=== PATIENT | female | born 1985 | race Caucasian/White ===

== ENCOUNTER 2017-07-07 19:49 | Emergency (ER) | payer SELFPAY ==
[2017-07-07] MEDS ORDERED: NA CHLORIDE 0.9% 0 ML ONE (20:59)
[2017-07-07 21:08] LABS: Urine Blood NEGATIVE (NEG); Urine Glucose NEGATIVE (NEG); Urine Protein TRACE (NEG); Urine Specific Gravity 1.015 (1.005-1.030); Urine pH 8.5 (5.0-7.0)
[2017-07-07 21:26] LABS: Absolute Lymphocytes (CBC) 1.7 K/uL (0.7-4.9); Absolute Monocytes 0.8 K/uL (0.1-1.3); Absolute Neutrophil 6.2 K/uL (1.8-8.0); Basophils % 0.9 % (0-1.3); Eosinophils % 1.3 % (0-4.4); Hematocrit 32.5 % (36.0-45.0); Lymphocytes % 19.5 % (15.3-44.8); MCH 26.4 pg (27.0-35.0); MCV 79.3 fL (80-100); MPV 8.5 fL (7.6-11.3); Monocytes % 8.7 % (3.3-12.3)
[2017-07-07] MEDS ORDERED: NA CHLORIDE 0.9% 1,000 ML ONE (21:32)
[2017-07-07 21:36] LABS: Bicarbonate 27 mEq/L (21-31); Glucose Level 94 mg/dL (65-120); Lipase 32 U/L (22-51); Potassium 3.9 mEq/L (3.6-5.0); Sodium Level 140 mEq/L (135-145)
[2017-07-07 21:42] LABS: ALT/SGPT 16 IU/L (10-60); AST/SGOT 18 IU/L (10-42); Albumin 3.7 g/dL (3.2-5.5); Alkaline Phosphatase 58 IU/L (42-121); Amylase Level 49 U/L (28-100); BUN Blood Urea Nitrogen 12 mg/dL (6-20); Bilirubin Direct 0.1 mg/dL (0-0.2); Bilirubin Total 0.4 mg/dL (0.3-1.2); Protein, Total 6.8 g/dL (6.0-8.3)
[2017-07-07 21:53] LABS: Urine Bacteria <20 /HPF (<20); Urine Culture Reflex Order NOT NEEDED; Urine Mucus 1+ /HPF (NONE SEEN); Urine RBC <5 /HPF (NONE SEEN)
--- NOTE | 2017-07-07 23:10 | EDPHYS ---
Physician Documentation [facility] Name: Elvira Wang Age: 32 yrs Sex: Female : 1985 Arrival Date: 07/07/2017 Time: 19:49 Bed 8 Private MD: Brook Mejia ED Physician Otf Garvey HPI: 07/07 23:03 This 32 yrs old Female presents to ER via Ambulatory with complaints of tw4 Abdominal Swelling, Dizziness. 23:03 The patient presents with generalized weakness. Onset: The symptoms/episode tw4 began/occurred 1 week(s) ago. Context: occurred at home. Modifying factors: The symptoms are alleviated by nothing, the symptoms are aggravated by nothing. Associated signs and symptoms: The patient has no apparent associated signs or symptoms. Severity of symptoms: At their worst the symptoms were mild in the emergency department the symptoms are unchanged. The patient has experienced similar episodes in the past, a few times. 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 - Social history:: Smoking status: Patient/guardian denies using tobacco. ROS: 23:03 Constitutional: Negative for fever, chills, and weight loss, Cardiovascular: Negative tw4 for chest pain, palpitations, and edema, Respiratory: Negative for shortness of breath, cough, wheezing, and pleuritic chest pain, Abdomen/GI: Negative for abdominal pain, nausea, vomiting, diarrhea, and constipation, Back: Negative for injury and pain. 23:03 Neuro: Positive for dizziness, Negative for altered mental status, gait disturbance, headache, hearing loss, loss of consciousness, numbness, tinnitus, tremor. Exam: 23:03 Constitutional: This is a well developed, well nourished patient who is awake, alert, tw4 and in no acute distress. Head/Face: Normocephalic, atraumatic. Chest/axilla: Normal chest wall appearance and motion. Nontender with no deformity. No lesions are appreciated. Cardiovascular: Regular rate and rhythm with a normal S1 and S2. No gallops, murmurs, or rubs. Normal PMI, no JVD. No pulse deficits. Respiratory: Lungs have equal breath sounds bilaterally, clear to auscultation and percussion. No rales, rhonchi or wheezes noted. No increased work of breathing, no retractions or nasal flaring. Abdomen/GI: Soft, non-tender, with normal bowel sounds. No distension or tympany. No guarding or rebound. No evidence of tenderness throughout. Back: No spinal tenderness. No costovertebral tenderness. Full range of motion. MS/ Extremity: Pulses equal, no cyanosis. Neurovascular intact. Full, normal range of motion. Neuro: Awake and alert, GCS 15, oriented to person, place, time, and situation. Cranial nerves II-XII grossly intact. Motor strength 5/5 in all extremities. Sensory grossly intact. Cerebellar exam normal. Normal gait. Vital Signs: 20:16 BP 130 / 76; Pulse 67; Resp 14; Temp 97.8(TE); Pulse Ox 99% on R/A; Weight 90.72 kg lk1 (R); Height 5 ft. 4 in. (162.56 cm) (R); Pain 5/10; 21:44 BP 129 / 89; Pulse 63; Resp 18; Pulse Ox 99% on R/A; mg2 22:50 BP 133 / 89; Pulse 69; Resp 18; Pulse Ox 100% on R/A; mg2 20:16 Body Mass Index 34.33 (90.72 kg, 162.56 cm) lk1 MDM: 20:27 Patient medically screened. tw4 23:03 Differential diagnosis: hyperventilation, idiopathic dizziness, near-syncope, tw4 , vertigo. Data reviewed: vital signs, EMS record. 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 Counseling: I had a detailed discussion with the patient and/or guardian regarding: the historical points, exam findings, and any diagnostic results supporting the discharge/admit diagnosis, lab results. Medication response: IVF hydration. Response to treatment: and as a result, I will discharge patient. Special discussion: I discussed with the patient/guardian in detail that at this point there is no indication for admission to the hospital. It is understood, however, that if the symptoms persist or worsen the patient needs to return immediately for re-evaluation. ED course: pt states she feels well. 07/07 20:45 Order name: Amylase, Serum; Complete Time: 21:51 [facility] 07/07 20:45 Order name: Basic Metabolic Panel; Complete Time: 21:51 [facility] 07/07 21:51 Interpretation: Normal except: CA 8.4. 07/07 20:45 Order name: CBC with Diff; Complete Time: 21:51 [facility] 07/07 21:51 Interpretation: Normal except: HCT 32.5; HGB 10.8; MCV 79.3; MCH 26.4; RDW 15.5. 07/07 20:45 Order name: Creatinine for Radiology; Complete Time: 21:51 [facility] 07/07 21:51 Interpretation: Within normal limits: GFR > 60; CRE 0.57. [facility] 07/07 20:45 Order name: Hepatic Function; Complete Time: 21:51 [facility] 07/07 21:52 Interpretation: Within normal limits. [facility] 07/07 20:45 Order name: Lipase; Complete Time: 21:51 [facility] 07/07 21:52 Interpretation: Within normal limits: LIP 32. 07/07 20:45 Order name: Urine Test (obtain specimen); Complete Time: 20:56 [facility] 07/07 20:45 Order name: Urine Microscopic Only; Complete Time: 22:30 [facility] 07/07 20:45 Order name: IV Saline Lock; Complete Time: 21:43 [facility] 07/07 20:45 Order name: Labs collected and sent; Complete Time: 21:43 [facility] 07/07 20:45 Order name: Urine Dipstick-Ancillary (obtain specimen); Complete Time: 20:56 [facility] 07/07 21:05 Order name: Urine Dipstick--Ancillary (enter results); Complete Time: 21:51 rg2 07/07 21:05 Order name: Urine --Ancillary (enter results); Complete Time: 21:51 rg2 Administered Medications: 21:11 Drug: NS 0.9% 1000 ml Route: IV; Rate: 1 bolus; Site: right antecubital; mg2 23:46 Follow up: Response: No adverse reaction; IV Status: Completed infusion mg2 Disposition: 07/07/17 23:09 Discharged to Home. Impression: Weakness. - Condition is Stable. - Medication Reconciliation Form, Thank You Letter, Antibiotic Education, Prescription Opioid Use form. - Follow up: Brook Mejia; When: As needed; Reason: If symptoms return, Recheck today's complaints, Continuance of care, Re-evaluation by your physician. - Problem is new. - Symptoms have improved. Signatures: Dispatcher [employer] EDIL Denia Villanueva RN RN lk1 Otf Garvey MD MD tw4 Raz Hunt RN RN mg2 Corrections: (The following items were deleted from the chart) 23:47 23:09 07/07/2017 23:09 Discharged to Home. Impression: Weakness. Condition is Stable. mg2 Forms are Medication Reconciliation Form, Thank You Letter, Antibiotic Education, Prescription Opioid Use. Follow up: Brook Mejia; When: As needed; Reason: If symptoms return, Recheck today's complaints, Continuance of care, Re-evaluation by your physician. Problem is new. Symptoms have improved. tw4
--- NOTE | 2017-07-07 23:10 | ER ---
Nurse's Notes [facility] Name: Elvira Wang Age: 32 yrs Sex: Female : 1985 Arrival Date: 07/07/2017 Time: 19:49 Bed 8 Private MD: Brook Mejia Diagnosis: Weakness Presentation: 07/07 20:14 Presenting complaint: Patient states: "I missed work today. I feel fatigued, my period lk1 was on the and only lasted one day. Last week I was in the ER with diarrhea. I get dizzy too.". Transition of care: patient was not received from another setting of care. Onset of symptoms was June 30, 2017. Risk Assessment: Do you want to hurt yourself or someone else? Patient reports no desire to harm self or others. Initial Sepsis Screen: Does the patient meet any 2 criteria? No. Patient's initial sepsis screen is negative. Does the patient have a suspected source of infection? No. Patient's initial sepsis screen is negative. Care prior to arrival: None. 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 - Social history:: Smoking status: Patient/guardian denies using tobacco. Screenin:49 Abuse screen: Denies threats or abuse. Denies injuries from another. Nutritional aa1 screening: No deficits noted. Tuberculosis screening: No symptoms or risk factors identified. Fall Risk None identified. Assessment: 20:49 General: Appears in no apparent distress. comfortable, Behavior is calm, cooperative, aa1 appropriate for age. Pain: Denies pain. Neuro: Level of Consciousness is awake, alert, obeys commands, Oriented to person, place, time, situation, Moves all extremities. Full function Gait is steady. Neuro: Reports dizziness. Cardiovascular: Heart tones S1 S2 present Rhythm is regular. Cardiovascular: Reports fatigue. Respiratory: Airway is patent Respiratory effort is even, unlabored, Respiratory pattern is regular, symmetrical, Breath sounds are clear bilaterally. GI: Abdomen is non-distended, Bowel sounds present X 4 quads. Abd is soft and non tender X 4 quads. Reports diarrhea. : No signs and/or symptoms were reported regarding the genitourinary system. EENT: No signs and/or symptoms were reported regarding the EENT system. Derm: Skin is intact, Skin is pink, warm \\T\\ dry. normal, Skin temperature is warm. Musculoskeletal: Circulation, motion, and sensation intact. Capillary refill < 3 seconds. Vital Signs: 20:16 BP 130 / 76; Pulse 67; Resp 14; Temp 97.8(TE); Pulse Ox 99% on R/A; Weight 90.72 kg lk1 (R); Height 5 ft. 4 in. (162.56 cm) (R); Pain 5/10; 21:44 BP 129 / 89; Pulse 63; Resp 18; Pulse Ox 99% on R/A; mg2 22:50 BP 133 / 89; Pulse 69; Resp 18; Pulse Ox 100% on R/A; mg2 20:16 Body Mass Index 34.33 (90.72 kg, 162.56 cm) lk1 ED Course: 19:49 Patient arrived in ED. am2 19:52 Brook Mejia is Private Physician. am2 20:15 Triage completed. lk1 20:18 Arm band placed on right wrist. lk1 20:25 Karrie Cummins, RN is Primary Nurse. aa1 20:27 Otf Garvey MD is Attending Physician. tw4 20:49 Patient has correct armband on for positive identification. Placed in gown. Bed in low aa1 position. Call light in reach. Pulse ox on. NIBP on. 20:49 Urine collected: clean catch specimen. aa1 21:11 Inserted saline lock: 20 gauge in right antecubital area, using aseptic technique. mg2 Blood collected. 21:43 No provider procedures requiring assistance completed. mg2 23:08 Brook Mejia is Referral Physician. tw4 23:47 IV discontinued, intact, bleeding controlled, No redness/swelling at site. Pressure mg2 dressing applied. Administered Medications: 21:11 Drug: NS 0.9% 1000 ml Route: IV; Rate: 1 bolus; Site: right antecubital; mg2 23:46 Follow up: Response: No adverse reaction; IV Status: Completed infusion mg2 Outcome: 23:09 Discharge ordered by . sara 23:47 Discharged to home ambulatory. mg2 23:47 Condition: stable 23:47 Discharge instructions given to Instructed on discharge instructions, follow up and referral plans. Demonstrated understanding of instructions, follow-up care. 23:47 Patient left the ED. mg2 Signatures: Karrie Cummins RN RN aa1 Denia Villanueva RN RN lk1 Teresa Peralta Terrence, MD MD tw4 Raz Hunt RN RN mg2
[2017-07-08 00:38] VITALS: TEMP 97.8
[2017-07-08 00:40] VITALS: BP 133/89; O2SAT 100
== END 2017-07-07 23:47 | disposition home or self-care (01) ==
LOC: ER 19:49
DX: R53.1 Weakness (principal); I10 Essential (primary) hypertension; Z88.1 Allergy status to other antibiotic agents
CPT/HCPCS: 36415; 80048; 80076; 81003; 81015; 81025; 82150; 83690; 85025; 96360; 96361; 99284; J7030

== ENCOUNTER → 2023-04-06 | Emergency (ER) | payer SELFPAY ==
[~2023-04-06] MED LIST: DIPHENHYDRAMINE 50 MG/ML VIAL ONE; KETOROLAC 30 MG/ML INJ ONE; METOCLOPRAMIDE 10 MG/2mL INJ ONE; NA CHLORIDE 0.9% 1,000 ML ONE
--- OUTSIDE RECORDS SUMMARY | 2023-04-06 18:20 | XMS REPORT | Continuity of Care Document ---
Author Name Unknown Address [address] [facility] [address] [place] [address] [facility] thconnect Address [address] [facility] [address] [place] [address] Care Team Providers Care Activity Manager Name Role Phone ALBERTO Bradshaw [facility], [facility] [place] Care Physician Unavailable RADIOLOGY Attending Clinician Unavailable ELANA HYLTON Attending Clinician Betty vailable OBI-CHELO, CHESTER Attending Clinician Unavailab le OBI-CHELO, CHESTER Attending Clinician Unavailab le Doctor Unassigned, Ponshewaing Attending Clinician U BLESSING Macias Attending Clinician Unavailab Blessing Gutierrez DO Attending Clinician [phone] CORNEL GOODWIN Attending Clinician Unavailable Buddy FIELD PRODUCER, Cornel Attending Clinician [phone] MICHELLE CORDOVA Attending Clinician Unavailable Art FIELD PRODUCER, Michelle Attending Clinician [phone] AKINDAQUAN NIELSEN Attending Clinician Unavail able Juliana FIELD PRODUCER, Vannesa Attending Clinician [phone] VANNESA ANDREWS Attending Clinician Unavailable Shaheed FIELD PRODUCER, Ned Floyd Attending Clinician [phone] BLANCA CAMARGO Attending Clinician Unavailable Moni EARLY HEAD START TEACHER, Blanca Washburn Attending Clinician [phone] Hannah HUNG, Saige Mi Attending Clinician [phone] Waldo Vivas Attending Clinician [phone] Skyler Villalobos MD Attending Clinician [phone] Mukund HUNG, Rachel Xiong Attending Clinician Unav ailable MORTEZA ROTH Attending Clinician Unavail able VAN MOORE Attending Clinician Unavailable Gonzalez DO, Morteza Kraft Attending Clinician [phone] Akinvelasquez [facility] Daquan Morgan Attending Clinician + NED VALENCIA Attending Clinician Unavailab SHAR Hester Attending Clinician Unavailodessa Rodriguez CNP, Stephanie Perez Attending Clinician [phone] [facility], [facility] Attending Clinician Unavailable Jaciel Quiles MD Attending Clinician [phone] Aj HUNG, Abigail Robins Attending Clinician Unavaila Kelly Sanchez RN Attending Clinician Betty vailable Ultrasound, [facility] Attending Clinician Unavaila Harjeet Pickard MD Attending Clinician [phone] Avitia FIELD PRODUCER, Alley Attending Clinician [phone] Unknown, Attending Attending Clinician Unavailab le UNKNOWN, ATTENDING Attending Clinician Unavailab WILL Melchor Attending Clinician Unavailable Cinthia PAC, Dali S Attending Clinician [phone] LARRY BAIN Attending Clinician Unavailable LARRY BAIN Attending Clinician Unavailable Bess Kilpatrick Attending Clinician [phone] 1, [facility] Attending Clinician Unavailab Louis HICKS, Jessica Attending Clinician [phone] Rowan Roth MD Attending Clinician [phone] Risk, Eff-Hxoif-Zc/High Attending Clinician Unav ailable Felicitas Greenwood RN, Meli Attending Clinician Unavailable Umberto Lubin DO Attending Clinician [phone] CORNEL GOODWIN Admitting Clinician Unavailable MICHELLE CORDOVA Admitting Clinician Unavailable BLANCA CAMARGO Admitting Clinician Unavailable Skyler Villalobos MD Admitting Clinician [phone] SKYLER VILLALOBOS Admitting Clinician Unavailable Payers Payer Name Policy Type Policy Number Effective Date Expirati on Date Source [facility] [id number] 2019 00:00:00 [place] [id number] 2019 00:00:00 [facility] [employer] O [id number] 2022 00:00:00 [facility] [id number] 2019 00:00:00 Problems Condition Name Condition Details Condition Category Status Onset Date Resolution Date Last Treatment Date Treating Clinician Comments Source Pneumonia Pneumonia Disease Active 2020-02 00:00: 00 [facility] Elevated blood sugar Elevated blood sugar Disease Active 03-21 00:00: 00 [facility] (spontaneo us vaginal delivery) (spontaneo us vaginal delivery) Disease Active 2019-02 00:00: 00 [facility] Single live Single live Disease Active 2019-02 00:00: 00 [facility] 39 weeks gestation of 39 weeks gestation of Disease Active 2019-02 00:00: 00 [facility] Obesity (BMI 30-39.9) Obesity (BMI 30-39.9) Disease Active 2019-02 00:00: 00 [facility] Vaginal odor Vaginal odor Disease Active 08-09 00:00: 00 [facility] 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 Address pp [facility] Asthma during Asthma during Disease Active 07-08 00:00: 00 [facility] Supervisio n of high-risk of elderly multigravi da Supervisio n of high-risk of elderly multigravi da Disease Active 07-08 00:00: 00 [facility] Multiparit y Multiparit y Disease Active 07-08 00:00: 00 [facility] Short interval between pregnancie s affecting , antepartum Short interval between pregnancie s affecting , antepartum Disease Active 07-08 00:00: 00 [facility] History of delivery History of delivery Disease Active 07-08 00:00: 00 Overview: Formattin g of this note might be different from the original. Due to preeclamp aye [facility] History of pre-eclamp aye History of pre-eclamp aye Disease Active 07-08 00:00: 00 [facility] Hypertensi on in , pre-existi ng, antepartum Hypertensi on in , pre-existi ng, antepartum Disease Active 07-08 00:00: 00 [facility] AMA (advanced maternal age) multigravi da 35+ AMA (advanced maternal age) multigravi da 35+ Disease Active 07-08 00:00: 00 [facility] Encounter for other general counseling or advice on contracept ion Encounter for other general counseling or advice on contracept ion Disease Active 08-07 00:00: 00 [facility] Class 1 obesity due to excess calories with serious comorbidit y and body mass index (BMI) of 34.0 to 34.9 in adult Class 1 obesity due to excess calories with serious comorbidit y and body mass index (BMI) of 34.0 to 34.9 in adult Disease Active 05-18 00:00: 00 [facility] Class 1 obesity due to excess calories with serious comorbidit y and body mass index (BMI) of 34.0 to 34.9 in adult Class 1 obesity due to excess calories with serious comorbidit y and body mass index (BMI) of 34.0 to 34.9 in adult Disease Active 05-18 00:00: 00 [facility] Heartburn Heartburn Disease Active 05-12 00:00: 00 [facility] Well woman exam Well woman exam Disease Active 06-20 00:00: 00 [facility] Depression Depression Disease Active 05-14 00:00: 00 [facility] Generalize d anxiety disorder Generalize d anxiety disorder Disease Active 05-14 00:00: 00 [facility] Allergies, Adverse Reactions, Alerts Allergy Name Allergy Type Status Severity Reaction(s) Onset Date Inactive Date Treating Clinician Comments Source [place] - Intraven ous Propensi ty to adverse reaction to drug Active 08-16 00:00: 00 Azithrom ycin Propensi ty to adverse reaction s Active Nausea and/or Vomiting 2017-02 00:00: 00 [facility] AZITHROM YCIN DRUG INGREDI Active N/V 2017-02 00:00: 00 [facility] Amoxicil reanna Propensi ty to adverse reaction s Active Nausea and/or Vomiting 05-12 00:00: 00 [facility] AMOXICIL REANNA DRUG INGREDI Active N/V 05-12 00:00: 00 [facility] Social History Social Habit Start Date Stop Date Quantity Comments Source History of tobacco use Passive smoker [facility] ASSERTION [facility] Alcohol intake 2022-10-19 00:00:00 2022-10-19 00:00:00 Current non-drinker of alcohol (finding) [facility] Exposure to SARS-CoV-2 (event) 2021-11-29 00:00:00 2021-12-09 09:18:00 Not sure [facility] History of Social function 2020-03-21 00:00:00 2020-03-21 00:00:00 [facility] Tobacco use and exposure 2020-03-21 00:00:00 2020-03-21 00:00:00 Smokeless tobacco non-user [facility] History SDOH Financial 2020-02-03 00:00:00 2020-02-03 00:00:00 5 [facility] Sex Assigned At 1985 00:00:00 1985 00:00:00 [facility] Smoking Status Start Date Stop Date Source Never smoked tobacco [facility] Medications Ordered Medication Name Filled Medication Name Start Date Stop Date Current Medication? Ordering Clinician Indication Dosage Frequency Signature (SIG) Comments Components Source predniSONE 50 mg tablet 10-20 00:00: 00 10-25 04:59 :00 No [id number] 50mg Take 1 tablet by mouth in the morning for 4 days. [facility] albuterol (PROVENTIL) 2.5 mg /3 mL (0.083 %) nebulizer solution 7.5 mg 10-19 21:00: 00 10-19 20:18 :00 No 7.5mg 7.5 mg, Inhalation , ONCE, 1 dose, On 10/19/22 at 1600, [facility] ipratropium (ATROVENT) 0.02 % nebulizer solution 0.5 mg 10-19 21:00: 00 10-19 20:18 :00 No .5mg 0.5 mg, Inhalation , ONCE, 1 dose, On 10/19/22 at 1600, [facility] predniSONE (DELTASONE) tablet 50 mg 10-19 20:15: 00 10-19 20:12 :00 No 50mg 50 mg, Oral, ONCE, 1 dose, On 10/19/22 at 1515, [facility] ketorolac (TORADOL) injection 30 mg 06-12 18:30: 00 06-12 18:32 :00 No 30mg 30 mg, Intramuscu lar, ONCE, 1 dose, On Fri06/12/22 at 1330, [facility] ketorolac 10 mg tablet 06-12 00:00: 00 Yes [id number] 10mg Take 1 tablet by mouth every 6 (six) hours as needed for Pain (scale 1-3) or Pain (scale 4-6). [facility] tamsulosin 0.4 mg 24 hr capsule 06-12 00:00: 00 Yes [id number] .4mg Take 1 capsule by mouth at bedtime. [facility] ketorolac 10 mg tablet 06-12 00:00: 00 Yes [id number] 10mg Take 1 tablet by mouth every 6 (six) hours as needed for Pain (scale 1-3) or Pain (scale 4-6). [facility] tamsulosin 0.4 mg 24 hr capsule 06-12 00:00: 00 Yes [id number] .4mg Take 1 capsule by mouth at bedtime. [facility] ketorolac 10 mg tablet 06-12 00:00: 00 Yes [id number] 10mg Take 1 tablet by mouth every 6 (six) hours as needed for Pain (scale 1-3) or Pain (scale 4-6). [facility] tamsulosin 0.4 mg 24 hr capsule 06-12 00:00: 00 Yes [id number] .4mg Take 1 capsule by mouth at bedtime. [facility] acetaminoph en-codeine 300-30 mg tablet 06-12 00:00: 00 06-20 04:59 :00 No [id number] 1{tbl} Take 1 tablet by mouth every 4 (four) hours as needed for Pain (scale 7-10) for up to 7 days. Indication s: acute pain [facility] iopamidol (ISOVUE 370-500 mL) injection 80 mL 2021-02 15:00: 00 12-09 15:15 :00 No [id number] 80mL 80 mL, Intravenou s, ONCE, 1 dose, On Fri12/09/21 at 1015, Routine [facility] NaCl 0.9% (NS) bolus infusion 1,000 mL 2021-02 14:45: 00 12-09 15:20 :00 No 1000mL at 999 mL/hr, 1,000 mL, IV Infusion, ONCE, 1 dose, On Fri12/09/21 at 0945, [facility] pantoprazol e (PROTONIX) injection 40 mg 2021-02 14:15: 00 12-09 14:16 :00 No 40mg 40 mg, Slow IV Push, ONCE, 1 dose, On Fri12/09/21 at 0915 [facility] ketorolac (TORADOL) injection 30 mg 2021-02 14:15: 00 12-09 14:18 :00 No 30mg 30 mg, Slow IV Push, ONCE, 1 dose, On Fri12/09/21 at 0915, Routine [facility] ondansetron (ZOFRAN (PF)) injection 4 mg 2021-02 14:15: 00 12-09 14:16 :00 No 4mg 4 mg, Slow IV Push, ONCE, 1 dose, On Fri12/09/21 at 0915, [facility] dicyclomine 20 mg tablet 2021-02 00:00: 00 Yes [id number] 20mg Take 1 tablet by mouth 4 (four) times daily as needed for Abdominal pain. [facility] ondansetron 4 mg disintegrat ing tablet 2021-02 00:00: 00 Yes [id number] 4mg Take 1 tablet by mouth every 8 (eight) hours as needed for Nausea and Vomiting (N/V). [facility] dicyclomine 20 mg tablet 2021-02 00:00: 00 Yes [id number] 20mg Take 1 tablet by mouth 4 (four) times daily as needed for Abdominal pain. [facility] ondansetron 4 mg disintegrat ing tablet 2021-02 00:00: 00 Yes [id number] 4mg Take 1 tablet by mouth every 8 (eight) hours as needed for Nausea and Vomiting (N/V). [facility] dicyclomine 20 mg tablet 2021-02 0 00:00: 00 Yes [id number] 20mg Take 1 tablet by mouth 4 (four) times daily as needed for Abdominal pain. [facility] ondansetron 4 mg disintegrat ing tablet 2021-02 0 00:00: 00 Yes [id number] 4mg Take 1 tablet by mouth every 8 (eight) hours as needed for Nausea and Vomiting (N/V). [facility] dicyclomine 20 mg tablet 2021-02 00:00: 00 Yes [id number] 20mg Take 1 tablet by mouth 4 (four) times daily as needed for Abdominal pain. [facility] ondansetron 4 mg disintegrat ing tablet 2021-02 00:00: 00 Yes [id number] 4mg Take 1 tablet by mouth every 8 (eight) hours as needed for Nausea and Vomiting (N/V). [facility] Dose Unknown 2-0 9-20 00:00: 00 No METHYLPRED TAB 4MG 2-0 9-20 00:00: 00 No Dose Unknown 2-0 -20 00:00: 00 No METHYLPRED TAB 4MG 2-0 9-20 00:00: 00 No Dose Unknown 2-0 9-20 00:00: 00 No METHYLPRED TAB 4MG 2-0 9-20 00:00: 00 No Dose Unknown 2-0 9-20 00:00: 00 No METHYLPRED TAB 4MG 2-0 9-20 00:00: 00 No &lt 2022-0 8-12 00:00: 00 No 4 &lt 2022-0 8-12 00:00: 00 No 4 &lt 2022-0 8-12 00:00: 00 No 4 &lt 2022-0 8-12 00:00: 00 No 4 &lt 2022-0 8-11 00:00: 00 No 10 Dose Unknown 2022-0 8-11 00:00: 00 No 4 &lt 2022-0 8-11 00:00: 00 No 20 &lt 2022-0 8-11 00:00: 00 No &lt 2022-0 8-11 00:00: 00 No Dose Unknown 2022-0 8-11 00:00: 00 No 10 Dose Unknown 2022-0 8-11 00:00: 00 No 800 Dose Unknown 2022-0 8-11 00:00: 00 No 250 &lt 2022-0 8-11 00:00: 00 No 60 TAKE 1 TABLET BY MOUTH EVERY 12 HOURS 2022-0 8-11 00:00: 00 No 250 Dose Unknown 2022-0 8-11 00:00: 00 No 25 Dose Unknown 2022-0 8-11 00:00: 00 No &lt 2022-0 8-11 00:00: 00 No 10 Dose Unknown 2022-0 8-11 00:00: 00 No 4 &lt 2022-0 8-11 00:00: 00 No 20 &lt 2022-0 8-11 00:00: 00 No &lt 2022-0 8-11 00:00: 00 No Dose Unknown 2022-0 8-11 00:00: 00 No 10 Dose Unknown 2022-0 8-11 00:00: 00 No 800 Dose Unknown 2022-0 8-11 00:00: 00 No 250 &lt 2022-0 8-11 00:00: 00 No 60 TAKE 1 TABLET BY MOUTH EVERY 12 HOURS 2022-0 8-11 00:00: 00 No 250 Dose Unknown 2022-0 8-11 00:00: 00 No 25 Dose Unknown 2022-0 8-11 00:00: 00 No &lt 2022-0 8-11 00:00: 00 No 10 Dose Unknown 2022-0 8-11 00:00: 00 No 4 &lt 2022-0 8-11 00:00: 00 No 20 &lt 2022-0 8-11 00:00: 00 No &lt 2022-0 8-11 00:00: 00 No Dose Unknown 2022-0 8-11 00:00: 00 No 10 Dose Unknown 2022-0 8-11 00:00: 00 No 800 Dose Unknown 2022-0 8-11 00:00: 00 No 250 &lt 2022-0 8-11 00:00: 00 No 60 TAKE 1 TABLET BY MOUTH EVERY 12 HOURS 2022-0 8-11 00:00: 00 No 250 Dose Unknown 2022-0 8-11 00:00: 00 No 25 Dose Unknown 2022-0 8-11 00:00: 00 No &lt 2022-0 8-11 00:00: 00 No 10 Dose Unknown 2022-0 8-11 00:00: 00 No 4 &lt 2022-0 8-11 00:00: 00 No 20 &lt 2022-0 8-11 00:00: 00 No &lt 2022-0 8-11 00:00: 00 No Dose Unknown 2022-0 8-11 00:00: 00 No 10 Dose Unknown 2022-0 8-11 00:00: 00 No 800 Dose Unknown 2022-0 8-11 00:00: 00 No 250 &lt 2022-0 8-11 00:00: 00 No 60 TAKE 1 TABLET BY MOUTH EVERY 12 HOURS 2022-0 8-11 00:00: 00 No 250 Dose Unknown 2022-0 8-11 00:00: 00 No 25 Dose Unknown 2022-0 8-11 00:00: 00 No &lt 2022-0 8-11 00:00: 00 No 10 Dose Unknown 2022-0 8-11 00:00: 00 No 4 &lt 2022-0 8-11 00:00: 00 No 20 &lt 2022-0 8-11 00:00: 00 No &lt 2022-0 8-11 00:00: 00 No Dose Unknown 2022-0 8-11 00:00: 00 No 10 Dose Unknown 2022-0 8-11 00:00: 00 No 800 Dose Unknown 2022-0 8-11 00:00: 00 No 250 &lt 2022-0 8-11 00:00: 00 No 60 TAKE 1 TABLET BY MOUTH EVERY 12 HOURS 2022-0 8-11 00:00: 00 No 250 Dose Unknown 2022-0 8-11 00:00: 00 No 25 Dose Unknown 2022-0 8-11 00:00: 00 No TAKE 1 TABLET BY MOUTH DAILY 2022-0 8-10 00:00: 00 No 20 TAKE 1 TABLET BY MOUTH DAILY 2022-0 8- 00:00: 00 No 20 TAKE 1 TABLET BY MOUTH DAILY 2022-0 8-10 00:00: 00 No 20 TAKE 1 TABLET BY MOUTH DAILY 2022-0 8- 00:00: 00 No 20 TAKE 1 TABLET BY MOUTH DAILY 2022-0 8-10 00:00: 00 No 20 Dose Unknown 2022-0 8-09 00:00: 00 No 30 Dose Unknown 2022-0 8-09 00:00: 00 No 30 Dose Unknown 2022-0 8-09 00:00: 00 No 30 Dose Unknown 2022-0 8- 00:00: 00 No 30 Dose Unknown 2022-0 8- 00:00: 00 No 30 TAKE 1 TABLET BY MOUTH EVERY 24 HOURS FOR 5 DAYS 2022-0 8-08 00:00: 00 No 500 TAKE 1 TABLET BY MOUTH EVERY 24 HOURS FOR 5 DAYS 2022-0 8- 00:00: 00 No 500 TAKE 1 TABLET BY MOUTH EVERY 24 HOURS FOR 5 DAYS 2022-0 8- 00:00: 00 No 500 TAKE 1 TABLET BY MOUTH EVERY 24 HOURS FOR 5 DAYS 2022-0 8- 00:00: 00 No 500 TAKE 1 TABLET BY MOUTH EVERY 24 HOURS FOR 5 DAYS 2022-0 8-08 00:00: 00 No 500 &lt 2022-0 8-06 00:00: 00 No 10 &lt 2022-0 8-06 00:00: 00 No 10 &lt 2022-0 8-06 00:00: 00 No 10 &lt 2022-0 8-06 00:00: 00 No 10 &lt 2022-0 8-06 00:00: 00 No 10 &lt 2022-0 8-05 00:00: 00 No 20 &lt 2022-0 8-05 00:00: 00 No 4 Dose Unknown 2022-0 8-05 00:00: 00 No 250 TAKE 1 TABLET BY MOUTH EVERY 12 HOURS NEEDED FOR PAIN 2022-0 8-05 00:00: 00 No 800 &lt 2022-0 8-05 00:00: 00 No 10 Dose Unknown 2022-0 8-05 00:00: 00 No 100 &lt 2022-0 8-05 00:00: 00 No 20 &lt 2022-0 8-05 00:00: 00 No 4 Dose Unknown 2022-0 8-05 00:00: 00 No 250 TAKE 1 TABLET BY MOUTH EVERY 12 HOURS NEEDED FOR PAIN 2022-0 8-05 00:00: 00 No 800 &lt 2022-0 8-05 00:00: 00 No 10 Dose Unknown 2022-0 8-05 00:00: 00 No 100 &lt 2022-0 8-05 00:00: 00 No 20 &lt 2022-0 8-05 00:00: 00 No 4 Dose Unknown 2022-0 8-05 00:00: 00 No 250 TAKE 1 TABLET BY MOUTH EVERY 12 HOURS NEEDED FOR PAIN 2022-0 8-05 00:00: 00 No 800 &lt 2022-0 8-05 00:00: 00 No 10 Dose Unknown 2022-0 8-05 00:00: 00 No 100 &lt 2022-0 8-05 00:00: 00 No 20 &lt 2022-0 8-05 00:00: 00 No 4 Dose Unknown 2022-0 8-05 00:00: 00 No 250 TAKE 1 TABLET BY MOUTH EVERY 12 HOURS NEEDED FOR PAIN 2022-0 8-05 00:00: 00 No 800 &lt 2022-0 8-05 00:00: 00 No 10 Dose Unknown 2022-0 8-05 00:00: 00 No 100 &lt 2022-0 8-05 00:00: 00 No 20 &lt 2022-0 8-05 00:00: 00 No 4 Dose Unknown 2022-0 8-05 00:00: 00 No 250 TAKE 1 TABLET BY MOUTH EVERY 12 HOURS NEEDED FOR PAIN 2022-0 8-05 00:00: 00 No 800 &lt 2022-0 8-05 00:00: 00 No 10 Dose Unknown 2022-0 8-05 00:00: 00 No 100 &lt 2022-0 8-05 00:00: 00 No 20 &lt 2022-0 8-05 00:00: 00 No 4 Dose Unknown 2022-0 8-05 00:00: 00 No 250 TAKE 1 TABLET BY MOUTH EVERY 12 HOURS NEEDED FOR PAIN 2022-0 8-05 00:00: 00 No 800 &lt 2022-0 8-05 00:00: 00 No 10 Dose Unknown 2022-0 8-05 00:00: 00 No 100 Singulair 10 mg tablet 2-0 8-04 00:00: 00 No 1mg TAKE 1 TABLET BY MOUTH DAILY 2-0 8-04 00:00: 00 No 10 FOLLOW PACKAGE DIRECTIONS 2022-0 8-04 00:00: 00 No 4 Singulair 10 mg tablet 0 8 00:00: 00 No 1mg TAKE 1 TABLET BY MOUTH DAILY 0 8- 00:00: 00 No 10 FOLLOW PACKAGE DIRECTIONS 0 8- 00:00: 00 No 4 Singulair 10 mg tablet 0 8- 00:00: 00 No 1mg TAKE 1 TABLET BY MOUTH DAILY 0 8- 00:00: 00 No 10 FOLLOW PACKAGE DIRECTIONS 0 8- 00:00: 00 No 4 Singulair 10 mg tablet 0 8 00:00: 00 No 1mg TAKE 1 TABLET BY MOUTH DAILY 0 8 00:00: 00 No 10 FOLLOW PACKAGE DIRECTIONS 0 8 00:00: 00 No 4 Singulair 10 mg tablet 0 8- 00:00: 00 No 1mg TAKE 1 TABLET BY MOUTH DAILY 0 8- 00:00: 00 No 10 FOLLOW PACKAGE DIRECTIONS 0 8- 00:00: 00 No 4 Singulair 10 mg tablet 0 8 00:00: 00 No 1mg TAKE 1 TABLET BY MOUTH DAILY 0 8 00:00: 00 No 10 FOLLOW PACKAGE DIRECTIONS 0 8- 00:00: 00 No 4 TAKE 1 TABLET BY MOUTH EVERY 12 HOURS 2021-0 7 00:00: 00 No 250 TAKE 1 TABLET BY MOUTH EVERY 12 HOURS 2021-0 721 00:00: 00 No 250 TAKE 1 TABLET BY MOUTH EVERY 12 HOURS 2021-0 7 00:00: 00 No 250 TAKE 1 TABLET BY MOUTH EVERY 12 HOURS 2021-0 7 00:00: 00 No 250 TAKE 1 TABLET BY MOUTH EVERY 12 HOURS 2021-0 7 00:00: 00 No 250 TAKE 1 TABLET BY MOUTH EVERY 12 HOURS 2021-0 7 00:00: 00 No 250 &lt 2021-0 720 00:00: 00 No 250 Dose Unknown 2021-0 720 00:00: 00 No 20 &lt 2022-0 7-20 00:00: 00 No 250 Dose Unknown 2021-0 720 00:00: 00 No 20 &lt 2022-0 7-20 00:00: 00 No 250 Dose Unknown 2022-0 7-20 00:00: 00 No 20 &lt 2022-0 7-20 00:00: 00 No 250 Dose Unknown 2022-0 7-20 00:00: 00 No 20 &lt 2022-0 7-20 00:00: 00 No 250 Dose Unknown 2022-0 7-20 00:00: 00 No 20 &lt 2022-0 7-20 00:00: 00 No 250 Dose Unknown 2022-0 7-20 00:00: 00 No 20 &lt 2022-0 7-19 00:00: 00 No Dose Unknown 2022-0 7-19 00:00: 00 No 800 TAKE 1 TABLET BY MOUTH EVERY 6 HOURS NEEDED FOR ITCHING OR ANXIETY 2022-0 7-19 00:00: 00 No 25 TAKE 10 ML BY MOUTH EVERY 4 TO 6 HOURS 2022-0 7-19 00:00: 00 No FOLLOW PACKAGE DIRECTIONS 2022-0 7-19 00:00: 00 No 4 TAKE 1 TABLET BY MOUTH EVERY 12 HOURS NEEDED FOR PAIN 2022-0 7-19 00:00: 00 No 800 &lt 2022-0 7-19 00:00: 00 No 100 &lt 2022-0 7-19 00:00: 00 No Dose Unknown 2022-0 7-19 00:00: 00 No 800 TAKE 1 TABLET BY MOUTH EVERY 6 HOURS NEEDED FOR ITCHING OR ANXIETY 2022-0 7-19 00:00: 00 No 25 TAKE 10 ML BY MOUTH EVERY 4 TO 6 HOURS 2022-0 7-19 00:00: 00 No FOLLOW PACKAGE DIRECTIONS 2022-0 7-19 00:00: 00 No 4 TAKE 1 TABLET BY MOUTH EVERY 12 HOURS NEEDED FOR PAIN 2022-0 7-19 00:00: 00 No 800 &lt 2022-0 7-19 00:00: 00 No 100 &lt 2022-0 7-19 00:00: 00 No Dose Unknown 2022-0 7-19 00:00: 00 No 800 TAKE 1 TABLET BY MOUTH EVERY 6 HOURS NEEDED FOR ITCHING OR ANXIETY 2022-0 7-19 00:00: 00 No 25 TAKE 10 ML BY MOUTH EVERY 4 TO 6 HOURS 2022-0 7-19 00:00: 00 No FOLLOW PACKAGE DIRECTIONS 2022-0 7-19 00:00: 00 No 4 TAKE 1 TABLET BY MOUTH EVERY 12 HOURS NEEDED FOR PAIN 2022-0 7-19 00:00: 00 No 800 &lt 2022-0 7-19 00:00: 00 No 100 &lt 2022-0 7-19 00:00: 00 No Dose Unknown 2022-0 7-19 00:00: 00 No 800 TAKE 1 TABLET BY MOUTH EVERY 6 HOURS NEEDED FOR ITCHING OR ANXIETY 2022-0 7-19 00:00: 00 No 25 TAKE 10 ML BY MOUTH EVERY 4 TO 6 HOURS 2022-0 7-19 00:00: 00 No FOLLOW PACKAGE DIRECTIONS 2022-0 7-19 00:00: 00 No 4 TAKE 1 TABLET BY MOUTH EVERY 12 HOURS NEEDED FOR PAIN 2022-0 7-19 00:00: 00 No 800 &lt 2022-0 7-19 00:00: 00 No 100 &lt 2022-0 7-19 00:00: 00 No Dose Unknown 2022-0 7-19 00:00: 00 No 800 TAKE 1 TABLET BY MOUTH EVERY 6 HOURS NEEDED FOR ITCHING OR ANXIETY 2022-0 7-19 00:00: 00 No 25 TAKE 10 ML BY MOUTH EVERY 4 TO 6 HOURS 2022-0 7-19 00:00: 00 No FOLLOW PACKAGE DIRECTIONS 2022-0 7-19 00:00: 00 No 4 TAKE 1 TABLET BY MOUTH EVERY 12 HOURS NEEDED FOR PAIN 2022-0 7-19 00:00: 00 No 800 &lt 2022-0 7-19 00:00: 00 No 100 &lt 2022-0 7-19 00:00: 00 No Dose Unknown 2022-0 719 00:00: 00 No 800 TAKE 1 TABLET BY MOUTH EVERY 6 HOURS NEEDED FOR ITCHING OR ANXIETY 2022-0 7-19 00:00: 00 No 25 TAKE 10 ML BY MOUTH EVERY 4 TO 6 HOURS 2022-0 7-19 00:00: 00 No FOLLOW PACKAGE DIRECTIONS 2022-0 -19 00:00: 00 No 4 TAKE 1 TABLET BY MOUTH EVERY 12 HOURS NEEDED FOR PAIN 2022-0 7-19 00:00: 00 No 800 &lt 2022-0 7-19 00:00: 00 No 100 &lt 2022-0 7-19 00:00: 00 No Dose Unknown 2022-0 7-19 00:00: 00 No 800 TAKE 1 TABLET BY MOUTH EVERY 6 HOURS NEEDED FOR ITCHING OR ANXIETY 2022-0 7-19 00:00: 00 No 25 TAKE 10 ML BY MOUTH EVERY 4 TO 6 HOURS 2022-0 7-19 00:00: 00 No FOLLOW PACKAGE DIRECTIONS 2022-0 7-19 00:00: 00 No 4 TAKE 1 TABLET BY MOUTH EVERY 12 HOURS NEEDED FOR PAIN 2022-0 7-19 00:00: 00 No 800 &lt 2022-0 7-19 00:00: 00 No 100 &lt 2022-0 7-10 00:00: 00 No 10 &lt 2022-0 7-10 00:00: 00 No 10 &lt 2022-0 7-10 00:00: 00 No 10 &lt 2022-0 7-10 00:00: 00 No 10 &lt 2022-0 7-10 00:00: 00 No 10 &lt 2022-0 7-10 00:00: 00 No 10 &lt 2022-0 7-10 00:00: 00 No 10 &lt 2022-0 7-10 00:00: 00 No 10 &lt 2022-0 7-08 00:00: 00 No 800 &lt 2022-0 7-08 00:00: 00 No 20 &lt 2022-0 7-08 00:00: 00 No 4 &lt 2022-0 7-08 00:00: 00 No 800 &lt 2022-0 7-08 00:00: 00 No 20 &lt 2022-0 7-08 00:00: 00 No 4 &lt 2022-0 7-08 00:00: 00 No 800 &lt 2022-0 7-08 00:00: 00 No 20 &lt 2022-0 7-08 00:00: 00 No 4 &lt 2022-0 7-08 00:00: 00 No 800 &lt 2022-0 7-08 00:00: 00 No 20 &lt 2022-0 7-08 00:00: 00 No 4 &lt 2022-0 7-08 00:00: 00 No 800 &lt 2022-0 7-08 00:00: 00 No 20 &lt 2022-0 7-08 00:00: 00 No 4 &lt 2022-0 7-08 00:00: 00 No 800 &lt 2022-0 7-08 00:00: 00 No 20 &lt 2022-0 08-24 00:00: 00 No 4 &lt 2022-0 08-24 00:00: 00 No 800 &lt 2021-0 08-24 00:00: 00 No 20 &lt 2-0 08-24 00:00: 00 No 4 &lt 2022-0 08-24 00:00: 00 No 800 &lt 2-0 08-24 00:00: 00 No 20 &lt 2022-0 08-24 00:00: 00 No 4 TAKE 1 TABLET BY MOUTH DAILY 0 08-23 00:00: 00 No 20 &lt 2-0 08-23 00:00: 00 No 10 &lt 2-0 08-23 00:00: 00 No 10 &lt 2021-0 08-23 00:00: 00 No 100 TAKE 2 TABLETS BY MOUTH TODAY FOR 1 DOSE THEN TAKE 1 TABLET BY MOUTH DAILY FOR 4 DAYS 08-23 00:00: 00 No 250 &lt 2021-0 08-23 00:00: 00 No 30 TAKE 1 TABLET BY MOUTH DAILY NEEDED 0 08-23 00:00: 00 No 40 TAKE 1 TABLET BY MOUTH EVERY 12 HOURS NEEDED FOR PAIN 0 08-23 00:00: 00 No 800 TAKE 2 TABLETS BY MOUTH TODAY FOR 1 DOSE THEN TAKE 1 TABLET BY MOUTH DAILY FOR 4 DAYS 08-23 00:00: 00 No 250 &lt 2021-0 08-23 00:00: 00 No 800 FOLLOW PACKAGE DIRECTIONS 0 08-23 00:00: 00 No 4 USE 3 ML VIA NEBULIZER EVERY 6 HOURS NEEDED FOR WHEEZING OR SHORTNESS OF BREATH. MAY ALSO VIA NEBULIZER 1 EXTRA EVERY 6 HOURS 0 08-23 00:00: 00 No TAKE 1 TABLET BY MOUTH DAILY 08-23 00:00: 00 No 20 &lt 2021-0 08-23 00:00: 00 No 10 &lt 2021-0 08-23 00:00: 00 No 10 &lt 2-0 08-23 00:00: 00 No 100 TAKE 2 TABLETS BY MOUTH TODAY FOR 1 DOSE THEN TAKE 1 TABLET BY MOUTH DAILY FOR 4 DAYS 08-23 00:00: 00 No 250 &lt 0 08-23 00:00: 00 No 30 TAKE 1 TABLET BY MOUTH DAILY NEEDED 08-23 00:00: 00 No 40 TAKE 1 TABLET BY MOUTH EVERY 12 HOURS NEEDED FOR PAIN 08-23 00:00: 00 No 800 TAKE 2 TABLETS BY MOUTH TODAY FOR 1 DOSE THEN TAKE 1 TABLET BY MOUTH DAILY FOR 4 DAYS 08-23 00:00: 00 No 250 &lt 0 08-23 00:00: 00 No 800 FOLLOW PACKAGE DIRECTIONS 0 08-23 00:00: 00 No 4 USE 3 ML VIA NEBULIZER EVERY 6 HOURS NEEDED FOR WHEEZING OR SHORTNESS OF BREATH. MAY ALSO VIA NEBULIZER 1 EXTRA EVERY 6 HOURS 08-23 00:00: 00 No TAKE 1 TABLET BY MOUTH DAILY 08-23 00:00: 00 No 20 &lt 0 08-23 00:00: 00 No 10 &lt 0 08-23 00:00: 00 No 10 &lt 0 08-23 00:00: 00 No 100 TAKE 2 TABLETS BY MOUTH TODAY FOR 1 DOSE THEN TAKE 1 TABLET BY MOUTH DAILY FOR 4 DAYS 08-23 00:00: 00 No 250 &lt 0 08-23 00:00: 00 No 30 TAKE 1 TABLET BY MOUTH DAILY NEEDED 08-23 00:00: 00 No 40 TAKE 1 TABLET BY MOUTH EVERY 12 HOURS NEEDED FOR PAIN 08-23 00:00: 00 No 800 TAKE 2 TABLETS BY MOUTH TODAY FOR 1 DOSE THEN TAKE 1 TABLET BY MOUTH DAILY FOR 4 DAYS 08-23 00:00: 00 No 250 &lt 0 08-23 00:00: 00 No 800 FOLLOW PACKAGE DIRECTIONS 08-23 00:00: 00 No 4 USE 3 ML VIA NEBULIZER EVERY 6 HOURS NEEDED FOR WHEEZING OR SHORTNESS OF BREATH. MAY ALSO VIA NEBULIZER 1 EXTRA EVERY 6 HOURS 08-23 00:00: 00 No TAKE 1 TABLET BY MOUTH DAILY 08-23 00:00: 00 No 20 &lt 2021-0 08-23 00:00: 00 No 10 &lt 2021-0 08-23 00:00: 00 No 10 &lt 202108-23 00:00: 00 No 100 TAKE 2 TABLETS BY MOUTH TODAY FOR 1 DOSE THEN TAKE 1 TABLET BY MOUTH DAILY FOR 4 DAYS 08-23 00:00: 00 No 250 &lt 08-23 00:00: 00 No 30 TAKE 1 TABLET BY MOUTH DAILY NEEDED 08-23 00:00: 00 No 40 TAKE 1 TABLET BY MOUTH EVERY 12 HOURS NEEDED FOR PAIN 08-23 00:00: 00 No 800 TAKE 2 TABLETS BY MOUTH TODAY FOR 1 DOSE THEN TAKE 1 TABLET BY MOUTH DAILY FOR 4 DAYS 08-23 00:00: 00 No 250 &lt 0 08-23 00:00: 00 No 800 FOLLOW PACKAGE DIRECTIONS 08-23 00:00: 00 No 4 USE 3 ML VIA NEBULIZER EVERY 6 HOURS NEEDED FOR WHEEZING OR SHORTNESS OF BREATH. MAY ALSO VIA NEBULIZER 1 EXTRA EVERY 6 HOURS 08-23 00:00: 00 No TAKE 1 TABLET BY MOUTH DAILY 08-23 00:00: 00 No 20 &lt 0 08-23 00:00: 00 No 10 &lt 0 08-23 00:00: 00 No 10 &lt 0 08-23 00:00: 00 No 100 TAKE 2 TABLETS BY MOUTH TODAY FOR 1 DOSE THEN TAKE 1 TABLET BY MOUTH DAILY FOR 4 DAYS 08-23 00:00: 00 No 250 &lt 0 08-23 00:00: 00 No 30 TAKE 1 TABLET BY MOUTH DAILY NEEDED 08-23 00:00: 00 No 40 TAKE 1 TABLET BY MOUTH EVERY 12 HOURS NEEDED FOR PAIN 08-23 00:00: 00 No 800 TAKE 2 TABLETS BY MOUTH TODAY FOR 1 DOSE THEN TAKE 1 TABLET BY MOUTH DAILY FOR 4 DAYS 08-23 00:00: 00 No 250 &lt 08-23 00:00: 00 No 800 FOLLOW PACKAGE DIRECTIONS 08-23 00:00: 00 No 4 USE 3 ML VIA NEBULIZER EVERY 6 HOURS NEEDED FOR WHEEZING OR SHORTNESS OF BREATH. MAY ALSO VIA NEBULIZER 1 EXTRA EVERY 6 HOURS 08-23 00:00: 00 No TAKE 1 TABLET BY MOUTH DAILY 08-23 00:00: 00 No 20 &lt 2021-0 08-23 00:00: 00 No 10 &lt 2021-0 08-23 00:00: 00 No 10 &lt 2021-0 08-23 00:00: 00 No 100 TAKE 2 TABLETS BY MOUTH TODAY FOR 1 DOSE THEN TAKE 1 TABLET BY MOUTH DAILY FOR 4 DAYS 0 08-23 00:00: 00 No 250 &lt 2021-0 08-23 00:00: 00 No 30 TAKE 1 TABLET BY MOUTH DAILY NEEDED 0 08-23 00:00: 00 No 40 TAKE 1 TABLET BY MOUTH EVERY 12 HOURS NEEDED FOR PAIN 0 08-23 00:00: 00 No 800 TAKE 2 TABLETS BY MOUTH TODAY FOR 1 DOSE THEN TAKE 1 TABLET BY MOUTH DAILY FOR 4 DAYS 0 08-23 00:00: 00 No 250 &lt 2021-0 08-23 00:00: 00 No 800 FOLLOW PACKAGE DIRECTIONS 0 08-23 00:00: 00 No 4 USE 3 ML VIA NEBULIZER EVERY 6 HOURS NEEDED FOR WHEEZING OR SHORTNESS OF BREATH. MAY ALSO VIA NEBULIZER 1 EXTRA EVERY 6 HOURS 0 08-23 00:00: 00 No TAKE 1 TABLET BY MOUTH DAILY 0 08-23 00:00: 00 No 20 &lt 2021-0 08-23 00:00: 00 No 10 &lt 2021-0 08-23 00:00: 00 No 10 &lt 2021-0 08-23 00:00: 00 No 100 TAKE 2 TABLETS BY MOUTH TODAY FOR 1 DOSE THEN TAKE 1 TABLET BY MOUTH DAILY FOR 4 DAYS 08-23 00:00: 00 No 250 &lt 2021-0 08-23 00:00: 00 No 30 TAKE 1 TABLET BY MOUTH DAILY NEEDED 0 08-23 00:00: 00 No 40 TAKE 1 TABLET BY MOUTH EVERY 12 HOURS NEEDED FOR PAIN 0 08-23 00:00: 00 No 800 TAKE 2 TABLETS BY MOUTH TODAY FOR 1 DOSE THEN TAKE 1 TABLET BY MOUTH DAILY FOR 4 DAYS 08-23 00:00: 00 No 250 &lt 2021-0 08-23 00:00: 00 No 800 FOLLOW PACKAGE DIRECTIONS 0 08-23 00:00: 00 No 4 USE 3 ML VIA NEBULIZER EVERY 6 HOURS NEEDED FOR WHEEZING OR SHORTNESS OF BREATH. MAY ALSO VIA NEBULIZER 1 EXTRA EVERY 6 HOURS 0 08-23 00:00: 00 No TAKE 1 TABLET BY MOUTH DAILY 0 08-23 00:00: 00 No 20 &lt 2021-0 08-23 00:00: 00 No 10 &lt 2021-0 08-23 00:00: 00 No 10 &lt 2021-0 08-23 00:00: 00 No 100 TAKE 2 TABLETS BY MOUTH TODAY FOR 1 DOSE THEN TAKE 1 TABLET BY MOUTH DAILY FOR 4 DAYS 0 08-23 00:00: 00 No 250 &lt 2021-0 08-23 00:00: 00 No 30 TAKE 1 TABLET BY MOUTH DAILY NEEDED 0 08-23 00:00: 00 No 40 TAKE 1 TABLET BY MOUTH EVERY 12 HOURS NEEDED FOR PAIN 0 08-23 00:00: 00 No 800 TAKE 2 TABLETS BY MOUTH TODAY FOR 1 DOSE THEN TAKE 1 TABLET BY MOUTH DAILY FOR 4 DAYS 0 08-23 00:00: 00 No 250 &lt 2021-0 08-23 00:00: 00 No 800 FOLLOW PACKAGE DIRECTIONS 0 08-23 00:00: 00 No 4 USE 3 ML VIA NEBULIZER EVERY 6 HOURS NEEDED FOR WHEEZING OR SHORTNESS OF BREATH. MAY ALSO VIA NEBULIZER 1 EXTRA EVERY 6 HOURS 0 08-23 00:00: 00 No fluoxetine 60 mg tablet 0 08-16 00:00: 00 No 1mg TAKE 10 ML BY MOUTH EVERY 4 TO 6 HOURS 0 08-16 00:00: 00 No &lt 2021-0 08-16 00:00: 00 No &lt 2021-0 08-16 00:00: 00 No TAKE 1 TABLET BY MOUTH EVERY 12 HOURS NEEDED FOR PAIN 0 08-16 00:00: 00 No &lt 2021-0 08-16 00:00: 00 No TAKE 1 TABLET BY MOUTH EVERY 6 HOURS NEEDED FOR ITCHING OR ANXIETY 0 08-16 00:00: 00 No &lt 2-0 08-16 00:00: 00 No FOLLOW PACKAGE DIRECTIONS 0 08-16 00:00: 00 No fluoxetine 60 mg tablet 0 08-16 00:00: 00 No 1mg TAKE 10 ML BY MOUTH EVERY 4 TO 6 HOURS 2-0 08-16 00:00: 00 No &lt 2022-0 08-16 00:00: 00 No &lt 2022-0 08-16 00:00: 00 No TAKE 1 TABLET BY MOUTH EVERY 12 HOURS NEEDED FOR PAIN 2022-0 08-16 00:00: 00 No &lt 2022-0 08-16 00:00: 00 No TAKE 1 TABLET BY MOUTH EVERY 6 HOURS NEEDED FOR ITCHING OR ANXIETY 2022-0 08-16 00:00: 00 No &lt 2022-0 08-16 00:00: 00 No FOLLOW PACKAGE DIRECTIONS 2022-0 08-16 00:00: 00 No fluoxetine 60 mg tablet 2022-0 08-16 00:00: 00 No 1mg TAKE 10 ML BY MOUTH EVERY 4 TO 6 HOURS 2022-0 08-16 00:00: 00 No &lt 2022-0 08-16 00:00: 00 No &lt 2022-0 08-16 00:00: 00 No TAKE 1 TABLET BY MOUTH EVERY 12 HOURS NEEDED FOR PAIN 2022-0 08-16 00:00: 00 No &lt 2022-0 08-16 00:00: 00 No TAKE 1 TABLET BY MOUTH EVERY 6 HOURS NEEDED FOR ITCHING OR ANXIETY 2022-0 08-16 00:00: 00 No &lt 2022-0 08-16 00:00: 00 No FOLLOW PACKAGE DIRECTIONS 2022-0 08-16 00:00: 00 No fluoxetine 60 mg tablet 2-0 08-16 00:00: 00 No 1mg TAKE 10 ML BY MOUTH EVERY 4 TO 6 HOURS 2022-0 08-16 00:00: 00 No &lt 2022-0 08-16 00:00: 00 No &lt 2022-0 08-16 00:00: 00 No TAKE 1 TABLET BY MOUTH EVERY 12 HOURS NEEDED FOR PAIN 2022-0 08-16 00:00: 00 No &lt 2022-0 08-16 00:00: 00 No TAKE 1 TABLET BY MOUTH EVERY 6 HOURS NEEDED FOR ITCHING OR ANXIETY 2022-0 08-16 00:00: 00 No &lt 2022-0 08-16 00:00: 00 No FOLLOW PACKAGE DIRECTIONS 2022-0 08-16 00:00: 00 No fluoxetine 60 mg tablet 2022-0 08-16 00:00: 00 No 1mg TAKE 10 ML BY MOUTH EVERY 4 TO 6 HOURS 2022-0 630 00:00: 00 No &lt 2022-0 630 00:00: 00 No &lt 2022-0 08-16 00:00: 00 No TAKE 1 TABLET BY MOUTH EVERY 12 HOURS NEEDED FOR PAIN 2022-0 08-16 00:00: 00 No &lt 2022-0 6 00:00: 00 No TAKE 1 TABLET BY MOUTH EVERY 6 HOURS NEEDED FOR ITCHING OR ANXIETY 2022-0 08-16 00:00: 00 No &lt 2022-0 08-16 00:00: 00 No FOLLOW PACKAGE DIRECTIONS 2022-0 08-16 00:00: 00 No fluoxetine 60 mg tablet 2-0 08-16 00:00: 00 No 1mg fluoxetine 60 mg tablet 2-0 08-16 00:00: 00 No 1mg TAKE 10 ML BY MOUTH EVERY 4 TO 6 HOURS 2022-0 08-16 00:00: 00 No &lt 2022-0 08-16 00:00: 00 No TAKE 10 ML BY MOUTH EVERY 4 TO 6 HOURS 2022-0 08-16 00:00: 00 No &lt 2022-0 08-16 00:00: 00 No TAKE 1 TABLET BY MOUTH EVERY 12 HOURS NEEDED FOR PAIN 2-0 08-16 00:00: 00 No &lt 2022-0 08-16 00:00: 00 No TAKE 1 TABLET BY MOUTH EVERY 6 HOURS NEEDED FOR ITCHING OR ANXIETY 2022-0 08-16 00:00: 00 No &lt 2022-0 08-16 00:00: 00 No FOLLOW PACKAGE DIRECTIONS 2022-0 08-16 00:00: 00 No &lt 2022-0 08-16 00:00: 00 No &lt 2022-0 08-16 00:00: 00 No TAKE 1 TABLET BY MOUTH EVERY 12 HOURS NEEDED FOR PAIN 2-0 08-16 00:00: 00 No &lt 2022-0 08-16 00:00: 00 No TAKE 1 TABLET BY MOUTH EVERY 6 HOURS NEEDED FOR ITCHING OR ANXIETY 2-0 08-16 00:00: 00 No &lt 2022-0 08-16 00:00: 00 No FOLLOW PACKAGE DIRECTIONS 2022-0 08-16 00:00: 00 No fluoxetine 60 mg tablet 2021-0 6-30 00:00: 00 No 1mg TAKE 10 ML BY MOUTH EVERY 4 TO 6 HOURS 2021-0 6-30 00:00: 00 No &lt 2022-0 6-30 00:00: 00 No &lt 2022-0 630 00:00: 00 No TAKE 1 TABLET BY MOUTH EVERY 12 HOURS NEEDED FOR PAIN 2-0 6 00:00: 00 No &lt 2022-0 630 00:00: 00 No TAKE 1 TABLET BY MOUTH EVERY 6 HOURS NEEDED FOR ITCHING OR ANXIETY 2-0 6 00:00: 00 No &lt 2022-0 630 00:00: 00 No FOLLOW PACKAGE DIRECTIONS 2021-0 630 00:00: 00 No ProAir HFA 90 mcg/actuati on aerosol inhaler 2021-0 5-10 00:00: 00 No 12mcg/a ctuatio n amlodipine 10 mg tablet 2021-0 5-10 00:00: 00 No 1mg Singulair 10 mg tablet 2021-0 5-10 00:00: 00 No 1mg ProAir HFA 90 mcg/actuati on aerosol inhaler 2021-0 5-10 00:00: 00 No 12mcg/a ctuatio n amlodipine 10 mg tablet 2021-0 5-10 00:00: 00 No 1mg Singulair 10 mg tablet 2021-0 5-10 00:00: 00 No 1mg ProAir HFA 90 mcg/actuati on aerosol inhaler 2021-0 5-10 00:00: 00 No 12mcg/a ctuatio n amlodipine 10 mg tablet 2021-0 5-10 00:00: 00 No 1mg Singulair 10 mg tablet 2-0 5-10 00:00: 00 No 1mg ProAir HFA 90 mcg/actuati on aerosol inhaler 2021-0 5-10 00:00: 00 No 12mcg/a ctuatio n amlodipine 10 mg tablet 2-0 5-10 00:00: 00 No 1mg Singulair 10 mg tablet 2-0 5-10 00:00: 00 No 1mg ProAir HFA 90 mcg/actuati on aerosol inhaler 2021-0 5-10 00:00: 00 No 12mcg/a ctuatio n amlodipine 10 mg tablet 2021-0 5-10 00:00: 00 No 1mg Singulair 10 mg tablet 2021-0 5-10 00:00: 00 No 1mg ProAir HFA 90 mcg/actuati on aerosol inhaler 2021-0 5-10 00:00: 00 No 12mcg/a ctuatio n amlodipine 10 mg tablet 2021-0 5-10 00:00: 00 No 1mg Singulair 10 mg tablet 2021-0 5-10 00:00: 00 No 1mg ProAir HFA 90 mcg/actuati on aerosol inhaler 2021-0 5-10 00:00: 00 No 12mcg/a ctuatio n amlodipine 10 mg tablet 2021-0 5-10 00:00: 00 No 1mg Singulair 10 mg tablet 2021-0 5-10 00:00: 00 No 1mg ProAir HFA 90 mcg/actuati on aerosol inhaler 2021-0 5- 00:00: 00 No 12mcg/a ctuatio n amlodipine 10 mg tablet 2021-0 5- 00:00: 00 No 1mg Singulair 10 mg tablet 2021-0 5-10 00:00: 00 No 1mg pantoprazol e 20 mg tablet,dorie yed release 2021-0 3-30 00:00: 00 No 1mg pantoprazol e 20 mg tablet,dorie yed release 2-0 3-30 00:00: 00 No 1mg pantoprazol e 20 mg tablet,dorie yed release 2-0 3-30 00:00: 00 No 1mg pantoprazol e 20 mg tablet,dorie yed release 2-0 3-30 00:00: 00 No 1mg pantoprazol e 20 mg tablet,dorie yed release 2-0 3-30 00:00: 00 No 1mg pantoprazol e 20 mg tablet,dorie yed release 2-0 3-30 00:00: 00 No 1mg pantoprazol e 20 mg tablet,dorie yed release 2-0 3-30 00:00: 00 No 1mg pantoprazol e 20 mg tablet,dorie yed release 2022-0 3-30 00:00: 00 No 1mg pantoprazol e 20 mg tablet,dorie yed release 2022-0 3-16 00:00: 00 No 1mg pantoprazol e 20 mg tablet,dorie yed release 2022-0 3-16 00:00: 00 No 1mg pantoprazol e 20 mg tablet,dorie yed release 2022-0 3-16 00:00: 00 No 1mg pantoprazol e 20 mg tablet,dorie yed release 2022-0 3-16 00:00: 00 No 1mg pantoprazol e 20 mg tablet,dorie yed release 2022-0 3-16 00:00: 00 No 1mg pantoprazol e 20 mg tablet,dorie yed release 2022-0 3-16 00:00: 00 No 1mg pantoprazol e 20 mg tablet,dorie yed release 2022-0 3-16 00:00: 00 No 1mg pantoprazol e 20 mg tablet,dorie yed release 2022-0 3-16 00:00: 00 No 1mg Dose Unknown 2022-0 3-15 00:00: 00 No Dose Unknown 2022-0 3-15 00:00: 00 No Dose Unknown 2022-0 3-15 00:00: 00 No Dose Unknown 2022-0 3-15 00:00: 00 No Dose Unknown 2022-0 3-15 00:00: 00 No Dose Unknown 2022-0 3-15 00:00: 00 No Dose Unknown 2022-0 3-15 00:00: 00 No Dose Unknown 2022-0 3-15 00:00: 00 No Dose Unknown 2022-0 3-15 00:00: 00 No Dose Unknown 2022-0 3-15 00:00: 00 No Dose Unknown 2022-0 3-15 00:00: 00 No Dose Unknown 2022-0 3-15 00:00: 00 No Dose Unknown 2022-0 3-15 00:00: 00 No Dose Unknown 2022-0 3-15 00:00: 00 No Dose Unknown 2022-0 3-15 00:00: 00 No Dose Unknown 2022-0 3-15 00:00: 00 No Dose Unknown 2022-0 3-15 00:00: 00 No Dose Unknown 2022-0 3-15 00:00: 00 No Dose Unknown 2022-0 3-15 00:00: 00 No Dose Unknown 2022-0 3-15 00:00: 00 No Dose Unknown 2022-0 3-15 00:00: 00 No Dose Unknown 2022-0 3-15 00:00: 00 No Dose Unknown 2022-0 3-15 00:00: 00 No Dose Unknown 2022-0 3-15 00:00: 00 No Dose Unknown 2022-0 3-15 00:00: 00 No Dose Unknown 2022-0 3-15 00:00: 00 No Dose Unknown 2022-0 3-15 00:00: 00 No Dose Unknown 2022-0 3-15 00:00: 00 No Dose Unknown 2022-0 3-15 00:00: 00 No Dose Unknown 2022-0 3-15 00:00: 00 No Dose Unknown 2022-0 3-15 00:00: 00 No Dose Unknown 2022-0 3-15 00:00: 00 No Dose Unknown 2022-0 3-15 00:00: 00 No Dose Unknown 2022-0 3-15 00:00: 00 No Dose Unknown 2022-0 3-15 00:00: 00 No Dose Unknown 2022-0 3-15 00:00: 00 No Dose Unknown 2022-0 3-15 00:00: 00 No Dose Unknown 2022-0 3-15 00:00: 00 No Dose Unknown 2022-0 3-15 00:00: 00 No Dose Unknown 2022-0 3-15 00:00: 00 No Dose Unknown 2022-0 3-15 00:00: 00 No Dose Unknown 2022-0 3-15 00:00: 00 No Dose Unknown 2022-0 3-15 00:00: 00 No Dose Unknown 2022-0 3-15 00:00: 00 No Dose Unknown 2022-0 3-15 00:00: 00 No Dose Unknown 2022-0 3-15 00:00: 00 No Dose Unknown 2022-0 3-15 00:00: 00 No Dose Unknown 2022-0 3-15 00:00: 00 No Dose Unknown 2022-0 3-15 00:00: 00 No Dose Unknown 2022-0 3-15 00:00: 00 No Dose Unknown 2022-0 3-15 00:00: 00 No Dose Unknown 2022-0 3-15 00:00: 00 No Dose Unknown 2022-0 3-15 00:00: 00 No Dose Unknown 2022-0 3-15 00:00: 00 No Dose Unknown 2022-0 3-15 00:00: 00 No Dose Unknown 2022-0 3-15 00:00: 00 No Dose Unknown 2022-0 3-15 00:00: 00 No Dose Unknown 2022-0 3-15 00:00: 00 No Dose Unknown 2022-0 3-15 00:00: 00 No Dose Unknown 2022-0 3-15 00:00: 00 No Dose Unknown 2022-0 3-15 00:00: 00 No Dose Unknown 2022-0 3-15 00:00: 00 No Dose Unknown 2022-0 3-15 00:00: 00 No Dose Unknown 2022-0 3-15 00:00: 00 No Dose Unknown 2022-0 3-15 00:00: 00 No Dose Unknown 2022-0 3-15 00:00: 00 No Dose Unknown 2022-0 3-15 00:00: 00 No Dose Unknown 2022-0 3-15 00:00: 00 No Dose Unknown 2022-0 3-15 00:00: 00 No Dose Unknown 2022-0 3-15 00:00: 00 No Dose Unknown 2022-0 3-15 00:00: 00 No Dose Unknown 2022-0 3-15 00:00: 00 No Dose Unknown 2022-0 3-15 00:00: 00 No Dose Unknown 2022-0 3-15 00:00: 00 No Dose Unknown 2022-0 3-15 00:00: 00 No Dose Unknown 2022-0 3-15 00:00: 00 No Dose Unknown 2022-0 3-15 00:00: 00 No Dose Unknown 2022-0 3-15 00:00: 00 No Dose Unknown 2022-0 3-15 00:00: 00 No Dose Unknown 2022-0 3-15 00:00: 00 No fluoxetine 60 mg tablet 2022-0 3-08 00:00: 00 No 1mg fluoxetine 60 mg tablet 2022-0 3-08 00:00: 00 No 1mg fluoxetine 60 mg tablet 2022-0 3-08 00:00: 00 No 1mg fluoxetine 60 mg tablet 2022-0 3-08 00:00: 00 No 1mg fluoxetine 60 mg tablet 0 3- 00:00: 00 No 1mg fluoxetine 60 mg tablet 0 3- 00:00: 00 No 1mg fluoxetine 60 mg tablet 0 3- 00:00: 00 No 1mg fluoxetine 60 mg tablet 0 3- 00:00: 00 No 1mg azithromyci n 250 mg tablet 0 2-20 00:00: 00 No mg azithromyci n 250 mg tablet 0 2-20 00:00: 00 No mg azithromyci n 250 mg tablet 0 2-20 00:00: 00 No mg azithromyci n 250 mg tablet 0 2-20 00:00: 00 No mg azithromyci n 250 mg tablet 0 2-20 00:00: 00 No mg azithromyci n 250 mg tablet 0 2-20 00:00: 00 No mg azithromyci n 250 mg tablet 0 2- 00:00: 00 No mg azithromyci n 250 mg tablet 0 2-20 00:00: 00 No mg ProAir HFA 90 mcg/actuati on aerosol inhaler 0 1-24 00:00: 00 No 12mcg/a ctuatio n fluoxetine 60 mg tablet 0 1-24 00:00: 00 No 1mg amlodipine 10 mg tablet 0 1-24 00:00: 00 No 1mg Singulair 10 mg tablet 0 1-24 00:00: 00 No 1mg ProAir HFA 90 mcg/actuati on aerosol inhaler 0 -24 00:00: 00 No 12mcg/a ctuatio n fluoxetine 60 mg tablet 0 1-24 00:00: 00 No 1mg amlodipine 10 mg tablet 0 -24 00:00: 00 No 1mg Singulair 10 mg tablet 0 24 00:00: 00 No 1mg ProAir HFA 90 mcg/actuati on aerosol inhaler 0 -24 00:00: 00 No 12mcg/a ctuatio n fluoxetine 60 mg tablet 03-12 00:00: 00 No 1mg amlodipine 10 mg tablet 03-12 00:00: 00 No 1mg Singulair 10 mg tablet 03-12 00:00: 00 No 1mg ProAir HFA 90 mcg/actuati on aerosol inhaler 03-12 00:00: 00 No 12mcg/a ctuatio n fluoxetine 60 mg tablet 03-12 00:00: 00 No 1mg amlodipine 10 mg tablet 03-12 00:00: 00 No 1mg Singulair 10 mg tablet 03-12 00:00: 00 No 1mg ProAir HFA 90 mcg/actuati on aerosol inhaler 03-12 00:00: 00 No 12mcg/a ctuatio n fluoxetine 60 mg tablet 03-12 00:00: 00 No 1mg ProAir HFA 90 mcg/actuati on aerosol inhaler 03-12 00:00: 00 No 12mcg/a ctuatio n fluoxetine 60 mg tablet 03-12 00:00: 00 No 1mg amlodipine 10 mg tablet 03-12 00:00: 00 No 1mg Singulair 10 mg tablet 03-12 00:00: 00 No 1mg amlodipine 10 mg tablet 03-12 00:00: 00 No 1mg Singulair 10 mg tablet 03-12 00:00: 00 No 1mg ProAir HFA 90 mcg/actuati on aerosol inhaler 03-12 00:00: 00 No 12mcg/a ctuatio n fluoxetine 60 mg tablet 03-12 00:00: 00 No 1mg amlodipine 10 mg tablet 03-12 00:00: 00 No 1mg Singulair 10 mg tablet 03-12 00:00: 00 No 1mg ProAir HFA 90 mcg/actuati on aerosol inhaler 03-12 00:00: 00 No 12mcg/a ctuatio n fluoxetine 60 mg tablet 03-12 00:00: 00 No 1mg amlodipine 10 mg tablet 03-12 00:00: 00 No 1mg Singulair 10 mg tablet 03-12 00:00: 00 No 1mg ipratropium 0.02 % nebulizer solution 2020-02 00:00: 00 Yes [id number] .5mg Inhale 2.5 mL every 6 (six) hours as needed for Wheezing, Shortness of Breath or Bronchospa sm (use wtih albuterol) . [facility] methylPREDN ISolone 4 mg tablets 2020-02 00:00: 00 Yes [id number] Take by mouth SEE-INSTRU CTIONS. follow package directions [facility] ipratropium 0.02 % nebulizer solution 2020-02 00:00: 00 Yes [id number] .5mg Inhale 2.5 mL every 6 (six) hours as needed for Wheezing, Shortness of Breath or Bronchospa sm (use wtih albuterol) . [facility] methylPREDN ISolone 4 mg tablets 2020-02 00:00: 00 Yes [id number] Take by mouth SEE-INSTRU CTIONS. follow package directions [facility] ipratropium 0.02 % nebulizer solution 2020-02 00:00: 00 Yes [id number] .5mg Inhale 2.5 mL every 6 (six) hours as needed for Wheezing, Shortness of Breath or Bronchospa sm (use wtih albuterol) . [facility] methylPREDN ISolone 4 mg tablets 2020-02 00:00: 00 Yes [id number] Take by mouth SEE-INSTRU CTIONS. follow package directions [facility] ipratropium 0.02 % nebulizer solution 2020-02 00:00: 00 Yes [id number] .5mg Inhale 2.5 mL every 6 (six) hours as needed for Wheezing, Shortness of Breath or Bronchospa sm (use wtih albuterol) . [facility] methylPREDN ISolone 4 mg tablets 2020-02 00:00: 00 Yes [id number] Take by mouth SEE-INSTRU CTIONS. follow package directions [facility] ipratropium 0.02 % nebulizer solution 2020-02 00:00: 00 Yes [id number] .5mg Inhale 2.5 mL every 6 (six) hours as needed for Wheezing, Shortness of Breath or Bronchospa sm (use wtih albuterol) . [facility] methylPREDN ISolone 4 mg tablets 2020-02 00:00: 00 Yes [id number] Take by mouth SEE-INSTRU CTIONS. follow package directions [facility] ipratropium 0.02 % nebulizer solution 2020-02 00:00: 00 Yes [id number] .5mg Inhale 2.5 mL every 6 (six) hours as needed for Wheezing, Shortness of Breath or Bronchospa sm (use wtih albuterol) . [facility] methylPREDN ISolone 4 mg tablets 2020-02 00:00: 00 Yes [id number] Take by mouth SEE-INSTRU CTIONS. follow package directions [facility] ipratropium 0.02 % nebulizer solution 2020-02 00:00: 00 Yes [id number] .5mg Inhale 2.5 mL every 6 (six) hours as needed for Wheezing, Shortness of Breath or Bronchospa sm (use wtih albuterol) . [facility] methylPREDN ISolone 4 mg tablets 2020-02 00:00: 00 Yes [id number] Take by mouth SEE-INSTRU CTIONS. follow package directions [facility] ipratropium 0.02 % nebulizer solution 2020-02 00:00: 00 Yes [id number] .5mg Inhale 2.5 mL every 6 (six) hours as needed for Wheezing, Shortness of Breath or Bronchospa sm (use wtih albuterol) . [facility] methylPREDN ISolone 4 mg tablets 2020-02 00:00: 00 Yes [id number] Take by mouth SEE-INSTRU CTIONS. follow package directions [facility] ipratropium 0.02 % nebulizer solution 2020-02 00:00: 00 Yes [id number] .5mg Inhale 2.5 mL every 6 (six) hours as needed for Wheezing, Shortness of Breath or Bronchospa sm (use wtih albuterol) . [facility] methylPREDN ISolone 4 mg tablets 2020-02 00:00: 00 Yes [id number] Take by mouth SEE-INSTRU CTIONS. follow package directions [facility] cyclobenzap rine 5 mg tablet 2020-02 2 00:00: 00 No 1mg IBU 800 mg tablet 2020-02 2 00:00: 00 No 1mg cyclobenzap rine 5 mg tablet 2020-02 2 00:00: 00 No 1mg IBU 800 mg tablet 2020-02 2 00:00: 00 No 1mg cyclobenzap rine 5 mg tablet 2020-02 2 00:00: 00 No 1mg IBU 800 mg tablet 2020-02 2 00:00: 00 No 1mg cyclobenzap rine 5 mg tablet 2020-02 2 00:00: 00 No 1mg IBU 800 mg tablet 2020-02 2 00:00: 00 No 1mg cyclobenzap rine 5 mg tablet 2020-02 2 00:00: 00 No 1mg IBU 800 mg tablet 2020-02 2 00:00: 00 No 1mg cyclobenzap rine 5 mg tablet 2020-02 2 00:00: 00 No 1mg IBU 800 mg tablet 2020-02 2 00:00: 00 No 1mg cyclobenzap rine 5 mg tablet 2020-02 2 00:00: 00 No 1mg IBU 800 mg tablet 2020-02 2 00:00: 00 No 1mg cyclobenzap rine 5 mg tablet 2020-02 2 00:00: 00 No 1mg IBU 800 mg tablet 2020-02 2 00:00: 00 No 1mg pantoprazol e 20 mg tablet,dorie yed release 2020-02 2 00:00: 00 No mg levofloxaci n 500 mg tablet 2020-02 2 00:00: 00 No mg amlodipine 10 mg tablet 2020-02 00:00: 00 No mg albuterol sulfate 2.5 mg/3 mL (0.083 %) solution for nebulizatio n 2020-02 00:00: 00 No /3 mL (0.083 %) pantoprazol e 20 mg tablet,dorie yed release 2020-02 00:00: 00 No mg levofloxaci n 500 mg tablet 2020-02 2- 00:00: 00 No mg amlodipine 10 mg tablet 2020-02 00:00: 00 No mg albuterol sulfate 2.5 mg/3 mL (0.083 %) solution for nebulizatio n 2020-02 00:00: 00 No /3 mL (0.083 %) pantoprazol e 20 mg tablet,dorie yed release 2020-02 00:00: 00 No mg levofloxaci n 500 mg tablet 2020-02 00:00: 00 No mg amlodipine 10 mg tablet 2020-02 00:00: 00 No mg albuterol sulfate 2.5 mg/3 mL (0.083 %) solution for nebulizatio n 2020-02 00:00: 00 No /3 mL (0.083 %) pantoprazol e 20 mg tablet,dorie yed release 2020-02 00:00: 00 No mg levofloxaci n 500 mg tablet 2020-02 00:00: 00 No mg amlodipine 10 mg tablet 2020-02 00:00: 00 No mg albuterol sulfate 2.5 mg/3 mL (0.083 %) solution for nebulizatio n 2020-02 00:00: 00 No /3 mL (0.083 %) pantoprazol e 20 mg tablet,dorie yed release 2020-02- 00:00: 00 No mg levofloxaci n 500 mg tablet 2020-02- 00:00: 00 No mg amlodipine 10 mg tablet 2020-02 00:00: 00 No mg albuterol sulfate 2.5 mg/3 mL (0.083 %) solution for nebulizatio n 2020-02 00:00: 00 No /3 mL (0.083 %) pantoprazol e 20 mg tablet,dorie yed release 2020-02 00:00: 00 No mg levofloxaci n 500 mg tablet 2020-02 00:00: 00 No mg amlodipine 10 mg tablet 2020-02 00:00: 00 No mg albuterol sulfate 2.5 mg/3 mL (0.083 %) solution for nebulizatio n 2020-02 00:00: 00 No /3 mL (0.083 %) pantoprazol e 20 mg tablet,dorie yed release 2020-02 00:00: 00 No mg levofloxaci n 500 mg tablet 2020-02 00:00: 00 No mg amlodipine 10 mg tablet 2020-02 00:00: 00 No mg albuterol sulfate 2.5 mg/3 mL (0.083 %) solution for nebulizatio n 2020-02 00:00: 00 No /3 mL (0.083 %) pantoprazol e 20 mg tablet,dorie yed release 2020-02 00:00: 00 No mg levofloxaci n 500 mg tablet 2020-02 00:00: 00 No mg amlodipine 10 mg tablet 2020-02 00:00: 00 No mg albuterol sulfate 2.5 mg/3 mL (0.083 %) solution for nebulizatio n 2020-02 00:00: 00 No /3 mL (0.083 %) pantoprazol e (PROTONIX) 20 mg EC tablet 2020-02 00:00: 00 Yes [id number] 20mg Take 1 tablet by mouth daily. [facility] pantoprazol e (PROTONIX) 20 mg EC tablet 2020-02 00:00: 00 Yes [id number] 20mg Take 1 tablet by mouth daily. [facility] pantoprazol e (PROTONIX) 20 mg EC tablet 2020-02 00:00: 00 Yes [id number] 20mg Take 1 tablet by mouth daily. [facility] pantoprazol e (PROTONIX) 20 mg EC tablet 2020-02 2 00:00: 00 Yes [id number] 20mg Take 1 tablet by mouth daily. [facility] pantoprazol e (PROTONIX) 20 mg EC tablet 2020-02 00:00: 00 Yes [id number] 20mg Take 1 tablet by mouth daily. [facility] pantoprazol e (PROTONIX) 20 mg EC tablet 2020-02 00:00: 00 Yes [id number] 20mg Take 1 tablet by mouth daily. [facility] pantoprazol e (PROTONIX) 20 mg EC tablet 2020-02 00:00: 00 Yes [id number] 20mg Take 1 tablet by mouth daily. [facility] pantoprazol e (PROTONIX) 20 mg EC tablet 2020-02 00:00: 00 Yes [id number] 20mg Take 1 tablet by mouth daily. [facility] pantoprazol e (PROTONIX) 20 mg EC tablet 2020-02 00:00: 00 Yes [id number] 20mg Take 1 tablet by mouth daily. [facility] hydroxyzine HCl 25 mg tablet 2020-02 2 00:00: 00 No mg hydroxyzine HCl 25 mg tablet 2020-02 2- 00:00: 00 No mg hydroxyzine HCl 25 mg tablet 2020-02 2- 00:00: 00 No mg hydroxyzine HCl 25 mg tablet 2020-02 2- 00:00: 00 No mg hydroxyzine HCl 25 mg tablet 2020-02 2- 00:00: 00 No mg hydroxyzine HCl 25 mg tablet 2020-02 2- 00:00: 00 No mg hydroxyzine HCl 25 mg tablet 2020-02 2- 00:00: 00 No mg hydroxyzine HCl 25 mg tablet 2020-02 2- 00:00: 00 No mg hydrOXYzine 25 mg tablet 2020-02 2- 00:00: 00 Yes [id number] 25mg Take 1 tablet by mouth every 6 (six) hours as needed for Itching or Anxiety. [facility] hydrOXYzine 25 mg tablet 2020-02 2- 00:00: 00 Yes [id number] 25mg Take 1 tablet by mouth every 6 (six) hours as needed for Itching or Anxiety. [facility] hydrOXYzine 25 mg tablet 2020-02 00:00: 00 Yes [id number] 25mg Take 1 tablet by mouth every 6 (six) hours as needed for Itching or Anxiety. [facility] hydrOXYzine 25 mg tablet 2020-02 00:00: 00 Yes [id number] 25mg Take 1 tablet by mouth every 6 (six) hours as needed for Itching or Anxiety. [facility] hydrOXYzine 25 mg tablet 2020-02 00:00: 00 Yes [id number] 25mg Take 1 tablet by mouth every 6 (six) hours as needed for Itching or Anxiety. [facility] hydrOXYzine 25 mg tablet 2020-02 00:00: 00 Yes [id number] 25mg Take 1 tablet by mouth every 6 (six) hours as needed for Itching or Anxiety. [facility] hydrOXYzine 25 mg tablet 2020-02 00:00: 00 Yes [id number] 25mg Take 1 tablet by mouth every 6 (six) hours as needed for Itching or Anxiety. [facility] hydrOXYzine 25 mg tablet 2020-02 00:00: 00 Yes [id number] 25mg Take 1 tablet by mouth every 6 (six) hours as needed for Itching or Anxiety. [facility] hydrOXYzine 25 mg tablet 2020-02 00:00: 00 Yes [id number] 25mg Take 1 tablet by mouth every 6 (six) hours as needed for Itching or Anxiety. [facility] fluoxetine 60 mg tablet 2020-02 00:00: 00 No 1mg fluoxetine 60 mg tablet 2020-02 00:00: 00 No 1mg fluoxetine 60 mg tablet 2020-02 00:00: 00 No 1mg fluoxetine 60 mg tablet 2020-02 00:00: 00 No 1mg fluoxetine 60 mg tablet 2020-02 00:00: 00 No 1mg fluoxetine 60 mg tablet 2020-02 00:00: 00 No 1mg fluoxetine 60 mg tablet 2020-02 00:00: 00 No 1mg fluoxetine 60 mg tablet 2020-02 00:00: 00 No 1mg Macrobid 100 mg capsule 2020-02 00:00: 00 No 1mg Macrobid 100 mg capsule 2020-02 00:00: 00 No 1mg Macrobid 100 mg capsule 2020-02 00:00: 00 No 1mg Macrobid 100 mg capsule 2020-02 00:00: 00 No 1mg Macrobid 100 mg capsule 2020-02 00:00: 00 No 1mg Macrobid 100 mg capsule 2020-02 00:00: 00 No 1mg Macrobid 100 mg capsule 2020-02 00:00: 00 No 1mg Macrobid 100 mg capsule 2020-02 00:00: 00 No 1mg ProAir HFA 90 mcg/actuati on aerosol inhaler 2020-02 00:00: 00 No 12mcg/a ctuatio n azithromyci n 250 mg tablet 2020-02 00:00: 00 No mg ProAir HFA 90 mcg/actuati on aerosol inhaler 2020-02 00:00: 00 No 12mcg/a ctuatio n azithromyci n 250 mg tablet 2020-02 00:00: 00 No mg ProAir HFA 90 mcg/actuati on aerosol inhaler 2020-02 00:00: 00 No 12mcg/a ctuatio n azithromyci n 250 mg tablet 2020-02 00:00: 00 No mg ProAir HFA 90 mcg/actuati on aerosol inhaler 2020-02 00:00: 00 No 12mcg/a ctuatio n azithromyci n 250 mg tablet 2020-02 00:00: 00 No mg ProAir HFA 90 mcg/actuati on aerosol inhaler 2020-02 00:00: 00 No 12mcg/a ctuatio n azithromyci n 250 mg tablet 2020-02 00:00: 00 No mg ProAir HFA 90 mcg/actuati on aerosol inhaler 2020-02 00:00: 00 No 12mcg/a ctuatio n azithromyci n 250 mg tablet 2020-02 00:00: 00 No mg ProAir HFA 90 mcg/actuati on aerosol inhaler 2020-02 00:00: 00 No 12mcg/a ctuatio n azithromyci n 250 mg tablet 2020-02 00:00: 00 No mg ProAir HFA 90 mcg/actuati on aerosol inhaler 2020-02 00:00: 00 No 12mcg/a ctuatio n azithromyci n 250 mg tablet 2020-02 00:00: 00 No mg amlodipine 10 mg tablet 10-31 00:00: 00 No 1mg fluoxetine 60 mg tablet 10-31 00:00: 00 No 1mg amlodipine 10 mg tablet 10-31 00:00: 00 No 1mg fluoxetine 60 mg tablet 10-31 00:00: 00 No 1mg amlodipine 10 mg tablet 10-31 00:00: 00 No 1mg fluoxetine 60 mg tablet 10-31 00:00: 00 No 1mg amlodipine 10 mg tablet 10-31 00:00: 00 No 1mg fluoxetine 60 mg tablet 10-31 00:00: 00 No 1mg amlodipine 10 mg tablet 10-31 00:00: 00 No 1mg fluoxetine 60 mg tablet 10-31 00:00: 00 No 1mg amlodipine 10 mg tablet 10-31 00:00: 00 No 1mg fluoxetine 60 mg tablet 10-31 00:00: 00 No 1mg amlodipine 10 mg tablet 10-31 00:00: 00 No 1mg fluoxetine 60 mg tablet 10-31 00:00: 00 No 1mg amlodipine 10 mg tablet 10-31 00:00: 00 No 1mg fluoxetine 60 mg tablet 10-31 00:00: 00 No 1mg Augmentin 875 mg-125 mg tablet 10-02 00:00: 00 No 1mg Augmentin 875 mg-125 mg tablet 0 8-16 00:00: 00 No 1mg Augmentin 875 mg-125 mg tablet 0 8- 00:00: 00 No 1mg Augmentin 875 mg-125 mg tablet 0 8 00:00: 00 No 1mg Augmentin 875 mg-125 mg tablet 0 8- 00:00: 00 No 1mg Augmentin 875 mg-125 mg tablet 0 10-02 00:00: 00 No 1mg Augmentin 875 mg-125 mg tablet 0 10-02 00:00: 00 No 1mg Augmentin 875 mg-125 mg tablet 0 10-02 00:00: 00 No 1mg Bromfed DM 2 mg-30 mg-10 mg/5 mL oral syrup 0 8- 00:00: 00 No 10mg/5 mL Bromfed DM 2 mg-30 mg-10 mg/5 mL oral syrup 0 8- 00:00: 00 No 10mg/5 mL Bromfed DM 2 mg-30 mg-10 mg/5 mL oral syrup 8- 00:00: 00 No 10mg/5 mL Bromfed DM 2 mg-30 mg-10 mg/5 mL oral syrup 0 8- 00:00: 00 No 10mg/5 mL Bromfed DM 2 mg-30 mg-10 mg/5 mL oral syrup 0 8- 00:00: 00 No 10mg/5 mL Bromfed DM 2 mg-30 mg-10 mg/5 mL oral syrup 8- 00:00: 00 No 10mg/5 mL Bromfed DM 2 mg-30 mg-10 mg/5 mL oral syrup 0 8- 00:00: 00 No 10mg/5 mL Bromfed DM 2 mg-30 mg-10 mg/5 mL oral syrup 0 8- 00:00: 00 No 10mg/5 mL pantoprazol e 40 mg tablet,dorie yed release 0 8- 00:00: 00 No 1mg pantoprazol e 40 mg tablet,dorie yed release 0 8- 00:00: 00 No 1mg pantoprazol e 40 mg tablet,dorie yed release 0 8- 00:00: 00 No 1mg pantoprazol e 40 mg tablet,dorie yed release 0 8- 00:00: 00 No 1mg pantoprazol e 40 mg tablet,dorie yed release 0 8- 00:00: 00 No 1mg pantoprazol e 40 mg tablet,dorie yed release 0 8- 00:00: 00 No 1mg pantoprazol e 40 mg tablet,dorie yed release 0 8- 00:00: 00 No 1mg pantoprazol e 40 mg tablet,dorie yed release 0 8 00:00: 00 No 1mg Augmentin 875 mg-125 mg tablet 0 7- 00:00: 00 No 1mg Augmentin 875 mg-125 mg tablet 0 7- 00:00: 00 No 1mg Augmentin 875 mg-125 mg tablet 0 7-13 00:00: 00 No 1mg Augmentin 875 mg-125 mg tablet 0 7-13 00:00: 00 No 1mg Augmentin 875 mg-125 mg tablet 0 7-13 00:00: 00 No 1mg Augmentin 875 mg-125 mg tablet 0 7- 00:00: 00 No 1mg Augmentin 875 mg-125 mg tablet 0 7-13 00:00: 00 No 1mg Augmentin 875 mg-125 mg tablet 0 7-13 00:00: 00 No 1mg Sudafed 12 Hour 120 mg tablet,exte nded release 0 - 00:00: 00 No 1mg fluticasone propionate 50 mcg/actuati on nasal spray,suspe nsion 0 - 00:00: 00 No 2mcg/ac tuation Sudafed 12 Hour 120 mg tablet,exte nded release 0 - 00:00: 00 No 1mg fluticasone propionate 50 mcg/actuati on nasal spray,suspe nsion 0 08-07 00:00: 00 No 2mcg/ac tuation Sudafed 12 Hour 120 mg tablet,exte nded release 08-07 00:00: 00 No 1mg fluticasone propionate 50 mcg/actuati on nasal spray,suspe nsion 08-07 00:00: 00 No 2mcg/ac tuation Sudafed 12 Hour 120 mg tablet,exte nded release 08-07 00:00: 00 No 1mg fluticasone propionate 50 mcg/actuati on nasal spray,suspe nsion 08-07 00:00: 00 No 2mcg/ac tuation Sudafed 12 Hour 120 mg tablet,exte nded release 08-07 00:00: 00 No 1mg fluticasone propionate 50 mcg/actuati on nasal spray,suspe nsion 08-07 00:00: 00 No 2mcg/ac tuation Sudafed 12 Hour 120 mg tablet,exte nded release 08-07 00:00: 00 No 1mg fluticasone propionate 50 mcg/actuati on nasal spray,suspe nsion 08-07 00:00: 00 No 2mcg/ac tuation Sudafed 12 Hour 120 mg tablet,exte nded release 08-07 00:00: 00 No 1mg fluticasone propionate 50 mcg/actuati on nasal spray,suspe nsion 08-07 00:00: 00 No 2mcg/ac tuation Sudafed 12 Hour 120 mg tablet,exte nded release 08-07 00:00: 00 No 1mg fluticasone propionate 50 mcg/actuati on nasal spray,suspe nsion 08-07 00:00: 00 No 2mcg/ac tuation fluoxetine 60 mg tablet 07-28 00:00: 00 No 1mg cetirizine 10 mg tablet 07-28 00:00: 00 No 1mg amlodipine 10 mg tablet 07-28 00:00: 00 No 1mg fluoxetine 60 mg tablet 07-28 00:00: 00 No 1mg cetirizine 10 mg tablet 07-28 00:00: 00 No 1mg amlodipine 10 mg tablet 07-28 00:00: 00 No 1mg fluoxetine 60 mg tablet 07-28 00:00: 00 No 1mg cetirizine 10 mg tablet 07-28 00:00: 00 No 1mg amlodipine 10 mg tablet 07-28 00:00: 00 No 1mg fluoxetine 60 mg tablet 07-28 00:00: 00 No 1mg cetirizine 10 mg tablet 07-28 00:00: 00 No 1mg amlodipine 10 mg tablet 07-28 00:00: 00 No 1mg fluoxetine 60 mg tablet 07-28 00:00: 00 No 1mg cetirizine 10 mg tablet 07-28 00:00: 00 No 1mg amlodipine 10 mg tablet 07-28 00:00: 00 No 1mg fluoxetine 60 mg tablet 07-28 00:00: 00 No 1mg cetirizine 10 mg tablet 07-28 00:00: 00 No 1mg amlodipine 10 mg tablet 07-28 00:00: 00 No 1mg fluoxetine 60 mg tablet 07-28 00:00: 00 No 1mg cetirizine 10 mg tablet 07-28 00:00: 00 No 1mg amlodipine 10 mg tablet 07-28 00:00: 00 No 1mg fluoxetine 60 mg tablet 07-28 00:00: 00 No 1mg cetirizine 10 mg tablet 07-28 00:00: 00 No 1mg amlodipine 10 mg tablet 07-28 00:00: 00 No 1mg fluoxetine 60 mg tablet 06-30 00:00: 00 No 1mg fluoxetine 60 mg tablet 06-30 00:00: 00 No 1mg fluoxetine 60 mg tablet 06-30 00:00: 00 No 1mg fluoxetine 60 mg tablet 06-30 00:00: 00 No 1mg fluoxetine 60 mg tablet 06-30 00:00: 00 No 1mg fluoxetine 60 mg tablet 06-30 00:00: 00 No 1mg fluoxetine 60 mg tablet 06-30 00:00: 00 No 1mg fluoxetine 60 mg tablet 06-30 00:00: 00 No 1mg cholecalcif vinay (vitamin D3) 1,250 mcg (50,000 unit) tablet 06-01 00:00: 00 No 1(50,00 0 unit) cholecalcif vinay (vitamin D3) 1,250 mcg (50,000 unit) tablet 06-01 00:00: 00 No 1(50,00 0 unit) cholecalcif vinay (vitamin D3) 1,250 mcg (50,000 unit) tablet 06-01 00:00: 00 No 1(50,00 0 unit) cholecalcif vinay (vitamin D3) 1,250 mcg (50,000 unit) tablet 06-01 00:00: 00 No 1(50,00 0 unit) cholecalcif vinay (vitamin D3) 1,250 mcg (50,000 unit) tablet 06-01 00:00: 00 No 1(50,00 0 unit) cholecalcif vinay (vitamin D3) 1,250 mcg (50,000 unit) tablet 06-01 00:00: 00 No 1(50,00 0 unit) cholecalcif vinay (vitamin D3) 1,250 mcg (50,000 unit) tablet 06-01 00:00: 00 No 1(50,00 0 unit) cholecalcif vinay (vitamin D3) 1,250 mcg (50,000 unit) tablet 06-01 00:00: 00 No 1(50,00 0 unit) fluoxetine 60 mg tablet 05-30 00:00: 00 No 1mg fluoxetine 60 mg tablet 05-30 00:00: 00 No 1mg fluoxetine 60 mg tablet 05-30 00:00: 00 No 1mg fluoxetine 60 mg tablet 05-30 00:00: 00 No 1mg fluoxetine 60 mg tablet 05-30 00:00: 00 No 1mg fluoxetine 60 mg tablet 05-30 00:00: 00 No 1mg fluoxetine 60 mg tablet 2021-0 4-13 00:00: 00 No 1mg fluoxetine 60 mg tablet 0 4-13 00:00: 00 No 1mg Zoloft 25 mg tablet 0 3-16 00:00: 00 No 1mg Zoloft 25 mg tablet 0 3-16 00:00: 00 No 1mg Zoloft 25 mg tablet 0 3-16 00:00: 00 No 1mg Zoloft 25 mg tablet 0 3-16 00:00: 00 No 1mg Zoloft 25 mg tablet 0 3-16 00:00: 00 No 1mg Zoloft 25 mg tablet 0 3-16 00:00: 00 No 1mg Zoloft 25 mg tablet 0 3-16 00:00: 00 No 1mg Zoloft 25 mg tablet 0 3-16 00:00: 00 No 1mg pantoprazol e 40 mg tablet,dorie yed release 0 3-05 00:00: 00 No 1mg cetirizine 10 mg tablet 0 3-05 00:00: 00 No 1mg pantoprazol e 40 mg tablet,dorie yed release 0 3-05 00:00: 00 No 1mg cetirizine 10 mg tablet 0 3-05 00:00: 00 No 1mg amlodipine 10 mg tablet 0 3-05 00:00: 00 No 1mg duloxetine 30 mg capsule,del ayed release 2020-0 3-05 00:00: 00 No 1mg amlodipine 10 mg tablet 0 3-05 00:00: 00 No 1mg duloxetine 30 mg capsule,del ayed release 2020-0 3-05 00:00: 00 No 1mg pantoprazol e 40 mg tablet,dorie yed release 0 3-05 00:00: 00 No 1mg cetirizine 10 mg tablet 0 3-05 00:00: 00 No 1mg amlodipine 10 mg tablet 0 3-05 00:00: 00 No 1mg duloxetine 30 mg capsule,del ayed release 0 3-05 00:00: 00 No 1mg pantoprazol e 40 mg tablet,dorie yed release 2021-0 3-05 00:00: 00 No 1mg cetirizine 10 mg tablet 3 00:00: 00 No 1mg amlodipine 10 mg tablet 04-21 00:00: 00 No 1mg duloxetine 30 mg capsule,del ayed release 04-21 00:00: 00 No 1mg pantoprazol e 40 mg tablet,dorie yed release 04-21 00:00: 00 No 1mg cetirizine 10 mg tablet 3 00:00: 00 No 1mg amlodipine 10 mg tablet 3 00:00: 00 No 1mg duloxetine 30 mg capsule,del ayed release 04-21 00:00: 00 No 1mg pantoprazol e 40 mg tablet,dorie yed release 04-21 00:00: 00 No 1mg cetirizine 10 mg tablet 3 00:00: 00 No 1mg amlodipine 10 mg tablet 3 00:00: 00 No 1mg duloxetine 30 mg capsule,del ayed release 3 00:00: 00 No 1mg pantoprazol e 40 mg tablet,dorie yed release 04-21 00:00: 00 No 1mg cetirizine 10 mg tablet 3 00:00: 00 No 1mg amlodipine 10 mg tablet 3 00:00: 00 No 1mg duloxetine 30 mg capsule,del ayed release 3 00:00: 00 No 1mg pantoprazol e 40 mg tablet,dorie yed release 3 00:00: 00 No 1mg cetirizine 10 mg tablet 3 00:00: 00 No 1mg amlodipine 10 mg tablet 3 00:00: 00 No 1mg duloxetine 30 mg capsule,del ayed release 3 00:00: 00 No 1mg vitamin w/FA tablet 2019-1 2-18 00:00: 00 Yes [id number] 1{tbl} Take 1 tablet by mouth daily. [facility] ferrous sulfate 325 mg (65 mg iron) tablet 2019-02 00:00: 00 Yes [id number] 325mg Take 1 tablet by mouth 2 (two) times daily. [facility] ibuprofen 600 mg tablet 2019-02 00:00: 00 Yes [id number] 600mg Take 1 tablet by mouth every 6 (six) hours as needed (Pain). Take with food or milk. [facility] vitamin w/FA tablet 2019-02 00:00: 00 Yes [id number] 1{tbl} Take 1 tablet by mouth daily. [facility] ferrous sulfate 325 mg (65 mg iron) tablet 2019-02 00:00: 00 Yes [id number] 325mg Take 1 tablet by mouth 2 (two) times daily. [facility] ibuprofen 600 mg tablet 2019-02 00:00: 00 Yes [id number] 600mg Take 1 tablet by mouth every 6 (six) hours as needed (Pain). Take with food or milk. [facility] vitamin w/FA tablet 2019-02 00:00: 00 Yes [id number] 1{tbl} Take 1 tablet by mouth daily. [facility] ferrous sulfate 325 mg (65 mg iron) tablet 2019-02 00:00: 00 Yes [id number] 325mg Take 1 tablet by mouth 2 (two) times daily. [facility] ibuprofen 600 mg tablet 2019-02 00:00: 00 Yes [id number] 600mg Take 1 tablet by mouth every 6 (six) hours as needed (Pain). Take with food or milk. [facility] vitamin w/FA tablet 2019-02 00:00: 00 Yes [id number] 1{tbl} Take 1 tablet by mouth daily. [facility] ferrous sulfate 325 mg (65 mg iron) tablet 2019-02 00:00: 00 Yes [id number] 325mg Take 1 tablet by mouth 2 (two) times daily. [facility] ibuprofen 600 mg tablet 2019-02 00:00: 00 Yes [id number] 600mg Take 1 tablet by mouth every 6 (six) hours as needed (Pain). Take with food or milk. [facility] vitamin w/FA tablet 2019-02 00:00: 00 Yes [id number] 1{tbl} Take 1 tablet by mouth daily. [facility] ferrous sulfate 325 mg (65 mg iron) tablet 2019-02 00:00: 00 Yes [id number] 325mg Take 1 tablet by mouth 2 (two) times daily. [facility] ibuprofen 600 mg tablet 2019-02 00:00: 00 Yes [id number] 600mg Take 1 tablet by mouth every 6 (six) hours as needed (Pain). Take with food or milk. [facility] vitamin w/FA tablet 2019-02 00:00: 00 Yes [id number] 1{tbl} Take 1 tablet by mouth daily. [facility] ferrous sulfate 325 mg (65 mg iron) tablet 2019-02 00:00: 00 Yes [id number] 325mg Take 1 tablet by mouth 2 (two) times daily. [facility] ibuprofen 600 mg tablet 2019-02 00:00: 00 Yes [id number] 600mg Take 1 tablet by mouth every 6 (six) hours as needed (Pain). Take with food or milk. [facility] vitamin w/FA tablet 2019-02 00:00: 00 Yes [id number] 1{tbl} Take 1 tablet by mouth daily. [facility] ferrous sulfate 325 mg (65 mg iron) tablet 2019-02 00:00: 00 Yes [id number] 325mg Take 1 tablet by mouth 2 (two) times daily. [facility] ibuprofen 600 mg tablet 2019-02 00:00: 00 Yes [id number] 600mg Take 1 tablet by mouth every 6 (six) hours as needed (Pain). Take with food or milk. [facility] vitamin w/FA tablet 2019-02 00:00: 00 Yes [id number] 1{tbl} Take 1 tablet by mouth daily. [facility] ferrous sulfate 325 mg (65 mg iron) tablet 2019-02 00:00: 00 Yes [id number] 325mg Take 1 tablet by mouth 2 (two) times daily. [facility] ibuprofen 600 mg tablet 2019-02 00:00: 00 Yes [id number] 600mg Take 1 tablet by mouth every 6 (six) hours as needed (Pain). Take with food or milk. [facility] vitamin w/FA tablet 2019-02 00:00: 00 Yes [id number] 1{tbl} Take 1 tablet by mouth daily. [facility] ferrous sulfate 325 mg (65 mg iron) tablet 2019-02 00:00: 00 Yes [id number] 325mg Take 1 tablet by mouth 2 (two) times daily. [facility] ibuprofen 600 mg tablet 2019-02 00:00: 00 Yes [id number] 600mg Take 1 tablet by mouth every 6 (six) hours as needed (Pain). Take with food or milk. [facility] albuterol 90 mcg/actuati on inhaler 07-08 00:00: 00 Yes [id number] 2{puff} Inhale 2 Puffs every 6 (six) hours as needed for Wheezing or Shortness of Breath. [facility] albuterol 90 mcg/actuati on inhaler 07-08 00:00: 00 Yes [id number] 2{puff} Inhale 2 Puffs every 6 (six) hours as needed for Wheezing or Shortness of Breath. [facility] albuterol 90 mcg/actuati on inhaler 07-08 00:00: 00 Yes [id number] 2{puff} Inhale 2 Puffs every 6 (six) hours as needed for Wheezing or Shortness of Breath. [facility] albuterol 90 mcg/actuati on inhaler 07-08 00:00: 00 Yes [id number] 2{puff} Inhale 2 Puffs every 6 (six) hours as needed for Wheezing or Shortness of Breath. [facility] albuterol 90 mcg/actuati on inhaler 07-08 00:00: 00 Yes [id number] 2{puff} Inhale 2 Puffs every 6 (six) hours as needed for Wheezing or Shortness of Breath. [facility] albuterol 90 mcg/actuati on inhaler 07-08 00:00: 00 Yes [id number] 2{puff} Inhale 2 Puffs every 6 (six) hours as needed for Wheezing or Shortness of Breath. [facility] albuterol 90 mcg/actuati on inhaler 07-08 00:00: 00 Yes [id number] 2{puff} Inhale 2 Puffs every 6 (six) hours as needed for Wheezing or Shortness of Breath. [facility] albuterol 90 mcg/actuati on inhaler 07-08 00:00: 00 Yes [id number] 2{puff} Inhale 2 Puffs every 6 (six) hours as needed for Wheezing or Shortness of Breath. [facility] albuterol 90 mcg/actuati on inhaler 07-08 00:00: 00 Yes [id number] 2{puff} Inhale 2 Puffs every 6 (six) hours as needed for Wheezing or Shortness of Breath. [facility] albuterol 90 mcg/actuati on inhaler 07-08 00:00: 00 Yes [id number] 2{puff} Inhale 2 Puffs every 6 (six) hours as needed for Wheezing or Shortness of Breath. [facility] albuterol 90 mcg/actuati on inhaler 07-08 00:00: 00 Yes [id number] 2{puff} Inhale 2 Puffs every 6 (six) hours as needed for Wheezing or Shortness of Breath. [facility] fexofenadin e 180 mg tablet 06-24 00:00: 00 No 1mg fexofenadin e 180 mg tablet 06-24 00:00: 00 No 1mg fexofenadin e 180 mg tablet 06-24 00:00: 00 No 1mg fexofenadin e 180 mg tablet 06-24 00:00: 00 No 1mg fexofenadin e 180 mg tablet 06-24 00:00: 00 No 1mg fexofenadin e 180 mg tablet 06-24 00:00: 00 No 1mg fexofenadin e 180 mg tablet 06-24 00:00: 00 No 1mg fexofenadin e 180 mg tablet 06-24 00:00: 00 No 1mg amlodipine 10 mg tablet 06-20 00:00: 00 No 1mg pantoprazol e 40 mg tablet,dorie yed release 06-20 00:00: 00 No 1mg cetirizine 5 mg tablet 06-20 00:00: 00 No 1mg phenazopyri dine 200 mg tablet 06-20 00:00: 00 No 1mg fluoxetine 40 mg capsule 06-20 00:00: 00 No 1mg amlodipine 10 mg tablet 06-20 00:00: 00 No 1mg pantoprazol e 40 mg tablet,dorie yed release 06-20 00:00: 00 No 1mg cetirizine 5 mg tablet 06-20 00:00: 00 No 1mg phenazopyri dine 200 mg tablet 06-20 00:00: 00 No 1mg fluoxetine 40 mg capsule 06-20 00:00: 00 No 1mg amlodipine 10 mg tablet 06-20 00:00: 00 No 1mg pantoprazol e 40 mg tablet,dorie yed release 06-20 00:00: 00 No 1mg cetirizine 5 mg tablet 06-20 00:00: 00 No 1mg phenazopyri dine 200 mg tablet 06-20 00:00: 00 No 1mg fluoxetine 40 mg capsule 06-20 00:00: 00 No 1mg amlodipine 10 mg tablet 06-20 00:00: 00 No 1mg pantoprazol e 40 mg tablet,dorie yed release 06-20 00:00: 00 No 1mg cetirizine 5 mg tablet 06-20 00:00: 00 No 1mg phenazopyri dine 200 mg tablet 06-20 00:00: 00 No 1mg fluoxetine 40 mg capsule 06-20 00:00: 00 No 1mg amlodipine 10 mg tablet 06-20 00:00: 00 No 1mg pantoprazol e 40 mg tablet,dorie yed release 0 06-20 00:00: 00 No 1mg amlodipine 10 mg tablet 06-20 00:00: 00 No 1mg pantoprazol e 40 mg tablet,dorie yed release 06-20 00:00: 00 No 1mg cetirizine 5 mg tablet 06-20 00:00: 00 No 1mg phenazopyri dine 200 mg tablet 0 06-20 00:00: 00 No 1mg fluoxetine 40 mg capsule 0 06-20 00:00: 00 No 1mg cetirizine 5 mg tablet 06-20 00:00: 00 No 1mg phenazopyri dine 200 mg tablet 06-20 00:00: 00 No 1mg amlodipine 10 mg tablet 06-20 00:00: 00 No 1mg pantoprazol e 40 mg tablet,dorie yed release 06-20 00:00: 00 No 1mg cetirizine 5 mg tablet 06-20 00:00: 00 No 1mg phenazopyri dine 200 mg tablet 06-20 00:00: 00 No 1mg fluoxetine 40 mg capsule 06-20 00:00: 00 No 1mg fluoxetine 40 mg capsule 06-20 00:00: 00 No 1mg amlodipine 10 mg tablet 06-20 00:00: 00 No 1mg pantoprazol e 40 mg tablet,dorie yed release 06-20 00:00: 00 No 1mg cetirizine 5 mg tablet 06-20 00:00: 00 No 1mg phenazopyri dine 200 mg tablet 06-20 00:00: 00 No 1mg fluoxetine 40 mg capsule 06-20 00:00: 00 No 1mg Immunizations Ordered Immunization Name Filled Immunization Name Date Status Comments Source Pneumococcal Polysaccharide, PPSV23 (PNEUMOVAX) 2021-01-24 00:00:00 Completed [facility] Influenza Virus Vaccine Quad IM, Preserv and ABX Free 6 MO-64 YRS 2021-01-24 00:00:00 Completed [facility] Pneumococcal Polysaccharide, PPSV23 (PNEUMOVAX) 2021-01-24 00:00:00 Completed [facility] Influenza Virus Vaccine Quad IM, Preserv and ABX Free 6 MO-64 YRS 2021-01-24 00:00:00 Completed [facility] Pneumococcal Polysaccharide, PPSV23 (PNEUMOVAX) 2021-01-24 00:00:00 Completed [facility] Influenza Virus Vaccine Quad IM, Preserv and ABX Free 6 MO-64 YRS 2021-01-24 00:00:00 Completed [facility] Pneumococcal Polysaccharide, PPSV23 (PNEUMOVAX) 2021-01-24 00:00:00 Completed [facility] Influenza Virus Vaccine Quad IM, Preserv and ABX Free 6 MO-64 YRS 2021-01-24 00:00:00 Completed [facility] Pneumococcal Polysaccharide, PPSV23 (PNEUMOVAX) 2021-01-24 00:00:00 Completed [facility] Influenza Virus Vaccine Quad IM, Preserv and ABX Free 6 MO-64 YRS 2021-01-24 00:00:00 Completed [facility] Pneumococcal Polysaccharide, PPSV23 (PNEUMOVAX) 2021-01-24 00:00:00 Completed [facility] Influenza Virus Vaccine Quad IM, Preserv and ABX Free 6 MO-64 YRS 2021-01-24 00:00:00 Completed [facility] Pneumococcal Polysaccharide, PPSV23 (PNEUMOVAX) 2021-01-24 00:00:00 Completed [facility] Influenza Virus Vaccine Quad IM, Preserv and ABX Free 6 MO-64 YRS (FLUCELVAX) 2021-01-24 00:00:00 Completed [facility] SARS-COV-2 COVID-19 PFIZER VACCINE 2020-06-13 00:00:00 Completed [facility] SARS-COV-2 COVID-19 PFIZER VACCINE 2020-06-13 00:00:00 Completed [facility] SARS-COV-2 COVID-19 PFIZER VACCINE 2020-06-13 00:00:00 Completed [facility] SARS-COV-2 COVID-19 PFIZER VACCINE 2020-06-13 00:00:00 Completed [facility] SARS-COV-2 COVID-19 PFIZER VACCINE 2020-06-13 00:00:00 Completed [facility] SARS-COV-2 COVID-19 PFIZER VACCINE 2020-06-13 00:00:00 Completed [facility] SARS-COV-2 COVID-19 PFIZER VACCINE 2020-06-13 00:00:00 Completed [facility] SARS-COV-2 COVID-19 PFIZER VACCINE 2020-05-12 00:00:00 Completed [facility] SARS-COV-2 COVID-19 PFIZER VACCINE 2020-05-12 00:00:00 Completed [facility] SARS-COV-2 COVID-19 PFIZER VACCINE 2020-05-12 00:00:00 Completed [facility] SARS-COV-2 COVID-19 PFIZER VACCINE 2020-05-12 00:00:00 Completed [facility] SARS-COV-2 COVID-19 PFIZER VACCINE 2020-05-12 00:00:00 Completed [facility] SARS-COV-2 COVID-19 PFIZER VACCINE 2020-05-12 00:00:00 Completed [facility] SARS-COV-2 COVID-19 PFIZER VACCINE 2020-05-12 00:00:00 Completed [facility] HPV9 2020-02-04 00:00:00 Completed [facility] Varicella (varivax)(chicken pox) 2020-02-04 00:00:00 Completed [facility] HPV9 2020-02-04 00:00:00 Completed [facility] Varicella (varivax)(chicken pox) 2020-02-04 00:00:00 Completed [facility] HPV9 2020-02-04 00:00:00 Completed [facility] Varicella (varivax)(chicken pox) 2020-02-04 00:00:00 Completed [facility] HPV9 2020-02-04 00:00:00 Completed [facility] Varicella (varivax)(chicken pox) 2020-02-04 00:00:00 Completed [facility] HPV9 2020-02-04 00:00:00 Completed [facility] Varicella (varivax)(chicken pox) 2020-02-04 00:00:00 Completed [facility] HPV9 2020-02-04 00:00:00 Completed [facility] Varicella (varivax)(chicken pox) 2020-02-04 00:00:00 Completed [facility] HPV9 2020-02-04 00:00:00 Completed [facility] Varicella (varivax)(chicken pox) 2020-02-04 00:00:00 Completed [facility] TDAP 2019-12-10 00:00:00 Completed [facility] TDAP 2019-12-10 00:00:00 Completed [facility] TDAP 2019-12-10 00:00:00 Completed [facility] TDAP 2019-12-10 00:00:00 Completed [facility] TDAP 2019-12-10 00:00:00 Completed [facility] TDAP 2019-12-10 00:00:00 Completed [facility] TDAP 2019-12-10 00:00:00 Completed [facility] TDAP (ADACEL) VACCINE 2018-05-12 00:00:00 Completed [facility] TDAP (ADACEL) VACCINE 2018-05-12 00:00:00 Completed [facility] TDAP (ADACEL) VACCINE 2018-05-12 00:00:00 Completed [facility] TDAP (ADACEL) VACCINE 2018-05-12 00:00:00 Completed [facility] TDAP (ADACEL) VACCINE 2018-05-12 00:00:00 Completed [facility] TDAP (ADACEL) VACCINE 2018-05-12 00:00:00 Completed [facility] TDAP (ADACEL) VACCINE 2018-05-12 00:00:00 Completed [facility] PPD (TB) 2018-01-27 00:00:00 Completed [facility] PPD (TB) 2018-01-27 00:00:00 Completed [facility] PPD (TB) 2018-01-27 00:00:00 Completed [facility] PPD (TB) 2018-01-27 00:00:00 Completed [facility] PPD (TB) 2018-01-27 00:00:00 Completed [facility] PPD (TB) 2018-01-27 00:00:00 Completed [facility] PPD (TB) 2018-01-27 00:00:00 Completed [facility] PPD (TB) 2014-02-23 00:00:00 Completed [facility] PPD (TB) 2014-02-23 00:00:00 Completed [facility] PPD (TB) 2014-02-23 00:00:00 Completed [facility] PPD (TB) 2014-02-23 00:00:00 Completed [facility] PPD (TB) 2014-02-23 00:00:00 Completed [facility] PPD (TB) 2014-02-23 00:00:00 Completed [facility] PPD (TB) 2014-02-23 00:00:00 Completed [facility] Rubella 2011-02-19 00:00:00 Completed [facility] TDAP 2011-02-19 00:00:00 Completed [facility] Rubella 2011-02-19 00:00:00 Completed [facility] TDAP 2011-02-19 00:00:00 Completed [facility] Rubella 2011-02-19 00:00:00 Completed [facility] TDAP 2011-02-19 00:00:00 Completed [facility] Rubella 2011-02-19 00:00:00 Completed [facility] TDAP 2011-02-19 00:00:00 Completed [facility] Rubella 2011-02-19 00:00:00 Completed [facility] TDAP 2011-02-19 00:00:00 Completed [facility] Rubella 2011-02-19 00:00:00 Completed [facility] TDAP 2011-02-19 00:00:00 Completed [facility] Rubella 2011-02-19 00:00:00 Completed [facility] TDAP 2011-02-19 00:00:00 Completed [facility] Rubella Unknown Completed [facility] TDAP Unknown Completed [facility] PPD (TB) Unknown Completed [facility] PPD (TB) Unknown Completed [facility] TDAP (ADACEL) VACCINE Unknown Completed [facility] TDAP Unknown Completed [facility] HPV9 Unknown Completed [facility] Varicella (varivax)(chicken pox) Unknown Completed [facility] SARS-COV-2 COVID-19 PFIZER VACCINE Unknown Completed [facility] SARS-COV-2 COVID-19 PFIZER VACCINE Unknown Completed [facility] Pneumococcal Polysaccharide, PPSV23 (PNEUMOVAX) Unknown Completed [facility] Influenza Virus Vaccine Quad IM, Preserv and ABX Free 6 MO-64 YRS (FLUCELVAX) Unknown Completed [facility] Rubella Unknown Completed [facility] TDAP Unknown Completed [facility] PPD (TB) Unknown Completed [facility] PPD (TB) Unknown Completed [facility] TDAP (ADACEL) VACCINE Unknown Completed [facility] TDAP Unknown Completed [facility] Rubella Unknown Completed [facility] TDAP Unknown Completed [facility] PPD (TB) Unknown Completed [facility] PPD (TB) Unknown Completed [facility] TDAP (ADACEL) VACCINE Unknown Completed [facility] TDAP Unknown Completed [facility] Rubella Unknown Completed [facility] TDAP Unknown Completed [facility] PPD (TB) Unknown Completed [facility] PPD (TB) Unknown Completed [facility] TDAP (ADACEL) VACCINE Unknown Completed [facility] TDAP Unknown Completed [facility] HPV9 Unknown Completed [facility] Varicella (varivax)(chicken pox) Unknown Completed [facility] SARS-COV-2 COVID-19 PFIZER VACCINE Unknown Completed [facility] SARS-COV-2 COVID-19 PFIZER VACCINE Unknown Completed [facility] Pneumococcal Polysaccharide, PPSV23 (PNEUMOVAX) Unknown Completed [facility] Influenza Virus Vaccine Quad IM, Preserv and ABX Free 6 MO-64 YRS (FLUCELVAX) Unknown Completed [facility] Vital Signs Vital Name Observation Time Observation Value Comments S ourdulce maria Systolic blood pressure 2022-10-19 21:23:46 139 mm[Hg] [facility] Diastolic blood pressure 2022-10-19 21:23:46 73 mm[Hg] [facility] Heart rate 2022-10-19 21:23:46 96 /[facility] 2022-10-19 21:23:46 37.61 Ara [facility] Respiratory rate 2022-10-19 21:23:46 18 /min [facility] Oxygen saturation in Arterial blood by Pulse oximetry 2022-10-19 21:23:46 98 /min [facility] Body height 2022-10-19 20:03:00 162.6 cm [facility] Body weight 2022-10-19 20:03:00 102.059 kg [facility] BMI 2022-10-19 20:03:00 38.62 kg/m2 [facility] Systolic blood pressure 2022-06-12 18:04:00 128 mm[Hg] [facility] Diastolic blood pressure 2022-06-12 18:04:00 94 mm[Hg] [facility] Heart rate 2022-06-12 18:04:00 88 /min [facility] Body temperature 2022-06-12 18:04:00 37 Ara [facility] Respiratory rate 2022-06-12 18:04:00 18 /min [facility] Body weight 2022-06-12 18:04:00 93.895 kg [facility] BMI 2022-06-12 18:04:00 34.98 kg/m2 [facility] Oxygen saturation in Arterial blood by Pulse oximetry 2022-06-12 18:04:00 99 /min [facility] Systolic blood pressure 2021-12-09 16:00:00 128 mm[Hg] [facility] Diastolic blood pressure 2021-12-09 16:00:00 78 mm[Hg] [facility] Heart rate 2021-12-09 16:00:00 75 /min [facility] Respiratory rate 2021-12-09 16:00:00 18 /min [facility] Oxygen saturation in Arterial blood by Pulse oximetry 2021-12-09 16:00:00 99 /min [facility] Body temperature 2021-12-09 15:00:00 36.44 Ara [facility] Body weight 2021-12-09 13:49:00 93.895 kg [facility] BMI 2021-12-09 13:49:00 34.98 kg/m2 [facility] Systolic blood pressure 2021-08-17 20:49:00 126 mm[Hg] [facility] Diastolic blood pressure 2021-08-17 20:49:00 84 mm[Hg] [facility] Heart rate 2021-08-17 20:49:00 73 /min [facility] Body temperature 2021-08-17 20:49:00 37.56 Ara [facility] Respiratory rate 2021-08-17 20:49:00 18 /min [facility] Body height 2021-08-17 20:49:00 163.8 cm [facility] Body weight 2021-08-17 20:49:00 93.895 kg [facility] BMI 2021-08-17 20:49:00 34.98 kg/m2 [facility] Oxygen saturation in Arterial blood by Pulse oximetry 2021-08-17 20:49:00 99 /min [facility] BP Systolic 2021-09-21 13:44:00 129 mm[Hg] BP Diastolic 2021-09-21 13:44:00 84 mm[Hg] Weight Measured 2021-09-21 13:44:00 209.00 pounds Height Measured 2021-09-21 13:44:00 64.00 inches Body Temperature 2021-09-21 13:44:00 98.50 degrees Heart Rate 2021-09-21 13:44:00 76.00 /min Respiratory Rate 2021-09-21 13:44:00 BP Systolic 2021-09-04 15:10:00 119 mm[Hg] BP Diastolic 2021-09-04 15:10:00 82 mm[Hg] Weight Measured 2021-09-04 15:10:00 208.60 pounds Height Measured 2021-09-04 15:10:00 64.00 inches Body Temperature 2021-09-04 15:10:00 97.50 degrees Heart Rate 2021-09-04 15:10:00 78.00 /min Respiratory Rate 2021-09-04 15:10:00 BP Systolic 2021-08-23 14:52:00 115 mm[Hg] BP Diastolic 2021-08-23 14:52:00 70 mm[Hg] Weight Measured 2021-08-23 14:52:00 209.20 pounds Height Measured 2021-08-23 14:52:00 64.00 inches Body Temperature 2021-08-23 14:52:00 Heart Rate 2021-08-23 14:52:00 71.00 /min Respiratory Rate 2021-08-23 14:52:00 BP Systolic 2021-04-08 10:17:00 BP Diastolic 2021-04-08 10:17:00 Weight Measured 2021-04-08 10:17:00 205.00 pounds Height Measured 2021-04-08 10:17:00 64.00 inches Body Temperature 2021-04-08 10:17:00 Heart Rate 2021-04-08 10:17:00 Respiratory Rate 2021-04-08 10:17:00 BP Systolic 2021-03-12 11:14:00 133 mm[Hg] BP Diastolic 2021-03-12 11:14:00 88 mm[Hg] Weight Measured 2021-03-12 11:14:00 207.60 pounds Height Measured 2021-03-12 11:14:00 64.00 inches Body Temperature 2021-03-12 11:14:00 97.60 degrees Heart Rate 2021-03-12 11:14:00 76.00 /min Respiratory Rate 2021-03-12 11:14:00 BP Systolic 2021-01-29 14:16:00 124 mm[Hg] BP Diastolic 2021-01-29 14:16:00 82 mm[Hg] Weight Measured 2021-01-29 14:16:00 208.60 pounds Height Measured 2021-01-29 14:16:00 64.00 inches Body Temperature 2021-01-29 14:16:00 98.40 degrees Heart Rate 2021-01-29 14:16:00 82.00 /min Respiratory Rate 2021-01-29 14:16:00 18.00 /min BP Systolic 2021-01-22 13:14:00 BP Diastolic 2021-01-22 13:14:00 Weight Measured 2021-01-22 13:14:00 208.00 pounds Height Measured 2021-01-22 13:14:00 64.00 inches Body Temperature 2021-01-22 13:14:00 Heart Rate 2021-01-22 13:14:00 Respiratory Rate 2021-01-22 13:14:00 BP Systolic 2021-01-10 16:16:00 121 mm[Hg] BP Diastolic 2021-01-10 16:16:00 74 mm[Hg] Weight Measured 2021-01-10 16:16:00 208.20 pounds Height Measured 2021-01-10 16:16:00 64.00 inches Body Temperature 2021-01-10 16:16:00 97.80 degrees Heart Rate 2021-01-10 16:16:00 70.00 /min Respiratory Rate 2021-01-10 16:16:00 BP Systolic 2021-01-08 16:22:00 132 mm[Hg] BP Diastolic 2021-01-08 16:22:00 81 mm[Hg] Weight Measured 2021-01-08 16:22:00 211.80 pounds Height Measured 2021-01-08 16:22:00 64.00 inches Body Temperature 2021-01-08 16:22:00 98.00 degrees Heart Rate 2021-01-08 16:22:00 63.00 /min Respiratory Rate 2021-01-08 16:22:00 BP Systolic 2020-12-10 09:50:00 BP Diastolic 2020-12-10 09:50:00 Weight Measured 2020-12-10 09:50:00 220.00 pounds Height Measured 2020-12-10 09:50:00 Body Temperature 2020-12-10 09:50:00 Heart Rate 2020-12-10 09:50:00 Respiratory Rate 2020-12-10 09:50:00 BP Systolic 2020-05-30 10:26:00 137 mm[Hg] BP Diastolic 2020-05-30 10:26:00 91 mm[Hg] Weight Measured 2020-05-30 10:26:00 212.80 pounds Height Measured 2020-05-30 10:26:00 64.00 inches Body Temperature 2020-05-30 10:26:00 97.40 degrees Heart Rate 2020-05-30 10:26:00 70.00 /min Respiratory Rate 2020-05-30 10:26:00 16.00 /min BP Systolic 2020-04-21 11:42:00 137 mm[Hg] BP Diastolic 2020-04-21 11:42:00 78 mm[Hg] Weight Measured 2020-04-21 11:42:00 203.80 pounds Height Measured 2020-04-21 11:42:00 64.00 inches Body Temperature 2020-04-21 11:42:00 98.00 degrees Heart Rate 2020-04-21 11:42:00 79.00 /min Respiratory Rate 2020-04-21 11:42:00 16.00 /min Procedures Procedure Date / Time Performed Performing Clinician Source NOTICE OF RESEARCH PARTICIPATION 2022-12-25 06:01:00 Doctor Unassigned, [place] [facility] COVID-19 (ID NOW RAPID TESTING) 2022-10-19 20:13:00 Blessing Cummings [facility] NOTICE OF PRIVACY PRACTICES 2022-10-19 19:58:31 Doctor Unassigned, [place] [facility] CONSENT/REFUSAL FOR DIAGNOSIS AND TREATMENT 2022-10-19 19:55:21 Doctor Unassigned, [place] [facility] CT ABDOMEN PELVIS WO CONTRAST 2022-06-12 18:54:00 Cornel Goodwin [facility] POCT TEST 2022-06-12 18:29:[address] [facility] URINALYSIS 2022-06-12 18:27:00 Cornel Goodwin [facility] CONSENT/REFUSAL FOR DIAGNOSIS AND TREATMENT 2022-06-12 17:55:01 Doctor Unassigned, [place] [facility] CT ABDOMEN PELVIS W CONTRAST 2021-12-09 15:14:01 Michelle Cordova [facility] POCT TEST 2021-12-09 14:14:00 Kirstin Cordova [facility] LIPASE 2021-12-09 14:12:00 Michelle Corodva [facility] COMP. METABOLIC PANEL (54244) 2021-12-09 14:12:00 Michelle Cordova [facility] CBC WITH DIFF 2021-12-09 14:12:00 Michelle Cordova [facility] URINALYSIS 2021-12-09 14:12:00 [facility]REFUSAL FOR DIAGNOSIS AND TREATMENT 2021-12-09 13:44:55 Doctor Unassigned, [place] [facility] REFERRAL- REQUEST/RESPONSE 2021-09-04 05:01:00 Doctor Unassigned, [place] [facility] POCT URINALYSIS 2021-08-17 00:00:00 Vannesa Andrews [facility] POCT TEST 2021-08-17 00:00:00 Vannesa Andrews [facility] Plan of Care Planned Activity Planned Date Details Comments Source Goal Plan of Care Note [code = 34807-3] Goal Plan of Care Note [code = 20794-0] Goal Plan of Care Note [code = 18923-9] Goal Plan of Care Note [code = 52589-5] Goal Plan of Care Note [code = 67546-6] Goal Plan of Care Note [code = 54802-4] Goal Plan of Care Note [code = 24788-4] Goal Plan of Care Note [code = 17233-8] Goal Plan of Care Note [code = 21010-2] Goal Plan of Care Note [code = 59209-3] Goal Plan of Care Note [code = 44402-3] Goal Plan of Care Note [code = 37106-8] Goal Plan of Care Note [code = 31594-5] Goal Plan of Care Note [code = 73485-3] Goal Plan of Care Note [code = 98168-2] Goal Plan of Care Note [code = 74391-1] Goal Plan of Care Note [code = 24767-2] Goal Plan of Care Note [code = 49803-0] Goal Plan of Care Note [code = 97028-5] Goal Plan of Care Note [code = 27776-5] Goal Plan of Care Note [code = 21730-1] Goal Plan of Care Note [code = 62594-0] Goal Plan of Care Note [code = 97778-8] Goal Plan of Care Note [code = 13599-3] Goal Plan of Care Note [code = 98247-4] Goal Plan of Care Note [code = 81831-1] Goal Plan of Care Note [code = 27116-5] Goal Plan of Care Note [code = 38391-6] Goal Plan of Care Note [code = 73248-8] Goal Plan of Care Note [code = 05730-3] Goal Plan of Care Note [code = 53938-0] Goal Plan of Care Note [code = 22262-0] Goal Plan of Care Note [code = 72218-7] Goal Plan of Care Note [code = 10452-2] Goal Plan of Care Note [code = 12388-1] Goal Plan of Care Note [code = 95428-7] Goal Plan of Care Note [code = 99358-4] Goal Plan of Care Note [code = 97516-4] Goal Plan of Care Note [code = 38695-3] Goal Plan of Care Note [code = 29012-8] Goal Plan of Care Note [code = 79788-2] Goal Plan of Care Note [code = 01085-8] Goal Plan of Care Note [code = 02621-2] Goal Plan of Care Note [code = 55065-3] Goal Plan of Care Note [code = 58914-1] Goal Plan of Care Note [code = 23296-4] Goal Plan of Care Note [code = 19471-8] Goal Plan of Care Note [code = 18015-8] Goal Plan of Care Note [code = 72268-2] Goal Plan of Care Note [code = 67994-4] Goal Plan of Care Note [code = 74270-3] Goal Plan of Care Note [code = 89656-1] Goal Plan of Care Note [code = 74550-0] Goal Plan of Care Note [code = 64258-0] Goal Plan of Care Note [code = 06134-4] Goal Plan of Care Note [code = 44597-5] Goal Plan of Care Note [code = 55866-9] Goal Plan of Care Note [code = 16050-8] Goal Plan of Care Note [code = 33278-9] Goal Plan of Care Note [code = 31201-9] Goal Plan of Care Note [code = 28851-5] Goal Plan of Care Note [code = 58554-9] Goal Plan of Care Note [code = 50965-9] Goal Plan of Care Note [code = 75285-1] Goal Plan of Care Note [code = 87692-6] Goal Plan of Care Note [code = 58761-3] Goal Plan of Care Note [code = 91527-6] Goal Plan of Care Note [code = 60294-5] Goal Plan of Care Note [code = 80587-1] Goal Plan of Care Note [code = 90568-0] Goal Plan of Care Note [code = 73314-4] Goal Plan of Care Note [code = 00351-0] Goal Plan of Care Note [code = 08094-7] Goal Plan of Care Note [code = 15557-4] Goal Plan of Care Note [code = 37014-9] Goal Plan of Care Note [code = 17817-1] Goal Plan of Care Note [code = 79122-7] Goal Plan of Care Note [code = 59042-3] Goal Plan of Care Note [code = 58002-0] Goal Plan of Care Note [code = 12825-0] Goal Plan of Care Note [code = 85171-2] Goal Plan of Care Note [code = 45199-4] Goal Plan of Care Note [code = 00001-1] Goal Plan of Care Note [code = 77552-1] Goal Plan of Care Note [code = 16752-0] Goal Plan of Care Note [code = 30697-3] Goal Plan of Care Note [code = 93468-6] Goal Plan of Care Note [code = 43269-9] Goal Plan of Care Note [code = 12033-2] Goal Plan of Care Note [code = 28195-2] Goal Plan of Care Note [code = 83365-9] Goal Plan of Care Note [code = 34120-4] Goal Plan of Care Note [code = 64794-2] Goal Plan of Care Note [code = 56644-3] Goal Plan of Care Note [code = 97238-2] Goal Plan of Care Note [code = 06785-5] Goal Plan of Care Note [code = 99749-5] Goal Plan of Care Note [code = 76271-9] Goal Plan of Care Note [code = 30113-9] Goal Plan of Care Note [code = 46078-8] Goal Plan of Care Note [code = 43436-7] Goal Plan of Care Note [code = 31841-2] Goal Plan of Care Note [code = 04538-6] Goal Plan of Care Note [code = 17832-9] Goal Plan of Care Note [code = 32378-0] Goal Plan of Care Note [code = 04920-1] Goal Plan of Care Note [code = 28768-1] Goal Plan of Care Note [code = 54578-3] Goal Plan of Care Note [code = 16095-7] Goal Plan of Care Note [code = 67953-8] Goal Plan of Care Note [code = 83310-8] Goal Plan of Care Note [code = 43927-6] Goal Plan of Care Note [code = 76222-8] Goal Plan of Care Note [code = 72735-3] Goal Plan of Care Note [code = 77586-2] Goal Plan of Care Note [code = 07373-7] Goal Plan of Care Note [code = 06245-2] Goal Plan of Care Note [code = 30460-5] Goal Plan of Care Note [code = 57628-2] Goal Plan of Care Note [code = 74979-7] Goal Plan of Care Note [code = 05167-7] Goal Plan of Care Note [code = 56922-2] Goal Plan of Care Note [code = 58642-2] Goal Plan of Care Note [code = 27763-2] Goal Plan of Care Note [code = 52294-4] Goal Plan of Care Note [code = 29703-7] Goal Plan of Care Note [code = 62088-8] Goal Plan of Care Note [code = 35034-7] Goal Plan of Care Note [code = 66448-2] Goal Plan of Care Note [code = 42254-2] Goal Plan of Care Note [code = 53737-3] Goal Plan of Care Note [code = 54366-2] Goal Plan of Care Note [code = 16927-4] Goal Plan of Care Note [code = 56678-1] Goal Plan of Care Note [code = 87329-7] Goal Plan of Care Note [code = 54456-9] Goal Plan of Care Note [code = 73902-1] Goal Plan of Care Note [code = 26276-4] Goal Plan of Care Note [code = 78866-7] Goal Plan of Care Note [code = 55003-3] Goal Plan of Care Note [code = 40776-3] Goal Plan of Care Note [code = 04885-9] Goal Plan of Care Note [code = 30347-3] Goal Plan of Care Note [code = 23076-7] Goal Plan of Care Note [code = 48667-0] Goal Plan of Care Note [code = 41656-3] Goal Plan of Care Note [code = 34523-8] Goal Plan of Care Note [code = 06516-5] Goal Plan of Care Note [code = 11308-6] Goal Plan of Care Note [code = 27323-5] Goal Plan of Care Note [code = 89601-3] Goal Plan of Care Note [code = 93919-3] Goal Plan of Care Note [code = 38412-7] Goal Plan of Care Note [code = 06129-3] Goal Plan of Care Note [code = 07196-7] Goal Plan of Care Note [code = 19935-6] Goal Plan of Care Note [code = 82043-7] Goal Plan of Care Note [code = 85463-5] Goal Plan of Care Note [code = 24562-4] Goal Plan of Care Note [code = 42583-1] Goal Plan of Care Note [code = 73188-9] Goal Plan of Care Note [code = 44443-7] Goal Plan of Care Note [code = 33885-0] Goal Plan of Care Note [code = 86902-4] Goal Plan of Care Note [code = 51480-1] Goal Plan of Care Note [code = 53381-4] Goal Plan of Care Note [code = 95698-9] Goal Plan of Care Note [code = 66319-7] Goal Plan of Care Note [code = 89467-5] Goal Plan of Care Note [code = 32615-4] Goal Plan of Care Note [code = 02076-5] Goal Plan of Care Note [code = 97390-1] Goal Plan of Care Note [code = 82413-5] Goal Plan of Care Note [code = 98844-8] Goal Plan of Care Note [code = 27773-0] Goal Plan of Care Note [code = 38690-9] Goal Plan of Care Note [code = 17998-1] Goal Plan of Care Note [code = 63832-4] Goal Plan of Care Note [code = 12806-2] Goal Plan of Care Note [code = 68101-5] Goal Plan of Care Note [code = 53152-0] Goal Plan of Care Note [code = 59246-5] Goal Plan of Care Note [code = 81306-5] Goal Plan of Care Note [code = 11679-9] Goal Plan of Care Note [code = 37056-0] Goal Plan of Care Note [code = 93569-4] Goal Plan of Care Note [code = 34250-9] Goal Plan of Care Note [code = 19871-4] Goal Plan of Care Note [code = 20070-4] Goal Plan of Care Note [code = 28199-2] Goal Plan of Care Note [code = 50214-4] Goal Plan of Care Note [code = 56215-4] Goal Plan of Care Note [code = 29078-7] Goal Plan of Care Note [code = 25763-5] Goal Plan of Care Note [code = 79905-1] Goal Plan of Care Note [code = 80878-9] Goal Plan of Care Note [code = 32383-8] Goal Plan of Care Note [code = 21716-9] Goal Plan of Care Note [code = 64835-6] Goal Plan of Care Note [code = 26338-9] Goal Plan of Care Note [code = 38947-3] Goal Plan of Care Note [code = 27046-5] Goal Plan of Care Note [code = 05811-3] Goal Plan of Care Note [code = 78493-2] Goal Plan of Care Note [code = 95396-9] Goal Plan of Care Note [code = 93228-3] Goal Plan of Care Note [code = 99100-7] Goal Plan of Care Note [code = 11774-7] Goal Plan of Care Note [code = 89409-6] Goal Plan of Care Note [code = 10806-6] Goal Plan of Care Note [code = 02880-3] Goal Plan of Care Note [code = 47128-1] Goal Plan of Care Note [code = 63078-4] Goal Plan of Care Note [code = 26537-5] Goal Plan of Care Note [code = 30214-9] Goal Plan of Care Note [code = 90222-3] Goal Plan of Care Note [code = 04150-7] Goal Plan of Care Note [code = 55618-7] Goal Plan of Care Note [code = 93419-7] Goal Plan of Care Note [code = 76721-9] Goal Plan of Care Note [code = 29771-2] Goal Plan of Care Note [code = 99651-2] Goal Plan of Care Note [code = 61065-0] Goal Plan of Care Note [code = 32826-6] Goal Plan of Care Note [code = 77383-7] Goal Plan of Care Note [code = 33930-2] Goal Plan of Care Note [code = 73150-0] Goal Plan of Care Note [code = 57112-9] Goal Plan of Care Note [code = 21889-3] Goal Plan of Care Note [code = 27236-5] Goal Plan of Care Note [code = 34077-3] Goal Plan of Care Note [code = 31261-7] Goal Plan of Care Note [code = 81961-6] Goal Plan of Care Note [code = 35969-5] Goal Plan of Care Note [code = 87986-0] Goal Plan of Care Note [code = 52742-0] Goal Plan of Care Note [code = 38404-2] Goal Plan of Care Note [code = 68509-8] Goal Plan of Care Note [code = 44610-6] Goal Plan of Care Note [code = 15502-0] Goal Plan of Care Note [code = 65422-9] Goal Plan of Care Note [code = 19109-6] Goal Plan of Care Note [code = 21388-9] Goal Plan of Care Note [code = 56902-6] Goal Plan of Care Note [code = 15021-8] Goal Plan of Care Note [code = 13789-7] Goal Plan of Care Note [code = 84692-0] Goal Plan of Care Note [code = 30384-8] Goal Plan of Care Note [code = 40960-5] Goal Plan of Care Note [code = 03401-7] Goal Plan of Care Note [code = 96955-6] Goal Plan of Care Note [code = 80555-3] Goal Plan of Care Note [code = 11622-6] Goal Plan of Care Note [code = 86537-4] Goal Plan of Care Note [code = 27410-0] Goal Plan of Care Note [code = 52841-0] Goal Plan of Care Note [code = 04105-6] Goal Plan of Care Note [code = 73961-1] Goal Plan of Care Note [code = 58014-0] Goal Plan of Care Note [code = 28102-8] Goal Plan of Care Note [code = 20440-9] Goal Plan of Care Note [code = 63021-0] Goal Plan of Care Note [code = 66016-3] Goal Plan of Care Note [code = 10318-7] Goal Plan of Care Note [code = 56939-4] Goal Plan of Care Note [code = 43797-3] Goal Plan of Care Note [code = 11515-2] Goal Plan of Care Note [code = 94436-9] Goal Plan of Care Note [code = 39420-3] Goal Plan of Care Note [code = 77532-9] Goal Plan of Care Note [code = 39003-0] Goal Plan of Care Note [code = 83763-2] Goal Plan of Care Note [code = 69542-7] Goal Plan of Care Note [code = 78827-1] Goal Plan of Care Note [code = 54187-1] Encounters Start Date/Time End Date/Time Encounter Type Admission Type Attending [facility] Facility Care Department Encounter ID Source 2020-12-16 11:47:55 Outpatient [facility] [id number] [facility] 2020-12-16 07:40:11 Emergency [facility] [id number] [facility] 2020-12-15 18:25:05 Emergency [facility] [id number] [facility] 2020-12-15 05:40:22 Emergency [facility] [id number] [facility] 2020-12-14 22:52:16 Emergency [facility] [id number] [facility] 2020-12-14 14:12:03 Emergency [facility] [id number] [facility] 2023-03-25 16:53:31 2023-03-25 16:53:31 Outpatient [facility] [id number] Alberto Schumacher 2023-01-29 00:00:00 2023-01-29 00:00:00 Outpatient R RADIOLOGY [facility] [id number] [facility] 2022-12-30 14:00:00 2022-12-30 14:00:00 Outpatient R OBI-CHELO , [place] OBI-CHELO , [place] [facility] [id number] [facility] 2022-12-25 16:24:30 2022-12-25 16:24:30 Outpatient [facility] [id number] Alberto Schumacher 2022-12-25 00:00:00 2022-12-25 00:00:00 Orders Only Doctor Unassigned, [place] [facility] 1.2.840.114 350.1.13.10 4.2.7.2.686 [id number] [facility] 2022-10-19 15:09:00 2022-10-19 16:31:00 Emergency X BLESSING CUMMINGS [facility] ERT [id number] [facility] 2022-10-19 15:09:00 2022-10-19 16:31:00 Emergency Blessing Cummings [facility] 1..840.114 350.1.13.10 4.2.7.2.686 [id number] [facility] 2022-09-16 09:05:16 2022-09-16 09:05:16 Outpatient [facility] [id number] Alberto Schumacher 2022-08-21 19:56:26 2022-08-21 19:56:26 Outpatient [facility] [id number] Alberto Schumacher 2022-06-12 13:05:00 2022-06-12 15:27:00 Emergency X BUDDY, PATTICELY [facility] ERT [id number] [facility] 2022-06-12 13:05:00 2022-06-12 15:27:00 Emergency BuddyCornel avendano [facility] 1..840.114 350.1.13.10 4.2.7.2.686 [id number] [facility] 2022-05-22 14:56:47 2022-05-22 14:56:47 Outpatient [facility] [id number] Alberto Schumacher 2022-03-18 13:29:09 2022-03-18 13:29:[address] [facility] [id number] Alberto Schumacher 2022-02-12 00:00:00 2022-02-12 00:00:00 Outpatient Visit [id number]- fff4-4ef9 -8716-516 [id number] c08l6q73-i ff4-4ef9-8 [id number] 2022-01-08 00:00:00 2022-01-08 00:00:00 Outpatient Visit h07e1f43- lf01-97t1 -5b13-816 45b49h1w6 [id number] v48c6w42-y f49-85g6-3 s39-08886m 72d3e3 2021-12-09 08:52:00 2021-12-09 11:25:00 Emergency X [facility] [id number] [facility] 2021-12-09 08:52:00 2021-12-09 11:25:00 Emergency Michelle Cordova [facility] 1.2.840.114 350.1.13.10 4.2.7.2.686 [id number] [facility] 2021-12-05 00:00:00 2021-12-05 00:00:00 Outpatient Visit [id number]- 9s50-6086 -j35j-43u [id number] 3rp395c0-5 d35-9424-a 84f-59i759 4930d8 2021-09-27 00:00:00 2021-09-27 00:00:00 Outpatient Visit 235s9d2f- fed7-435b -8964-e76 21hv4150q [id number] 910c0q4j-z ed7-435b-8 964-o7603a z5079d 2021-09-21 00:00:00 2021-09-21 00:00:00 Outpatient Visit 3i216vnr- nj64-9z34 -837e-ce9 f7817f00i [id number] 9h852ekt-y c82-3q50-4 37e-ce9d29 68e65c 2021-09-10 00:00:00 2021-09-10 00:00:00 Patient Secure Msg Doctor Unassigned, [place] [facility] 1.840.114 350.1.13.10 4.2.7.2.686 [id number] [facility] 2021-09-04 00:00:00 2021-09-04 00:00:00 Orders Only Doctor Unassigned, [place] [facility] 1.840.114 350.1.13.10 4.2.7.2.686 [id number] [facility] 2021-09-04 00:00:00 2021-09-04 00:00:00 Outpatient Visit 796i4ju2- 0bdb-49f2 -c4dn-l2j [id number] 364t4hx9-3 bdb-49f2-b 1fb-e7b48e a89454 2021-08-23 10:45:00 2021-08-23 10:45:00 Outpatient R DAQUAN SOL [facility] [id number] [facility] 2021-08-23 00:00:00 2021-08-23 00:00:00 Outpatient Visit s9ly07x3- 870f-4aa6 -873a-6f7 [id number] [id number] i7ce19v7-9 70f-4aa6-8 73a-3y948s f49c67 2021-08-19 00:00:00 2021-08-19 00:00:00 Telephone Vannesa Andrews [facility] 1..840.114 350.1.13.10 4.2.7.2.686 [id number] [facility] 2021-08-17 15:40:00 2021-08-17 16:34:51 Outpatient R VANNESA ANDREWS [facility] [id number] [facility] 2021-08-17 15:40:00 2021-08-17 16:34:51 Urgent Care Vannesa Andrews [facility] 1.84.114 350.1.13.10 4.2.7.2.686 [id number] [facility] 2021-08-17 15:40:00 2021-08-17 15:40:00 Outpatient R [facility]NA [facility] [id number] [facility] 2021-08-17 00:00:00 2021-08-17 00:00:00 Telephone Ned Valencia [facility] FEEDER DRIVER [facility] MATERNAL & CHILD [facility] 1..114 350.1.13.10 4.2.7.2.686 [id number] [facility] 2021-08-17 00:00:00 2021-08-17 00:00:00 Orders Only Doctor Unassigned, [place] [facility] 1..114 350.1.13.10 4.2.7.2.686 [id number] [facility] 2021-08-16 00:00:00 2021-08-16 00:00:00 Outpatient Visit 4549w3w9- p513-5590 -8dcd-548 [id number] 8322k9b1-p 575-4439-8 dcd-548b36 5775c3 2021 16:00:00 2021 19:19:00 Emergency X BLANCA CAMARGO [facility] ERT [id number] [facility] 2021 16:00:00 2021 19:19:00 Emergency Blanca Camargo [facility] 1..114 350.1.13.10 4.2.7.2.686 [id number] [facility] 2021-01-25 00:00:00 2021-01-25 00:00:00 Transition of Care Saige Young Shmu[facility] 1.2.840.114 350.1.13.10 4.2.7.2.686 [id number] [facility] 2021-01-22 15:10:00 2021-01-24 15:40:00 Hospital Encounter Waldo Borrero [facility] 1.0.114 350.1.13.10 4.2.7.2.686 [id number] [facility] 2021-01-21 20:59:00 2021-01-22 00:55:00 Emergency X BLANCA CAMARGO [facility] ERT [id number] [facility] 2021-01-21 20:59:00 2021-01-22 00:55:00 Emergency Drever, Blanca G [facility] 1.0.114 350.1.13.10 4.2.7.2.686 [id number] [facility] 2021-01-21 20:59:00 2021-01-22 00:55:00 Emergency X BLANCA CAMARGO [facility] ERT [id number] [facility] 2021-01-21 00:00:00 2021-01-21 00:00:00 Orders Only Doctor Unassigned, [place] [facility] 1.0.114 350.1.13.10 4.2.7.2.686 [id number] [facility] 2020-10-01 00:00:00 2020-10-01 00:00:00 Ned Fitzgerald [facility] FEEDER DRIVER [facility] MATERNAL & [facility] 1.2840.114 350.1.13.10 4.2.7.2.686 [id number] [facility] 2020-09-19 00:00:00 2020-09-19 00:00:00 Telephone Rachel Duval Obie Chambers 1.2.114 350.1.13.10 4.2.7.2.686 [id number] [facility] 2020-06-13 13:20:00 2020-06-13 13:20:00 Outpatient MORTEZA GARCIA [facility] [id number] [facility] 2020-06-02 12:40:00 2020-06-02 12:40:00 Outpatient VAN WHITAKER [facility] [id number] [facility] 2020-05-12 12:40:00 2020-05-12 12:40:00 Outpatient MORTEZA ROTH [facility] [id number] [facility] 2020-05-08 00:00:00 2020-05-08 00:00:00 Patient Outreach Morteza Roth [facility] 1.20.114 350.1.13.10 4.2.7.2.686 [id number] [facility] 2020-04-10 00:00:00 2020-04-10 00:00:00 Refill Daquan Sol [facility] FEEDER DRIVER [facility] MATERNAL & CHILD [facility] 1.20.114 350.1.13.10 4.2.7.2.686 [id number] [facility] 2020-03-21 14:33:05 2020-03-21 15:32:37 Office Visit Ned Valencia [facility] FEEDER DRIVER [facility] & CHILD [facility] 1.2840.114 350.1.13.10 4.2.7.2.686 [id number] [facility] 2020-03-21 14:30:00 2020-03-21 14:30:00 Outpatient NED DHALIWAL [facility] [id number] [facility] 2020-03-21 00:00:00 2020-03-21 00:00:00 Refill Ned Valencia [facility] FEEDER DRIVER [facility] & CHILD [facility] 1.84.114 350.1.13.10 4.2.7.2.686 [id number] [facility] 2020-02-25 10:17:38 2020-02-25 10:32:38 Routine Visit Ned Valencia [facility] FEEDER DRIVER [facility] & CHILD [facility] 1..114 350.1.13.10 4.2.7.2.686 [id number] [facility] 2020-02-25 10:15:00 2020-02-25 10:15:00 Outpatient R NED VALENCIA [facility] [id number] [facility] 2020-02-12 17:00:00 2020-02-12 17:00:00 Outpatient R SHAR VIERA [facility] [id number] [facility] 2020-02-12 00:00:00 2020-02-12 00:00:00 Telephone Ned Valencia [facility] FEEDER DRIVER [facility] & CHILD [facility] 1.84.114 350.1.13.10 4.2.7.2.686 [id number] [facility] 2020-02-07 14:00:00 2020-02-07 14:00:00 Outpatient R DAQUAN SOL [facility] [id number] [facility] 2020-02-02 10:54:52 2020-02-02 11:51:27 Routine Visit Daquan Sol [facility] FEEDER DRIVER [facility] & CHILD [facility] 1..840.114 350.1.13.10 4.2.7.2.686 [id number] [facility] 2020-02-02 08:00:00 2020-02-02 08:00:00 Outpatient R KIRK DAQUAN [facility] [id number] [facility] 2020-02-02 00:00:00 2020-02-02 00:00:00 Telephone Daquan Sol [facility] FEEDER DRIVER [facility] & CHILD [facility] 1.840.114 350.1.13.10 4.2.7.2.686 [id number] [facility] 2020-02-01 15:30:00 2020-02-01 15:30:00 Outpatient R DAQUAN SOL [facility] [id number] [facility] 2020-02-01 00:00:00 2020-02-01 00:00:00 Patient Secure Msg Doctor Unassigned, [place] [facility] FEEDER DRIVER [facility] CHILD [facility] 1.84.114 350.1.13.10 4.2.7.2.686 [id number] [facility] 2020-01-31 10:41:46 2020-01-31 11:18:47 Routine Visit Daquan Sol [facility] FEEDER DRIVER [facility] CHILD [facility] 1.84.114 350.1.13.10 4.2.7.2.686 [id number] [facility] 2020-01-31 10:45:00 2020-01-31 10:45:00 Outpatient R DAQUAN SOL [facility] [id number] [facility] 2020-01-17 14:00:00 2020-01-17 14:00:00 Outpatient R DAQUAN SOL [facility] [id number] [facility] 2020-01-17 00:00:00 2020-01-17 00:00:00 Telephone Daquan Sol [facility] FEEDER DRIVER [facility] CHILD [facility] 1.840.114 350.1.13.10 4.2.7.2.686 [id number] [facility] 2020-01-13 00:00:00 2020-01-13 00:00:00 Patient Secure Msg Doctor Unassigned, [place] [facility] 1.2.840.114 350.1.13.10 4.2.7.2.686 [id number] [facility] 2020-01-11 22:23:00 2020-01-11 22:50:00 Emergency Blessing Cummings [facility] 1.2840.114 350.1.13.10 4.2.7.2.686 [id number] [facility] 2020-01-11 00:00:00 2020-01-11 00:00:00 Orders Only Doctor Unassigned, [place] [facility] 1.2840.114 350.1.13.10 4.2.7.2.686 [id number] [facility] 2020-01-05 12:51:49 2020-01-05 13:06:49 Routine Visit Daquan Sol [facility] FEEDER DRIVER [facility] MATERNAL & CHILD [facility] 1..114 350.1.13.10 4.2.7.2.686 [id number] 107 [id number] [facility] 2020-01-05 13:00:00 2020-01-05 13:00:00 Outpatient R DAQUAN SOL [facility] [id number] [facility] 2019-12-29 14:37:14 2019-12-29 15:23:00 Routine Visit Ned Valencia [facility] FEEDER DRIVER [facility] MATERNAL & CHILD [facility] 1..114 350.1.13.10 4.2.7.2.686 [id number] [facility] 2019-12-29 14:30:00 2019-12-29 14:30:00 Outpatient R NED VALENCIA [facility] [id number] [facility] 2019-12-22 09:27:33 2019-12-22 10:09:17 Routine Visit Daquan Sol [facility] FEEDER DRIVER [facility] & CHILD [facility] 1..840.114 350.1.13.10 [id number] [id number] [facility] 2019-12-22 09:15:00 2019-12-22 09:15:00 Outpatient R DAQUAN SOL [facility] [id number] [facility] 2019-12-10 10:53:10 2019-12-10 12:16:26 Routine Visit Daquan Sol [facility] FEEDER DRIVER [facility]ILD [facility] 1..840.114 350.1.13.10 4.2.7.2.686 [id number] [facility] 2019-12-10 10:45:00 2019-12-10 10:45:00 Outpatient R DAQUAN SOL [facility] [id number] [facility] 2019-12-10 00:00:00 2019-12-10 00:00:00 Orders Only Doctor Unassigned, [place] [id number] [id number] [id number] [id number] [facility] 2019-12-01 14:00:00 2019-12-01 14:00:00 Outpatient R DAQUAN SOL [facility] [id number] [facility] 2019-11-28 00:00:00 2019-11-28 00:00:00 Stephanie Matias [facility] FEEDER DRIVER [facility]ILD [facility] 1..840.114 350.1.13.10 4.2.7.2.686 [id number] [facility] 2019-11-25 13:04:07 2019-11-25 13:21:28 [employer] Visit Lab, [facility] Daquan Sol [facility] FEEDER DRIVER [facility] & [facility]ILD [facility] [id number] 350.1.13.10 [id number] [id number] [facility] 2019-11-25 08:00:00 2019-11-25 08:00:00 Outpatient R [facility] [id number] [facility] 2019-11-24 09:00:00 2019-11-24 09:00:00 Outpatient R [facility] [id number] [facility] 2019-11-19 13:30:00 2019-11-19 13:30:00 Outpatient R [facility] [id number] [facility] 2019-11-17 15:24:01 2019-11-17 16:03:31 Routine Visit Daquan Sol [facility] FEEDER DRIVER [facility] MATERNAL & CHILD [facility] 1.2840.114 350.1.13.10 4.2.7.2.686 [id number] [facility] 2019-11-17 15:30:00 2019-11-17 15:30:00 Outpatient R DAQUAN SOL [facility] [id number] [facility] 2019-11-06 01:32:00 2019-11-06 03:45:00 Emergency Jaciel Quiles [facility] 1.2840.114 350.1.13.10 4.2.7.2.686 [id number] [facility] 2019-11-02 10:45:00 2019-11-02 10:45:00 Outpatient R DAQUAN SOL [facility] [id number] [facility] 2019-10-19 00:00:00 2019-10-19 00:00:00 Nurse Triage Abigail Rocha [facility] 1.2840.114 350.1.13.10 4.2.7.2.686 [id number] [facility] 2019-10-05 10:12:52 2019-10-05 11:01:20 Routine Visit Daquan Sol [facility] FEEDER DRIVER [facility] & CHILD [facility] 1.2.840.114 350.1.13.10 4.2.7.2.686 [id number] [facility] 2019-10-05 10:00:00 2019-10-05 10:00:00 Outpatient R DAQUAN SOL [facility] [id number] [facility] 2019-10-03 00:00:00 2019-10-03 00:00:00 Nurse Triage Kelly Ramos [facility] 1.2840.114 350.1.13.10 4.2.7.2.686 [id number] [facility] 2019-09-27 00:00:00 2019-09-27 00:00:00 Abstract Daquan Sol [facility] FEEDER DRIVER [facility] CHILD [facility] 1.2.840.114 350.1.13.10 4.2.7.2.686 [id number] [facility] 2019-09-23 12:55:37 2019-09-23 14:10:37 Senior Commissary Agent Visit Ultrasound, Harjeet Escamilla [facility] FEEDER DRIVER [facility] & CHILD [facility] 1.2.840.114 350.1.13.10 4.2.7.2.686 [id number] [facility] 2019-09-23 13:00:00 2019-09-23 13:00:00 Outpatient P [facility] [id number] [facility] 2019-09-23 00:00:00 2019-09-23 00:00:00 Telephone Daquan Sol [facility] FEEDER DRIVER [facility] & CHILD [facility] 1.2.840.114 350.1.13.10 4.2.7.2.686 [id number] [facility] 2019-09-23 00:00:00 2019-09-23 00:00:00 Orders Only Doctor Unassigned, Ponshewaing [facility] 1.114 350.1.13.10 4.2.7.2.686 [id number] [facility] 2019-09-20 13:23:19 2019-09-20 13:53:19 Telemedici ne Visit Alley Avitia Chelsie, Attending [facility] 1.114 350.1.13.10 4.2.7.2.686 [id number] [facility] 2019-09-20 13:45:00 2019-09-20 13:45:00 Outpatient R UNKNOWN, ATTENDING [facility] [id number] [facility] 2019-09-20 00:00:00 2019-09-20 00:00:00 Telephone Alley Avitia [facility] 1..114 350.1.13.10 4.2.7.2.686 [id number] [facility] 2019-09-07 13:25:02 2019-09-07 14:26:15 Routine Visit Daquan Sol [facility] FEEDER DRIVER [facility]NAL & [facility] 1.114 350.1.13.10 4.2.7.2.686 [id number] [facility] 2019-09-07 13:30:00 2019-09-07 13:30:00 Outpatient R DAQUAN SOL [facility] [id number] [facility] 2019-09-02 13:00:00 2019-09-02 13:00:00 Outpatient R WILL GRANADOS [facility] [id number] [facility] 2019-08-26 02:22:01 2019-08-26 03:58:00 Emergency Dali Vicente [facility] 1..114 350.1.13.10 4.2.7.2.686 [id number] [facility] 2019-08-19 11:00:00 2019-08-19 11:00:00 Outpatient R LARRY BAIN SHIWAN [facility] [id number] [facility] 2019-08-10 16:03:48 2019-08-10 16:47:22 Routine Visit Daquan Sol [facility] FEEDER DRIVER [facility] MATERNAL & CHILD [facility] 1..840.114 350.1.13.10 4.2.7.2.686 [id number] [facility] 2019-08-10 16:00:00 2019-08-10 16:00:00 Outpatient R DAQUAN SOL [facility] [id number] [facility] 2019-08-09 00:00:00 2019-08-09 00:00:00 Abstract Daquan Sol [facility] FEEDER DRIVER [facility] MATERNAL & CHILD [facility] 1..840.114 350.1.13.10 4.2.7.2.686 [id number] [facility] 2019-08-06 15:33:59 2019-08-06 16:45:58 Routine Visit Bess Hutchinson [facility] FEEDER DRIVER [facility] MATERNAL & CHILD [facility] 1..840.114 350.1.13.10 4.2.7.2.686 [id number] [facility] 2019-08-06 15:00:00 2019-08-06 15:00:00 Outpatient P [facility] [id number] [facility] 2019-08-05 13:00:00 2019-08-05 13:00:00 Outpatient R [facility] [id number] [facility] 2019-07-27 08:15:00 2019-07-27 08:15:00 Outpatient R DAQUAN SOL [facility] [id number] [facility] 2019-07-27 00:00:00 2019-07-27 00:00:00 Abstract Daquan Sol [facility] FEEDER DRIVER [facility] MATERNAL & CHILD [facility] 1.20.114 350.1.13.10 4.2.7.2.686 [id number] [facility] 2019-07-23 09:27:50 2019-07-23 13:31:29 Senior Commissary Agent [facility] Prescott Shannon M [facility] FEEDER DRIVER [facility] MATERNAL & CHILD [facility] 1..114 350.1.13.10 4.2.7.2.686 [id number] [facility] 2019-07-23 09:30:00 2019-07-23 09:30:00 Outpatient P [facility] [id number] [facility] 2019-07-15 13:36:45 2019-07-15 14:21:55 Routine Visit Risk, Ang-Rmchp-N p/High Stephanie Rodriguez [facility] FEEDER DRIVER [facility] MATERNAL & CHILD [facility] 1..114 350.1.13.10 4.2.7.2.686 [id number] [facility] 2019-07-15 13:30:00 2019-07-15 13:30:00 Outpatient R [facility] [id number] [facility] 2019-07-15 00:00:00 2019-07-15 00:00:00 Patient Secure Msg Doctor Unassigned, Ponshewaing [facility] FEEDER DRIVER [facility] & CHILD [facility] 1..114 350.1.13.10 4.2.7.2.686 [id number] [facility] 2019-07-09 08:21:18 2019-07-09 09:57:00 Initial Visit Blanewilnermorena Daquan Morgan [facility] FEEDER DRIVER [facility] & CHILD [facility] 1.0.114 350.1.13.10 4.2.7.2.686 [id number] [facility] 2019-07-09 08:30:00 2019-07-09 08:30:00 Outpatient R DAQUAN SOL [facility] [id number] [facility] 2019-07-09 00:00:00 2019-07-09 00:00:00 Orders Only Doctor Unassigned, Ponshewaing [facility] 1.0.114 350.1.13.10 4.2.7.2.686 [id number] [facility] 2019-07-09 00:00:00 2019-07-09 00:00:00 Refill Daquan Sol [facility] FEEDER DRIVER [facility] & CHILD [facility] 1..114 350.1.13.10 4.2.7.2.686 [id number] [facility] 2019-07-02 00:00:00 2019-07-02 00:00:00 Patient Secure Msg Doctor Unassigned, Ponshewaing [facility] FEEDER DRIVER [facility] & CHILD [facility] 1..114 350.1.13.10 4.2.7.2.686 [id number] [facility] 2019-06-30 00:00:00 2019-06-30 00:00:00 Telephone Daquan Sol [facility] FEEDER DRIVER [facility] & CHILD [facility] 1..114 350.1.13.10 4.2.7.2.686 [id number] [facility] 2019-06-29 16:00:00 2019-06-29 16:00:00 Outpatient R DAQUAN SOL [facility] [id number] [facility] 2019-06-29 13:05:56 2019-06-29 14:02:35 Office Visit Daquan Sol [facility] FEEDER DRIVER [facility] & CHILD [facility] 1..114 350.1.13.10 4.2.7.2.686 [id number] [facility] 2019-06-29 00:00:00 2019-06-29 00:00:00 Telephone Ned Valencia [facility] FEEDER DRIVER [facility] & CHILD [facility] 1.2.840.114 350.1.13.10 4.2.7.2.686 [id number] [facility] 2019-06-21 00:00:00 2019-06-21 00:00:00 [facility] CHILD [facility] 1.2.840.114 350.1.13.10 4.2.7.2.686 [id number] [facility] 2019-05-14 00:00:00 2019-05-14 00:00:00 Nurse Triage Meli Parrish [facility] 1.2.840.114 350.1.13.10 4.2.7.2.686 [id number] [facility] 2019-04-30 09:33:56 2019-04-30 11:28:00 Emergency Umberto Lubin [facility] 1.2.840.114 350.1.13.10 4.2.7.2.686 [id number] [facility] 2019-04-30 00:00:00 2019-04-30 00:00:00 Orders Only Doctor Unassigned, Ponshewaing [facility] 1.2.840.114 350.1.13.10 4.2.7.2.686 [id number] [facility] 2019-03-02 15:36:24 2019-03-02 16:12:25 [facility] & CHILD [facility] 1.2.840.114 350.1.13.10 4.2.7.2.686 [id number] [facility] 2018-10-09 22:48:19 2018-10-09 23:42:00 Emergency Blessing Cummings [facility] 1.2.840.114 350.1.13.10 4.2.7.2.686 [id number] [facility] 2018-10-09 00:00:00 2018-10-09 00:00:00 Orders Only Doctor Unassigned, Ponshewaing [facility] 1.2.840.114 350.1.13.10 4.2.7.2.686 [id number] [facility] Results Test Description Test Time Test Comments Results Result Co mments Source COMPREHENSIVE METABOLIC [id number] 02:26:23* Test Item Value Reference Range Interpretation Comme nts GLUCOSE (test code = 2217) 97 MG/DL 70-99 BUN (test code = 2208) 7 MG/DL 6-20 CREATININE (test code = 2214) 0.55 MG/DL 0.60-1.30 L eGFR (2020 CKD-EPI) (test code = 57695) 120 ML/MIN/1.73 >60 CALC BUN/CREAT (test code = 2235) 13 RATIO 6-28 SODIUM (test code = 2231) 142 MEQ/L 133-146 POTASSIUM (test code = 2228) 4.1 MEQ/L 3.5-5.4 CHLORIDE (test code = 2215) 106 MEQ/L 95-107 CARBON DIOXIDE (test code = 2206) 24 MEQ/L 19-31 CALCIUM (test code = 2209) 9.7 MG/DL 8.5-10.5 PROTEIN, TOTAL (test code = 2229) 7.1 G/DL 6.1-8.3 ALBUMIN (test code = 2201) 4.2 G/DL 3.5-5.2 CALC GLOBULIN (test code = 2240) 2.9 G/DL 1.9-3.7 CALC A/G RATIO (test code = 2234) 1.4 RATIO 1.0-2.6 BILIRUBIN, TOTAL (test code = 2207) 0.4 MG/DL See_Comment [Automated me ssage] The system which generated this result transmitted reference range: <=1.2. The reference range was not used to interpret this result as normal/abnormal. ALKALINE PHOSPHATASE (test code = 2204) 75 U/L 40-112 AST (test code = 2218) 15 U/L 9-40 ALT (test code = 2219) 19 U/L 5-40 LIPID [id number] 02:26:23* Test Item Value Reference Range Interpretation Comme nts CHOLESTEROL (test code = 2210) 166 MG/DL <200 TRIGLYCERIDES (test code = 2232) 132 MG/DL <150 HDL CHOLESTEROL (test code = 2220) 56 MG/DL >39 CALC LDL CHOL (test code = 2237) 87 MG/DL <100 NOTE: CALCULATED LDL IS BASED ON CHRISTINE-CRUZ METHOD WHICHINCLUDES ADJUSTABLE TRIGLYCERIDE:VLDL CHOLESTEROL RATIO.THIS FACTOR VARIES BY MEASURED TRIGLYCERIDE AND NON-HDLCHOLESTEROL CONCENTRATIONS WITH INCREASED CALCULATED LDL SEENIN HIGHER TRIGLYCERIDE OR LOWER NON-HDL SPECIMENS. FOR MOREINFORMATION, SEE CLIENT ANNOUNCEMENT AT [email or web address] RATIO LDL/HDL (test code = 2238) 1.55 RATIO <3.22 POCT [id number] 18:29:00* Test Item Value Reference Range Interpretation Comme nts POCT PREG (test code = 1605) negative On board controls acceptable with C Line (test code = 3574) present POCT PREG LOT # (test code = 3575) [id number] POCT PREG TEST DATE ( test code = 357) [id number] Lab Interpretation (test cod e = 44836-3) [id number] 14:14:00* Test Item Value Reference Range Interpretation Comme nts POCT PREG (test code = 1605) negative On board controls acceptable with C Line (test code = 3574) present POCT PREG LOT # (test code = 3575) [id number] POCT PREG TEST DATE ( test code = 357) Lab Interpretation (test cod e = 90482-9) [facility] W/REFL [id number] 00:00:00 * Test Item Value Reference Range Interpretation Comme nts RPR (MONITOR) W/REFL TITER ( test code = 45644-8) NON-REACTIVE HEPATITIS PANEL, [id number] 00:00:00* Test Item Value Reference Range Interpretation Comme nts HEPATITIS A AB, TOTAL (test code = 41325-6) NON-REACTIVE HEPATITIS B SURFACE ANTIBODY QL (test code = 57799-4) NON-REACTIVE HEPATITIS B SURFACE ANTIGEN (test code = 5196-1) NON-REACTIVE CONFIRMATION (test code = 7905-3) DNR HEPATITIS B CORE AB TOTAL (t est code = 79784-0) NON-REACTIVE HEPATITIS C ANTIBODY (test c ode = 65024-7) REACTIVE INDEX (test code = 77850-9) 1.68 HCV RNA, QUANTITATIVE REAL TIME PCR [ADDED]2021-09-09 00:00:00* Test Item Value Reference Range Interpretation Comme nts HCV RNA, QUANTITATIVE REAL TIME PCR (test code = 25968-5) <15 NOT DETECTED IU/mL HCV RNA, QUANTITATIVE REAL TIME PCR (test code = 35995-8) <1.18 NOT DETECTED LogIU/mL HIV 1/2 ANTIGEN/ANTIBODY,FOURTH GENERATION [id number] 00:00:00* Test Item Value Reference Range Interpretation Comme nts HIV AG/AB, 4TH GEN (test cod e = 51312-9) NON-REACTIVE RPR (MONITOR) W/REFL [id number] 00:00:00* Test Item Value Reference Range Interpretation Comme nts RPR (MONITOR) W/REFL TITER ( test code = 46549-1) NON-REACTIVE HEPATITIS PANEL, [id number] 00:00:00* Test Item Value Reference Range Interpretation Comme nts HEPATITIS A AB, TOTAL (test code = 54032-9) NON-REACTIVE HEPATITIS B SURFACE ANTIBODY QL (test code = 77031-1) NON-REACTIVE HEPATITIS B SURFACE ANTIGEN (test code = 5196-1) NON-REACTIVE CONFIRMATION (test code = 7905-3) DNR HEPATITIS B CORE AB TOTAL (t est code = 86165-1) NON-REACTIVE HEPATITIS C ANTIBODY (test c ode = 57089-1) REACTIVE INDEX (test code = 32842-7) 1.68 HCV RNA, QUANTITATIVE REAL TIME PCR [ADDED]2021-09-09 00:00:00* Test Item Value Reference Range Interpretation Comme nts HCV RNA, QUANTITATIVE REAL TIME PCR (test code = 63412-9) <15 NOT DETECTED IU/mL HCV RNA, QUANTITATIVE REAL TIME PCR (test code = 05340-9) <1.18 NOT DETECTED LogIU/mL HIV 1/2 ANTIGEN/ANTIBODY,FOURTH GENERATION [id number] 00:00:00* Test Item Value Reference Range Interpretation Comme nts HIV AG/AB, 4TH GEN (test cod e = 56480-8) NON-REACTIVE RPR (MONITOR) W/REFL [id number] 00:00:00* Test Item Value Reference Range Interpretation Comme nts RPR (MONITOR) W/REFL TITER ( test code = 13018-0) NON-REACTIVE HEPATITIS PANEL, [id number] 00:00:00* Test Item Value Reference Range Interpretation Comme nts HEPATITIS A AB, TOTAL (test code = 45145-2) NON-REACTIVE HEPATITIS B SURFACE ANTIBODY QL (test code = 83563-3) NON-REACTIVE HEPATITIS B SURFACE ANTIGEN (test code = 5196-1) NON-REACTIVE CONFIRMATION (test code = 7905-3) DNR HEPATITIS B CORE AB TOTAL (t est code = 04670-7) NON-REACTIVE HEPATITIS C ANTIBODY (test c ode = 24454-9) REACTIVE INDEX (test code = 50244-6) 1.68 HCV RNA, QUANTITATIVE REAL TIME PCR [ADDED]2021-09-09 00:00:00* Test Item Value Reference Range Interpretation Comme nts HCV RNA, QUANTITATIVE REAL TIME PCR (test code = 34844-4) <15 NOT DETECTED IU/mL HCV RNA, QUANTITATIVE REAL TIME PCR (test code = 39731-6) <1.18 NOT DETECTED LogIU/mL HIV 1/2 ANTIGEN/ANTIBODY,FOURTH GENERATION [id number] 00:00:00* Test Item Value Reference Range Interpretation Comme nts HIV AG/AB, 4TH GEN (test cod e = 31603-9) NON-REACTIVE RPR (MONITOR) W/REFL [id number] 00:00:00* Test Item Value Reference Range Interpretation Comme nts RPR (MONITOR) W/REFL TITER ( test code = 78369-3) NON-REACTIVE HEPATITIS PANEL, [id number] 00:00:00* Test Item Value Reference Range Interpretation Comme nts HEPATITIS A AB, TOTAL (test code = 99412-3) NON-REACTIVE HEPATITIS B SURFACE ANTIBODY QL (test code = 96861-6) NON-REACTIVE HEPATITIS B SURFACE ANTIGEN (test code = 5196-1) NON-REACTIVE CONFIRMATION (test code = 7905-3) DNR HEPATITIS B CORE AB TOTAL (t est code = 01002-3) NON-REACTIVE HEPATITIS C ANTIBODY (test c ode = 09140-3) REACTIVE INDEX (test code = 30392-5) 1.68 HCV RNA, QUANTITATIVE REAL TIME PCR [ADDED]2021-09-09 00:00:00* Test Item Value Reference Range Interpretation Comme nts HCV RNA, QUANTITATIVE REAL TIME PCR (test code = 00123-6) <15 NOT DETECTED IU/mL HCV RNA, QUANTITATIVE REAL TIME PCR (test code = 13844-3) <1.18 NOT DETECTED LogIU/mL HIV 1/2 ANTIGEN/ANTIBODY,FOURTH GENERATION [id number] 00:00:00* Test Item Value Reference Range Interpretation Comme nts HIV AG/AB, 4TH GEN (test cod e = 62576-5) NON-REACTIVE RPR (MONITOR) W/REFL [id number] 00:00:00* Test Item Value Reference Range Interpretation Comme nts RPR (MONITOR) W/REFL TITER ( test code = 53687-4) NON-REACTIVE HEPATITIS PANEL, [id number] 00:00:00* Test Item Value Reference Range Interpretation Comme nts HEPATITIS A AB, TOTAL (test code = 31452-9) NON-REACTIVE HEPATITIS B SURFACE ANTIBODY QL (test code = 34746-4) NON-REACTIVE HEPATITIS B SURFACE ANTIGEN (test code = 5196-1) NON-REACTIVE CONFIRMATION (test code = 7905-3) DNR HEPATITIS B CORE AB TOTAL (t est code = 11825-2) NON-REACTIVE HEPATITIS C ANTIBODY (test c ode = 37102-0) REACTIVE INDEX (test code = 99197-9) 1.68 HCV RNA, QUANTITATIVE REAL TIME PCR [ADDED]2021-09-09 00:00:00* Test Item Value Reference Range Interpretation Comme nts HCV RNA, QUANTITATIVE REAL TIME PCR (test code = 29472-0) <15 NOT DETECTED IU/mL HCV RNA, QUANTITATIVE REAL TIME PCR (test code = 88321-5) <1.18 NOT DETECTED LogIU/mL HIV 1/2 ANTIGEN/ANTIBODY,FOURTH GENERATION [id number] 00:00:00* Test Item Value Reference Range Interpretation Comme nts HIV AG/AB, 4TH GEN (test cod e = 02609-9) NON-REACTIVE RPR (MONITOR) W/REFL [id number] 00:00:00* Test Item Value Reference Range Interpretation Comme nts RPR (MONITOR) W/REFL TITER ( test code = 86702-4) NON-REACTIVE HEPATITIS PANEL, [id number] 00:00:00* Test Item Value Reference Range Interpretation Comme nts HEPATITIS A AB, TOTAL (test code = 77850-1) NON-REACTIVE HEPATITIS B SURFACE ANTIBODY QL (test code = 24871-8) NON-REACTIVE HEPATITIS B SURFACE ANTIGEN (test code = 5196-1) NON-REACTIVE CONFIRMATION (test code = 7905-3) DNR HEPATITIS B CORE AB TOTAL (t est code = 32994-5) NON-REACTIVE HEPATITIS C ANTIBODY (test c ode = 96460-0) REACTIVE INDEX (test code = 50028-1) 1.68 HCV RNA, QUANTITATIVE REAL TIME PCR [ADDED]2021-09-09 00:00:00* Test Item Value Reference Range Interpretation Comme nts HCV RNA, QUANTITATIVE REAL TIME PCR (test code = 47429-0) <15 NOT DETECTED IU/mL HCV RNA, QUANTITATIVE REAL TIME PCR (test code = 36303-3) <1.18 NOT DETECTED LogIU/mL HIV 1/2 ANTIGEN/ANTIBODY,FOURTH GENERATION [id number] 00:00:00* Test Item Value Reference Range Interpretation Comme nts HIV AG/AB, 4TH GEN (test cod e = 25455-4) NON-REACTIVE THINPREP TIS PAP AND HPV mRNA E6/E7 REFLEX HPV [id number] 00:00:00* Test Item Value Reference Range Interpretation Comme nts REPORT STATUS: (test code = 8251-1) DNR CLINICAL INFORMATION: (test code = 79349-3) LMP: (test code = 8665-2) PREV. PAP: (test code = 81841-0) PREV. BX: (test code = 32321-7) SOURCE: (test code = 37215-9) STATEMENT OF ADEQUACY: (test code = 83700-9) GENERAL CATEGORIZATION: (kaitlynn t code = 64429-5) DNR INTERPRETATION/RESULT: (test code = 25252-2) INFECTION: (test code = 19493-1) DNR COMMENT: (test code = ) REVIEW LIGHTHOUSE KEEPER: (te st code = 01512-2) DNR PATHOLOGIST: (test code = ) DNR COMMENT (test code = ) HPV mRNA E6/E7 (test code = 41056-8) Not Detected CHLAMYDIA/N. GONORRHOEAE RNA, [id number] 00:00:00* Test Item Value Reference Range Interpretation Comme nts CHLAMYDIA TRACHOMATIS RNA, T MA, UROGENITAL (test code = 28366-9) NOT DETECTED NEISSERIA GONORRHOEAE RNA, T MA, UROGENITAL (test code = 55821-0) NOT DETECTED COMMENT (test code = ) THINPREP TIS PAP AND HPV mRNA E6/E7 REFLEX HPV 16,[id number] 00:00:00* Test Item Value Reference Range Interpretation Comme nts REPORT STATUS: (test code = 8251-1) DNR CLINICAL INFORMATION: (test code = 92155-8) LMP: (test code = 8665-2) PREV. PAP: (test code = 63619-8) PREV. BX: (test code = 62984-6) SOURCE: (test code = ) STATEMENT OF ADEQUACY: (test code = 39045-7) GENERAL CATEGORIZATION: (kaitlynn t code = 03370-1) DNR INTERPRETATION/RESULT: (test code = 93963-8) INFECTION: (test code = 50338-1) DNR COMMENT: (test code = ) REVIEW LIGHTHOUSE KEEPER: (te st code = 70957-7) DNR PATHOLOGIST: (test code = ) DNR COMMENT (test code = ) HPV mRNA E6/E7 (test code = 58662-0) Not Detected CHLAMYDIA/N. GONORRHOEAE RNA, [id number] 00:00:00* Test Item Value Reference Range Interpretation Comme nts CHLAMYDIA TRACHOMATIS RNA, T MA, UROGENITAL (test code = 61768-1) NOT DETECTED NEISSERIA GONORRHOEAE RNA, T MA, UROGENITAL (test code = 73400-8) NOT DETECTED COMMENT (test code = ) THINPREP TIS PAP AND HPV mRNA E6/E7 REFLEX HPV 16,18/[id number] 00:00:00* Test Item Value Reference Range Interpretation Comme nts REPORT STATUS: (test code = 8251-1) DNR CLINICAL INFORMATION: (test code = 13075-4) LMP: (test code = 8665-2) PREV. PAP: (test code = 27838-0) PREV. BX: (test code = 31676-9) SOURCE: (test code = ) STATEMENT OF ADEQUACY: (test code = 77991-9) GENERAL CATEGORIZATION: (kaitlynn t code = ) DNR INTERPRETATION/RESULT: (test code = 66816-6) INFECTION: (test code = 73217-4) DNR COMMENT: (test code = ) REVIEW LIGHTHOUSE KEEPER: (te st code = 65259-5) DNR PATHOLOGIST: (test code = ) DNR COMMENT (test code = ) HPV mRNA E6/E7 (test code = 99439-6) Not Detected CHLAMYDIA/N. GONORRHOEAE RNA, [id number] 00:00:00* Test Item Value Reference Range Interpretation Comme nts CHLAMYDIA TRACHOMATIS RNA, T MA, UROGENITAL (test code = 68755-2) NOT DETECTED NEISSERIA GONORRHOEAE RNA, T MA, UROGENITAL (test code = 50530-4) NOT DETECTED COMMENT (test code = ) THINPREP TIS PAP AND HPV mRNA E6/E7 REFLEX HPV 16,18/[id number] 00:00:00* Test Item Value Reference Range Interpretation Comme nts REPORT STATUS: (test code = 8251-1) DNR CLINICAL INFORMATION: (test code = 47048-7) LMP: (test code = 8665-2) PREV. PAP: (test code = 81316-6) PREV. BX: (test code = 68436-9) SOURCE: (test code = ) STATEMENT OF ADEQUACY: (test code = ) GENERAL CATEGORIZATION: (kaitlynn t code = ) DNR INTERPRETATION/RESULT: (test code = 27961-3) INFECTION: (test code = 07696-7) DNR COMMENT: (test code = ) REVIEW LIGHTHOUSE KEEPER: (te st code = 57444-4) DNR PATHOLOGIST: (test code = 80632-0) DNR COMMENT (test code = ) HPV mRNA E6/E7 (test code = 71478-1) Not Detected CHLAMYDIA/N. GONORRHOEAE RNA, [id number] 00:00:00* Test Item Value Reference Range Interpretation Comme nts CHLAMYDIA TRACHOMATIS RNA, T MA, UROGENITAL (test code = 47381-8) NOT DETECTED NEISSERIA GONORRHOEAE RNA, T MA, UROGENITAL (test code = 11222-7) NOT DETECTED COMMENT (test code = ) THINPREP TIS PAP AND HPV mRNA E6/E7 REFLEX HPV 16,18/[id number] 00:00:00* Test Item Value Reference Range Interpretation Comme nts REPORT STATUS: (test code = 8251-1) DNR CLINICAL INFORMATION: (test code = 34882-7) LMP: (test code = 8665-2) PREV. PAP: (test code = 18941-1) PREV. BX: (test code = 79508-7) SOURCE: (test code = 02425-0) STATEMENT OF ADEQUACY: (test code = 08419-6) GENERAL CATEGORIZATION: (kaitlynn t code = 11183-5) DNR INTERPRETATION/RESULT: (test code = 35383-8) INFECTION: (test code = 40353-1) DNR COMMENT: (test code = 29261-5) REVIEW LIGHTHOUSE KEEPER: (te st code = 31380-5) DNR PATHOLOGIST: (test code = 60503-2) DNR COMMENT (test code = ) HPV mRNA E6/E7 (test code = 68000-8) Not Detected CHLAMYDIA/N. GONORRHOEAE RNA, [id number] 00:00:00* Test Item Value Reference Range Interpretation Comme nts CHLAMYDIA TRACHOMATIS RNA, T MA, UROGENITAL (test code = 06853-7) NOT DETECTED NEISSERIA GONORRHOEAE RNA, T MA, UROGENITAL (test code = 52734-6) NOT DETECTED COMMENT (test code = ) THINPREP TIS PAP AND HPV mRNA E6/E7 REFLEX HPV 16,18/[id number] 00:00:00* Test Item Value Reference Range Interpretation Comme nts REPORT STATUS: (test code = 8251-1) DNR CLINICAL INFORMATION: (test code = 08236-5) LMP: (test code = 8665-2) PREV. PAP: (test code = 81674-4) PREV. BX: (test code = 42820-6) SOURCE: (test code = 21601-6) STATEMENT OF ADEQUACY: (test code = 27896-6) GENERAL CATEGORIZATION: (kaitlynn t code = 09995-8) DNR INTERPRETATION/RESULT: (test code = 91437-3) INFECTION: (test code = 67891-2) DNR COMMENT: (test code = 92897-6) REVIEW LIGHTHOUSE KEEPER: (te st code = 00697-8) DNR PATHOLOGIST: (test code = ) DNR COMMENT (test code = ) HPV mRNA E6/E7 (test code = 51228-8) Not Detected CHLAMYDIA/N. GONORRHOEAE RNA, [id number] 00:00:00* Test Item Value Reference Range Interpretation Comme nts CHLAMYDIA TRACHOMATIS RNA, T MA, UROGENITAL (test code = 17115-4) NOT DETECTED NEISSERIA GONORRHOEAE RNA, T MA, UROGENITAL (test code = 69340-0) NOT DETECTED COMMENT (test code = ) POCT [id number] 21:40:00* Test Item Value Reference Range Interpretation Comme nts POCT PREG (test code = 1605) Negative On board controls acceptable with C Line (test code = 3574) Yes POCT PREG LOT # (test code = 3575) POCT PREG TEST DATE (test code = 3576) MAULIK (test code = MAULIK) accurate developme nt and interpretation of all internal controls [facility]IFIC [id number] 20:54:00* Test Item Value Reference Range Interpretation Comme nts POCT U SP GRAV (test code = 3255) 1.020 mg/dl 1.005-1.025 POCT PH U (test code = 3254) 5 mg/dl 5-8 POCT U LEUK EST (test code = 3263) trace Negative - Negative POCT U NIT (test code = 3262) negative Negative - Negati ve POCT U PROT (test code = 3259) trace Negative - Negative POCT U GLU (test code = 3256) normal Negative - Negati ve POCT U KETONE (test code = 3258) negative Negative - Negative POCT U UROBILI (test code = 3260) normal 0.2-1 POCT U BILI (test code = 3261) negative Negative - Negative POCT U BLD (test code = 3257) about 50 Negative - Negati ve POCT U COLOR (test code = 3266) yellow POCT U APPEAR (test code = 3267) clear [facility] [id number] 00:00:00* Test Item Value Reference Range Interpretation Comme nts HEMOGLOBIN A1c (test code = 07299) 5.6 % LIPID [id number] 00:00:00* Test Item Value Reference Range Interpretation Comme nts CHOLESTEROL (test code = 2210) 163 MG/DL TRIGLYCERIDES (test code = 2232) 77 MG/DL HDL CHOLESTEROL (test code = 2220) 62 MG/DL CALC LDL CHOL (test code = 2237) 84 MG/DL RISK RATIO LDL/HDL (test cod e = 2238) 1.35 RATIO LIPID [id number] 00:00:00* Test Item Value Reference Range Interpretation Comme nts CHOLESTEROL (test code = 2210) 163 MG/DL TRIGLYCERIDES (test code = 2232) 77 MG/DL HDL CHOLESTEROL (test code = 2220) 62 MG/DL CALC LDL CHOL (test code = 2237) 84 MG/DL RISK RATIO LDL/HDL (test cod e = 2238) 1.35 RATIO COMPREHENSIVE METABOLIC [id number] 00:00:00* Test Item Value Reference Range Interpretation Comme nts GLUCOSE (test code = 2217) 83 MG/DL BUN (test code = 2208) 8 MG/DL CREATININE (test code = 2214) 0.58 MG/DL eGFR AMER. (test cod e = 15159) 136 ML/MIN/1.73 eGFR NON- AMER. (test code = 37643) 118 ML/MIN/1.73 CALC BUN/CREAT (test code = 2235) 14 RATIO SODIUM (test code = 2231) 140 MEQ/L POTASSIUM (test code = 2228) 3.7 MEQ/L CHLORIDE (test code = 2215) 101 MEQ/L CARBON DIOXIDE (test code = 2206) 25 MEQ/L CALCIUM (test code = 2209) 9.7 MG/DL PROTEIN, TOTAL (test code = 2229) 7.7 G/DL ALBUMIN (test code = 2201) 4.7 G/DL CALC GLOBULIN (test code = 2240) 3.0 G/DL CALC A/G RATIO (test code = 2234) 1.6 RATIO BILIRUBIN, TOTAL (test code = 2207) 0.4 MG/DL ALKALINE PHOSPHATASE (test code = 2204) 91 U/L AST (test code = 2218) 17 U/L ALT (test code = 2219) 20 U/L COMPREHENSIVE METABOLIC [id number] 00:00:00* Test Item Value Reference Range Interpretation Comme nts GLUCOSE (test code = 2217) 83 MG/DL BUN (test code = 2208) 8 MG/DL CREATININE (test code = 2214) 0.58 MG/DL eGFR AMER. (test cod e = 84765) 136 ML/MIN/1.73 eGFR NON- AMER. (test code = 54850) 118 ML/MIN/1.73 CALC BUN/CREAT (test code = 2235) 14 RATIO SODIUM (test code = 2231) 140 MEQ/L POTASSIUM (test code = 2228) 3.7 MEQ/L CHLORIDE (test code = 2215) 101 MEQ/L CARBON DIOXIDE (test code = 2206) 25 MEQ/L CALCIUM (test code = 2209) 9.7 MG/DL PROTEIN, TOTAL (test code = 2229) 7.7 G/DL ALBUMIN (test code = 2201) 4.7 G/DL CALC GLOBULIN (test code = 2240) 3.0 G/DL CALC A/G RATIO (test code = 2234) 1.6 RATIO BILIRUBIN, TOTAL (test code = 2207) 0.4 MG/DL ALKALINE PHOSPHATASE (test code = 2204) 91 U/L AST (test code = 2218) 17 U/L ALT (test code = 2219) 20 U/L [id number] 00:00:00* Test Item Value Reference Range Interpretation Comme nts TSH, THIRD GENERATION (test code = 2821) 1.460 UIU/ML [id number] 00:00:00* Test Item Value Reference Range Interpretation Comme nts TSH, THIRD GENERATION (test code = 2821) 1.460 UIU/ML [id number] 00:00:00* Test Item Value Reference Range Interpretation Comme [facility] TSH, THIRD GENERATION (test code = 2821) 1.460 UIU/ML VITAMIN D, 25 [id number] 00:00:00* Test Item Value Reference Range Interpretation Comme nts VITAMIN D, 25 OH (test code = 4958) 46 NG/ML VITAMIN D, 25 [id number] 00:00:00* Test Item Value Reference Range Interpretation Comme nts VITAMIN D, 25 OH (test code = 4958) 46 NG/ML VITAMIN B 12 AND FOLIC [id number] 00:00:00* Test Item Value Reference Range Interpretation Comme nts VITAMIN B-12 (test code = 2840) 499 PG/ML FOLIC ACID (test code = 2695) 8.5 UG/L VITAMIN B 12 AND FOLIC [id number] 00:00:00* Test Item Value Reference Range Interpretation Comme nts VITAMIN B-12 (test code = 2840) 499 PG/ML FOLIC ACID (test code = 2695) 8.5 UG/L CBC W/AUTO [id number] 00:00:00* Test Item Value Reference Range Interpretation Comme nts WBC (test code = 1001) 7.2 K/UL RBC (test code = 1002) 4.66 M/UL HEMOGLOBIN (test code = 1003) 13.5 G/DL HEMATOCRIT (test code = 1004) 39.0 % MCV (test code = 1005) 83.7 fL MCH (test code = 1006) 29.0 PG MCHC (test code = 1007) 34.6 G/DL RDW (test code = 1038) 12.1 % NEUTROPHILS (test code = 1008) 67.5 % LYMPHOCYTES (test code = 1010) 23.3 % MONOCYTES (test code = 1011) 7.9 % EOSINOPHILS (test code = 1012) 0.3 % BASOPHILS (test code = 1013) 0.6 % IMMATURE GRANYLOCYTES (test code = 1036) 0.4 % NUCLEATED RBCS (test code = 1065) 0.0 /100WBC'S PLATELET COUNT (test code = 1015) 293 K/UL ABSOLUTE NEUTROPHILS (test c ode = 1066) 4.88 K/UL ABSOLUTE LYMPHOCYTES (test c ode = 1067) 1.68 K/UL ABSOLUTE MONOCYTES (test cod e = 1068) 0.57 K/UL ABSOLUTE EOSINOPHILS (test c ode = 1040) 0.02 K/UL ABSOLUTE BASOPHILS (test cod e = 1069) 0.04 K/UL ABS IMMATURE GRANULOCYTES (t est code = 1020) 0.03 K/UL ABS NUCLEATED RBCS (test cod e = 08818) 0.00 K/UL CBC W/AUTO [id number] 00:00:00* Test Item Value Reference Range Interpretation Comme nts WBC (test code = 1001) 7.2 K/UL RBC (test code = 1002) 4.66 M/UL HEMOGLOBIN (test code = 1003) 13.5 G/DL HEMATOCRIT (test code = 1004) 39.0 % MCV (test code = 1005) 83.7 fL MCH (test code = 1006) 29.0 PG MCHC (test code = 1007) 34.6 G/DL RDW (test code = 1038) 12.1 % NEUTROPHILS (test code = 1008) 67.5 % LYMPHOCYTES (test code = 1010) 23.3 % MONOCYTES (test code = 1011) 7.9 % EOSINOPHILS (test code = 1012) 0.3 % BASOPHILS (test code = 1013) 0.6 % IMMATURE GRANYLOCYTES (test code = 1036) 0.4 % NUCLEATED RBCS (test code = 1065) 0.0 /100WBC'S PLATELET COUNT (test code = 1015) 293 K/UL ABSOLUTE NEUTROPHILS (test c ode = 1066) 4.88 K/UL ABSOLUTE LYMPHOCYTES (test c ode = 1067) 1.68 K/UL ABSOLUTE MONOCYTES (test cod e = 1068) 0.57 K/UL ABSOLUTE EOSINOPHILS (test c ode = 1040) 0.02 K/UL ABSOLUTE BASOPHILS (test cod e = 1069) 0.04 K/UL ABS IMMATURE GRANULOCYTES (t est code = 1020) 0.03 K/UL ABS NUCLEATED RBCS (test cod e = 79470) 0.00 K/UL CBC W/AUTO [id number] 00:00:00* Test Item Value Reference Range Interpretation Comme nts WBC (test code = 1001) 7.2 K/UL RBC (test code = 1002) 4.66 M/UL HEMOGLOBIN (test code = 1003) 13.5 G/DL HEMATOCRIT (test code = 1004) 39.0 % MCV (test code = 1005) 83.7 fL MCH (test code = 1006) 29.0 PG MCHC (test code = 1007) 34.6 G/DL RDW (test code = 1038) 12.1 % NEUTROPHILS (test code = 1008) 67.5 % LYMPHOCYTES (test code = 1010) 23.3 % MONOCYTES (test code = 1011) 7.9 % EOSINOPHILS (test code = 1012) 0.3 % BASOPHILS (test code = 1013) 0.6 % IMMATURE GRANYLOCYTES (test code = 1036) 0.4 % NUCLEATED RBCS (test code = 1065) 0.0 /100WBC'S PLATELET COUNT (test code = 1015) 293 K/UL ABSOLUTE NEUTROPHILS (test c ode = 1066) 4.88 K/UL ABSOLUTE LYMPHOCYTES (test c ode = 1067) 1.68 K/UL ABSOLUTE MONOCYTES (test cod e = 1068) 0.57 K/UL ABSOLUTE EOSINOPHILS (test c ode = 1040) 0.02 K/UL ABSOLUTE BASOPHILS (test cod e = 1069) 0.04 K/UL ABS IMMATURE GRANULOCYTES (t est code = 1020) 0.03 K/UL ABS NUCLEATED RBCS (test cod e = 39683) 0.00 K/UL HEMOGLOBIN [id number] 00:00:00* Test Item Value Reference Range Interpretation Comme nts HEMOGLOBIN A1c (test code = 79366) 5.6 % HEMOGLOBIN [id number] 00:00:00* Test Item Value Reference Range Interpretation Comme nts HEMOGLOBIN A1c (test code = 66048) 5.6 % HEMOGLOBIN [id number] 00:00:00* Test Item Value Reference Range Interpretation Comme nts HEMOGLOBIN A1c (test code = 31220) 5.6 % LIPID [id number] 00:00:00* Test Item Value Reference Range Interpretation Comme nts CHOLESTEROL (test code = 2210) 163 MG/DL TRIGLYCERIDES (test code = 2232) 77 MG/DL HDL CHOLESTEROL (test code = 2220) 62 MG/DL CALC LDL CHOL (test code = 2237) 84 MG/DL RISK RATIO LDL/HDL (test cod e = 2238) 1.35 RATIO LIPID [id number] 00:00:00* Test Item Value Reference Range Interpretation Comme nts CHOLESTEROL (test code = 2210) 163 MG/DL TRIGLYCERIDES (test code = 2232) 77 MG/DL HDL CHOLESTEROL (test code = 2220) 62 MG/DL CALC LDL CHOL (test code = 2237) 84 MG/DL RISK RATIO LDL/HDL (test cod e = 2238) 1.35 RATIO COMPREHENSIVE METABOLIC [id number] 00:00:00* Test Item Value Reference Range Interpretation Comme nts GLUCOSE (test code = 2217) 83 MG/DL BUN (test code = 2208) 8 MG/DL CREATININE (test code = 2214) 0.58 MG/DL eGFR AMER. (test cod e = 87154) 136 ML/MIN/1.73 eGFR NON- AMER. (test code = 21915) 118 ML/MIN/1.73 CALC BUN/CREAT (test code = 2235) 14 RATIO SODIUM (test code = 2231) 140 MEQ/L POTASSIUM (test code = 2228) 3.7 MEQ/L CHLORIDE (test code = 2215) 101 MEQ/L CARBON DIOXIDE (test code = 2206) 25 MEQ/L CALCIUM (test code = 2209) 9.7 MG/DL PROTEIN, TOTAL (test code = 2229) 7.7 G/DL ALBUMIN (test code = 2201) 4.7 G/DL CALC GLOBULIN (test code = 2240) 3.0 G/DL CALC A/G RATIO (test code = 2234) 1.6 RATIO BILIRUBIN, TOTAL (test code = 2207) 0.4 MG/DL ALKALINE PHOSPHATASE (test code = 2204) 91 U/L AST (test code = 2218) 17 U/L ALT (test code = 2219) 20 U/L COMPREHENSIVE METABOLIC [id number] 00:00:00* Test Item Value Reference Range Interpretation Comme nts GLUCOSE (test code = 2217) 83 MG/DL BUN (test code = 2208) 8 MG/DL CREATININE (test code = 2214) 0.58 MG/DL eGFR AMER. (test cod e = 03911) 136 ML/MIN/1.73 eGFR NON- AMER. (test code = 59290) 118 ML/MIN/1.73 CALC BUN/CREAT (test code = 2235) 14 RATIO SODIUM (test code = 2231) 140 MEQ/L POTASSIUM (test code = 2228) 3.7 MEQ/L CHLORIDE (test code = 2215) 101 MEQ/L CARBON DIOXIDE (test code = 2206) 25 MEQ/L CALCIUM (test code = 9) 9.7 MG/DL PROTEIN, TOTAL (test code = 2228) 7.7 G/DL ALBUMIN (test code = 1) 4.7 G/DL CALC GLOBULIN (test code = 2240) 3.0 G/DL CALC A/G RATIO (test code = 2234) 1.6 RATIO BILIRUBIN, TOTAL (test code = 2206) 0.4 MG/DL ALKALINE PHOSPHATASE (test code = 2203) 91 U/L AST (test code = 2217) 17 U/L ALT (test code = 2218) 20 U/L [id number] 00:00:00* Test Item Value Reference Range Interpretation Comme [facility] TSH, THIRD GENERATION (test code = 2821) 1.460 UIU/ML [id number] 00:00:00* Test Item Value Reference Range Interpretation Comme nts TSH, THIRD GENERATION (test code = 2821) 1.460 UIU/ML [id number] 00:00:00* Test Item Value Reference Range Interpretation Comme nts TSH, THIRD GENERATION (test code = 2821) 1.460 UIU/ML VITAMIN D, 25 [id number] 00:00:00* Test Item Value Reference Range Interpretation Comme nts VITAMIN D, 25 OH (test code = 4958) 46 NG/ML VITAMIN D, 25 [id number] 00:00:00* Test Item Value Reference Range Interpretation Comme nts VITAMIN D, 25 OH (test code = 4958) 46 NG/ML VITAMIN B 12 AND FOLIC [id number] 00:00:00* Test Item Value Reference Range Interpretation Comme nts VITAMIN B-12 (test code = 2840) 499 PG/ML FOLIC ACID (test code = 2695) 8.5 UG/L VITAMIN B 12 AND FOLIC [id number] 00:00:00* Test Item Value Reference Range Interpretation Comme nts VITAMIN B-12 (test code = 2840) 499 PG/ML FOLIC ACID (test code = 2695) 8.5 UG/L CBC W/AUTO [id number] 00:00:00* Test Item Value Reference Range Interpretation Comme nts WBC (test code = 1001) 7.2 K/UL RBC (test code = 1002) 4.66 M/UL HEMOGLOBIN (test code = 1003) 13.5 G/DL HEMATOCRIT (test code = 1004) 39.0 % MCV (test code = 1005) 83.7 fL MCH (test code = 1006) 29.0 PG MCHC (test code = 1007) 34.6 G/DL RDW (test code = 1038) 12.1 % NEUTROPHILS (test code = 1008) 67.5 % LYMPHOCYTES (test code = 1010) 23.3 % MONOCYTES (test code = 1011) 7.9 % EOSINOPHILS (test code = 1012) 0.3 % BASOPHILS (test code = 1013) 0.6 % IMMATURE GRANYLOCYTES (test code = 1036) 0.4 % NUCLEATED RBCS (test code = 1065) 0.0 /100WBC'S PLATELET COUNT (test code = 1015) 293 K/UL ABSOLUTE NEUTROPHILS (test c ode = 1066) 4.88 K/UL ABSOLUTE LYMPHOCYTES (test c ode = 1067) 1.68 K/UL ABSOLUTE MONOCYTES (test cod e = 1068) 0.57 K/UL ABSOLUTE EOSINOPHILS (test c ode = 1040) 0.02 K/UL ABSOLUTE BASOPHILS (test cod e = 1069) 0.04 K/UL ABS IMMATURE GRANULOCYTES (t est code = 1020) 0.03 K/UL ABS NUCLEATED RBCS (test cod e = 60225) 0.00 K/UL CBC W/AUTO [id number] 00:00:00* Test Item Value Reference Range Interpretation Comme nts WBC (test code = 1001) 7.2 K/UL RBC (test code = 1002) 4.66 M/UL HEMOGLOBIN (test code = 1003) 13.5 G/DL HEMATOCRIT (test code = 1004) 39.0 % MCV (test code = 1005) 83.7 fL MCH (test code = 1006) 29.0 PG MCHC (test code = 1007) 34.6 G/DL RDW (test code = 1038) 12.1 % NEUTROPHILS (test code = 1008) 67.5 % LYMPHOCYTES (test code = 1010) 23.3 % MONOCYTES (test code = 1011) 7.9 % EOSINOPHILS (test code = 1012) 0.3 % BASOPHILS (test code = 1013) 0.6 % IMMATURE GRANYLOCYTES (test code = 1036) 0.4 % NUCLEATED RBCS (test code = 1065) 0.0 /100WBC'S PLATELET COUNT (test code = 1015) 293 K/UL ABSOLUTE NEUTROPHILS (test c ode = 1066) 4.88 K/UL ABSOLUTE LYMPHOCYTES (test c ode = 1067) 1.68 K/UL ABSOLUTE MONOCYTES (test cod e = 1068) 0.57 K/UL ABSOLUTE EOSINOPHILS (test c ode = 1040) 0.02 K/UL ABSOLUTE BASOPHILS (test cod e = 1069) 0.04 K/UL ABS IMMATURE GRANULOCYTES (t est code = 1020) 0.03 K/UL ABS NUCLEATED RBCS (test cod e = 37460) 0.00 K/UL CBC W/AUTO [id number] 00:00:00* Test Item Value Reference Range Interpretation Comme nts WBC (test code = 1001) 7.2 K/UL RBC (test code = 1002) 4.66 M/UL HEMOGLOBIN (test code = 1003) 13.5 G/DL HEMATOCRIT (test code = 1004) 39.0 % MCV (test code = 1005) 83.7 fL MCH (test code = 1006) 29.0 PG MCHC (test code = 1007) 34.6 G/DL RDW (test code = 1038) 12.1 % NEUTROPHILS (test code = 1008) 67.5 % LYMPHOCYTES (test code = 1010) 23.3 % MONOCYTES (test code = 1011) 7.9 % EOSINOPHILS (test code = 1012) 0.3 % BASOPHILS (test code = 1013) 0.6 % IMMATURE GRANYLOCYTES (test code = 1036) 0.4 % NUCLEATED RBCS (test code = 1065) 0.0 /100WBC'S PLATELET COUNT (test code = 1015) 293 K/UL ABSOLUTE NEUTROPHILS (test c ode = 1066) 4.88 K/UL ABSOLUTE LYMPHOCYTES (test c ode = 1067) 1.68 K/UL ABSOLUTE MONOCYTES (test cod e = 1068) 0.57 K/UL ABSOLUTE EOSINOPHILS (test c ode = 1040) 0.02 K/UL ABSOLUTE BASOPHILS (test cod e = 1069) 0.04 K/UL ABS IMMATURE GRANULOCYTES (t est code = 1020) 0.03 K/UL ABS NUCLEATED RBCS (test cod e = 32941) 0.00 K/UL HEMOGLOBIN [id number] 00:00:00* Test Item Value Reference Range Interpretation Comme nts HEMOGLOBIN A1c (test code = 24803) 5.6 % HEMOGLOBIN [id number] 00:00:00* Test Item Value Reference Range Interpretation Comme nts HEMOGLOBIN A1c (test code = 45365) 5.6 % HEMOGLOBIN [id number] 00:00:00* Test Item Value Reference Range Interpretation Comme nts HEMOGLOBIN A1c (test code = 44839) 5.6 % LIPID [id number] 00:00:00* Test Item Value Reference Range Interpretation Comme nts CHOLESTEROL (test code = 2210) 163 MG/DL TRIGLYCERIDES (test code = 2232) 77 MG/DL HDL CHOLESTEROL (test code = 2220) 62 MG/DL CALC LDL CHOL (test code = 2237) 84 MG/DL RISK RATIO LDL/HDL (test cod e = 2238) 1.35 RATIO LIPID [id number] 00:00:00* Test Item Value Reference Range Interpretation Comme nts CHOLESTEROL (test code = 2210) 163 MG/DL TRIGLYCERIDES (test code = 2232) 77 MG/DL HDL CHOLESTEROL (test code = 2220) 62 MG/DL CALC LDL CHOL (test code = 2237) 84 MG/DL RISK RATIO LDL/HDL (test cod e = 2238) 1.35 RATIO COMPREHENSIVE METABOLIC [id number] 00:00:00* Test Item Value Reference Range Interpretation Comme nts GLUCOSE (test code = 2217) 83 MG/DL BUN (test code = 2208) 8 MG/DL CREATININE (test code = 2214) 0.58 MG/DL eGFR AMER. (test cod e = 93268) 136 ML/MIN/1.73 eGFR NON- AMER. (test code = 31841) 118 ML/MIN/1.73 CALC BUN/CREAT (test code = 2235) 14 RATIO SODIUM (test code = 2231) 140 MEQ/L POTASSIUM (test code = 2228) 3.7 MEQ/L CHLORIDE (test code = 2215) 101 MEQ/L CARBON DIOXIDE (test code = 2206) 25 MEQ/L CALCIUM (test code = 2209) 9.7 MG/DL PROTEIN, TOTAL (test code = 2229) 7.7 G/DL ALBUMIN (test code = 2201) 4.7 G/DL CALC GLOBULIN (test code = 2240) 3.0 G/DL CALC A/G RATIO (test code = 2234) 1.6 RATIO BILIRUBIN, TOTAL (test code = 2207) 0.4 MG/DL ALKALINE PHOSPHATASE (test code = 2204) 91 U/L AST (test code = 2218) 17 U/L ALT (test code = 2219) 20 U/L COMPREHENSIVE METABOLIC [id number] 00:00:00* Test Item Value Reference Range Interpretation Comme nts GLUCOSE (test code = 2217) 83 MG/DL BUN (test code = 2208) 8 MG/DL CREATININE (test code = 2214) 0.58 MG/DL eGFR AMER. (test cod e = 80847) 136 ML/MIN/1.73 eGFR NON- AMER. (test code = 01168) 118 ML/MIN/1.73 CALC BUN/CREAT (test code = 2235) 14 RATIO SODIUM (test code = 2231) 140 MEQ/L POTASSIUM (test code = 2228) 3.7 MEQ/L CHLORIDE (test code = 2215) 101 MEQ/L CARBON DIOXIDE (test code = 2206) 25 MEQ/L CALCIUM (test code = 2209) 9.7 MG/DL PROTEIN, TOTAL (test code = 2229) 7.7 G/DL ALBUMIN (test code = 2201) 4.7 G/DL CALC GLOBULIN (test code = 2240) 3.0 G/DL CALC A/G RATIO (test code = 2234) 1.6 RATIO BILIRUBIN, TOTAL (test code = 2207) 0.4 MG/DL ALKALINE PHOSPHATASE (test code = 2204) 91 U/L AST (test code = 2218) 17 U/L ALT (test code = 2219) 20 U/L [id number] 00:00:00* Test Item Value Reference Range Interpretation Comme nts TSH, THIRD GENERATION (test code = 2821) 1.460 UIU/ML [id number] 00:00:00* Test Item Value Reference Range Interpretation Comme nts TSH, THIRD GENERATION (test code = 2821) 1.460 UIU/ML [id number] 00:00:00* Test Item Value Reference Range Interpretation Comme nts TSH, THIRD GENERATION (test code = 2821) 1.460 UIU/ML VITAMIN D, 25 [id number] 00:00:00* Test Item Value Reference Range Interpretation Comme nts VITAMIN D, 25 OH (test code = 4958) 46 NG/ML VITAMIN D, 25 [id number] 00:00:00* Test Item Value Reference Range Interpretation Comme nts VITAMIN D, 25 OH (test code = 4958) 46 NG/ML VITAMIN B 12 AND FOLIC [id number] 00:00:00* Test Item Value Reference Range Interpretation Comme nts VITAMIN B-12 (test code = 2840) 499 PG/ML FOLIC ACID (test code = 2695) 8.5 UG/L VITAMIN B 12 AND FOLIC [id number] 00:00:00* Test Item Value Reference Range Interpretation Comme nts VITAMIN B-12 (test code = 2840) 499 PG/ML FOLIC ACID (test code = 2695) 8.5 UG/L CBC W/AUTO [id number] 00:00:00* Test Item Value Reference Range Interpretation Comme nts WBC (test code = 1001) 7.2 K/UL RBC (test code = 1002) 4.66 M/UL HEMOGLOBIN (test code = 1003) 13.5 G/DL HEMATOCRIT (test code = 1004) 39.0 % MCV (test code = 1005) 83.7 fL MCH (test code = 1006) 29.0 PG MCHC (test code = 1007) 34.6 G/DL RDW (test code = 1038) 12.1 % NEUTROPHILS (test code = 1008) 67.5 % LYMPHOCYTES (test code = 1010) 23.3 % MONOCYTES (test code = 1011) 7.9 % EOSINOPHILS (test code = 1012) 0.3 % BASOPHILS (test code = 1013) 0.6 % IMMATURE GRANYLOCYTES (test code = 1036) 0.4 % NUCLEATED RBCS (test code = 1065) 0.0 /100WBC'S PLATELET COUNT (test code = 1015) 293 K/UL ABSOLUTE NEUTROPHILS (test c ode = 1066) 4.88 K/UL ABSOLUTE LYMPHOCYTES (test c ode = 1067) 1.68 K/UL ABSOLUTE MONOCYTES (test cod e = 1068) 0.57 K/UL ABSOLUTE EOSINOPHILS (test c ode = 1040) 0.02 K/UL ABSOLUTE BASOPHILS (test cod e = 1069) 0.04 K/UL ABS IMMATURE GRANULOCYTES (t est code = 1020) 0.03 K/UL ABS NUCLEATED RBCS (test cod e = 16693) 0.00 K/UL CBC W/AUTO [id number] 00:00:00* Test Item Value Reference Range Interpretation Comme nts WBC (test code = 1001) 7.2 K/UL RBC (test code = 1002) 4.66 M/UL HEMOGLOBIN (test code = 1003) 13.5 G/DL HEMATOCRIT (test code = 1004) 39.0 % MCV (test code = 1005) 83.7 fL MCH (test code = 1006) 29.0 PG MCHC (test code = 1007) 34.6 G/DL RDW (test code = 1038) 12.1 % NEUTROPHILS (test code = 1008) 67.5 % LYMPHOCYTES (test code = 1010) 23.3 % MONOCYTES (test code = 1011) 7.9 % EOSINOPHILS (test code = 1012) 0.3 % BASOPHILS (test code = 1013) 0.6 % IMMATURE GRANYLOCYTES (test code = 1036) 0.4 % NUCLEATED RBCS (test code = 1065) 0.0 /100WBC'S PLATELET COUNT (test code = 1015) 293 K/UL ABSOLUTE NEUTROPHILS (test c ode = 1066) 4.88 K/UL ABSOLUTE LYMPHOCYTES (test c ode = 1067) 1.68 K/UL ABSOLUTE MONOCYTES (test cod e = 1068) 0.57 K/UL ABSOLUTE EOSINOPHILS (test c ode = 1040) 0.02 K/UL ABSOLUTE BASOPHILS (test cod e = 1069) 0.04 K/UL ABS IMMATURE GRANULOCYTES (t est code = 1020) 0.03 K/UL ABS NUCLEATED RBCS (test cod e = 39689) 0.00 K/UL HEMOGLOBIN [id number] 00:00:00* Test Item Value Reference Range Interpretation Comme nts HEMOGLOBIN A1c (test code = 20274) 5.6 % HEMOGLOBIN [id number] 00:00:00* Test Item Value Reference Range Interpretation Comme nts HEMOGLOBIN A1c (test code = 42490) 5.6 % LIPID [id number] 00:00:00* Test Item Value Reference Range Interpretation Comme nts CHOLESTEROL (test code = 2210) 163 MG/DL TRIGLYCERIDES (test code = 2232) 77 MG/DL HDL CHOLESTEROL (test code = 2220) 62 MG/DL CALC LDL CHOL (test code = 2237) 84 MG/DL RISK RATIO LDL/HDL (test cod e = 2238) 1.35 RATIO COMPREHENSIVE METABOLIC [id number] 00:00:00* Test Item Value Reference Range Interpretation Comme nts GLUCOSE (test code = 2217) 83 MG/DL BUN (test code = 2208) 8 MG/DL CREATININE (test code = 2214) 0.58 MG/DL eGFR AMER. (test cod e = 60158) 136 ML/MIN/1.73 eGFR NON- AMER. (test code = 19064) 118 ML/MIN/1.73 CALC BUN/CREAT (test code = 2235) 14 RATIO SODIUM (test code = 2231) 140 MEQ/L POTASSIUM (test code = 2228) 3.7 MEQ/L CHLORIDE (test code = 2215) 101 MEQ/L CARBON DIOXIDE (test code = 2206) 25 MEQ/L CALCIUM (test code = 2209) 9.7 MG/DL PROTEIN, TOTAL (test code = 2229) 7.7 G/DL ALBUMIN (test code = 2201) 4.7 G/DL CALC GLOBULIN (test code = 2240) 3.0 G/DL CALC A/G RATIO (test code = 2234) 1.6 RATIO BILIRUBIN, TOTAL (test code = 2207) 0.4 MG/DL ALKALINE PHOSPHATASE (test code = 2204) 91 U/L AST (test code = 2218) 17 U/L ALT (test code = 2219) 20 U/L [id number] 00:00:00* Test Item Value Reference Range Interpretation Comme [facility] TSH, THIRD GENERATION (test code = 2821) 1.460 UIU/ML [id number] 00:00:00* Test Item Value Reference Range Interpretation Comme [facility] TSH, THIRD GENERATION (test code = 2821) 1.460 UIU/ML VITAMIN D, 25 [id number] 00:00:00* Test Item Value Reference Range Interpretation Comme nts VITAMIN D, 25 OH (test code = 4958) 46 NG/ML VITAMIN B 12 AND FOLIC [id number] 00:00:00* Test Item Value Reference Range Interpretation Comme nts VITAMIN B-12 (test code = 2840) 499 PG/ML FOLIC ACID (test code = 2695) 8.5 UG/L CBC W/AUTO [id number] 00:00:00* Test Item Value Reference Range Interpretation Comme nts WBC (test code = 1001) 7.2 K/UL RBC (test code = 1002) 4.66 M/UL HEMOGLOBIN (test code = 1003) 13.5 G/DL HEMATOCRIT (test code = 1004) 39.0 % MCV (test code = 1005) 83.7 fL MCH (test code = 1006) 29.0 PG MCHC (test code = 1007) 34.6 G/DL RDW (test code = 1038) 12.1 % NEUTROPHILS (test code = 1008) 67.5 % LYMPHOCYTES (test code = 1010) 23.3 % MONOCYTES (test code = 1011) 7.9 % EOSINOPHILS (test code = 1012) 0.3 % BASOPHILS (test code = 1013) 0.6 % IMMATURE GRANYLOCYTES (test code = 1036) 0.4 % NUCLEATED RBCS (test code = 1065) 0.0 /100WBC'S PLATELET COUNT (test code = 1015) 293 K/UL ABSOLUTE NEUTROPHILS (test c ode = 1066) 4.88 K/UL ABSOLUTE LYMPHOCYTES (test c ode = 1067) 1.68 K/UL ABSOLUTE MONOCYTES (test cod e = 1068) 0.57 K/UL ABSOLUTE EOSINOPHILS (test c ode = 1040) 0.02 K/UL ABSOLUTE BASOPHILS (test cod e = 1069) 0.04 K/UL ABS IMMATURE GRANULOCYTES (t est code = 1020) 0.03 K/UL ABS NUCLEATED RBCS (test cod e = 09932) 0.00 K/UL CBC W/AUTO [id number] 00:00:00* Test Item Value Reference Range Interpretation Comme nts WBC (test code = 1001) 7.2 K/UL RBC (test code = 1002) 4.66 M/UL HEMOGLOBIN (test code = 1003) 13.5 G/DL HEMATOCRIT (test code = 1004) 39.0 % MCV (test code = 1005) 83.7 fL MCH (test code = 1006) 29.0 PG MCHC (test code = 1007) 34.6 G/DL RDW (test code = 1038) 12.1 % NEUTROPHILS (test code = 1008) 67.5 % LYMPHOCYTES (test code = 1010) 23.3 % MONOCYTES (test code = 1011) 7.9 % EOSINOPHILS (test code = 1012) 0.3 % BASOPHILS (test code = 1013) 0.6 % IMMATURE GRANYLOCYTES (test code = 1036) 0.4 % NUCLEATED RBCS (test code = 1065) 0.0 /100WBC'S PLATELET COUNT (test code = 1015) 293 K/UL ABSOLUTE NEUTROPHILS (test c ode = 1066) 4.88 K/UL ABSOLUTE LYMPHOCYTES (test c ode = 1067) 1.68 K/UL ABSOLUTE MONOCYTES (test cod e = 1068) 0.57 K/UL ABSOLUTE EOSINOPHILS (test c ode = 1040) 0.02 K/UL ABSOLUTE BASOPHILS (test cod e = 1069) 0.04 K/UL ABS IMMATURE GRANULOCYTES (t est code = 1020) 0.03 K/UL ABS NUCLEATED RBCS (test cod e = 39867) 0.00 K/UL HEMOGLOBIN [id number] 00:00:00* Test Item Value Reference Range Interpretation Comme nts HEMOGLOBIN A1c (test code = 62733) 5.6 % HEMOGLOBIN [id number] 00:00:00* Test Item Value Reference Range Interpretation Comme nts HEMOGLOBIN A1c (test code = 28145) 5.6 % LIPID [id number] 00:00:00* Test Item Value Reference Range Interpretation Comme nts CHOLESTEROL (test code = 2210) 163 MG/DL TRIGLYCERIDES (test code = 2232) 77 MG/DL HDL CHOLESTEROL (test code = 2220) 62 MG/DL CALC LDL CHOL (test code = 2237) 84 MG/DL RISK RATIO LDL/HDL (test cod e = 2238) 1.35 RATIO COMPREHENSIVE METABOLIC [id number] 00:00:00* Test Item Value Reference Range Interpretation Comme nts GLUCOSE (test code = 2217) 83 MG/DL BUN (test code = 2208) 8 MG/DL CREATININE (test code = 2214) 0.58 MG/DL eGFR AMER. (test cod e = 45093) 136 ML/MIN/1.73 eGFR NON- AMER. (test code = 90287) 118 ML/MIN/1.73 CALC BUN/CREAT (test code = 2235) 14 RATIO SODIUM (test code = 2231) 140 MEQ/L POTASSIUM (test code = 2228) 3.7 MEQ/L CHLORIDE (test code = 2215) 101 MEQ/L CARBON DIOXIDE (test code = 2206) 25 MEQ/L CALCIUM (test code = 2209) 9.7 MG/DL PROTEIN, TOTAL (test code = 2229) 7.7 G/DL ALBUMIN (test code = 2201) 4.7 G/DL CALC GLOBULIN (test code = 2240) 3.0 G/DL CALC A/G RATIO (test code = 2234) 1.6 RATIO BILIRUBIN, TOTAL (test code = 2207) 0.4 MG/DL ALKALINE PHOSPHATASE (test code = 2204) 91 U/L AST (test code = 2218) 17 U/L ALT (test code = 2219) 20 U/L [id number] 00:00:00* Test Item Value Reference Range Interpretation Comme [facility] TSH, THIRD GENERATION (test code = 2821) 1.460 UIU/ML [id number] 00:00:00* Test Item Value Reference Range Interpretation Comme [facility] TSH, THIRD GENERATION (test code = 2821) 1.460 UIU/ML VITAMIN D, 25 [id number] 00:00:00* Test Item Value Reference Range Interpretation Comme [facility] VITAMIN D, 25 OH (test code = 4958) 46 NG/ML VITAMIN B 12 AND FOLIC [id number] 00:00:00* Test Item Value Reference Range Interpretation Comme [facility] VITAMIN B-12 (test code = 2840) 499 PG/ML FOLIC ACID (test code = 2695) 8.5 UG/L CBC W/AUTO [id number] 00:00:00* Test Item Value Reference Range Interpretation Comme [facility] WBC (test code = 1001) 7.2 K/UL RBC (test code = 1002) 4.66 M/UL HEMOGLOBIN (test code = 1003) 13.5 G/DL HEMATOCRIT (test code = 1004) 39.0 % MCV (test code = 1005) 83.7 fL MCH (test code = 1006) 29.0 PG MCHC (test code = 1007) 34.6 G/DL RDW (test code = 1038) 12.1 % NEUTROPHILS (test code = 1008) 67.5 % LYMPHOCYTES (test code = 1010) 23.3 % MONOCYTES (test code = 1011) 7.9 % EOSINOPHILS (test code = 1012) 0.3 % BASOPHILS (test code = 1013) 0.6 % IMMATURE GRANYLOCYTES (test code = 1036) 0.4 % NUCLEATED RBCS (test code = 1065) 0.0 /100WBC'S PLATELET COUNT (test code = 1015) 293 K/UL ABSOLUTE NEUTROPHILS (test c ode = 1066) 4.88 K/UL ABSOLUTE LYMPHOCYTES (test c ode = 1067) 1.68 K/UL ABSOLUTE MONOCYTES (test cod e = 1068) 0.57 K/UL ABSOLUTE EOSINOPHILS (test c ode = 1040) 0.02 K/UL ABSOLUTE BASOPHILS (test cod e = 1069) 0.04 K/UL ABS IMMATURE GRANULOCYTES (t est code = 1020) 0.03 K/UL ABS NUCLEATED RBCS (test cod e = 38940) 0.00 K/UL CBC W/AUTO [id number] 00:00:00* Test Item Value Reference Range Interpretation Comme nts WBC (test code = 1001) 7.2 K/UL RBC (test code = 1002) 4.66 M/UL HEMOGLOBIN (test code = 1003) 13.5 G/DL HEMATOCRIT (test code = 1004) 39.0 % MCV (test code = 1005) 83.7 fL MCH (test code = 1006) 29.0 PG MCHC (test code = 1007) 34.6 G/DL RDW (test code = 1038) 12.1 % NEUTROPHILS (test code = 1008) 67.5 % LYMPHOCYTES (test code = 1010) 23.3 % MONOCYTES (test code = 1011) 7.9 % EOSINOPHILS (test code = 1012) 0.3 % BASOPHILS (test code = 1013) 0.6 % IMMATURE GRANYLOCYTES (test code = 1036) 0.4 % NUCLEATED RBCS (test code = 1065) 0.0 /100WBC'S PLATELET COUNT (test code = 1015) 293 K/UL ABSOLUTE NEUTROPHILS (test c ode = 1066) 4.88 K/UL ABSOLUTE LYMPHOCYTES (test c ode = 1067) 1.68 K/UL ABSOLUTE MONOCYTES (test cod e = 1068) 0.57 K/UL ABSOLUTE EOSINOPHILS (test c ode = 1040) 0.02 K/UL ABSOLUTE BASOPHILS (test cod e = 1069) 0.04 K/UL ABS IMMATURE GRANULOCYTES (t est code = 1020) 0.03 K/UL ABS NUCLEATED RBCS (test cod e = 01593) 0.00 K/UL CBC W/AUTO [id number] 00:00:00* Test Item Value Reference Range Interpretation Comme nts WBC (test code = 1001) 7.2 K/UL RBC (test code = 1002) 4.66 M/UL HEMOGLOBIN (test code = 1003) 13.5 G/DL HEMATOCRIT (test code = 1004) 39.0 % MCV (test code = 1005) 83.7 fL MCH (test code = 1006) 29.0 PG MCHC (test code = 1007) 34.6 G/DL RDW (test code = 1038) 12.1 % NEUTROPHILS (test code = 1008) 67.5 % LYMPHOCYTES (test code = 1010) 23.3 % MONOCYTES (test code = 1011) 7.9 % EOSINOPHILS (test code = 1012) 0.3 % BASOPHILS (test code = 1013) 0.6 % IMMATURE GRANYLOCYTES (test code = 1036) 0.4 % NUCLEATED RBCS (test code = 1065) 0.0 /100WBC'S PLATELET COUNT (test code = 1015) 293 K/UL ABSOLUTE NEUTROPHILS (test c ode = 1066) 4.88 K/UL ABSOLUTE LYMPHOCYTES (test c ode = 1067) 1.68 K/UL ABSOLUTE MONOCYTES (test cod e = 1068) 0.57 K/UL ABSOLUTE EOSINOPHILS (test c ode = 1040) 0.02 K/UL ABSOLUTE BASOPHILS (test cod e = 1069) 0.04 K/UL ABS IMMATURE GRANULOCYTES (t est code = 1020) 0.03 K/UL ABS NUCLEATED RBCS (test cod e = 72535) 0.00 K/UL HEMOGLOBIN [id number] 00:00:00* Test Item Value Reference Range Interpretation Comme nts HEMOGLOBIN A1c (test code = 56034) 5.6 % HEMOGLOBIN [id number] 00:00:00* Test Item Value Reference Range Interpretation Comme nts HEMOGLOBIN A1c (test code = 54447) 5.6 % HEMOGLOBIN [id number] 00:00:00* Test Item Value Reference Range Interpretation Comme nts HEMOGLOBIN A1c (test code = 91447) 5.6 % LIPID [id number] 00:00:00* Test Item Value Reference Range Interpretation Comme nts CHOLESTEROL (test code = 2210) 163 MG/DL TRIGLYCERIDES (test code = 2232) 77 MG/DL HDL CHOLESTEROL (test code = 2220) 62 MG/DL CALC LDL CHOL (test code = 2237) 84 MG/DL RISK RATIO LDL/HDL (test cod e = 2238) 1.35 RATIO LIPID [id number] 00:00:00* Test Item Value Reference Range Interpretation Comme nts CHOLESTEROL (test code = 2210) 163 MG/DL TRIGLYCERIDES (test code = 2232) 77 MG/DL HDL CHOLESTEROL (test code = 2220) 62 MG/DL CALC LDL CHOL (test code = 2237) 84 MG/DL RISK RATIO LDL/HDL (test cod e = 2238) 1.35 RATIO COMPREHENSIVE METABOLIC [id number] 00:00:00* Test Item Value Reference Range Interpretation Comme nts GLUCOSE (test code = 2217) 83 MG/DL BUN (test code = 2208) 8 MG/DL CREATININE (test code = 2214) 0.58 MG/DL eGFR AMER. (test cod e = 99936) 136 ML/MIN/1.73 eGFR NON- AMER. (test code = 79303) 118 ML/MIN/1.73 CALC BUN/CREAT (test code = 2235) 14 RATIO SODIUM (test code = 2231) 140 MEQ/L POTASSIUM (test code = 2228) 3.7 MEQ/L CHLORIDE (test code = 2215) 101 MEQ/L CARBON DIOXIDE (test code = 2206) 25 MEQ/L CALCIUM (test code = 2209) 9.7 MG/DL PROTEIN, TOTAL (test code = 2229) 7.7 G/DL ALBUMIN (test code = 2201) 4.7 G/DL CALC GLOBULIN (test code = 2240) 3.0 G/DL CALC A/G RATIO (test code = 2234) 1.6 RATIO BILIRUBIN, TOTAL (test code = 2207) 0.4 MG/DL ALKALINE PHOSPHATASE (test code = 2204) 91 U/L AST (test code = 2218) 17 U/L ALT (test code = 2219) 20 U/L COMPREHENSIVE METABOLIC [id number] 00:00:00* Test Item Value Reference Range Interpretation Comme nts GLUCOSE (test code = 2217) 83 MG/DL BUN (test code = 2208) 8 MG/DL CREATININE (test code = 2214) 0.58 MG/DL eGFR AMER. (test cod e = 98075) 136 ML/MIN/1.73 eGFR NON- AMER. (test code = 79948) 118 ML/MIN/1.73 CALC BUN/CREAT (test code = 2235) 14 RATIO SODIUM (test code = 2231) 140 MEQ/L POTASSIUM (test code = 2228) 3.7 MEQ/L CHLORIDE (test code = 2215) 101 MEQ/L CARBON DIOXIDE (test code = 2206) 25 MEQ/L CALCIUM (test code = 2209) 9.7 MG/DL PROTEIN, TOTAL (test code = 2229) 7.7 G/DL ALBUMIN (test code = 2201) 4.7 G/DL CALC GLOBULIN (test code = 2240) 3.0 G/DL CALC A/G RATIO (test code = 2234) 1.6 RATIO BILIRUBIN, TOTAL (test code = 2207) 0.4 MG/DL ALKALINE PHOSPHATASE (test code = 2204) 91 U/L AST (test code = 2218) 17 U/L ALT (test code = 2219) 20 U/L [id number] 00:00:00* Test Item Value Reference Range Interpretation Comme nts TSH, THIRD GENERATION (test code = 2821) 1.460 UIU/ML [id number] 00:00:00* Test Item Value Reference Range Interpretation Comme nts TSH, THIRD GENERATION (test code = 2821) 1.460 UIU/ML [id number] 00:00:00* Test Item Value Reference Range Interpretation Comme nts TSH, THIRD GENERATION (test code = 2821) 1.460 UIU/ML VITAMIN D, 25 [id number] 00:00:00* Test Item Value Reference Range Interpretation Comme [facility] VITAMIN D, 25 OH (test code = 4958) 46 NG/ML VITAMIN D, 25 [id number] 00:00:00* Test Item Value Reference Range Interpretation Comme nts VITAMIN D, 25 OH (test code = 4958) 46 NG/ML VITAMIN B 12 AND FOLIC [id number] 00:00:00* Test Item Value Reference Range Interpretation Comme nts VITAMIN B-12 (test code = 2840) 499 PG/ML FOLIC ACID (test code = 2695) 8.5 UG/L VITAMIN B 12 AND FOLIC [id number] 00:00:00* Test Item Value Reference Range Interpretation Comme nts VITAMIN B-12 (test code = 2840) 499 PG/ML FOLIC ACID (test code = 2695) 8.5 UG/L CBC W/AUTO [id number] 00:00:00* Test Item Value Reference Range Interpretation Comme nts WBC (test code = 1001) 7.2 K/UL RBC (test code = 1002) 4.66 M/UL HEMOGLOBIN (test code = 1003) 13.5 G/DL HEMATOCRIT (test code = 1004) 39.0 % MCV (test code = 1005) 83.7 fL MCH (test code = 1006) 29.0 PG MCHC (test code = 1007) 34.6 G/DL RDW (test code = 1038) 12.1 % NEUTROPHILS (test code = 1008) 67.5 % LYMPHOCYTES (test code = 1010) 23.3 % MONOCYTES (test code = 1011) 7.9 % EOSINOPHILS (test code = 1012) 0.3 % BASOPHILS (test code = 1013) 0.6 % IMMATURE GRANYLOCYTES (test code = 1036) 0.4 % NUCLEATED RBCS (test code = 1065) 0.0 /100WBC'S PLATELET COUNT (test code = 1015) 293 K/UL ABSOLUTE NEUTROPHILS (test c ode = 1066) 4.88 K/UL ABSOLUTE LYMPHOCYTES (test c ode = 1067) 1.68 K/UL ABSOLUTE MONOCYTES (test cod e = 1068) 0.57 K/UL ABSOLUTE EOSINOPHILS (test c ode = 1040) 0.02 K/UL ABSOLUTE BASOPHILS (test cod e = 1069) 0.04 K/UL ABS IMMATURE GRANULOCYTES (t est code = 1020) 0.03 K/UL ABS NUCLEATED RBCS (test cod e = 95286) 0.00 K/UL CBC W/AUTO [id number] 00:00:00* Test Item Value Reference Range Interpretation Comme nts WBC (test code = 1001) 7.2 K/UL RBC (test code = 1002) 4.66 M/UL HEMOGLOBIN (test code = 1003) 13.5 G/DL HEMATOCRIT (test code = 1004) 39.0 % MCV (test code = 1005) 83.7 fL MCH (test code = 1006) 29.0 PG MCHC (test code = 1007) 34.6 G/DL RDW (test code = 1038) 12.1 % NEUTROPHILS (test code = 1008) 67.5 % LYMPHOCYTES (test code = 1010) 23.3 % MONOCYTES (test code = 1011) 7.9 % EOSINOPHILS (test code = 1012) 0.3 % BASOPHILS (test code = 1013) 0.6 % IMMATURE GRANYLOCYTES (test code = 1036) 0.4 % NUCLEATED RBCS (test code = 1065) 0.0 /100WBC'S PLATELET COUNT (test code = 1015) 293 K/UL ABSOLUTE NEUTROPHILS (test c ode = 1066) 4.88 K/UL ABSOLUTE LYMPHOCYTES (test c ode = 1067) 1.68 K/UL ABSOLUTE MONOCYTES (test cod e = 1068) 0.57 K/UL ABSOLUTE EOSINOPHILS (test c ode = 1040) 0.02 K/UL ABSOLUTE BASOPHILS (test cod e = 1069) 0.04 K/UL ABS IMMATURE GRANULOCYTES (t est code = 1020) 0.03 K/UL ABS NUCLEATED RBCS (test cod e = 87310) 0.00 K/UL CBC W/AUTO [id number] 00:00:00* Test Item Value Reference Range Interpretation Comme nts WBC (test code = 1001) 7.2 K/UL RBC (test code = 1002) 4.66 M/UL HEMOGLOBIN (test code = 1003) 13.5 G/DL HEMATOCRIT (test code = 1004) 39.0 % MCV (test code = 1005) 83.7 fL MCH (test code = 1006) 29.0 PG MCHC (test code = 1007) 34.6 G/DL RDW (test code = 1038) 12.1 % NEUTROPHILS (test code = 1008) 67.5 % LYMPHOCYTES (test code = 1010) 23.3 % MONOCYTES (test code = 1011) 7.9 % EOSINOPHILS (test code = 1012) 0.3 % BASOPHILS (test code = 1013) 0.6 % IMMATURE GRANYLOCYTES (test code = 1036) 0.4 % NUCLEATED RBCS (test code = 1065) 0.0 /100WBC'S PLATELET COUNT (test code = 1015) 293 K/UL ABSOLUTE NEUTROPHILS (test c ode = 1066) 4.88 K/UL ABSOLUTE LYMPHOCYTES (test c ode = 1067) 1.68 K/UL ABSOLUTE MONOCYTES (test cod e = 1068) 0.57 K/UL ABSOLUTE EOSINOPHILS (test c ode = 1040) 0.02 K/UL ABSOLUTE BASOPHILS (test cod e = 1069) 0.04 K/UL ABS IMMATURE GRANULOCYTES (t est code = 1020) 0.03 K/UL ABS NUCLEATED RBCS (test cod e = 98778) 0.00 K/UL CBC W/AUTO [id number] 00:00:00* Test Item Value Reference Range Interpretation Comme nts WBC (test code = 1001) 7.2 K/UL RBC (test code = 1002) 4.66 M/UL HEMOGLOBIN (test code = 1003) 13.5 G/DL HEMATOCRIT (test code = 1004) 39.0 % MCV (test code = 1005) 83.7 fL MCH (test code = 1006) 29.0 PG MCHC (test code = 1007) 34.6 G/DL RDW (test code = 1038) 12.1 % NEUTROPHILS (test code = 1008) 67.5 % LYMPHOCYTES (test code = 1010) 23.3 % MONOCYTES (test code = 1011) 7.9 % EOSINOPHILS (test code = 1012) 0.3 % BASOPHILS (test code = 1013) 0.6 % IMMATURE GRANYLOCYTES (test code = 1036) 0.4 % NUCLEATED RBCS (test code = 1065) 0.0 /100WBC'S PLATELET COUNT (test code = 1015) 293 K/UL ABSOLUTE NEUTROPHILS (test c ode = 1066) 4.88 K/UL ABSOLUTE LYMPHOCYTES (test c ode = 1067) 1.68 K/UL ABSOLUTE MONOCYTES (test cod e = 1068) 0.57 K/UL ABSOLUTE EOSINOPHILS (test c ode = 1040) 0.02 K/UL ABSOLUTE BASOPHILS (test cod e = 1069) 0.04 K/UL ABS IMMATURE GRANULOCYTES (t est code = 1020) 0.03 K/UL ABS NUCLEATED RBCS (test cod e = 26161) 0.00 K/UL CBC W/AUTO [id number] 00:00:00* Test Item Value Reference Range Interpretation Comme nts WBC (test code = 1001) 7.2 K/UL RBC (test code = 1002) 4.66 M/UL HEMOGLOBIN (test code = 1003) 13.5 G/DL HEMATOCRIT (test code = 1004) 39.0 % MCV (test code = 1005) 83.7 fL MCH (test code = 1006) 29.0 PG MCHC (test code = 1007) 34.6 G/DL RDW (test code = 1038) 12.1 % NEUTROPHILS (test code = 1008) 67.5 % LYMPHOCYTES (test code = 1010) 23.3 % MONOCYTES (test code = 1011) 7.9 % EOSINOPHILS (test code = 1012) 0.3 % BASOPHILS (test code = 1013) 0.6 % IMMATURE GRANYLOCYTES (test code = 1036) 0.4 % NUCLEATED RBCS (test code = 1065) 0.0 /100WBC'S PLATELET COUNT (test code = 1015) 293 K/UL ABSOLUTE NEUTROPHILS (test c ode = 1066) 4.88 K/UL ABSOLUTE LYMPHOCYTES (test c ode = 1067) 1.68 K/UL ABSOLUTE MONOCYTES (test cod e = 1068) 0.57 K/UL ABSOLUTE EOSINOPHILS (test c ode = 1040) 0.02 K/UL ABSOLUTE BASOPHILS (test cod e = 1069) 0.04 K/UL ABS IMMATURE GRANULOCYTES (t est code = 1020) 0.03 K/UL ABS NUCLEATED RBCS (test cod e = 41923) 0.00 K/UL HEMOGLOBIN [id number] 00:00:00* Test Item Value Reference Range Interpretation Comme nts HEMOGLOBIN A1c (test code = 47610) 5.6 % HEMOGLOBIN [id number] 00:00:00* Test Item Value Reference Range Interpretation Comme nts HEMOGLOBIN A1c (test code = 59767) 5.6 % HEMOGLOBIN [id number] 00:00:00* Test Item Value Reference Range Interpretation Comme nts HEMOGLOBIN A1c (test code = 68620) 5.6 % LIPID [id number] 00:00:00* Test Item Value Reference Range Interpretation Comme nts CHOLESTEROL (test code = 2210) 163 MG/DL TRIGLYCERIDES (test code = 2232) 77 MG/DL HDL CHOLESTEROL (test code = 2220) 62 MG/DL CALC LDL CHOL (test code = 2237) 84 MG/DL RISK RATIO LDL/HDL (test cod e = 2238) 1.35 RATIO LIPID [id number] 00:00:00* Test Item Value Reference Range Interpretation Comme nts CHOLESTEROL (test code = 2210) 163 MG/DL TRIGLYCERIDES (test code = 2232) 77 MG/DL HDL CHOLESTEROL (test code = 2220) 62 MG/DL CALC LDL CHOL (test code = 2237) 84 MG/DL RISK RATIO LDL/HDL (test cod e = 2238) 1.35 RATIO COMPREHENSIVE METABOLIC [id number] 00:00:00* Test Item Value Reference Range Interpretation Comme nts GLUCOSE (test code = 2217) 83 MG/DL BUN (test code = 2208) 8 MG/DL CREATININE (test code = 2214) 0.58 MG/DL eGFR AMER. (test cod e = 37457) 136 ML/MIN/1.73 eGFR NON- AMER. (test code = 74838) 118 ML/MIN/1.73 CALC BUN/CREAT (test code = 2235) 14 RATIO SODIUM (test code = 2231) 140 MEQ/L POTASSIUM (test code = 2228) 3.7 MEQ/L CHLORIDE (test code = 2215) 101 MEQ/L CARBON DIOXIDE (test code = 2206) 25 MEQ/L CALCIUM (test code = 2209) 9.7 MG/DL PROTEIN, TOTAL (test code = 2229) 7.7 G/DL ALBUMIN (test code = 2201) 4.7 G/DL CALC GLOBULIN (test code = 2240) 3.0 G/DL CALC A/G RATIO (test code = 2234) 1.6 RATIO BILIRUBIN, TOTAL (test code = 2207) 0.4 MG/DL ALKALINE PHOSPHATASE (test code = 2204) 91 U/L AST (test code = 2218) 17 U/L ALT (test code = 2219) 20 U/L COMPREHENSIVE METABOLIC [id number] 00:00:00* Test Item Value Reference Range Interpretation Comme nts GLUCOSE (test code = 2217) 83 MG/DL BUN (test code = 2208) 8 MG/DL CREATININE (test code = 2214) 0.58 MG/DL eGFR AMER. (test cod e = 91810) 136 ML/MIN/1.73 eGFR NON- AMER. (test code = 67590) 118 ML/MIN/1.73 CALC BUN/CREAT (test code = 2235) 14 RATIO SODIUM (test code = 2231) 140 MEQ/L POTASSIUM (test code = 2228) 3.7 MEQ/L CHLORIDE (test code = 2215) 101 MEQ/L CARBON DIOXIDE (test code = 2206) 25 MEQ/L CALCIUM (test code = 2209) 9.7 MG/DL PROTEIN, TOTAL (test code = 2229) 7.7 G/DL ALBUMIN (test code = 2201) 4.7 G/DL CALC GLOBULIN (test code = 2240) 3.0 G/DL CALC A/G RATIO (test code = 2234) 1.6 RATIO BILIRUBIN, TOTAL (test code = 2207) 0.4 MG/DL ALKALINE PHOSPHATASE (test code = 2204) 91 U/L AST (test code = 2218) 17 U/L ALT (test code = 2219) 20 U/L [id number] 00:00:00* Test Item Value Reference Range Interpretation Comme nts TSH, THIRD GENERATION (test code = 2821) 1.460 UIU/ML [id number] 00:00:00* Test Item Value Reference Range Interpretation Comme nts TSH, THIRD GENERATION (test code = 2821) 1.460 UIU/ML [id number] 00:00:00* Test Item Value Reference Range Interpretation Comme [facility] TSH, THIRD GENERATION (test code = 2821) 1.460 UIU/ML VITAMIN D, 25 [id number] 00:00:00* Test Item Value Reference Range Interpretation Comme [facility] VITAMIN D, 25 OH (test code = 4958) 46 NG/ML VITAMIN D, 25 [id number] 00:00:00* Test Item Value Reference Range Interpretation Comme nts VITAMIN D, 25 OH (test code = 4958) 46 NG/ML VITAMIN B 12 AND FOLIC [id number] 00:00:00* Test Item Value Reference Range Interpretation Comme nts VITAMIN B-12 (test code = 2840) 499 PG/ML FOLIC ACID (test code = 2695) 8.5 UG/L VITAMIN B 12 AND FOLIC [id number] 00:00:00* Test Item Value Reference Range Interpretation Comme nts VITAMIN B-12 (test code = 2840) 499 PG/ML FOLIC ACID (test code = 2695) 8.5 UG/L HEMOGLOBIN [id number] 00:00:00* Test Item Value Reference Range Interpretation Comme nts HEMOGLOBIN A1c (test code = 51185) 5.6 % HEMOGLOBIN [id number] 00:00:00* Test Item Value Reference Range Interpretation Comme nts HEMOGLOBIN A1c (test code = 85345) 5.6 % LIPID [id number] 00:00:00* Test Item Value Reference Range Interpretation Comme nts CHOLESTEROL (test code = 2210) 163 MG/DL TRIGLYCERIDES (test code = 2232) 77 MG/DL HDL CHOLESTEROL (test code = 2220) 62 MG/DL CALC LDL CHOL (test code = 2237) 84 MG/DL RISK RATIO LDL/HDL (test cod e = 2238) 1.35 RATIO COMPREHENSIVE METABOLIC [id number] 00:00:00* Test Item Value Reference Range Interpretation Comme nts GLUCOSE (test code = 2217) 83 MG/DL BUN (test code = 2208) 8 MG/DL CREATININE (test code = 2214) 0.58 MG/DL eGFR AMER. (test cod e = 25862) 136 ML/MIN/1.73 eGFR NON- AMER. (test code = 55151) 118 ML/MIN/1.73 CALC BUN/CREAT (test code = 2235) 14 RATIO SODIUM (test code = 2231) 140 MEQ/L POTASSIUM (test code = 2228) 3.7 MEQ/L CHLORIDE (test code = 2215) 101 MEQ/L CARBON DIOXIDE (test code = 2206) 25 MEQ/L CALCIUM (test code = 2209) 9.7 MG/DL PROTEIN, TOTAL (test code = 2229) 7.7 G/DL ALBUMIN (test code = 2201) 4.7 G/DL CALC GLOBULIN (test code = 2240) 3.0 G/DL CALC A/G RATIO (test code = 2234) 1.6 RATIO BILIRUBIN, TOTAL (test code = 2207) 0.4 MG/DL ALKALINE PHOSPHATASE (test code = 2204) 91 U/L AST (test code = 2218) 17 U/L ALT (test code = 2219) 20 U/L [id number] 00:00:00* Test Item Value Reference Range Interpretation Comme [facility] TSH, THIRD GENERATION (test code = 2821) 1.460 UIU/ML [id number] 00:00:00* Test Item Value Reference Range Interpretation Comme [facility] TSH, THIRD GENERATION (test code = 2821) 1.460 UIU/ML VITAMIN D, 25 [id number] 00:00:00* Test Item Value Reference Range Interpretation Comme [facility] VITAMIN D, 25 OH (test code = 4958) 46 NG/ML CBC W/AUTO [id number] 00:00:00* Test Item Value Reference Range Interpretation Comme [facility] WBC (test code = 1001) 7.2 K/UL RBC (test code = 1002) 4.66 M/UL HEMOGLOBIN (test code = 1003) 13.5 G/DL HEMATOCRIT (test code = 1004) 39.0 % MCV (test code = 1005) 83.7 fL MCH (test code = 1006) 29.0 PG MCHC (test code = 1007) 34.6 G/DL RDW (test code = 1038) 12.1 % NEUTROPHILS (test code = 1008) 67.5 % LYMPHOCYTES (test code = 1010) 23.3 % MONOCYTES (test code = 1011) 7.9 % EOSINOPHILS (test code = 1012) 0.3 % BASOPHILS (test code = 1013) 0.6 % IMMATURE GRANYLOCYTES (test code = 1036) 0.4 % NUCLEATED RBCS (test code = 1065) 0.0 /100WBC'S PLATELET COUNT (test code = 1015) 293 K/UL ABSOLUTE NEUTROPHILS (test c ode = 1066) 4.88 K/UL ABSOLUTE LYMPHOCYTES (test c ode = 1067) 1.68 K/UL ABSOLUTE MONOCYTES (test cod e = 1068) 0.57 K/UL ABSOLUTE EOSINOPHILS (test c ode = 1040) 0.02 K/UL ABSOLUTE BASOPHILS (test cod e = 1069) 0.04 K/UL ABS IMMATURE GRANULOCYTES (t est code = 1020) 0.03 K/UL ABS NUCLEATED RBCS (test cod e = 69339) 0.00 K/UL VITAMIN B 12 AND FOLIC [id number] 00:00:00* Test Item Value Reference Range Interpretation Comme nts VITAMIN B-12 (test code = 2840) 499 PG/ML FOLIC ACID (test code = 2695) 8.5 UG/L CBC W/AUTO [id number] 00:00:00* Test Item Value Reference Range Interpretation Comme nts WBC (test code = 1001) 7.2 K/UL RBC (test code = 1002) 4.66 M/UL HEMOGLOBIN (test code = 1003) 13.5 G/DL HEMATOCRIT (test code = 1004) 39.0 % MCV (test code = 1005) 83.7 fL MCH (test code = 1006) 29.0 PG MCHC (test code = 1007) 34.6 G/DL RDW (test code = 1038) 12.1 % NEUTROPHILS (test code = 1008) 67.5 % LYMPHOCYTES (test code = 1010) 23.3 % MONOCYTES (test code = 1011) 7.9 % EOSINOPHILS (test code = 1012) 0.3 % BASOPHILS (test code = 1013) 0.6 % IMMATURE GRANYLOCYTES (test code = 1036) 0.4 % NUCLEATED RBCS (test code = 1065) 0.0 /100WBC'S PLATELET COUNT (test code = 1015) 293 K/UL ABSOLUTE NEUTROPHILS (test c ode = 1066) 4.88 K/UL ABSOLUTE LYMPHOCYTES (test c ode = 1067) 1.68 K/UL ABSOLUTE MONOCYTES (test cod e = 1068) 0.57 K/UL ABSOLUTE EOSINOPHILS (test c ode = 1040) 0.02 K/UL ABSOLUTE BASOPHILS (test cod e = 1069) 0.04 K/UL ABS IMMATURE GRANULOCYTES (t est code = 1020) 0.03 K/UL ABS NUCLEATED RBCS (test cod e = 05228) 0.00 K/UL CBC W/AUTO [id number] 00:00:00* Test Item Value Reference Range Interpretation Comme nts WBC (test code = 1001) 7.2 K/UL RBC (test code = 1002) 4.66 M/UL HEMOGLOBIN (test code = 1003) 13.5 G/DL HEMATOCRIT (test code = 1004) 39.0 % MCV (test code = 1005) 83.7 fL MCH (test code = 1006) 29.0 PG MCHC (test code = 1007) 34.6 G/DL RDW (test code = 1038) 12.1 % NEUTROPHILS (test code = 1008) 67.5 % LYMPHOCYTES (test code = 1010) 23.3 % MONOCYTES (test code = 1011) 7.9 % EOSINOPHILS (test code = 1012) 0.3 % BASOPHILS (test code = 1013) 0.6 % IMMATURE GRANYLOCYTES (test code = 1036) 0.4 % NUCLEATED RBCS (test code = 1065) 0.0 /100WBC'S PLATELET COUNT (test code = 1015) 293 K/UL ABSOLUTE NEUTROPHILS (test c ode = 1066) 4.88 K/UL ABSOLUTE LYMPHOCYTES (test c ode = 1067) 1.68 K/UL ABSOLUTE MONOCYTES (test cod e = 1068) 0.57 K/UL ABSOLUTE EOSINOPHILS (test c ode = 1040) 0.02 K/UL ABSOLUTE BASOPHILS (test cod e = 1069) 0.04 K/UL ABS IMMATURE GRANULOCYTES (t est code = 1020) 0.03 K/UL ABS NUCLEATED RBCS (test cod e = 96426) 0.00 K/UL HEMOGLOBIN [id number] 00:00:00* Test Item Value Reference Range Interpretation Comme nts HEMOGLOBIN A1c (test code = 60624) 5.6 % HEMOGLOBIN [id number] 00:00:00* Test Item Value Reference Range Interpretation Comme nts HEMOGLOBIN A1c (test code = 24424) 5.6 % SARS-CoV-2 (COVID-19) by RT-PCR (HIGH RISK)2020-10-03 00:00:00* Test Item Value Reference Range Interpretation Comme nts SARS-CoV-2 INTERPRETATION (t est code = 71958) NEGATIVE SOURCE (test code = 45297) NOT SPECIFIED SARS-CoV-2 (COVID-19) by RT-PCR (HIGH RISK)2020-10-03 00:00:00* Test Item Value Reference Range Interpretation Comme nts SARS-CoV-2 INTERPRETATION (t est code = 55475) NEGATIVE SOURCE (test code = 39534) NOT SPECIFIED SARS-CoV-2 (COVID-19) by RT-PCR (HIGH RISK)2020-10-03 00:00:00* Test Item Value Reference Range Interpretation Comme nts SARS-CoV-2 INTERPRETATION (t est code = 33958) NEGATIVE SOURCE (test code = 09601) NOT SPECIFIED SARS-CoV-2 (COVID-19) by RT-PCR (HIGH RISK)2020-10-03 00:00:00* Test Item Value Reference Range Interpretation Comme nts SARS-CoV-2 INTERPRETATION (t est code = 14642) NEGATIVE SOURCE (test code = 60615) NOT SPECIFIED SARS-CoV-2 (COVID-19) by RT-PCR (HIGH RISK)2020-10-03 00:00:00* Test Item Value Reference Range Interpretation Comme nts SARS-CoV-2 INTERPRETATION (t est code = 69596) NEGATIVE SOURCE (test code = 97099) NOT SPECIFIED SARS-CoV-2 (COVID-19) by RT-PCR (HIGH RISK)2020-10-03 00:00:00* Test Item Value Reference Range Interpretation Comme nts SARS-CoV-2 INTERPRETATION (t est code = 69883) NEGATIVE SOURCE (test code = 81203) NOT SPECIFIED SARS-CoV-2 (COVID-19) by RT-PCR (HIGH RISK)2020-10-03 00:00:00* Test Item Value Reference Range Interpretation Comme nts SARS-CoV-2 INTERPRETATION (t est code = 72367) NEGATIVE SOURCE (test code = 26974) NOT SPECIFIED SARS-CoV-2 (COVID-19) by RT-PCR (HIGH RISK)2020-10-03 00:00:00* Test Item Value Reference Range Interpretation Comme nts SARS-CoV-2 INTERPRETATION (t est code = 13656) NEGATIVE SOURCE (test code = 86217) NOT SPECIFIED SARS-CoV-2 (COVID-19) by RT-PCR (HIGH RISK)2020-10-03 00:00:00* Test Item Value Reference Range Interpretation Comme nts SARS-CoV-2 INTERPRETATION (t est code = 37996) NEGATIVE SOURCE (test code = 85624) NOT SPECIFIED SARS-CoV-2 (COVID-19) by RT-PCR (HIGH RISK)2020-10-03 00:00:00* Test Item Value Reference Range Interpretation Comme nts SARS-CoV-2 INTERPRETATION (t est code = 25082) NEGATIVE SOURCE (test code = 54382) NOT SPECIFIED SARS-CoV-2 (COVID-19) by RT-PCR (HIGH RISK)2020-10-03 00:00:00* Test Item Value Reference Range Interpretation Comme nts SARS-CoV-2 INTERPRETATION (t est code = 06474) NEGATIVE SOURCE (test code = 72787) NOT SPECIFIED SARS-CoV-2 (COVID-19) by RT-PCR (HIGH RISK)2020-10-03 00:00:00* Test Item Value Reference Range Interpretation Comme nts SARS-CoV-2 INTERPRETATION (t est code = 83478) NEGATIVE SOURCE (test code = 68102) NOT SPECIFIED SARS-CoV-2 (COVID-19) by RT-PCR (HIGH RISK)2020-10-03 00:00:00* Test Item Value Reference Range Interpretation Comme nts SARS-CoV-2 INTERPRETATION (t est code = 55480) NEGATIVE SOURCE (test code = 06761) NOT SPECIFIED RHEUMATOID [id number] 00:00:00* Test Item Value Reference Range Interpretation Comme nts RHEUMATOID FACTOR (test code = 94389-6) <14 IU/mL RHEUMATOID [id number] 00:00:00* Test Item Value Reference Range Interpretation Comme nts RHEUMATOID FACTOR (test code = 74514-3) <14 IU/mL RHEUMATOID [id number] 00:00:00* Test Item Value Reference Range Interpretation Comme nts RHEUMATOID FACTOR (test code = 83654-6) <14 IU/mL RAFI SCREEN, IFA, W/REFL TITER AND [id number] 00:00:00* Test Item Value Reference Range Interpretation Comme nts RAFI SCREEN, IFA (test code = 47277-0) NEGATIVE [id number] 00:00:00* Test Item Value Reference Range Interpretation Comme nts TSH (test code = 3016-3) 1.20 mIU/L SED RATE BY MODIFIED [id number] 00:00:00* Test Item Value Reference Range Interpretation Comme nts SED RATE BY MODIFIED WESTERG BERNA (test code = 4537-7) 11 mm/h RHEUMATOID [id number] 00:00:00* Test Item Value Reference Range Interpretation Comme nts RHEUMATOID FACTOR (test code = 20927-0) <14 IU/mL RHEUMATOID [id number] 00:00:00* Test Item Value Reference Range Interpretation Comme nts RHEUMATOID FACTOR (test code = 22366-4) <14 IU/mL RHEUMATOID [id number] 00:00:00* Test Item Value Reference Range Interpretation Comme nts RHEUMATOID FACTOR (test code = 32252-9) <14 IU/mL RAFI SCREEN, IFA, W/REFL TITER AND [id number] 00:00:00* Test Item Value Reference Range Interpretation Comme nts RAFI SCREEN, IFA (test code = 59729-9) NEGATIVE [id number] 00:00:00* Test Item Value Reference Range Interpretation Comme nts TSH (test code = 3016-3) 1.20 mIU/L SED RATE BY MODIFIED [id number] 00:00:00* Test Item Value Reference Range Interpretation Comme nts SED RATE BY MODIFIED WESTERG BERNA (test code = 4537-7) 11 mm/h RHEUMATOID [id number] 00:00:00* Test Item Value Reference Range Interpretation Comme nts RHEUMATOID FACTOR (test code = 82337-7) <14 IU/mL RHEUMATOID [id number] 00:00:00* Test Item Value Reference Range Interpretation Comme nts RHEUMATOID FACTOR (test code = 41262-9) <14 IU/mL RHEUMATOID [id number] 00:00:00* Test Item Value Reference Range Interpretation Comme nts RHEUMATOID FACTOR (test code = 49282-1) <14 IU/mL RAFI SCREEN, IFA, W/REFL TITER AND [id number] 00:00:00* Test Item Value Reference Range Interpretation Comme nts RAFI SCREEN, IFA (test code = 67584-4) NEGATIVE [id number] 00:00:00* Test Item Value Reference Range Interpretation Comme nts TSH (test code = 3016-3) 1.20 mIU/L SED RATE BY MODIFIED [id number] 00:00:00* Test Item Value Reference Range Interpretation Comme nts SED RATE BY MODIFIED WESTERG BERNA (test code = 4537-7) 11 mm/h RHEUMATOID [id number] 00:00:00* Test Item Value Reference Range Interpretation Comme nts RHEUMATOID FACTOR (test code = 43352-9) <14 IU/mL RHEUMATOID [id number] 00:00:00* Test Item Value Reference Range Interpretation Comme nts RHEUMATOID FACTOR (test code = 59321-6) <14 IU/mL RAFI SCREEN, IFA, W/REFL TITER AND [id number] 00:00:00* Test Item Value Reference Range Interpretation Comme nts RAFI SCREEN, IFA (test code = 96348-8) NEGATIVE [id number] 00:00:00* Test Item Value Reference Range Interpretation Comme nts TSH (test code = 3016-3) 1.20 mIU/L SED RATE BY MODIFIED [id number] 00:00:00* Test Item Value Reference Range Interpretation Comme nts SED RATE BY MODIFIED RAMÍREZERG BERNA (test code = 4537-7) 11 mm/h RHEUMATOID [id number] 00:00:00* Test Item Value Reference Range Interpretation Comme nts RHEUMATOID FACTOR (test code = 86730-3) <14 IU/mL RHEUMATOID [id number] 00:00:00* Test Item Value Reference Range Interpretation Comme nts RHEUMATOID FACTOR (test code = 21603-7) <14 IU/mL RAFI SCREEN, IFA, W/REFL TITER AND [id number] 00:00:00* Test Item Value Reference Range Interpretation Comme nts RAFI SCREEN, IFA (test code = 96986-8) NEGATIVE [id number] 00:00:00* Test Item Value Reference Range Interpretation Comme nts TSH (test code = 3016-3) 1.20 mIU/L SED RATE BY MODIFIED [id number] 00:00:00* Test Item Value Reference Range Interpretation Comme nts SED RATE BY MODIFIED RAMÍREZERG BERNA (test code = 4537-7) 11 mm/h RHEUMATOID [id number] 00:00:00* Test Item Value Reference Range Interpretation Comme nts RHEUMATOID FACTOR (test code = 70115-7) <14 IU/mL RHEUMATOID [id number] 00:00:00* Test Item Value Reference Range Interpretation Comme nts RHEUMATOID FACTOR (test code = 60682-7) <14 IU/mL RHEUMATOID [id number] 00:00:00* Test Item Value Reference Range Interpretation Comme nts RHEUMATOID FACTOR (test code = 82256-3) <14 IU/mL RAFI SCREEN, IFA, W/REFL TITER AND [id number] 00:00:00* Test Item Value Reference Range Interpretation Comme nts RAFI SCREEN, IFA (test code = 33810-3) NEGATIVE [id number] 00:00:00* Test Item Value Reference Range Interpretation Comme nts TSH (test code = 3016-3) 1.20 mIU/L SED RATE BY MODIFIED [id number] 00:00:00* Test Item Value Reference Range Interpretation Comme nts SED RATE BY MODIFIED WESTERG BERNA (test code = 4537-7) 11 mm/h RHEUMATOID [id number] 00:00:00* Test Item Value Reference Range Interpretation Comme nts RHEUMATOID FACTOR (test code = 94429-7) <14 IU/mL RHEUMATOID [id number] 00:00:00* Test Item Value Reference Range Interpretation Comme nts RHEUMATOID FACTOR (test code = 88310-6) <14 IU/mL RHEUMATOID [id number] 00:00:00* Test Item Value Reference Range Interpretation Comme nts RHEUMATOID FACTOR (test code = 59685-1) <14 IU/mL RAFI SCREEN, IFA, W/REFL TITER AND [id number] 00:00:00* Test Item Value Reference Range Interpretation Comme nts RAFI SCREEN, IFA (test code = 82117-1) NEGATIVE [id number] 00:00:00* Test Item Value Reference Range Interpretation Comme nts TSH (test code = 3016-3) 1.20 mIU/L SED RATE BY MODIFIED [id number] 00:00:00* Test Item Value Reference Range Interpretation Comme nts SED RATE BY MODIFIED WESTERG BERNA (test code = 4537-7) 11 mm/h RHEUMATOID [id number] 00:00:00* Test Item Value Reference Range Interpretation Comme nts RHEUMATOID FACTOR (test code = 96464-1) <14 IU/mL RHEUMATOID [id number] 00:00:00* Test Item Value Reference Range Interpretation Comme nts RHEUMATOID FACTOR (test code = 94356-6) <14 IU/mL RAFI SCREEN, IFA, W/REFL TITER AND [id number] 00:00:00* Test Item Value Reference Range Interpretation Comme nts RAFI SCREEN, IFA (test code = 42288-3) NEGATIVE [id number] 00:00:00* Test Item Value Reference Range Interpretation Comme nts TSH (test code = 3016-3) 1.20 mIU/L SED RATE BY MODIFIED [id number] 00:00:00* Test Item Value Reference Range Interpretation Comme nts SED RATE BY MODIFIED WESTERG BERNA (test code = 4537-7) 11 mm/h VITAMIN B12/FOLATE, SERUM [id number] 00:00:00* Test Item Value Reference Range Interpretation Comme nts VITAMIN B12 (test code = 2132-9) 501 pg/mL FOLATE, SERUM (test code = 2284-8) 19.0 ng/mL CARDIO IQ(R) VITAMIN D, 25-HYDROXY, LC/MS/[id number] 00:00:00* Test Item Value Reference Range Interpretation Comme nts VITAMIN D, 25-OH, TOTAL (kaitlynn t code = 98050-3) 22 ng/mL VITAMIN D, 25-OH, D3 (test c ode = 1989-02) 22 ng/mL VITAMIN D, 25-OH, D2 (test c ode = 6-8) <4.0 ng/mL VITAMIN B12/FOLATE, SERUM [id number] 00:00:00* Test Item Value Reference Range Interpretation Comme nts VITAMIN B12 (test code = 2132-9) 501 pg/mL FOLATE, SERUM (test code = 2284-8) 19.0 ng/mL CARDIO IQ(R) VITAMIN D, 25-HYDROXY, LC/MS/[id number] 00:00:00* Test Item Value Reference Range Interpretation Comme nts VITAMIN D, 25-OH, TOTAL (kaitlynn t code = 89698-6) 22 ng/mL VITAMIN D, 25-OH, D3 (test c ode = 1989-02) 22 ng/mL VITAMIN D, 25-OH, D2 (test c ode = 6-8) <4.0 ng/mL VITAMIN B12/FOLATE, SERUM [id number] 00:00:00* Test Item Value Reference Range Interpretation Comme nts VITAMIN B12 (test code = 2-9) 501 pg/mL FOLATE, SERUM (test code = 2284-8) 19.0 ng/mL CARDIO IQ(R) VITAMIN D, 25-HYDROXY, LC/MS/[id number] 00:00:00* Test Item Value Reference Range Interpretation Comme nts VITAMIN D, 25-OH, TOTAL (kaitlynn t code = 29793-4) 22 ng/mL VITAMIN D, 25-OH, D3 (test c ode = 1989-) 22 ng/mL VITAMIN D, 25-OH, D2 (test c ode = 6-8) <4.0 ng/mL VITAMIN B12/FOLATE, SERUM [id number] 00:00:00* Test Item Value Reference Range Interpretation Comme nts VITAMIN B12 (test code = 2131-9) 501 pg/mL FOLATE, SERUM (test code = 2284-8) 19.0 ng/mL CARDIO IQ(R) VITAMIN D, 25-HYDROXY, LC/MS/[id number] 00:00:00* Test Item Value Reference Range Interpretation Comme nts VITAMIN D, 25-OH, TOTAL (kaitlynn t code = 43732-2) 22 ng/mL VITAMIN D, 25-OH, D3 (test c ode = 1989-02) 22 ng/mL VITAMIN D, 25-OH, D2 (test c ode = 6-8) <4.0 ng/mL VITAMIN B12/FOLATE, SERUM [id number] 00:00:00* Test Item Value Reference Range Interpretation Comme nts VITAMIN B12 (test code = 2131-9) 501 pg/mL FOLATE, SERUM (test code = 2284-8) 19.0 ng/mL CARDIO IQ(R) VITAMIN D, 25-HYDROXY, LC/MS/[id number] 00:00:00* Test Item Value Reference Range Interpretation Comme nts VITAMIN D, 25-OH, TOTAL (kaitlynn t code = 32620-5) 22 ng/mL VITAMIN D, 25-OH, D3 (test c ode = 1989-02) 22 ng/mL VITAMIN D, 25-OH, D2 (test c ode = 6-8) <4.0 ng/mL VITAMIN B12/FOLATE, SERUM [id number] 00:00:00* Test Item Value Reference Range Interpretation Comme nts VITAMIN B12 (test code = 2-9) 501 pg/mL FOLATE, SERUM (test code = 2284-8) 19.0 ng/mL CARDIO IQ(R) VITAMIN D, 25-HYDROXY, LC/MS/[id number] 00:00:00* Test Item Value Reference Range Interpretation Comme nts VITAMIN D, 25-OH, TOTAL (kaitlynn t code = 15283-4) 22 ng/mL VITAMIN D, 25-OH, D3 (test c ode = 1989-) 22 ng/mL VITAMIN D, 25-OH, D2 (test c ode = 6-8) <4.0 ng/mL VITAMIN B12/FOLATE, SERUM [id number] 00:00:00* Test Item Value Reference Range Interpretation Comme nts VITAMIN B12 (test code = 2-9) 501 pg/mL FOLATE, SERUM (test code = 2284-8) 19.0 ng/mL CARDIO IQ(R) VITAMIN D, 25-HYDROXY, LC/MS/[id number] 00:00:00* Test Item Value Reference Range Interpretation Comme nts VITAMIN D, 25-OH, TOTAL (kaitlynn t code = 96857-5) 22 ng/mL VITAMIN D, 25-OH, D3 (test c ode = 1989-02) 22 ng/mL VITAMIN D, 25-OH, D2 (test c ode = 6-8) <4.0 ng/mL VITAMIN B12/FOLATE, SERUM [id number] 00:00:00* Test Item Value Reference Range Interpretation Comme nts VITAMIN B12 (test code = 2-9) 501 pg/mL FOLATE, SERUM (test code = 2284-8) 19.0 ng/mL CARDIO IQ(R) VITAMIN D, 25-HYDROXY, LC/MS/[id number] 00:00:00* Test Item Value Reference Range Interpretation Comme nts VITAMIN D, 25-OH, TOTAL (kaitlynn t code = 25889-1) 22 ng/mL VITAMIN D, 25-OH, D3 (test c ode = 1989-02) 22 ng/mL VITAMIN D, 25-OH, D2 (test c ode = 6-8) <4.0 ng/mL LIPID [id number] 00:00:00* Test Item Value Reference Range Interpretation Comme nts CHOLESTEROL (test code = 2210) 218 MG/DL TRIGLYCERIDES (test code = 2232) 105 MG/DL HDL CHOLESTEROL (test code = 2220) 74 MG/DL CALC LDL CHOL (test code = 2237) 123 MG/DL RISK RATIO LDL/HDL (test cod e = 2238) 1.66 RATIO LIPID [id number] 00:00:00* Test Item Value Reference Range Interpretation Comme nts CHOLESTEROL (test code = 2210) 218 MG/DL TRIGLYCERIDES (test code = 2232) 105 MG/DL HDL CHOLESTEROL (test code = 2220) 74 MG/DL CALC LDL CHOL (test code = 2237) 123 MG/DL RISK RATIO LDL/HDL (test cod e = 2238) 1.66 RATIO COMPREHENSIVE METABOLIC [id number] 00:00:00* Test Item Value Reference Range Interpretation Comme nts GLUCOSE (test code = 2217) 81 MG/DL BUN (test code = 2208) 9 MG/DL CREATININE (test code = 2214) 0.63 MG/DL eGFR AMER. (test cod e = 24245) 133 ML/MIN/1.73 eGFR NON- AMER. (test code = 57199) 115 ML/MIN/1.73 CALC BUN/CREAT (test code = 2235) 14 RATIO SODIUM (test code = 2231) 143 MEQ/L POTASSIUM (test code = 2228) 4.5 MEQ/L CHLORIDE (test code = 2215) 104 MEQ/L CARBON DIOXIDE (test code = 2206) 25 MEQ/L CALCIUM (test code = 2209) 9.9 MG/DL PROTEIN, TOTAL (test code = 2229) 7.6 G/DL ALBUMIN (test code = 2201) 4.5 G/DL CALC GLOBULIN (test code = 2240) 3.1 G/DL CALC A/G RATIO (test code = 2234) 1.5 RATIO BILIRUBIN, TOTAL (test code = 2207) 0.2 MG/DL ALKALINE PHOSPHATASE (test code = 2204) 81 U/L AST (test code = 2218) 15 U/L ALT (test code = 2219) 16 U/L COMPREHENSIVE METABOLIC [id number] 00:00:00* Test Item Value Reference Range Interpretation Comme nts GLUCOSE (test code = 2217) 81 MG/DL BUN (test code = 2208) 9 MG/DL CREATININE (test code = 2214) 0.63 MG/DL eGFR AMER. (test cod e = 46856) 133 ML/MIN/1.73 eGFR NON- AMER. (test code = 27151) 115 ML/MIN/1.73 CALC BUN/CREAT (test code = 2235) 14 RATIO SODIUM (test code = 2231) 143 MEQ/L POTASSIUM (test code = 2228) 4.5 MEQ/L CHLORIDE (test code = 2215) 104 MEQ/L CARBON DIOXIDE (test code = 2206) 25 MEQ/L CALCIUM (test code = 2209) 9.9 MG/DL PROTEIN, TOTAL (test code = 2229) 7.6 G/DL ALBUMIN (test code = 2201) 4.5 G/DL CALC GLOBULIN (test code = 2240) 3.1 G/DL CALC A/G RATIO (test code = 2234) 1.5 RATIO BILIRUBIN, TOTAL (test code = 2207) 0.2 MG/DL ALKALINE PHOSPHATASE (test code = 2204) 81 U/L AST (test code = 2218) 15 U/L ALT (test code = 2219) 16 U/L CBC W/AUTO [id number] 00:00:00* Test Item Value Reference Range Interpretation Comme nts WBC (test code = 1001) 6.7 K/UL RBC (test code = 1002) 4.77 M/UL HEMOGLOBIN (test code = 1003) 14.2 G/DL HEMATOCRIT (test code = 1004) 41.5 % MCV (test code = 1005) 87.0 fL MCH (test code = 1006) 29.8 PG MCHC (test code = 1007) 34.2 G/DL RDW (test code = 1038) 12.1 % NEUTROPHILS (test code = 1008) 61.6 % LYMPHOCYTES (test code = 1010) 28.9 % MONOCYTES (test code = 1011) 6.7 % EOSINOPHILS (test code = 1012) 1.8 % BASOPHILS (test code = 1013) 1.0 % PLATELET COUNT (test code = 1015) 395 K/UL CBC W/AUTO [id number] 00:00:00* Test Item Value Reference Range Interpretation Comme nts WBC (test code = 1001) 6.7 K/UL RBC (test code = 1002) 4.77 M/UL HEMOGLOBIN (test code = 1003) 14.2 G/DL HEMATOCRIT (test code = 1004) 41.5 % MCV (test code = 1005) 87.0 fL MCH (test code = 1006) 29.8 PG MCHC (test code = 1007) 34.2 G/DL RDW (test code = 1038) 12.1 % NEUTROPHILS (test code = 1008) 61.6 % LYMPHOCYTES (test code = 1010) 28.9 % MONOCYTES (test code = 1011) 6.7 % EOSINOPHILS (test code = 1012) 1.8 % BASOPHILS (test code = 1013) 1.0 % PLATELET COUNT (test code = 1015) 395 K/UL CBC W/AUTO [id number] 00:00:00* Test Item Value Reference Range Interpretation Comme nts WBC (test code = 1001) 6.7 K/UL RBC (test code = 1002) 4.77 M/UL HEMOGLOBIN (test code = 1003) 14.2 G/DL HEMATOCRIT (test code = 1004) 41.5 % MCV (test code = 1005) 87.0 fL MCH (test code = 1006) 29.8 PG MCHC (test code = 1007) 34.2 G/DL RDW (test code = 1038) 12.1 % NEUTROPHILS (test code = 1008) 61.6 % LYMPHOCYTES (test code = 1010) 28.9 % MONOCYTES (test code = 1011) 6.7 % EOSINOPHILS (test code = 1012) 1.8 % BASOPHILS (test code = 1013) 1.0 % PLATELET COUNT (test code = 1015) 395 K/UL LIPID [id number] 00:00:00* Test Item Value Reference Range Interpretation Comme nts CHOLESTEROL (test code = 2210) 218 MG/DL TRIGLYCERIDES (test code = 2232) 105 MG/DL HDL CHOLESTEROL (test code = 2220) 74 MG/DL CALC LDL CHOL (test code = 2237) 123 MG/DL RISK RATIO LDL/HDL (test cod e = 2238) 1.66 RATIO LIPID [id number] 00:00:00* Test Item Value Reference Range Interpretation Comme nts CHOLESTEROL (test code = 2210) 218 MG/DL TRIGLYCERIDES (test code = 2232) 105 MG/DL HDL CHOLESTEROL (test code = 2220) 74 MG/DL CALC LDL CHOL (test code = 2237) 123 MG/DL RISK RATIO LDL/HDL (test cod e = 2238) 1.66 RATIO COMPREHENSIVE METABOLIC [id number] 00:00:00* Test Item Value Reference Range Interpretation Comme nts GLUCOSE (test code = 2217) 81 MG/DL BUN (test code = 2208) 9 MG/DL CREATININE (test code = 2214) 0.63 MG/DL eGFR AMER. (test cod e = 10948) 133 ML/MIN/1.73 eGFR NON- AMER. (test code = 59228) 115 ML/MIN/1.73 CALC BUN/CREAT (test code = 2235) 14 RATIO SODIUM (test code = 2231) 143 MEQ/L POTASSIUM (test code = 2228) 4.5 MEQ/L CHLORIDE (test code = 2215) 104 MEQ/L CARBON DIOXIDE (test code = 2206) 25 MEQ/L CALCIUM (test code = 2209) 9.9 MG/DL PROTEIN, TOTAL (test code = 2229) 7.6 G/DL ALBUMIN (test code = 2201) 4.5 G/DL CALC GLOBULIN (test code = 2240) 3.1 G/DL CALC A/G RATIO (test code = 2234) 1.5 RATIO BILIRUBIN, TOTAL (test code = 2207) 0.2 MG/DL ALKALINE PHOSPHATASE (test code = 2204) 81 U/L AST (test code = 2218) 15 U/L ALT (test code = 2219) 16 U/L COMPREHENSIVE METABOLIC [id number] 00:00:00* Test Item Value Reference Range Interpretation Comme nts GLUCOSE (test code = 2217) 81 MG/DL BUN (test code = 2208) 9 MG/DL CREATININE (test code = 2214) 0.63 MG/DL eGFR AMER. (test cod e = 77371) 133 ML/MIN/1.73 eGFR NON- AMER. (test code = 21120) 115 ML/MIN/1.73 CALC BUN/CREAT (test code = 2235) 14 RATIO SODIUM (test code = 2231) 143 MEQ/L POTASSIUM (test code = 2228) 4.5 MEQ/L CHLORIDE (test code = 2215) 104 MEQ/L CARBON DIOXIDE (test code = 2206) 25 MEQ/L CALCIUM (test code = 2209) 9.9 MG/DL PROTEIN, TOTAL (test code = 2229) 7.6 G/DL ALBUMIN (test code = 2201) 4.5 G/DL CALC GLOBULIN (test code = 2240) 3.1 G/DL CALC A/G RATIO (test code = 2234) 1.5 RATIO BILIRUBIN, TOTAL (test code = 2207) 0.2 MG/DL ALKALINE PHOSPHATASE (test code = 2204) 81 U/L AST (test code = 2218) 15 U/L ALT (test code = 2219) 16 U/L CBC W/AUTO [id number] 00:00:00* Test Item Value Reference Range Interpretation Comme nts WBC (test code = 1001) 6.7 K/UL RBC (test code = 1002) 4.77 M/UL HEMOGLOBIN (test code = 1003) 14.2 G/DL HEMATOCRIT (test code = 1004) 41.5 % MCV (test code = 1005) 87.0 fL MCH (test code = 1006) 29.8 PG MCHC (test code = 1007) 34.2 G/DL RDW (test code = 1038) 12.1 % NEUTROPHILS (test code = 1008) 61.6 % LYMPHOCYTES (test code = 1010) 28.9 % MONOCYTES (test code = 1011) 6.7 % EOSINOPHILS (test code = 1012) 1.8 % BASOPHILS (test code = 1013) 1.0 % PLATELET COUNT (test code = 1015) 395 K/UL CBC W/AUTO [id number] 00:00:00* Test Item Value Reference Range Interpretation Comme nts WBC (test code = 1001) 6.7 K/UL RBC (test code = 1002) 4.77 M/UL HEMOGLOBIN (test code = 1003) 14.2 G/DL HEMATOCRIT (test code = 1004) 41.5 % MCV (test code = 1005) 87.0 fL MCH (test code = 1006) 29.8 PG MCHC (test code = 1007) 34.2 G/DL RDW (test code = 1038) 12.1 % NEUTROPHILS (test code = 1008) 61.6 % LYMPHOCYTES (test code = 1010) 28.9 % MONOCYTES (test code = 1011) 6.7 % EOSINOPHILS (test code = 1012) 1.8 % BASOPHILS (test code = 1013) 1.0 % PLATELET COUNT (test code = 1015) 395 K/UL CBC W/AUTO [id number] 00:00:00* Test Item Value Reference Range Interpretation Comme nts WBC (test code = 1001) 6.7 K/UL RBC (test code = 1002) 4.77 M/UL HEMOGLOBIN (test code = 1003) 14.2 G/DL HEMATOCRIT (test code = 1004) 41.5 % MCV (test code = 1005) 87.0 fL MCH (test code = 1006) 29.8 PG MCHC (test code = 1007) 34.2 G/DL RDW (test code = 1038) 12.1 % NEUTROPHILS (test code = 1008) 61.6 % LYMPHOCYTES (test code = 1010) 28.9 % MONOCYTES (test code = 1011) 6.7 % EOSINOPHILS (test code = 1012) 1.8 % BASOPHILS (test code = 1013) 1.0 % PLATELET COUNT (test code = 1015) 395 K/UL LIPID [id number] 00:00:00* Test Item Value Reference Range Interpretation Comme nts CHOLESTEROL (test code = 2210) 218 MG/DL TRIGLYCERIDES (test code = 2232) 105 MG/DL HDL CHOLESTEROL (test code = 2220) 74 MG/DL CALC LDL CHOL (test code = 2237) 123 MG/DL RISK RATIO LDL/HDL (test cod e = 2238) 1.66 RATIO LIPID [id number] 00:00:00* Test Item Value Reference Range Interpretation Comme nts CHOLESTEROL (test code = 2210) 218 MG/DL TRIGLYCERIDES (test code = 2232) 105 MG/DL HDL CHOLESTEROL (test code = 2220) 74 MG/DL CALC LDL CHOL (test code = 2237) 123 MG/DL RISK RATIO LDL/HDL (test cod e = 2238) 1.66 RATIO COMPREHENSIVE METABOLIC [id number] 00:00:00* Test Item Value Reference Range Interpretation Comme nts GLUCOSE (test code = 2217) 81 MG/DL BUN (test code = 2208) 9 MG/DL CREATININE (test code = 2214) 0.63 MG/DL eGFR AMER. (test cod e = 97535) 133 ML/MIN/1.73 eGFR NON- AMER. (test code = 44698) 115 ML/MIN/1.73 CALC BUN/CREAT (test code = 2235) 14 RATIO SODIUM (test code = 2231) 143 MEQ/L POTASSIUM (test code = 2228) 4.5 MEQ/L CHLORIDE (test code = 2215) 104 MEQ/L CARBON DIOXIDE (test code = 2206) 25 MEQ/L CALCIUM (test code = 2209) 9.9 MG/DL PROTEIN, TOTAL (test code = 2229) 7.6 G/DL ALBUMIN (test code = 2201) 4.5 G/DL CALC GLOBULIN (test code = 2240) 3.1 G/DL CALC A/G RATIO (test code = 2234) 1.5 RATIO BILIRUBIN, TOTAL (test code = 2207) 0.2 MG/DL ALKALINE PHOSPHATASE (test code = 2204) 81 U/L AST (test code = 2218) 15 U/L ALT (test code = 2219) 16 U/L CBC W/AUTO [id number] 00:00:00* Test Item Value Reference Range Interpretation Comme nts WBC (test code = 1001) 6.7 K/UL RBC (test code = 1002) 4.77 M/UL HEMOGLOBIN (test code = 1003) 14.2 G/DL HEMATOCRIT (test code = 1004) 41.5 % MCV (test code = 1005) 87.0 fL MCH (test code = 1006) 29.8 PG MCHC (test code = 1007) 34.2 G/DL RDW (test code = 1038) 12.1 % NEUTROPHILS (test code = 1008) 61.6 % LYMPHOCYTES (test code = 1010) 28.9 % MONOCYTES (test code = 1011) 6.7 % EOSINOPHILS (test code = 1012) 1.8 % BASOPHILS (test code = 1013) 1.0 % PLATELET COUNT (test code = 1015) 395 K/UL CBC W/AUTO [id number] 00:00:00* Test Item Value Reference Range Interpretation Comme nts WBC (test code = 1001) 6.7 K/UL RBC (test code = 1002) 4.77 M/UL HEMOGLOBIN (test code = 1003) 14.2 G/DL HEMATOCRIT (test code = 1004) 41.5 % MCV (test code = 1005) 87.0 fL MCH (test code = 1006) 29.8 PG MCHC (test code = 1007) 34.2 G/DL RDW (test code = 1038) 12.1 % NEUTROPHILS (test code = 1008) 61.6 % LYMPHOCYTES (test code = 1010) 28.9 % MONOCYTES (test code = 1011) 6.7 % EOSINOPHILS (test code = 1012) 1.8 % BASOPHILS (test code = 1013) 1.0 % PLATELET COUNT (test code = 1015) 395 K/UL LIPID [id number] 00:00:00* Test Item Value Reference Range Interpretation Comme nts CHOLESTEROL (test code = 2210) 218 MG/DL TRIGLYCERIDES (test code = 2232) 105 MG/DL HDL CHOLESTEROL (test code = 2220) 74 MG/DL CALC LDL CHOL (test code = 2237) 123 MG/DL RISK RATIO LDL/HDL (test cod e = 2238) 1.66 RATIO COMPREHENSIVE METABOLIC [id number] 00:00:00* Test Item Value Reference Range Interpretation Comme nts GLUCOSE (test code = 2217) 81 MG/DL BUN (test code = 2208) 9 MG/DL CREATININE (test code = 2214) 0.63 MG/DL eGFR AMER. (test cod e = 11090) 133 ML/MIN/1.73 eGFR NON- AMER. (test code = 90564) 115 ML/MIN/1.73 CALC BUN/CREAT (test code = 2235) 14 RATIO SODIUM (test code = 2231) 143 MEQ/L POTASSIUM (test code = 2228) 4.5 MEQ/L CHLORIDE (test code = 2215) 104 MEQ/L CARBON DIOXIDE (test code = 2206) 25 MEQ/L CALCIUM (test code = 2209) 9.9 MG/DL PROTEIN, TOTAL (test code = 2229) 7.6 G/DL ALBUMIN (test code = 2201) 4.5 G/DL CALC GLOBULIN (test code = 2240) 3.1 G/DL CALC A/G RATIO (test code = 2234) 1.5 RATIO BILIRUBIN, TOTAL (test code = 2207) 0.2 MG/DL ALKALINE PHOSPHATASE (test code = 2204) 81 U/L AST (test code = 2218) 15 U/L ALT (test code = 2219) 16 U/L CBC W/AUTO [id number] 00:00:00* Test Item Value Reference Range Interpretation Comme nts WBC (test code = 1001) 6.7 K/UL RBC (test code = 1002) 4.77 M/UL HEMOGLOBIN (test code = 1003) 14.2 G/DL HEMATOCRIT (test code = 1004) 41.5 % MCV (test code = 1005) 87.0 fL MCH (test code = 1006) 29.8 PG MCHC (test code = 1007) 34.2 G/DL RDW (test code = 1038) 12.1 % NEUTROPHILS (test code = 1008) 61.6 % LYMPHOCYTES (test code = 1010) 28.9 % MONOCYTES (test code = 1011) 6.7 % EOSINOPHILS (test code = 1012) 1.8 % BASOPHILS (test code = 1013) 1.0 % PLATELET COUNT (test code = 1015) 395 K/UL CBC W/AUTO [id number] 00:00:00* Test Item Value Reference Range Interpretation Comme nts WBC (test code = 1001) 6.7 K/UL RBC (test code = 1002) 4.77 M/UL HEMOGLOBIN (test code = 1003) 14.2 G/DL HEMATOCRIT (test code = 1004) 41.5 % MCV (test code = 1005) 87.0 fL MCH (test code = 1006) 29.8 PG MCHC (test code = 1007) 34.2 G/DL RDW (test code = 1038) 12.1 % NEUTROPHILS (test code = 1008) 61.6 % LYMPHOCYTES (test code = 1010) 28.9 % MONOCYTES (test code = 1011) 6.7 % EOSINOPHILS (test code = 1012) 1.8 % BASOPHILS (test code = 1013) 1.0 % PLATELET COUNT (test code = 1015) 395 K/UL LIPID [id number] 00:00:00* Test Item Value Reference Range Interpretation Comme nts CHOLESTEROL (test code = 2210) 218 MG/DL TRIGLYCERIDES (test code = 2232) 105 MG/DL HDL CHOLESTEROL (test code = 2220) 74 MG/DL CALC LDL CHOL (test code = 2237) 123 MG/DL RISK RATIO LDL/HDL (test cod e = 2238) 1.66 RATIO COMPREHENSIVE METABOLIC [id number] 00:00:00* Test Item Value Reference Range Interpretation Comme nts GLUCOSE (test code = 2217) 81 MG/DL BUN (test code = 2208) 9 MG/DL CREATININE (test code = 2214) 0.63 MG/DL eGFR AMER. (test cod e = 48011) 133 ML/MIN/1.73 eGFR NON- AMER. (test code = 39103) 115 ML/MIN/1.73 CALC BUN/CREAT (test code = 2235) 14 RATIO SODIUM (test code = 2231) 143 MEQ/L POTASSIUM (test code = 2228) 4.5 MEQ/L CHLORIDE (test code = 2215) 104 MEQ/L CARBON DIOXIDE (test code = 2206) 25 MEQ/L CALCIUM (test code = 2209) 9.9 MG/DL PROTEIN, TOTAL (test code = 2229) 7.6 G/DL ALBUMIN (test code = 2201) 4.5 G/DL CALC GLOBULIN (test code = 2240) 3.1 G/DL CALC A/G RATIO (test code = 2234) 1.5 RATIO BILIRUBIN, TOTAL (test code = 2207) 0.2 MG/DL ALKALINE PHOSPHATASE (test code = 2204) 81 U/L AST (test code = 2218) 15 U/L ALT (test code = 2219) 16 U/L COMPREHENSIVE METABOLIC [id number] 00:00:00* Test Item Value Reference Range Interpretation Comme nts GLUCOSE (test code = 2217) 81 MG/DL BUN (test code = 2208) 9 MG/DL CREATININE (test code = 2214) 0.63 MG/DL eGFR AMER. (test cod e = 55186) 133 ML/MIN/1.73 eGFR NON- AMER. (test code = 37421) 115 ML/MIN/1.73 CALC BUN/CREAT (test code = 2235) 14 RATIO SODIUM (test code = 2231) 143 MEQ/L POTASSIUM (test code = 2228) 4.5 MEQ/L CHLORIDE (test code = 2215) 104 MEQ/L CARBON DIOXIDE (test code = 2206) 25 MEQ/L CALCIUM (test code = 2209) 9.9 MG/DL PROTEIN, TOTAL (test code = 2229) 7.6 G/DL ALBUMIN (test code = 2201) 4.5 G/DL CALC GLOBULIN (test code = 2240) 3.1 G/DL CALC A/G RATIO (test code = 2234) 1.5 RATIO BILIRUBIN, TOTAL (test code = 2207) 0.2 MG/DL ALKALINE PHOSPHATASE (test code = 2204) 81 U/L AST (test code = 2218) 15 U/L ALT (test code = 2219) 16 U/L CBC W/AUTO [id number] 00:00:00* Test Item Value Reference Range Interpretation Comme nts WBC (test code = 1001) 6.7 K/UL RBC (test code = 1002) 4.77 M/UL HEMOGLOBIN (test code = 1003) 14.2 G/DL HEMATOCRIT (test code = 1004) 41.5 % MCV (test code = 1005) 87.0 fL MCH (test code = 1006) 29.8 PG MCHC (test code = 1007) 34.2 G/DL RDW (test code = 1038) 12.1 % NEUTROPHILS (test code = 1008) 61.6 % LYMPHOCYTES (test code = 1010) 28.9 % MONOCYTES (test code = 1011) 6.7 % EOSINOPHILS (test code = 1012) 1.8 % BASOPHILS (test code = 1013) 1.0 % PLATELET COUNT (test code = 1015) 395 K/UL CBC W/AUTO [id number] 00:00:00* Test Item Value Reference Range Interpretation Comme nts WBC (test code = 1001) 6.7 K/UL RBC (test code = 1002) 4.77 M/UL HEMOGLOBIN (test code = 1003) 14.2 G/DL HEMATOCRIT (test code = 1004) 41.5 % MCV (test code = 1005) 87.0 fL MCH (test code = 1006) 29.8 PG MCHC (test code = 1007) 34.2 G/DL RDW (test code = 1038) 12.1 % NEUTROPHILS (test code = 1008) 61.6 % LYMPHOCYTES (test code = 1010) 28.9 % MONOCYTES (test code = 1011) 6.7 % EOSINOPHILS (test code = 1012) 1.8 % BASOPHILS (test code = 1013) 1.0 % PLATELET COUNT (test code = 1015) 395 K/UL CBC W/AUTO [id number] 00:00:00* Test Item Value Reference Range Interpretation Comme nts WBC (test code = 1001) 6.7 K/UL RBC (test code = 1002) 4.77 M/UL HEMOGLOBIN (test code = 1003) 14.2 G/DL HEMATOCRIT (test code = 1004) 41.5 % MCV (test code = 1005) 87.0 fL MCH (test code = 1006) 29.8 PG MCHC (test code = 1007) 34.2 G/DL RDW (test code = 1038) 12.1 % NEUTROPHILS (test code = 1008) 61.6 % LYMPHOCYTES (test code = 1010) 28.9 % MONOCYTES (test code = 1011) 6.7 % EOSINOPHILS (test code = 1012) 1.8 % BASOPHILS (test code = 1013) 1.0 % PLATELET COUNT (test code = 1015) 395 K/UL LIPID [id number] 00:00:00* Test Item Value Reference Range Interpretation Comme nts CHOLESTEROL (test code = 2210) 218 MG/DL TRIGLYCERIDES (test code = 2232) 105 MG/DL HDL CHOLESTEROL (test code = 2220) 74 MG/DL CALC LDL CHOL (test code = 2237) 123 MG/DL RISK RATIO LDL/HDL (test cod e = 2238) 1.66 RATIO LIPID [id number] 00:00:00* Test Item Value Reference Range Interpretation Comme nts CHOLESTEROL (test code = 2210) 218 MG/DL TRIGLYCERIDES (test code = 2232) 105 MG/DL HDL CHOLESTEROL (test code = 2220) 74 MG/DL CALC LDL CHOL (test code = 2237) 123 MG/DL RISK RATIO LDL/HDL (test cod e = 2238) 1.66 RATIO COMPREHENSIVE METABOLIC [id number] 00:00:00* Test Item Value Reference Range Interpretation Comme nts GLUCOSE (test code = 2217) 81 MG/DL BUN (test code = 2208) 9 MG/DL CREATININE (test code = 2214) 0.63 MG/DL eGFR AMER. (test cod e = 18721) 133 ML/MIN/1.73 eGFR NON- AMER. (test code = 29823) 115 ML/MIN/1.73 CALC BUN/CREAT (test code = 2235) 14 RATIO SODIUM (test code = 2231) 143 MEQ/L POTASSIUM (test code = 2228) 4.5 MEQ/L CHLORIDE (test code = 2215) 104 MEQ/L CARBON DIOXIDE (test code = 2206) 25 MEQ/L CALCIUM (test code = 2209) 9.9 MG/DL PROTEIN, TOTAL (test code = 2229) 7.6 G/DL ALBUMIN (test code = 2201) 4.5 G/DL CALC GLOBULIN (test code = 2240) 3.1 G/DL CALC A/G RATIO (test code = 2234) 1.5 RATIO BILIRUBIN, TOTAL (test code = 2207) 0.2 MG/DL ALKALINE PHOSPHATASE (test code = 2204) 81 U/L AST (test code = 2218) 15 U/L ALT (test code = 2219) 16 U/L COMPREHENSIVE METABOLIC [id number] 00:00:00* Test Item Value Reference Range Interpretation Comme nts GLUCOSE (test code = 2217) 81 MG/DL BUN (test code = 2208) 9 MG/DL CREATININE (test code = 2214) 0.63 MG/DL eGFR AMER. (test cod e = 29711) 133 ML/MIN/1.73 eGFR NON- AMER. (test code = 48382) 115 ML/MIN/1.73 CALC BUN/CREAT (test code = 2235) 14 RATIO SODIUM (test code = 2231) 143 MEQ/L POTASSIUM (test code = 2228) 4.5 MEQ/L CHLORIDE (test code = 2215) 104 MEQ/L CARBON DIOXIDE (test code = 2206) 25 MEQ/L CALCIUM (test code = 2209) 9.9 MG/DL PROTEIN, TOTAL (test code = 2229) 7.6 G/DL ALBUMIN (test code = 2201) 4.5 G/DL CALC GLOBULIN (test code = 2240) 3.1 G/DL CALC A/G RATIO (test code = 2234) 1.5 RATIO BILIRUBIN, TOTAL (test code = 2207) 0.2 MG/DL ALKALINE PHOSPHATASE (test code = 2204) 81 U/L AST (test code = 2218) 15 U/L ALT (test code = 2219) 16 U/L CBC W/AUTO [id number] 00:00:00* Test Item Value Reference Range Interpretation Comme nts WBC (test code = 1001) 6.7 K/UL RBC (test code = 1002) 4.77 M/UL HEMOGLOBIN (test code = 1003) 14.2 G/DL HEMATOCRIT (test code = 1004) 41.5 % MCV (test code = 1005) 87.0 fL MCH (test code = 1006) 29.8 PG MCHC (test code = 1007) 34.2 G/DL RDW (test code = 1038) 12.1 % NEUTROPHILS (test code = 1008) 61.6 % LYMPHOCYTES (test code = 1010) 28.9 % MONOCYTES (test code = 1011) 6.7 % EOSINOPHILS (test code = 1012) 1.8 % BASOPHILS (test code = 1013) 1.0 % PLATELET COUNT (test code = 1015) 395 K/UL CBC W/AUTO [id number] 00:00:00* Test Item Value Reference Range Interpretation Comme nts WBC (test code = 1001) 6.7 K/UL RBC (test code = 1002) 4.77 M/UL HEMOGLOBIN (test code = 1003) 14.2 G/DL HEMATOCRIT (test code = 1004) 41.5 % MCV (test code = 1005) 87.0 fL MCH (test code = 1006) 29.8 PG MCHC (test code = 1007) 34.2 G/DL RDW (test code = 1038) 12.1 % NEUTROPHILS (test code = 1008) 61.6 % LYMPHOCYTES (test code = 1010) 28.9 % MONOCYTES (test code = 1011) 6.7 % EOSINOPHILS (test code = 1012) 1.8 % BASOPHILS (test code = 1013) 1.0 % PLATELET COUNT (test code = 1015) 395 K/UL CBC W/AUTO [id number] 00:00:00* Test Item Value Reference Range Interpretation Comme nts WBC (test code = 1001) 6.7 K/UL RBC (test code = 1002) 4.77 M/UL HEMOGLOBIN (test code = 1003) 14.2 G/DL HEMATOCRIT (test code = 1004) 41.5 % MCV (test code = 1005) 87.0 fL MCH (test code = 1006) 29.8 PG MCHC (test code = 1007) 34.2 G/DL RDW (test code = 1038) 12.1 % NEUTROPHILS (test code = 1008) 61.6 % LYMPHOCYTES (test code = 1010) 28.9 % MONOCYTES (test code = 1011) 6.7 % EOSINOPHILS (test code = 1012) 1.8 % BASOPHILS (test code = 1013) 1.0 % PLATELET COUNT (test code = 1015) 395 K/UL LIPID [id number] 00:00:00* Test Item Value Reference Range Interpretation Comme nts CHOLESTEROL (test code = 2210) 218 MG/DL TRIGLYCERIDES (test code = 2232) 105 MG/DL HDL CHOLESTEROL (test code = 2220) 74 MG/DL CALC LDL CHOL (test code = 2237) 123 MG/DL RISK RATIO LDL/HDL (test cod e = 2238) 1.66 RATIO LIPID [id number] 00:00:00* Test Item Value Reference Range Interpretation Comme nts CHOLESTEROL (test code = 2210) 218 MG/DL TRIGLYCERIDES (test code = 2232) 105 MG/DL HDL CHOLESTEROL (test code = 2220) 74 MG/DL CALC LDL CHOL (test code = 2237) 123 MG/DL RISK RATIO LDL/HDL (test cod e = 2238) 1.66 RATIO COMPREHENSIVE METABOLIC [id number] 00:00:00* Test Item Value Reference Range Interpretation Comme nts GLUCOSE (test code = 2217) 81 MG/DL BUN (test code = 2208) 9 MG/DL CREATININE (test code = 2214) 0.63 MG/DL eGFR AMER. (test cod e = 81566) 133 ML/MIN/1.73 eGFR NON- AMER. (test code = 85179) 115 ML/MIN/1.73 CALC BUN/CREAT (test code = 2235) 14 RATIO SODIUM (test code = 2231) 143 MEQ/L POTASSIUM (test code = 2228) 4.5 MEQ/L CHLORIDE (test code = 2215) 104 MEQ/L CARBON DIOXIDE (test code = 2206) 25 MEQ/L CALCIUM (test code = 2209) 9.9 MG/DL PROTEIN, TOTAL (test code = 2229) 7.6 G/DL ALBUMIN (test code = 2201) 4.5 G/DL CALC GLOBULIN (test code = 2240) 3.1 G/DL CALC A/G RATIO (test code = 2234) 1.5 RATIO BILIRUBIN, TOTAL (test code = 2207) 0.2 MG/DL ALKALINE PHOSPHATASE (test code = 2204) 81 U/L AST (test code = 2218) 15 U/L ALT (test code = 2219) 16 U/L CBC W/AUTO [id number] 00:00:00* Test Item Value Reference Range Interpretation Comme nts WBC (test code = 1001) 6.7 K/UL RBC (test code = 1002) 4.77 M/UL HEMOGLOBIN (test code = 1003) 14.2 G/DL HEMATOCRIT (test code = 1004) 41.5 % MCV (test code = 1005) 87.0 fL MCH (test code = 1006) 29.8 PG MCHC (test code = 1007) 34.2 G/DL RDW (test code = 1038) 12.1 % NEUTROPHILS (test code = 1008) 61.6 % LYMPHOCYTES (test code = 1010) 28.9 % MONOCYTES (test code = 1011) 6.7 % EOSINOPHILS (test code = 1012) 1.8 % BASOPHILS (test code = 1013) 1.0 % PLATELET COUNT (test code = 1015) 395 K/UL CBC W/AUTO [id number] 00:00:00* Test Item Value Reference Range Interpretation Comme nts WBC (test code = 1001) 6.7 K/UL RBC (test code = 1002) 4.77 M/UL HEMOGLOBIN (test code = 1003) 14.2 G/DL HEMATOCRIT (test code = 1004) 41.5 % MCV (test code = 1005) 87.0 fL MCH (test code = 1006) 29.8 PG MCHC (test code = 1007) 34.2 G/DL RDW (test code = 1038) 12.1 % NEUTROPHILS (test code = 1008) 61.6 % LYMPHOCYTES (test code = 1010) 28.9 % MONOCYTES (test code = 1011) 6.7 % EOSINOPHILS (test code = 1012) 1.8 % BASOPHILS (test code = 1013) 1.0 % PLATELET COUNT (test code = 1015) 395 K/UL LIPID [id number] 00:00:00* Test Item Value Reference Range Interpretation Comme nts CHOLESTEROL (test code = 2210) 218 MG/DL TRIGLYCERIDES (test code = 2232) 105 MG/DL HDL CHOLESTEROL (test code = 2220) 74 MG/DL CALC LDL CHOL (test code = 2237) 123 MG/DL RISK RATIO LDL/HDL (test cod e = 2238) 1.66 RATIO COMPREHENSIVE METABOLIC [id number] 00:00:00* Test Item Value Reference Range Interpretation Comme nts GLUCOSE (test code = 2217) 81 MG/DL BUN (test code = 2208) 9 MG/DL CREATININE (test code = 2214) 0.63 MG/DL eGFR AMER. (test cod e = 92724) 133 ML/MIN/1.73 eGFR NON- AMER. (test code = 32623) 115 ML/MIN/1.73 CALC BUN/CREAT (test code = 2235) 14 RATIO SODIUM (test code = 2231) 143 MEQ/L POTASSIUM (test code = 2228) 4.5 MEQ/L CHLORIDE (test code = 2215) 104 MEQ/L CARBON DIOXIDE (test code = 2206) 25 MEQ/L CALCIUM (test code = 2209) 9.9 MG/DL PROTEIN, TOTAL (test code = 2229) 7.6 G/DL ALBUMIN (test code = 2201) 4.5 G/DL CALC GLOBULIN (test code = 2240) 3.1 G/DL CALC A/G RATIO (test code = 2234) 1.5 RATIO BILIRUBIN, TOTAL (test code = 2207) 0.2 MG/DL ALKALINE PHOSPHATASE (test code = 2204) 81 U/L AST (test code = 2218) 15 U/L ALT (test code = 2219) 16 U/L COMPREHENSIVE METABOLIC [id number] 00:00:00* Test Item Value Reference Range Interpretation Comme nts GLUCOSE (test code = 2217) 81 MG/DL BUN (test code = 2208) 9 MG/DL CREATININE (test code = 2214) 0.63 MG/DL eGFR AMER. (test cod e = 15863) 133 ML/MIN/1.73 eGFR NON- AMER. (test code = 69674) 115 ML/MIN/1.73 CALC BUN/CREAT (test code = 2235) 14 RATIO SODIUM (test code = 2231) 143 MEQ/L POTASSIUM (test code = 2228) 4.5 MEQ/L CHLORIDE (test code = 2215) 104 MEQ/L CARBON DIOXIDE (test code = 2206) 25 MEQ/L CALCIUM (test code = 2209) 9.9 MG/DL PROTEIN, TOTAL (test code = 2229) 7.6 G/DL ALBUMIN (test code = 2201) 4.5 G/DL CALC GLOBULIN (test code = 2240) 3.1 G/DL CALC A/G RATIO (test code = 2234) 1.5 RATIO BILIRUBIN, TOTAL (test code = 2207) 0.2 MG/DL ALKALINE PHOSPHATASE (test code = 2204) 81 U/L AST (test code = 2218) 15 U/L ALT (test code = 2219) 16 U/L CBC W/AUTO [id number] 00:00:00* Test Item Value Reference Range Interpretation Comme nts WBC (test code = 1001) 6.7 K/UL RBC (test code = 1002) 4.77 M/UL HEMOGLOBIN (test code = 1003) 14.2 G/DL HEMATOCRIT (test code = 1004) 41.5 % MCV (test code = 1005) 87.0 fL MCH (test code = 1006) 29.8 PG MCHC (test code = 1007) 34.2 G/DL RDW (test code = 1038) 12.1 % NEUTROPHILS (test code = 1008) 61.6 % LYMPHOCYTES (test code = 1010) 28.9 % MONOCYTES (test code = 1011) 6.7 % EOSINOPHILS (test code = 1012) 1.8 % BASOPHILS (test code = 1013) 1.0 % PLATELET COUNT (test code = 1015) 395 K/UL CBC W/AUTO [id number] 00:00:00* Test Item Value Reference Range Interpretation Comme nts WBC (test code = 1001) 6.7 K/UL RBC (test code = 1002) 4.77 M/UL HEMOGLOBIN (test code = 1003) 14.2 G/DL HEMATOCRIT (test code = 1004) 41.5 % MCV (test code = 1005) 87.0 fL MCH (test code = 1006) 29.8 PG MCHC (test code = 1007) 34.2 G/DL RDW (test code = 1038) 12.1 % NEUTROPHILS (test code = 1008) 61.6 % LYMPHOCYTES (test code = 1010) 28.9 % MONOCYTES (test code = 1011) 6.7 % EOSINOPHILS (test code = 1012) 1.8 % BASOPHILS (test code = 1013) 1.0 % PLATELET COUNT (test code = 1015) 395 K/UL CBC W/AUTO [id number] 00:00:00* Test Item Value Reference Range Interpretation Comme nts WBC (test code = 1001) 6.7 K/UL RBC (test code = 1002) 4.77 M/UL HEMOGLOBIN (test code = 1003) 14.2 G/DL HEMATOCRIT (test code = 1004) 41.5 % MCV (test code = 1005) 87.0 fL MCH (test code = 1006) 29.8 PG MCHC (test code = 1007) 34.2 G/DL RDW (test code = 1038) 12.1 % NEUTROPHILS (test code = 1008) 61.6 % LYMPHOCYTES (test code = 1010) 28.9 % MONOCYTES (test code = 1011) 6.7 % EOSINOPHILS (test code = 1012) 1.8 % BASOPHILS (test code = 1013) 1.0 % PLATELET COUNT (test code = 1015) 395 K/UL SARS-CoV-2 (COVID-19) by RT-PCR (HIGH RISK)2020-03-17 00:00:00* Test Item Value Reference Range Interpretation Comme nts SARS-CoV-2 INTERPRETATION (test code = 49423) NEGATIVE SOURCE (test code = 91188) NASOPHARYNGEAL SARS-CoV-2 (COVID-19) by RT-PCR (HIGH RISK)2020-03-17 00:00:00* Test Item Value Reference Range Interpretation Comme nts SARS-CoV-2 INTERPRETATION (test code = 08718) NEGATIVE SOURCE (test code = 94991) NASOPHARYNGEAL SARS-CoV-2 (COVID-19) by RT-PCR (HIGH RISK)2020-03-17 00:00:00* Test Item Value Reference Range Interpretation Comme nts SARS-CoV-2 INTERPRETATION (test code = 13406) NEGATIVE SOURCE (test code = 75098) NASOPHARYNGEAL SARS-CoV-2 (COVID-19) by RT-PCR (HIGH RISK)2020-03-17 00:00:00* Test Item Value Reference Range Interpretation Comme nts SARS-CoV-2 INTERPRETATION (test code = 63171) NEGATIVE SOURCE (test code = 52538) NASOPHARYNGEAL SARS-CoV-2 (COVID-19) by RT-PCR (HIGH RISK)2020-03-17 00:00:00* Test Item Value Reference Range Interpretation Comme nts SARS-CoV-2 INTERPRETATION (test code = 48976) NEGATIVE SOURCE (test code = 52782) NASOPHARYNGEAL SARS-CoV-2 (COVID-19) by RT-PCR (HIGH RISK)2020-03-17 00:00:00* Test Item Value Reference Range Interpretation Comme nts SARS-CoV-2 INTERPRETATION (test code = 77612) NEGATIVE SOURCE (test code = 00229) NASOPHARYNGEAL SARS-CoV-2 (COVID-19) by RT-PCR (HIGH RISK)2020-03-17 00:00:00* Test Item Value Reference Range Interpretation Comme nts SARS-CoV-2 INTERPRETATION (test code = 22102) NEGATIVE SOURCE (test code = 86224) NASOPHARYNGEAL SARS-CoV-2 (COVID-19) by RT-PCR (HIGH RISK)2020-03-17 00:00:00* Test Item Value Reference Range Interpretation Comme nts SARS-CoV-2 INTERPRETATION (test code = 62206) NEGATIVE SOURCE (test code = 93347) NASOPHARYNGEAL SARS-CoV-2 (COVID-19) by RT-PCR (HIGH RISK)2020-03-17 00:00:00* Test Item Value Reference Range Interpretation Comme nts SARS-CoV-2 INTERPRETATION (test code = 53885) NEGATIVE SOURCE (test code = 85562) NASOPHARYNGEAL SARS-CoV-2 (COVID-19) by RT-PCR (HIGH RISK)2020-03-17 00:00:00* Test Item Value Reference Range Interpretation Comme nts SARS-CoV-2 INTERPRETATION (test code = 34903) NEGATIVE SOURCE (test code = 97185) NASOPHARYNGEAL SARS-CoV-2 (COVID-19) by RT-PCR (HIGH RISK)2020-03-17 00:00:00* Test Item Value Reference Range Interpretation Comme nts SARS-CoV-2 INTERPRETATION (test code = 06305) NEGATIVE SOURCE (test code = 98405) NASOPHARYNGEAL SARS-CoV-2 (COVID-19) by RT-PCR (HIGH RISK)2020-03-17 00:00:00* Test Item Value Reference Range Interpretation Comme nts SARS-CoV-2 INTERPRETATION (test code = 12985) NEGATIVE SOURCE (test code = 06869) NASOPHARYNGEAL SARS-CoV-2 (COVID-19) by RT-PCR (HIGH RISK)2020-03-17 00:00:00* Test Item Value Reference Range Interpretation Comme nts SARS-CoV-2 INTERPRETATION (test code = 64220) NEGATIVE SOURCE (test code = 48322) NASOPHARYNGEAL Chest Xray 2 V [ADDED]2019-08-18 00:00:00* Test Item Value Reference Range Interpretation Comme nts [id number].Repo rt Text (test code = ) HISTORY: Cough

TECHNIQUE: PA and lateral views of the chest

FINDINGS: No airspace consolidation or pleural effusion. Normal heart size.
Mediastinal contours are unremarkable. Thoracic spondylosis.

IMPRESSION:

Negati ve radiographic examination of the chest.

Thank you for allowing us to participate in the care of your patient.

LOCA TION: SI

Chest Xray 2 V [ADDED]2019-08-18 00:00:00* Test Item Value Reference Range Interpretation Comme nts [id number].Repo rt Text (test code = ) HISTORY: Cough

TECHNIQUE: PA and lateral views of the chest

FINDINGS: No airspace consolidation or pleural effusion. Normal heart size.
Mediastinal contours are unremarkable. Thoracic spondylosis.

IMPRESSION:

Negati ve radiographic examination of the chest.

Thank you for allowing us to participate in the care of your patient.

LOCA TION: SI

Chest Xray 2 V [ADDED]2019-08-18 00:00:00* Test Item Value Reference Range Interpretation Comme nts [id number].Repo rt Text (test code = ) HISTORY: Cough

TECHNIQUE: PA and lateral views of the chest

FINDINGS: No airspace consolidation or pleural effusion. Normal heart size.
Mediastinal contours are unremarkable. Thoracic spondylosis.

IMPRESSION:

Negati ve radiographic examination of the chest.

Thank you for allowing us to participate in the care of your patient.

LOCA TION: SI

Chest Xray 2 V [ADDED]2019-08-18 00:00:00* Test Item Value Reference Range Interpretation Comme nts [id number].Repo rt Text (test code = ) HISTORY: Cough

TECHNIQUE: PA and lateral views of the chest

FINDINGS: No airspace consolidation or pleural effusion. Normal heart size.
Mediastinal contours are unremarkable. Thoracic spondylosis.

IMPRESSION:

Negati ve radiographic examination of the chest.

Thank you for allowing us to participate in the care of your patient.

LOCA TION: SI

Chest Xray 2 V [ADDED]2019-08-18 00:00:00* Test Item Value Reference Range Interpretation Comme nts [id number].Repo rt Text (test code = ) HISTORY: Cough

TECHNIQUE: PA and lateral views of the chest

FINDINGS: No airspace consolidation or pleural effusion. Normal heart size.
Mediastinal contours are unremarkable. Thoracic spondylosis.

IMPRESSION:

Negati ve radiographic examination of the chest.

Thank you for allowing us to participate in the care of your patient.

LOCA TION: SI

Chest Xray 2 V [ADDED]2019-08-18 00:00:00* Test Item Value Reference Range Interpretation Comme nts [id number].Repo rt Text (test code = ) HISTORY: Cough

TECHNIQUE: PA and lateral views of the chest

FINDINGS: No airspace consolidation or pleural effusion. Normal heart size.
Mediastinal contours are unremarkable. Thoracic spondylosis.

IMPRESSION:

Negati ve radiographic examination of the chest.

Thank you for allowing us to participate in the care of your patient.

LOCA TION: SI

Chest Xray 2 V [ADDED]2019-08-18 00:00:00* Test Item Value Reference Range Interpretation Comme nts [id number].Repo rt Text (test code = ) HISTORY: Cough

TECHNIQUE: PA and lateral views of the chest

FINDINGS: No airspace consolidation or pleural effusion. Normal heart size.
Mediastinal contours are unremarkable. Thoracic spondylosis.

IMPRESSION:

Negati ve radiographic examination of the chest.

Thank you for allowing us to participate in the care of your patient.

LOCA TION: SI

Chest Xray 2 V [ADDED]2019-08-18 00:00:00* Test Item Value Reference Range Interpretation Comme nts [id number].Repo rt Text (test code = ) HISTORY: Cough

TECHNIQUE: PA and lateral views of the chest

FINDINGS: No airspace consolidation or pleural effusion. Normal heart size.
Mediastinal contours are unremarkable. Thoracic spondylosis.

IMPRESSION:

Negati ve radiographic examination of the chest.

Thank you for allowing us to participate in the care of your patient.

LOCA TION: SI

SARS-CoV-2 (COVID-19) by RT-PCR (HIGH RISK)2019-06-22 00:00:00* Test Item Value Reference Range Interpretation Comme nts SARS-CoV-2 INTERPRETATION (t est code = 33706) NEGATIVE SOURCE (test code = 62637) NOT SPECIFIED SARS-CoV-2 (COVID-19) by RT-PCR (HIGH RISK)2019-06-22 00:00:00* Test Item Value Reference Range Interpretation Comme nts SARS-CoV-2 INTERPRETATION (t est code = 30202) NEGATIVE SOURCE (test code = 08375) NOT SPECIFIED SARS-CoV-2 (COVID-19) by RT-PCR (HIGH RISK)2019-06-22 00:00:00* Test Item Value Reference Range Interpretation Comme nts SARS-CoV-2 INTERPRETATION (t est code = 18331) NEGATIVE SOURCE (test code = 12795) NOT SPECIFIED SARS-CoV-2 (COVID-19) by RT-PCR (HIGH RISK)2019-06-22 00:00:00* Test Item Value Reference Range Interpretation Comme nts SARS-CoV-2 INTERPRETATION (t est code = 81689) NEGATIVE SOURCE (test code = 88507) NOT SPECIFIED SARS-CoV-2 (COVID-19) by RT-PCR (HIGH RISK)2019-06-22 00:00:00* Test Item Value Reference Range Interpretation Comme nts SARS-CoV-2 INTERPRETATION (t est code = 99098) NEGATIVE SOURCE (test code = 09562) NOT SPECIFIED SARS-CoV-2 (COVID-19) by RT-PCR (HIGH RISK)2019-06-22 00:00:00* Test Item Value Reference Range Interpretation Comme nts SARS-CoV-2 INTERPRETATION (t est code = 06217) NEGATIVE SOURCE (test code = 98608) NOT SPECIFIED SARS-CoV-2 (COVID-19) by RT-PCR (HIGH RISK)2019-06-22 00:00:00* Test Item Value Reference Range Interpretation Comme nts SARS-CoV-2 INTERPRETATION (t est code = 01470) NEGATIVE SOURCE (test code = 18558) NOT SPECIFIED SARS-CoV-2 (COVID-19) by RT-PCR (HIGH RISK)2019-06-22 00:00:00* Test Item Value Reference Range Interpretation Comme nts SARS-CoV-2 INTERPRETATION (t est code = 17916) NEGATIVE SOURCE (test code = 21696) NOT SPECIFIED SARS-CoV-2 (COVID-19) by RT-PCR (HIGH RISK)2019-06-22 00:00:00* Test Item Value Reference Range Interpretation Comme nts SARS-CoV-2 INTERPRETATION (t est code = 79210) NEGATIVE SOURCE (test code = 93328) NOT SPECIFIED SARS-CoV-2 (COVID-19) by RT-PCR (HIGH RISK)2019-06-22 00:00:00* Test Item Value Reference Range Interpretation Comme nts SARS-CoV-2 INTERPRETATION (t est code = 23710) NEGATIVE SOURCE (test code = 47618) NOT SPECIFIED SARS-CoV-2 (COVID-19) by RT-PCR (HIGH RISK)2019-06-22 00:00:00* Test Item Value Reference Range Interpretation Comme nts SARS-CoV-2 INTERPRETATION (t est code = 62308) NEGATIVE SOURCE (test code = 97572) NOT SPECIFIED SARS-CoV-2 (COVID-19) by RT-PCR (HIGH RISK)2019-06-22 00:00:00* Test Item Value Reference Range Interpretation Comme nts SARS-CoV-2 INTERPRETATION (t est code = 22161) NEGATIVE SOURCE (test code = 78852) NOT SPECIFIED SARS-CoV-2 (COVID-19) by RT-PCR (HIGH RISK)2019-06-22 00:00:00* Test Item Value Reference Range Interpretation Comme nts SARS-CoV-2 INTERPRETATION (t est code = 74485) NEGATIVE SOURCE (test code = 90334) NOT SPECIFIED Notes Date/Time Note Provider Source 2022-10-19 16:29:00 F89C+jRxDyHP93uyWpsv KwEFNWTF4aR zGWOEYnBhPDF3Vs/WESK7S9KdPcKHKF ag7204-56-95B42:29:00 Pt given discharge instructions on asthma flare, shortness of breath. Pt given prescription X 1 for prednisone. Pt advised to follow up with pcp. Pt left ER ambulatory, no signs of distress. [address] KcokIV9247-39-53B66:31:08[facility] department NoteTXT1.2.840.540651.1.13.104. 2.7.2.023341|[id number] ble for patient lfqf23216-7FszeHW944137229Ctbal M Cruz RN[address]TXTX[address] 87255LDXAILOVFUBZUKGRNXDXWP2582 -09-02T16:31:081.2.840.142189.1 .72.3.15|1.2.840.887617.1.13.10 [id number] Jasmina Amado RN [facility] 2022-10-19 15:14:34 Fb6S9m0mSkG6btWGAytF wfmzv7xtUgg 1yF9mXjsE3+GLGE2xHoFtfUoWJoADUC ev7709-26-45X42:14:34 [place] [address]-5Byvbahsif[address] VoopHE4994-78-35G68:14:43[facility] NoteTXT1.2.840.677672.1.13.104. 2.7.2.404498|[id number] ble for patient mccq36681-6DkiqDA221151470Bwgn E Linkes RN[address]TX[address] 33182BFWIWHPZCQNWATFNSLCWVU0958 -09-02T15:14:431.2.840.698931.1 .72.3.15|1.2.840.764788.1.13.10 [id number] Rhonda Perez RN [facility] 2022-10-19 15:07:29 BC5UH1uZEGpRseyvBOdS HtocC1h7BjD RanB01LSgfYaQsl24KlHgH9dKpucu4f z16113-68-39S00:07:29 Elvira Wang is a 37 year old female c/o inhaler not working and feel short of breath for 4 days, bilat exp wheezing, speaking in complete sentences, drinking fountain drink, 54090-9Xbkxchxax department Triage zffaFR4798-91-91Y48:08:19[facility] Triage noteTXT1.2.840.088004.1.13.104. 2.7.2.867064|[id number] ble for patient skqo99633-4Vmlkeagyl department [id number] M. Barton RN[address] DldzOuukaevplCwiaorqqeBCXH60509 93677STYKGOQZYJAPRYRKRITFEU0648 -09-02T15:08:191.2.840.088514.1 .72.3.15|1.2.840.897321.1.13.10 [id number] Argenis Ramsey RN [facility] 2022-10-19 14:55:00 8ePj/pKTlpqMmVzMJX0n PaB4Hgc7yLy 4iIb4c/r1MF12lSj7w1umJVUCSjMXZR B46672-51-18W72:55:00 [facility] Emergency Department NotePatient Name: Elvira WangDate of : 1985 37 year old femaleTreatment Room: Room/bed info not foundMedical Record Number: [id number] Care Physician: [facility]Patient [facility]orted by: Self [9]Mode of Arrival: Personal means [1]EMS Treatment Prior to ED Arrival: Travel and Exposure Screening:SymptomsDoes patient have any of these symptoms?: (not recorded)Exposure ScreeningHas patient had contact with someone with a communicable disease in the last month?: (not recorded)Diseases exposed to:: (not recorded)Is Patient ?: (not recorded)Exposure Date: (not recorded)Chief Complaint:No chief complaint on file. History of Present Illness:The patient presents from home for evaluation for worsening shortness of breath since Friday. Today is Friday. She also complains of subjective fevers and body aches. She has sick contacts at home with similar symptoms. She has history of asthma and does use Combivent. She last gave herself a dose of Combivent earlier this morning without much help. She does not smoke. No ear pain or sore throat.Here for evaluation.Past Medical History/Immunizations:Past Medical History: Diagnosis Date Abnormal maternal glucose tolerance, antepartum 04/29/2018 Anemia 2006 During Anxiety currently on meds; managed by Dr. Mejia Asthma ongoing, on medication and inhaler Bowel obstruction 2015 BV (bacterial vaginosis) 03/28/2017 Depression 05/14/2013 11/26/2016-denies current depression Dysmenorrhea 06/21/2015 Generalized anxiety disorder 05/14/2013 GERD (gastroesophageal reflux disease) since age 14 History of molar , antepartum 2009 Hypertension 2014 ongoing, not taking medication at thist time Ovarian cyst 2015 STD (sexually transmitted disease) 2012 Trichomonis Umbilical hernia 1982 Tetanus received in last 5 years: UnknownChildhood immunizations: Up-to-date Allergies:Allergies Allergen Reactions Amoxicillin Nausea and/or Vomiting Azithromycin Nausea and/or Vomiting Past Social History:Tobacco Use Passive Smoke Exposure - Never Smoker Smokeless Tobacco: Never used smokeless tobacco. Alcohol Use No. Drug Use No. Sexual Activity Sexually active; Partners: Male; Control/Protection: None. Comments: last sexual intercourse 07/07/2019 Past Surgical History:Past Surgical History: Procedure Laterality Date DILATION AND CURETTAGE (SHX) 2009 molar HERNIA REPAIR 1983 umbilical hernia Review of Systems: Review of Systems Constitutional: Negative for chills and fever. Respiratory: Positive for shortness of breath. Negative for cough. Cardiovascular: Negative for chest pain. Gastrointestinal: Negative for abdominal pain and vomiting. Genitourinary: Negative for dysuria. Musculoskeletal: Positive for myalgias. Negative for neck pain and neck stiffness. Skin: Negative for wound. Neurological: Negative for dizziness. Psychiatric/Behavioral: Negative for agitation. Endocrine: Negative for goiter. Physical Exam: ED Triage Vitals [10/19/22 1503] Weight 102.1 kg (225 lb) Actual or estimated Estimated by patient/family report Height 1.626 m (5' 4") BP 121/72 Pulse 104 Resp 18 Temp 38.1 ?C (100.6 ?F) Temp source Oral SpO2 96 % Measured on Room air Physical ExamVitals reviewed. Constitutional: Appearance: Normal appearance. She is obese. HENT: Head: Normocephalic and atraumatic. Cardiovascular: Rate and Rhythm: Regular rhythm. Tachycardia present. Pulmonary: Effort: Pulmonary effort is normal. No respiratory distress. Breath sounds: Wheezing present. Comments: Wheezing bilaterallyNo use of accessory muscles.She is able to speak in full and complete sentences without difficulty.Abdominal: General: There is no distension. Palpations: Abdomen is soft. Tenderness: There is no abdominal tenderness. There is no guarding. Musculoskeletal: General: Normal range of motion. Cervical back: Normal range of motion and neck supple. Skin: General: Skin is warm and dry. Neurological: General: No focal deficit present. Mental Status: She is alert and oriented to person, place, and time. Radiology:No orders to display Lab Results:Lab Results COVID-19 (ID NOW RAPID TESTING) - Normal Result Value Ref Range SARS-CoV-2 Rapid ID NOW Not Detected Not Detected EKG:If EKG completed, see Procedure Note. Orders and Treatments:Orders Placed This Encounter Procedures COVID-19 (ID NOW TESTING) LAB ONLY COVID INTERPRETATION Orders Placed This Encounter Medications predniSONE (DELTASONE) tablet 50 mg ipratropium (ATROVENT) 0.02 % nebulizer solution 0.5 mg albuterol (PROVENTIL) 2.5 mg /3 mL (0.083 %) nebulizer solution 7.5 mg predniSONE 50 mg tablet First Provider Eval:ED Events Date/Time Event User Comments 10/19/228 Medical Screening Begins BLESSING CUMMINGS DO -- 10/19/22 1458 First Provider Evaluation BLESSING CUMMINGS DO -- No notes of EC Admission Criteria type on file.ED COURSEDiagnosis/Impression as of 10/19/22 1619 SOB (shortness of breath) Mild intermittent asthma with exacerbation Procedures: ProceduresMDM:Medical Decision MakingThe patient presents from home for evaluation for worsening shortness of breath since Friday. Today is Friday. She also complains of body aches and subjective fevers. She does have sick contacts at home. No ear pain or sore throat. She does have a history of asthma and last gave herself a Combivent treatment earlier this morning without much help.Vital signs are stable here in the ER.The patient is obese.She has diffuse wheezing throughout but no use of accessory muscles.We will screen the patient for COVID.We will provide the patient with albuterol and Atrovent treatments here in the ER as well as oral prednisone.Anticipate discharge home later.1615 -the patient is doing well here in the ER.She is negative for COVID.Her wheezing has resolved after the breathing treatments given here in the ER.We will treat the patient for asthma exacerbation with 4 more days of prednisone as well as albuterol every 4 hours for the next 24 hours and then to space out her treatments as she is feeling better.She remained stable here in the ER and is okay for discharge home with PCP follow-up.Problems Addressed:Mild intermittent asthma with exacerbation: acute illness or injurySOB (shortness of breath): acute illness or injuryAmount and/or Complexity of Data ReviewedLabs: ordered. Decision-making details documented in ED Course.RiskOTC drugs.Prescription drug management. Flowsheet Documentation: Scoring Tools: No data recorded Disposition/Condition:ED Disposition ED Disposition Disch - Home Condition Stable Comment -- Discharge Medications:Patient's Medications START taking these medications PREDNISONE 50 MG TABLET Take 1 tablet by mouth in the morning for 4 days. CONTINUE taking these medications which have NOT CHANGED ALBUTEROL 90 MCG/ACTUATION INHALER Inhale 2 Puffs every 6 (six) hours as needed for Wheezing or Shortness of Breath. DICYCLOMINE 20 MG TABLET Take 1 tablet by mouth 4 (four) times daily as needed for Abdominal pain. FERROUS SULFATE 325 MG (65 MG IRON) TABLET Take 1 tablet by mouth 2 (two) times daily. HYDROXYZINE 25 MG TABLET Take 1 tablet by mouth every 6 (six) hours as needed for Itching or Anxiety. IBUPROFEN 600 MG TABLET Take 1 tablet by mouth every 6 (six) hours as needed (Pain). Take with food or milk. IPRATROPIUM 0.02 % NEBULIZER SOLUTION Inhale 2.5 mL every 6 (six) hours as needed for Wheezing, Shortness of Breath or Bronchospasm (use wtih albuterol). KETOROLAC 10 MG TABLET Take 1 tablet by mouth every 6 (six) hours as needed for Pain (scale 1-3) or Pain (scale 4-6). METHYLPREDNISOLONE 4 MG TABLETS Take by mouth SEE-INSTRUCTIONS. follow package directions ONDANSETRON 4 MG DISINTEGRATING TABLET Take 1 tablet by mouth every 8 (eight) hours as needed for Nausea and Vomiting (N/V). PANTOPRAZOLE (PROTONIX) 20 MG EC TABLET Take 1 tablet by mouth daily. VITAMIN W/FA TABLET Take 1 tablet by mouth daily. TAMSULOSIN 0.4 MG 24 HR CAPSULE Take 1 capsule by mouth at bedtime. START taking Modified Medications as Prescribed No medications on file STOP taking these medications No medications on file Follow-up:Electronically signed by: Blessing Cummings, 10/19/22 1619 25514-8Odrxfituo Emergency department NianUR1614-78-10N30:19:08[facility]ic red Emergency department NoteTXT1.2.840.184215.1.13.104. 2.7.2.128245|[id number] [facility] acof58432-3Bogarvuti department NoteLNUT[address] XadqKtjrqzoduKhlduqzmnQRDA[address] 21850PMPKQYIINIHVTTQWWMUPAA4898 -09-02T16:19:081.2.840.138328.1 .72.3.15|1.2.840.352219.1.13.10 [id number] [facility]
[2023-04-06 18:56] LABS: Absolute Lymphocytes (CBC) 2.1 K/uL (0.7-4.9); Hematocrit 39.5 % (36.0-45.0); Lymphocytes % 26.2 % (15.3-44.8); MCV 87.4 fL (80-100); MPV 7.3 fL (7.6-11.3); Platelets 366 thou/uL (152-406); RBC Red Blood Cell Count 4.52 M/uL (3.86-4.86)
[2023-04-06 19:11] LABS: Albumin 3.5 g/dL (3.4-5.0); Bilirubin Total 0.4 mg/dL (0.2-1.0); Potassium 3.6 mEq/L (3.5-5.1)
[2023-04-06 19:18] LABS: SARS-CoV-2 Antigen Rapid Res Negative (Negative)
[2023-04-06 19:30] LABS: Specific Gravity 1.026 (1.005-1.030)
[2023-04-06 19:31] LABS: Specific Gravity 1.026 (1.005-1.030); Urine Bacteria None Seen /HPF (<20); Urine Bilirubin NEGATIVE (Negative); Urine Blood 1+ (Negative); Urine Clarity Clear (Clear); Urine Color Light-Yellow (Yellow); Urine Glucose NEGATIVE (Negative); Urine Mucus 2+ /HPF (None Seen); Urine Protein 1+ (Negative); Urine RBC <5 /HPF (None Seen); Urine Urobilinogen Normal (Normal); Urine pH 5.5 (5.0-7.0)
[2023-04-06 20:22] LABS: Thyroid Stimulating Hormone 0.793 uIU/mL (0.358-3.740)
--- NOTE | 2023-04-06 20:29 | ER ---
Nurse's Notes [facility] Name: Elvira Wang Age: 38 yrs Sex: Female : 1985 Arrival Date: 04/06/2023 Time: 18:09 Bed 20 Private MD: Diagnosis: Headache;Other malaise and fatigue Presentation: 04/06 18:24 Chief complaint: Patient states: headache, dizzy, nauseated, chills and body aches x 2 ko1 weeks, feels fatigued. Coronavirus screen: chills, congestion, fatigue, headache, muscle pain, nausea, Client presents with at least one sign or symptom that may indicate coronavirus-19. Standard/surgical mask placed on the client. Ebola Screen: No symptoms or risks identified at this time. Initial Sepsis Screen: Does the patient meet any 2 criteria? No. Patient's initial sepsis screen is negative. Does the patient have a suspected source of infection? No. Patient's initial sepsis screen is negative. Risk Assessment: Do you want to hurt yourself or someone else? Patient reports no desire to harm self or others. Onset of symptoms is unknown. 18:24 Method Of Arrival: Ambulatory ko1 18:24 Acuity: REGINA 4 ko1 Triage Assessment: 18:28 General: Appears in no apparent distress. uncomfortable, Behavior is calm, cooperative, ko1 appropriate for age. Pain: Complains of pain in headache. Historical: - Allergies: 18:28 No Known Allergies; ko1 - PMHx: 18:28 bowel obstruction; GERD; Hypertension; molar ; 2009; ko1 - Immunization history:: Adult Immunizations up to date. - Social history:: Smoking status: Patient denies any tobacco usage or history of. Screenin:40 [facility] ED Fall Risk Assessment (Adult) History of falling in the last 3 months, tl4 including since admission No falls in past 3 months (0 pts) Confusion or Disorientation No (0 pts) Intoxicated or Sedated No (0 pts) Impaired Gait No (0 pts) Mobility Assist Device Used No (0 pt) Altered Elimination No (0 pt) Score/Fall Risk Level 0 - 2 = Low Risk Oriented to surroundings, Maintained a safe environment, Educated pt \T\ family on fall prevention, incl call for assistance when getting out of bed, Assessed \T\ reinforced patient's understanding of fall precautions, Provided non-skid footwear, Hourly rounding (assess needs \T\ fall precautionary measures) done, Used ambulatory aids as needed (educated on \T\ assisted with), Used gait belt as appropriate. Abuse screen: Denies threats or abuse. Denies injuries from another. Nutritional screening: No deficits noted. Tuberculosis screening: No symptoms or risk factors identified. Assessment: 19:40 Reassessment: Patient and/or family updated on plan of care and expected duration. Pain tl4 level reassessed. Patient is alert, oriented x 3, equal unlabored respirations, skin warm/dry/pink. 21:15 Reassessment: No changes from previously documented assessment. Patient and/or family vc1 updated on plan of care and expected duration. Pain level reassessed. Patient is alert, oriented x 3, equal unlabored respirations, skin warm/dry/pink. Vital Signs: 18:24 BP 136 / 101; Pulse 64; Resp 16; Temp 97.2; Pulse Ox 100% ; ko1 19:45 BP 134 / 94; Pulse 72; Resp 16; Pulse Ox 99% on R/A; tl4 21:16 BP 132 / 80; Pulse 56; Resp 16; Pulse Ox 98% ; vc1 ED Course: 18:14 Patient arrived in ED. im 18:14 Sneha Burgos PA-C is PHCP. sb4 18:14 Shalom Rudd MD is Attending Physician. sb4 18:28 Triage completed. ko1 18:28 Arm band placed on right wrist. Patient placed in waiting room, Patient notified of ko1 wait time. 18:42 Isrrael Medina, ABHILASH is Primary Nurse. tl4 18:49 Inserted saline lock: 22 gauge in right antecubital area, using aseptic technique. ds4 Blood collected. 18:50 [place] Screen Profile Sent. tl4 18:50 CBC with Diff Sent. tl4 18:51 CMP Sent. tl4 19:40 Patient has correct armband on for positive identification. Placed in gown. Bed in low tl4 position. Call light in reach. Side rails up X 1. Provided Education on: ed process. Client placed on continuous cardiac and pulse oximetry monitoring. NIBP monitoring applied. Door closed. Noise minimized. Lights dimmed. Moved to private room. Warm blanket given. 21:20 No provider procedures requiring assistance completed. IV discontinued, intact, vc1 bleeding controlled, No redness/swelling at site. Pressure dressing applied. Administered Medications: 19:23 Drug: NS 0.9% IV 1000 ml IV at 1 bolus Per protocol; 1000 mL bolus Route: IV; Rate: 1 tl4 bolus; Site: right antecubital; 19:24 Drug: TORadol - Ketorolac IVP 15 mg IVP once Route: IVP; Site: right antecubital; tl4 19:24 Drug: metoCLOPramide IVP 10 mg IVP once; over 1 to 2 minutes Route: IVP; Site: right tl4 antecubital; 19:24 Drug: diphenhydrAMINE IVP 25 mg IVP once Route: IVP; Site: right antecubital; tl4 Medication: 21:21 VIS not applicable for this client. vc1 Outcome: 20:28 Discharge ordered by . sb4 21:20 Discharged to home ambulatory, vc1 21:20 Condition: good 21:20 Discharge instructions given to patient, Instructed on discharge instructions, follow up and referral plans. Demonstrated understanding of instructions, follow-up care, 21:21 Patient left the ED. vc1 Signatures: [place] ds4 Elvira Brooks RN RN vc1 Kathryn Gomez RN RN ko1 Sneha Burgos PA-C PAAndrea sb4 Alycia Stewart Toni RN RN tl4 Corrections: (The following items were deleted from the chart) 18:29 18:28 Allergies: Amoxicillin; ko1 ko1
--- NOTE | 2023-04-06 20:29 | EDPHYS ---
Physician Documentation [facility] Name: Elvira Wang Age: 38 yrs Sex: Female : 1985 Arrival Date: 04/06/2023 Time: 18:09 Bed 20 Private MD: ED Physician Shalom Rudd HPI: 04/06 18:40 This 38 yrs old Female presents to ER via Ambulatory with complaints of Flu Symptoms. sb4 18:40 patient reports headache, fatigue, cough, congestion x 1 week. states she was on sb4 prednisone the weak before for asthma/wheezing. denies any known sick contacts. endorses subjective fevers. has been taking tylenol, motrin, and albuterol without significant relief. Historical: - Allergies: 18:28 No Known Allergies; ko1 - PMHx: 18:28 bowel obstruction; GERD; Hypertension; molar ; 2009; ko1 - Immunization history:: Adult Immunizations up to date. - Social history:: Smoking status: Patient denies any tobacco usage or history of. ROS: 18:40 Cardiovascular: Negative for chest pain, palpitations, and edema, sb4 18:40 Constitutional: Positive for chills, fatigue, fever, malaise, 18:40 ENT: Positive for ear pain, sinus congestion, 18:40 Respiratory: Positive for cough, wheezing, 18:40 Abdomen/GI: Positive for nausea, 18:40 All other systems are negative, Exam: 18:40 Constitutional: This is a well developed, well nourished patient who is awake, alert, sb4 and in no acute distress. Head/Face: Normocephalic, atraumatic. Eyes: Extra-ocular motions intact. Periorbital areas with no swelling, redness, or edema. ENT: Mucous membranes moist. Cardiovascular: Regular rate and rhythm with a normal S1 and S2. Respiratory: Lungs have equal breath sounds bilaterally, clear to auscultation and percussion. No rales, rhonchi or wheezes noted. No increased work of breathing, no retractions or nasal flaring. Abdomen/GI: Soft, non-tender, no distension. Skin: Warm, dry with normal turgor. Normal color with no rashes, no lesions, and no evidence of cellulitis. MS/ Extremity: Pulses equal, no cyanosis. Neurovascular intact. Full, normal range of motion. Neuro: Awake and alert, GCS 15, oriented to person, place, time, and situation. Motor strength 5/5 in all extremities. Sensory grossly intact. Vital Signs: 18:24 BP 136 / 101; Pulse 64; Resp 16; Temp 97.2; Pulse Ox 100% ; ko1 19:45 BP 134 / 94; Pulse 72; Resp 16; Pulse Ox 99% on R/A; tl4 21:16 BP 132 / 80; Pulse 56; Resp 16; Pulse Ox 98% ; vc1 MDM: 18:30 Patient medically screened. sb4 20:28 Data reviewed: vital signs, nurses notes, lab test result(s), and as a result, I will sb4 discharge patient. Counseling: I had a detailed discussion with the patient and/or guardian regarding the historical points, exam findings, and any diagnostic results supporting the discharge/admit diagnosis, the presence of at least one elevated blood pressure reading (>120/80) during this emergency department visit, lab results, radiology results, the need for outpatient follow up, for definitive care, to return to the emergency department if symptoms worsen or persist or if there are any questions or concerns that arise at home. 04/06 18:37 Order name: CBC with Diff; Complete Time: 19:09 sb4 04/06 18:37 Order name: CMP; Complete Time: 20:25 sb4 04/06 18:37 Order name: Test, Urine; Complete Time: 19:33 sb4 04/06 18:37 Order name: Urinalysis w/ reflexes; Complete Time: 19:33 sb4 04/06 18:38 Order name: SARS RAPID; Complete Time: 19:19 sb4 04/06 18:38 Order name: Flu; Complete Time: 19:33 sb4 04/06 18:38 Order name: Strep sb4 04/06 18:38 Order name: [place] Screen Profile; Complete Time: 19:16 sb4 04/06 19:22 Order name: Throat Culture EDMS 04/06 19:37 Order name: Add On-Lab sb4 04/06 20:01 Order name: Thyroid Stimulating Hormone; Complete Time: 20:25 EDMS 04/06 18:37 Order name: IV Saline Lock; Complete Time: 18:49 sb4 04/06 18:38 Order name: Labs collected and sent; Complete Time: 18:49 sb4 Administered Medications: 19:23 Drug: NS 0.9% IV 1000 ml IV at 1 bolus Per protocol; 1000 mL bolus Route: IV; Rate: 1 tl4 bolus; Site: right antecubital; 19:24 Drug: TORadol - Ketorolac IVP 15 mg IVP once Route: IVP; Site: right antecubital; tl4 19:24 Drug: metoCLOPramide IVP 10 mg IVP once; over 1 to 2 minutes Route: IVP; Site: right tl4 antecubital; 19:24 Drug: diphenhydrAMINE IVP 25 mg IVP once Route: IVP; Site: right antecubital; tl4 Disposition: 04/07 07:13 Co-signature as Attending Physician, Shalom Rudd MD I reviewed the patient's care rt provided by the Advanced Practice Provider and agree with the diagnosis and treatment plan. Disposition Summary: 04/06/23 20:28 Discharge Ordered Notes: Location: Home sb4 Problem: an ongoing problem sb4 Symptoms: have improved sb4 Condition: Stable sb4 Diagnosis - Headache sb4 - Other malaise and fatigue sb4 Followup: sb4 - With: Private Physician - When: 2 - 3 days - Reason: Further diagnostic work-up, Recheck today's complaints, Re-evaluation by your physician Discharge Instructions: - Discharge Summary Sheet sb4 - General Headache Without Cause sb4 - Fatigue sb4 - Vitamin D Test sb4 Forms: - Thank You Letter sb4 - Patient Portal Instructions sb4 - Leadership Thank You Letter sb4 Signatures: Dispatcher [employer] Kathryn Hodge RN RN ko1 Sneha Burgos PACookieC PACookieC sb4 Shalom Rudd MD MD rt Isrrael Medina RN RN tl4 Corrections: (The following items were deleted from the chart) 04/06 18:29 18:28 Allergies: Amoxicillin; ko1 ko1
[2023-04-06 22:02] VITALS: BP 132/80; TEMP 97.2; O2SAT 98
== END ==
LOC: ER 18:09
DX: R51.9 Headache, unspecified (principal); R53.81 Other malaise; R53.83 Other fatigue; Z11.52 Encounter for screening for COVID-19
CPT/HCPCS: 36415; 80053; 81001; 81025; 84443; 85025; 86308; 87070; 87081; 87804; 87811; J1200; J2765; J7030

== ENCOUNTER 2024-02-22 18:28 | Emergency (ER) | payer MEDICARE ==
--- OUTSIDE RECORDS SUMMARY | 2024-02-22 18:41 | XMS REPORT | Continuity of Care Document ---
Author Name Unknown Address [address] [facility] [address] [place] [address] [facility] thconnect Address [address] [facility] [address] [place] [address] Care Team Providers Care Lever Tender Name Role Phone Geovany Mukherjee Primary Care Physician RADIOLOGY Attending Clinician Unavailable ELANA HYLTON Attending Clinician Betty vailable OBI-CHELO, CHESTER Attending Clinician Unavailab le OBI-CHELO, [place]STER Attending Clinician Unavailab le Doctor Unassigned, [place] Attending Clinician U BLESSING Macias Attending Clinician Unavailab Blessing Gutierrez DO Attending Clinician [phone] CORNEL GOODWIN Attending Clinician Unavailable Stephanie CHIEF NURSE EXECUTIVE, Cornel Attending Clinician [phone] MICHELLE CORDOVA Attending Clinician Unavailable Art CHIEF NURSE EXECUTIVE, Michelle Attending Clinician [phone] AKINDAQUAN NIELSEN Attending Clinician Unavail able Juliana CHIEF NURSE EXECUTIVE, Vannesa Attending Clinician [phone] VANNESA ANDREWS Attending Clinician Unavailable Shaheed CHIEF NURSE EXECUTIVE, Ned Floyd Attending Clinician [phone] BLANCA CAMARGO Attending Clinician Unavailable Moni NEWSPAPER DELIVERER, Blanca Washburn Attending Clinician [phone] Hannah HUNG, Saige Mi Attending Clinician [phone] Waldo Vivas Attending Clinician [phone] Skyler Villalobos MD Attending Clinician [phone] Mukund HUNG, Rachel Xiong Attending Clinician Unav ailable MORTEZA ROTH Attending Clinician Unavail able VAN MOORE Attending Clinician Unavailable Morteza Roth DO Attending Clinician [phone] Akinvelasquez CNP, Daquan Morgan Attending Clinician + NED VALENCIA Attending Clinician Unavailab SHAR Hester Attending Clinician Unavailabl haja Rodriguez WHCNP, Stephanie Perez Attending Clinician [phone] [facility] Attending Clinician Unavailable Jaciel Quiles MD Attending Clinician [phone] Abigail Rocha RN Attending Clinician Unavaila Kelly Sanchez RN Attending Clinician Betty vailable Ultrasound, [facility] Attending Clinician Unavaila Harjeet Pickard MD Attending Clinician [phone] Avitia CHIEF NURSE EXECUTIVE, Alley Attending Clinician [phone] Unknown, Attending Attending Clinician Unavailab le UNKNOWN, ATTENDING Attending Clinician Unavailab WILL Melchor Attending Clinician Unavailable Cinthia FELIZ, Dali S Attending Clinician [phone] LARRY BAIN Attending Clinician Unavailable LARRY BAIN Attending Clinician Unavailable Bess Kilpatrick Attending Clinician [phone] 1, [facility] Attending Clinician UnavailJessica Darby MD Attending Clinician [phone] Rowan Roth MD Attending Clinician [phone] Risk, [facility]High Attending Clinician Unav ailable Felicitas Greenwood RN, eMli Attending Clinician Unavailable Umberto Lubin DO Attending Clinician [phone] CORNEL GOODWIN Admitting Clinician Unavailable MICHELLE CORDOVA Admitting Clinician Unavailable BLANCA CAMARGO Admitting Clinician Unavailable Skyler Villalobos MD Admitting Clinician [phone] SKYLER VILLALOBOS Admitting Clinician Unavailable Payers Payer Name Policy Type Policy Number Effective Date Expirati on Date Source [place] [facility] [id number] 2019 00:00:00 [place] [id number] 2019 00:00:00 [facility] O [id number] 2022 00:00:00 [facility] [id number] 2019 00:00:00 Problems Condition Name Condition Details Condition Category Status Onset Date Resolution Date Last Treatment Date Treating Clinician Comments Source Pneumonia Pneumonia Disease Active 2020-02 00:00: 00 [facility] Elevated blood sugar Elevated blood sugar Disease Active 03-21 00:00: 00 [facility] (spontaneo us vaginal delivery) (spontaneo us vaginal delivery) Disease Active 2019-02 00:00: 00 [facility] Single live Single live Disease Active 2019-02 00:00: 00 [facility] 39 weeks gestation of 39 weeks gestation of Disease Active 2019-02 00:00: 00 [facility] Obesity (BMI 30-39.9) Obesity (BMI 30-39.9) Disease Active 2019-02 00:00: 00 [facility] Vaginal odor Vaginal odor Disease Active 08-09 00:00: 00 [facility] 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 Address pp [facility] Asthma during Asthma during Disease Active 07-08 00:00: 00 [facility] Supervisio n of high-risk of elderly multigravi da Supervisio n of high-risk of elderly multigravi da Disease Active 07-08 00:00: 00 [facility] Multiparit y Multiparit y Disease Active 07-08 00:00: 00 [facility] Short interval between pregnancie s affecting , antepartum Short interval between pregnancie s affecting , antepartum Disease Active 07-08 00:00: 00 [facility] History of delivery History of delivery Disease Active 07-08 00:00: 00 Overview: Formattin g of this note might be different from the original. Due to preeclamp aye [facility] History of pre-eclamp aye History of pre-eclamp aye Disease Active 07-08 00:00: 00 [facility] Hypertensi on in , pre-existi ng, antepartum Hypertensi on in , pre-existi ng, antepartum Disease Active 07-08 00:00: 00 [facility] AMA (advanced maternal age) multigravi da 35+ AMA (advanced maternal age) multigravi da 35+ Disease Active 07-08 00:00: 00 [facility] Encounter for other general counseling or advice on contracept ion Encounter for other general counseling or advice on contracept ion Disease Active 08-07 00:00: 00 [facility] Class 1 obesity due to excess calories with serious comorbidit y and body mass index (BMI) of 34.0 to 34.9 in adult Class 1 obesity due to excess calories with serious comorbidit y and body mass index (BMI) of 34.0 to 34.9 in adult Disease Active 05-18 00:00: 00 [facility] Class 1 obesity due to excess calories with serious comorbidit y and body mass index (BMI) of 34.0 to 34.9 in adult Class 1 obesity due to excess calories with serious comorbidit y and body mass index (BMI) of 34.0 to 34.9 in adult Disease Active 05-18 00:00: 00 [facility] Heartburn Heartburn Disease Active 05-12 00:00: 00 [facility] Well woman exam Well woman exam Disease Active 06-20 00:00: 00 [facility] Depression Depression Disease Active 05-14 00:00: 00 [facility] Generalize d anxiety disorder Generalize d anxiety disorder Disease Active 05-14 00:00: 00 [facility] Allergies, Adverse Reactions, Alerts Allergy Name Allergy Type Status Severity Reaction(s) Onset Date Inactive Date Treating Clinician Comments Source [place] - Intraven ous Propensi ty to adverse reaction to drug Active 08-16 00:00: 00 Alberto Schumacher Azithrom ycin Propensi ty to adverse reaction s Active Nausea and/or Vomiting 2017-02 00:00: 00 [facility] AZITHROM YCIN DRUG INGREDI Active N/V 2017-02 00:00: 00 [facility] Amoxicil reanna Propensi ty to adverse reaction s Active Nausea and/or Vomiting 05-12 00:00: 00 [facility] AMOXICIL REANNA DRUG INGREDI Active N/V 05-12 00:00: 00 [facility] Social History Social Habit Start Date Stop Date Quantity Comments Source History of tobacco use Passive smoker [facility] ASSERTION [facility] Alcohol intake 2022-10-19 00:00:00 2022-10-19 00:00:00 Current non-drinker of alcohol (finding) [facility] Exposure to SARS-CoV-2 (event) 2021-11-29 00:00:00 2021-12-09 09:18:00 Not sure [facility] History of Social function 2020-03-21 00:00:00 2020-03-21 00:00:00 [facility] Tobacco use and exposure 2020-03-21 00:00:00 2020-03-21 00:00:00 Smokeless tobacco non-user [facility] History SDOH Financial 2020-02-03 00:00:00 2020-02-03 00:00:00 5 [facility] Sex Assigned At 1985 00:00:00 1985 00:00:00 [facility] Smoking Status Start Date Stop Date Source Never smoked tobacco [facility] Medications Ordered Medication Name Filled Medication Name Start Date Stop Date Current Medication? Ordering Clinician Indication Dosage Frequency Signature (SIG) Comments Components Source fluoxetine 40 mg capsule 2023-02 00:00: 00 Yes 1mg Alberto Schumacher fluoxetine 20 mg capsule 2023-02 00:00: 00 Yes 1mg Alberto Schumacher albuterol sulfate HFA 90 mcg/actuati on aerosol inhaler 2023-02 0 00:00: 00 Yes 1mcg/ac tuation Alberto Schumacher cetirizine 10 mg tablet 2023-02 0- 00:00: 00 Yes 1mg Alberto Schumacher amlodipine 10 mg tablet 2023-02 0- 00:00: 00 Yes 1mg Alberto Schumacher pantoprazol e 40 mg tablet,dorie yed release 2023-02 0 00:00: 00 Yes 1mg Alberto Schumacher montelukast 10 mg tablet 2023-02 0 00:00: 00 Yes 1mg Alberto Schumacher prednisone 20 mg tablet 10-20 00:00: 00 Yes 1mg Alberto Schumacher Bromfed DM 2 mg-30 mg-10 mg/5 mL oral syrup - 00:00: 00 Yes 10mg/5 mL Alberto Schumacher cetirizine 10 mg tablet 8- 00:00: 00 Yes 1mg Alberto Schumacher amlodipine 10 mg tablet 8- 00:00: 00 Yes 1mg Alberto Schumacher pantoprazol e 40 mg tablet,dorie yed release 2023-0 8-07 00:00: 00 Yes 1mg Alberto Schumacher montelukast 10 mg tablet 2023-0 8-07 00:00: 00 Yes 1mg Alberto Schumacher amlodipine 10 mg tablet 2023-0 8-05 00:00: 00 Yes mg Alberto Schumacher montelukast 10 mg tablet 2023-0 8-05 00:00: 00 Yes mg Alberto Schumacher amlodipine 10 mg tablet 2023-0 6-27 00:00: 00 Yes mg Alberto Schumacher montelukast 10 mg tablet 0 5-22 00:00: 00 Yes mg Alberto Schumacher Symbicort 160 mcg-4.5 mcg/actuati on HFA aerosol inhaler 0 - 00:00: 00 Yes 2mcg/ac tuation Alberto Schumacher pantoprazol e 40 mg tablet,dorie yed release 0 - 00:00: 00 Yes 1mg Alberto Schumacher fluoxetine 40 mg capsule 2023-0 5-22 00:00: 00 Yes 1mg Alberto Schumacher fluoxetine 20 mg capsule 0 5-22 00:00: 00 Yes 1mg Alberto Schumacher montelukast 10 mg tablet 0 5-09 00:00: 00 Yes mg Alberto Schumacher fluoxetine 40 mg capsule 0 5-09 00:00: 00 Yes 1mg Alberto Schumacher fluoxetine 20 mg capsule 2023-0 5-09 00:00: 00 Yes 1mg Alberto Schumacher amlodipine 10 mg tablet 2023-0 4-17 00:00: 00 Yes mg Alberto Schumacher pantoprazol e 20 mg tablet,dorie yed release 2023-0 4-16 00:00: 00 Yes mg Alberto Schumacher pantoprazol e 40 mg tablet,dorie yed release 2023-0 4-16 00:00: 00 Yes 1mg Alberto Schumacher montelukast 10 mg tablet 2023-0 3-20 00:00: 00 Yes mg Alberto Schumacher amlodipine 10 mg tablet 2023-0 3-20 00:00: 00 Yes mg Alberto Schumacher Symbicort 160 mcg-4.5 mcg/actuati on HFA aerosol inhaler - 00:00: 00 Yes 2mcg/ac tuation Alberto Schumacher pantoprazol e 40 mg tablet,dorie yed release 20 00:00: 00 Yes 1mg Alberto Schumacher prednisone 20 mg tablet 20 00:00: 00 Yes 2mg Alberto Schumacher BUDES/FORMO T AER 160-4.5 -20 00:00: 00 Yes Alberto Schumacher amlodipine 10 mg tablet - 00:00: 00 Yes mg Alberto Schumacher montelukast 10 mg tablet 05-01 00:00: 00 Yes mg Alberto Schumacher INHALE 2 PUFFS EVERY 4-6 HOURS NEEDED. 04-30 00:00: 00 06-30 00:00 :00 No [id number] Alberto Schumacher TAKE 1 TABLET BY MOUTH DAILY 04-30 00:00: 00 06-30 00:00 :00 No 10 Alberto Schumacher TAKE ONE (1) TABLETBY MOUTH DAILY. 04-28 00:00: 00 06-30 00:00 :00 No 10 Alberto Schumacher Vitamin D2 1,250 mcg (50,000 unit) capsule 04-24 00:00: 00 Yes 1(50,00 0 unit) Alberto Schumacher pantoprazol e 20 mg tablet,dorie yed release 04-10 00:00: 00 Yes mg Alberto Schumacher TAKE ONE (1) TABLET(S) BY MOUTH DAILY. - 00:00: 00 Yes Alberto Schumacher TAKE 1 CAPSULE EVERY MORNING. - 00:00: 00 Yes 20 Alberto Schumacher TAKE 1 CAPSULE BY MOUTH ONCE DAILY - 00:00: 00 Yes 40 Alberto Schumacher TAKE 1 TABLET DAILY. 2-06 00:00: 00 06-30 00:00 :00 No 10 Alberto Schumacher TAKE 1 TABLET BY MOUTH DAILY 2-06 00:00: 00 06-30 00:00 :00 No 60 Alberto Schumacher INHALE 2 PUFFS EVERY 4-6 HOURS NEEDED. 2-06 00:00: 00 06-30 00:00 :00 No [id number] Alberto Schumacher TAKE ONE (1) TABLET(S) BY MOUTH DAILY. 2022-02 00:00: 00 Yes Alberto Schumacher INHALE 2 PUFFS EVERY 4-6 HOURS NEEDED. 2022-02 00:00: 00 06-30 00:00 :00 No [id number] Alberto Schumacher TAKE 1 TABLET DAILY. 2022-02 00:00: 00 06-30 00:00 :00 No 10 Alberto Schumacher predniSONE 50 mg tablet 10-20 00:00: 00 10-25 04:59 :00 No [id number] 50mg Take 1 tablet by mouth in the morning for 4 days. [facility] albuterol (PROVENTIL) 2.5 mg /3 mL (0.083 %) nebulizer solution 7.5 mg 10-19 21:00: 00 10-19 20:18 :00 No 7.5mg 7.5 mg, Inhalation , ONCE, 1 dose, On 10/19/22 at 1600, [facility] ipratropium (ATROVENT) 0.02 % nebulizer solution 0.5 mg 10-19 21:00: 00 10-19 20:18 :00 No .5mg 0.5 mg, Inhalation , ONCE, 1 dose, On 10/19/22 at 1600, [facility] predniSONE (DELTASONE) tablet 50 mg 10-19 20:15: 00 10-19 20:12 :00 No 50mg 50 mg, Oral, ONCE, 1 dose, On 10/19/22 at 1515, [facility] TAKE 1 TABLET BY MOUTH IN THE MORNING FOR 4 DAYS 10-19 00:00: 00 Yes Alberto Schumacher MONTELUKAST 10-16 00:00: 00 Yes Alberto Schumacher TAKE 1 TABLET BY MOUTH DAILY 10-16 00:00: 00 Yes Alberto Schumacher TAKE 1 CAPSULE BY MOUTH ONCE DAILY 10-16 00:00: 00 06-30 00:00 :00 No 40 Alberto Schumacher TAKE 1 CAPSULE EVERY MORNING. 10-16 00:00: 00 06-30 00:00 :00 No 20 Albertoshireen Schumacher TAKE 1 CAPSULE BY MOUTH ONCE DAILY 09-20 00:00: 00 06-30 00:00 :00 No 40 Alberto Augustine Schumacher AMLODIPINE 08-21 00:00: 00 Yes 10 Albertoshireen Schumacher TAKE 1 CAPSULE BY MOUTH ONCE DAILY 08-21 00:00: 00 06-30 00:00 :00 No 40 Albertoshireen Schumacher TAKE 1 CAPSULE EVERY MORNING. 08-21 00:00: 00 06-30 00:00 :00 No 20 Alberto Augustine Schumacher FLUOXETINE 07-24 00:00: 00 06-30 00:00 :00 No Alberto Augustine Schumacher MONTELUKAST 07-23 00:00: 00 Yes 10 Alberto Schumacher TAKE 1 TABLET BY MOUTH DAILY 06-25 00:00: 00 Yes Alberto Schumacher TAKE 1 CAPSULE EVERY MORNING. 06-25 00:00: 00 06-30 00:00 :00 No 20 lAberto Schumacher TAKE 1 TABLET DAILY. 06-25 00:00: 00 06-30 00:00 :00 No 2 Alberto Schumacher TAKE 1 CAPSULE BY MOUTH ONCE DAILY 06-25 00:00: 00 06-30 00:00 :00 No 40 Alberto Schumacher TAKE 1 CAPSULE EVERY MORNING. 06-22 00:00: 00 06-30 00:00 :00 No 20 Alberto Schumacher TAKE 1 CAPSULE BY MOUTH ONCE DAILY 06-22 00:00: 00 06-30 00:00 :00 No 40 Alberto Schumacher ketorolac (TORADOL) injection 30 mg 06-12 18:30: 00 06-12 18:32 :00 No 30mg 30 mg, Intramuscu lar, ONCE, 1 dose, On Fri06/12/22 at 1330, [facility] TAKE 1 TABLET BY MOUTH EVERY 4 HOURS FOR UP TO 7 DAYS NEEDED FOR SEVERE PAIN OR ACUTE PAIN 06-12 00:00: 00 Yes Alberto Schumacher TAKE 1 TABLET BY MOUTH EVERY 6 HOURS NEEDED FOR MILD PAIN OR MODERATE PAIN 06-12 00:00: 00 Yes Alberto Schumacher TAMSULOSIN 06-12 00:00: 00 Yes Alberto Schumacher ketorolac 10 mg tablet 06-12 00:00: 00 Yes [id number] 10mg Take 1 tablet by mouth every 6 (six) hours as needed for Pain (scale 1-3) or Pain (scale 4-6). [facility] tamsulosin 0.4 mg 24 hr capsule 06-12 00:00: 00 Yes [id number] .4mg Take 1 capsule by mouth at bedtime. [facility] acetaminoph en-codeine 300-30 mg tablet 06-12 00:00: 00 06-20 04:59 :00 No [id number] 1{tbl} Take 1 tablet by mouth every 4 (four) hours as needed for Pain (scale 7-10) for up to 7 days. Indication s: acute pain [facility] PANTOPRAZOL E 05-23 00:00: 00 Yes 20 Alberto Schumacher AMLODIPINE 05-20 00:00: 00 Yes 10 Alberto Schumacher TAKE 1/2 TO 1 TABLET 3 TIMES DAILY NEEDED. 05-09 00:00: 00 06-30 00:00 :00 No 50 Alberto Schumacher TAKE 1 TABLET BY MOUTH DAILY 04-18 00:00: 00 06-30 00:00 :00 No 10 Alberto Schumacher INHALE 2 PUFFS EVERY 4-6 HOURS NEEDED. 04-18 00:00: 00 06-30 00:00 :00 No [id number] Alberto Schumacher 1 TAB DAILY - 00:00: 00 06-30 00:00 :00 No 20 Alberto Schumacher TAKE 1 CAPSULE EVERY MORNING. 2-03 00:00: 00 06-30 00:00 :00 No 20 Alberto Schumacher TAKE 1 CAPSULE EVERY MORNING. 2 00:00: 00 06-30 00:00 :00 No 20 Alberto Schumacher TAKE 1 TABLET BY MOUTH DAILY 03-18 00:00: 00 06-30 00:00 :00 No 60 Alberto Schumacher TAKE 1 CAPSULE BY MOUTH ONCE DAILY 03-18 00:00: 00 06-30 00:00 :00 No 40 Alberto Schumacher TAKE 1 TABLET BY MOUTH DAILY 03-18 00:00: 00 06-30 00:00 :00 No 10 Albertoshireen Schumacher PANTOPRAZOL E 03-05 00:00: 00 Yes Alberto Schumacher AMLODIPINE 2021-02 00:00: 00 Yes Alberto Augustine Schumacher FLUOXETINE 2021-02 00:00: 00 06-30 00:00 :00 No Alberto Augustine Schumacher IBUPROFEN 2021-02 00:00: 00 Yes Alberto Augustine Schumacher AMOXICILLIN 2021-02 00:00: 00 Yes Alberto Schumacher TAKE 1 TABLET BY MOUTH DAILY 2021-02 00:00: 00 06-30 00:00 :00 No 10 Alberto Augustine Schumacher AMLODIPINE 2021-02 00:00: 00 Yes Alberto Augustine Schumacher FLUOXETINE 2021-02 00:00: 00 06-30 00:00 :00 No Alberto Augustine Schumacher CLINDAMYCIN 2021-02 00:00: 00 Yes Alberto Augustine Schumacher IBUPROFEN 2021-02 00:00: 00 Yes Alberto Schumacher VENTOLIN HFA INH W/DOS CTR 200PUFFS 2021-02 00:00: 00 Yes Alberto Schumacher iopamidol (ISOVUE 370-500 mL) injection 80 mL 2021-02 15:00: 00 12-09 15:15 :00 No [id number] 80mL 80 mL, Intravenou s, ONCE, 1 dose, On 12/09/21 at 1015, Routine [facility] NaCl 0.9% (NS) bolus infusion 1,000 mL 2021-02 14:45: 00 12-09 15:20 :00 No 1000mL at 999 mL/hr, 1,000 mL, IV Infusion, ONCE, 1 dose, On 12/09/21 at 0945, [facility] pantoprazol e (PROTONIX) injection 40 mg 2021-02 14:15: 00 12-09 14:16 :00 No 40mg 40 mg, Slow IV Push, ONCE, 1 dose, On 12/09/21 at 0915 [facility] ketorolac (TORADOL) injection 30 mg 2021-02 14:15: 00 12-09 14:18 :00 No 30mg 30 mg, Slow IV Push, ONCE, 1 dose, On 12/09/21 at 0915, Routine [facility] ondansetron (ZOFRAN (PF)) injection 4 mg 2021-02 14:15: 00 12-09 14:16 :00 No 4mg 4 mg, Slow IV Push, ONCE, 1 dose, On 12/09/21 at 0915, [facility] DICYCLOMINE 2021-02 00:00: 00 Yes 20 Alberto Schumacher DISSOLVE 1 TABLET ON THE TONGUE EVERY 8 HOURS NEEDED FOR NAUSEA OR VOMITING 2021-02 00:00: 00 Yes Alberto Schumacher dicyclomine 20 mg tablet 2021-02 00:00: 00 Yes [id number] 20mg Take 1 tablet by mouth 4 (four) times daily as needed for Abdominal pain. [facility] ondansetron 4 mg disintegrat ing tablet 2021-02 00:00: 00 Yes [id number] 4mg Take 1 tablet by mouth every 8 (eight) hours as needed for Nausea and Vomiting (N/V). [facility] MONTELUKAST 2021-02 00:00: 00 Yes 10 Alberto Schumacher PANTOPRAZOL E 2021-02 0-19 00:00: 00 Yes 20 Alberto Schumacher 1 TAB DAILY 2021-02 0-04 00:00: 00 2024- 05-14 00:00 :00 No 20 Alberto Augustine Schumacher PANTOPRAZOL E 2022-0 9-21 00:00: 00 Yes 20 Alberto Augustine Schumacher TAKE 1 TABLET BY MOUTH DAILY 2-0 9-21 00:00: 00 Yes Alberto F Endy Dose Unknown 2022-0 9-20 00:00: 00 Yes Alberto F Endy Dose Unknown 2022-0 9-20 00:00: 00 No Dose Unknown 2022-0 9-20 00:00: 00 No PANTOPRAZOL E 2022-0 8-18 00:00: 00 Yes 20 Alberto F Endy &lt 2022-0 8-12 00:00: 00 Yes 4 Alberto F Endy &lt 2022-0 8-12 00:00: 00 No 4 &lt 2022-0 8-12 00:00: 00 No 4 &lt 2022-0 8-11 00:00: 00 Yes 10 Alberto F Endy Dose Unknown 2022-0 8-11 00:00: 00 Yes 4 Alberto F Endy &lt 2022-0 8-11 00:00: 00 Yes 20 Alberto F Endy &lt 2022-0 8-11 00:00: 00 Yes Alberto F Endy &lt 2022-0 8-11 00:00: 00 Yes Albetro F Endy Dose Unknown 2022-0 8-11 00:00: 00 Yes 10 Alberto F Endy Dose Unknown 2022-0 8-11 00:00: 00 Yes 800 Alberto F Endy Dose Unknown 2022-0 8-11 00:00: 00 Yes 250 Alberto F Endy &lt 2022-0 8-11 00:00: 00 Yes 60 Alberto F Endy Dose Unknown 2022-0 8-11 00:00: 00 Yes 25 Alberto F Endy &lt 2022-0 8-11 00:00: 00 No 10 [...] &lt 2022-0 8-11 00:00: 00 No 60 Dose Unknown 2022-0 8-11 00:00: 00 No 25 &lt 2022-0 8-11 00:00: 00 No 10 Dose Unknown 2022-0 8-11 00:00: 00 No 4 &lt 2022-0 8-11 00:00: 00 No 20 &lt 2022-0 8-11 00:00: 00 No &lt 2022-0 8-11 00:00: 00 No Dose Unknown 2022-0 8-11 00:00: 00 No 10 Dose Unknown 2-0 8- 00:00: 00 No 800 Dose Unknown 2022-0 8- 00:00: 00 No 250 &lt 2022-0 8- 00:00: 00 No 60 Dose Unknown 2-0 8- 00:00: 00 No 25 TAKE 1 TABLET BY MOUTH DAILY 2022-0 8- 00:00: 00 Yes 20 Alberto F Endy TAKE 1 TABLET BY MOUTH DAILY 2022-0 8-10 00:00: 00 No 20 TAKE 1 TABLET BY MOUTH DAILY 2022-0 8- 00:00: 00 No 20 Dose Unknown 2022-0 8- 00:00: 00 Yes 30 Alberto F Endy Dose Unknown 2021-0 8- 00:00: 00 No 30 Dose Unknown 2-0 8-09 00:00: 00 No 30 TAKE 1 TABLET BY MOUTH EVERY 24 HOURS FOR 5 DAYS 2022-0 8-08 00:00: 00 Yes 500 Alberto F Endy TAKE 1 TABLET BY MOUTH EVERY 24 HOURS FOR 5 DAYS 2022-0 8-08 00:00: 00 No 500 TAKE 1 TABLET BY MOUTH EVERY 24 HOURS FOR 5 DAYS 2022-0 8- 00:00: 00 No 500 &lt 2022-0 8-06 00:00: 00 Yes 10 Alberto F Endy &lt 2022-0 8-06 00:00: 00 No 10 &lt 2022-0 8-06 00:00: 00 No 10 &lt 2022-0 8-05 00:00: 00 Yes 20 Alberto F Endy &lt 2022-0 8-05 00:00: 00 Yes 4 Alberto F Endy Dose Unknown 2022-0 8-05 00:00: 00 Yes 250 Alberto F Endy TAKE 1 TABLET BY MOUTH EVERY 12 HOURS NEEDED FOR PAIN 2022-0 8-05 00:00: 00 Yes 800 Alberto Schumacher &lt 2022-0 8-05 00:00: 00 Yes 10 Alberto Schumacher Dose Unknown 2-0 8-05 00:00: 00 Yes 100 Alberto Schumacher &lt 2022-0 8-05 00:00: 00 No 20 &lt 2022-0 8-05 00:00: 00 No 4 Dose Unknown 2022-0 8-05 00:00: 00 No 250 TAKE 1 TABLET BY MOUTH EVERY 12 HOURS NEEDED FOR PAIN 2-0 8-05 00:00: 00 No 800 &lt 2022-0 8-05 00:00: 00 No 10 Dose Unknown 2022-0 8-05 00:00: 00 No 100 &lt 2022-0 8-05 00:00: 00 No 20 &lt 2022-0 8-05 00:00: 00 No 4 Dose Unknown 2021-0 8-05 00:00: 00 No 250 TAKE 1 TABLET BY MOUTH EVERY 12 HOURS NEEDED FOR PAIN 2-0 8-05 00:00: 00 No 800 &lt 2022-0 8-05 00:00: 00 No 10 Dose Unknown 2-0 8-05 00:00: 00 No 100 Singulair 10 mg tablet 2-0 8-04 00:00: 00 Yes 1mg Alberto Schumacher TAKE 1 TABLET BY MOUTH DAILY 2021-0 8-04 00:00: 00 Yes 10 Alberto Schumacher FOLLOW PACKAGE DIRECTIONS 2021-0 8-04 00:00: 00 Yes 4 Alberto Schumacher Singulair 10 mg tablet 2021-0 8-04 00:00: 00 No 1mg TAKE 1 TABLET BY MOUTH DAILY 2021-0 8-04 00:00: 00 No 10 FOLLOW PACKAGE DIRECTIONS 2021-0 8-04 00:00: 00 No 4 Singulair 10 mg tablet 2-0 8-04 00:00: 00 No 1mg TAKE 1 TABLET BY MOUTH DAILY 2021-0 8-04 00:00: 00 No 10 FOLLOW PACKAGE DIRECTIONS 2021-0 8-04 00:00: 00 No 4 TAKE 1 TABLET BY MOUTH EVERY 12 HOURS 2-0 7- 00:00: 00 Yes 250 Alberto Schumacher TAKE 1 TABLET BY MOUTH EVERY 12 HOURS 2-0 7-21 00:00: 00 No 250 TAKE 1 TABLET BY MOUTH EVERY 12 HOURS 2-0 7-21 00:00: 00 No 250 &lt 2-0 7-20 00:00: 00 Yes 250 Alberto Schumacher Dose Unknown 2021-0 7-20 00:00: 00 Yes 20 Alberto Schumacher &lt 2-0 7-20 00:00: 00 No 250 Dose Unknown 2021-0 7-20 00:00: 00 No 20 &lt 2022-0 7-20 00:00: 00 No 250 Dose Unknown 2021-0 7-20 00:00: 00 No 20 &lt 2-0 7-19 00:00: 00 Yes Alberto Schumacher Dose Unknown 2021-0 09-04 00:00: 00 Yes 800 Alberto Schumacher TAKE 1 TABLET BY MOUTH EVERY 6 HOURS NEEDED FOR ITCHING OR ANXIETY 2021-0 - 00:00: 00 Yes 25 Alberto Schumacher TAKE 10 ML BY MOUTH EVERY 4 TO 6 HOURS 2021-0 19 00:00: 00 Yes Alberto Schumacher FOLLOW PACKAGE DIRECTIONS 2021-0 09-04 00:00: 00 Yes 4 Alberto Schumacher &lt 2021-0 09-04 00:00: 00 Yes 100 Alberto Schumacher &lt 2021-0 09-04 00:00: 00 No Dose Unknown 2021-0 09-04 00:00: 00 No 800 TAKE 1 TABLET BY MOUTH EVERY 6 HOURS NEEDED FOR ITCHING OR ANXIETY 2021-0 09-04 00:00: 00 No 25 TAKE 10 ML BY MOUTH EVERY 4 TO 6 HOURS 2021-0 19 00:00: 00 No FOLLOW PACKAGE DIRECTIONS 2021-0 09-04 00:00: 00 No 4 &lt 2022-0 7-19 00:00: 00 No 100 &lt 2-0 7- 00:00: 00 No Dose Unknown 2021-0 09-04 00:00: 00 No 800 TAKE 1 TABLET BY MOUTH EVERY 6 HOURS NEEDED FOR ITCHING OR ANXIETY 2021-0 19 00:00: 00 No 25 TAKE 10 ML BY MOUTH EVERY 4 TO 6 HOURS 2021-0 - 00:00: 00 No FOLLOW PACKAGE DIRECTIONS 2021-0 7-19 00:00: 00 No 4 &lt 2022-0 7-19 00:00: 00 No 100 &lt 2022-0 7- 00:00: 00 No Dose Unknown 2-0 7-19 00:00: 00 No 800 TAKE 1 TABLET BY MOUTH EVERY 6 HOURS NEEDED FOR ITCHING OR ANXIETY 2022-0 7-19 00:00: 00 No 25 TAKE 10 ML BY MOUTH EVERY 4 TO 6 HOURS 2-0 7-19 00:00: 00 No FOLLOW PACKAGE DIRECTIONS 2-0 7-19 00:00: 00 No 4 &lt 2022-0 7-19 00:00: 00 No 100 &lt 2022-0 7- 00:00: 00 Yes 10 Alberto F Endy &lt 2022-0 7- 00:00: 00 No 10 &lt 2022-0 7- 00:00: 00 No 10 &lt 2022-0 7- 00:00: 00 No 10 &lt 2022-0 7-08 00:00: 00 Yes 800 Alberto F Endy &lt 2022-0 7- 00:00: 00 Yes 20 Alberto F Endy &lt 2022-0 08-24 00:00: 00 Yes 4 Alberto F Endy TAKE 1 TABLET BY MOUTH EVERY 12 HOURS 2-0 08-24 00:00: 00 Yes Alberto F Endy &lt 2022-0 7- 00:00: 00 No 800 &lt 2022-0 7- 00:00: 00 No 20 &lt 2022-0 7- 00:00: 00 No 4 &lt 2022-0 7-08 00:00: 00 No 800 &lt 2022-0 7- 00:00: 00 No 20 &lt 2022-0 7- 00:00: 00 No 4 &lt 2022-0 7- 00:00: 00 No 800 &lt 2022-0 7-08 00:00: 00 No 20 &lt 2022-0 7- 00:00: 00 No 4 TAKE 1 TABLET BY MOUTH DAILY 2-0 - 00:00: 00 Yes 20 Alberto F Endy &lt 2022-0 7- 00:00: 00 Yes 10 Alberto F Endy &lt 2022-0 7- 00:00: 00 Yes 10 Alberto F Endy &lt 2022-0 7-07 00:00: 00 Yes 100 Alberto Schumacher TAKE 2 TABLETS BY MOUTH TODAY FOR 1 DOSE THEN TAKE 1 TABLET BY MOUTH DAILY FOR 4 DAYS 08-23 00:00: 00 Yes 250 Alberto Schumacher &lt 08-23 00:00: 00 Yes 30 Alberto Schumacher TAKE 1 TABLET BY MOUTH DAILY NEEDED 08-23 00:00: 00 Yes 40 Alberto Schumacher TAKE 1 TABLET BY MOUTH EVERY 12 HOURS NEEDED FOR PAIN 08-23 00:00: 00 Yes 800 Alberto Schumacher FOLLOW PACKAGE DIRECTIONS 08-23 00:00: 00 Yes 4 Alberto Schumacher USE 3 ML VIA NEBULIZER EVERY 6 HOURS NEEDED FOR WHEEZING OR SHORTNESS OF BREATH. MAY ALSO VIA NEBULIZER 1 EXTRA EVERY 6 HOURS 08-23 00:00: 00 Yes Alberto Schumacher TAKE 1 TABLET BY MOUTH DAILY 08-23 [...] FOR PAIN 08-23 00:00: 00 No 800 FOLLOW PACKAGE [...] FOR PAIN 08-23 00:00: 00 No 800 FOLLOW PACKAGE [...] FOR PAIN 08-23 00:00: 00 No 800 FOLLOW PACKAGE DIRECTIONS 08-23 00:00: 00 No 4 USE 3 ML VIA NEBULIZER EVERY 6 HOURS NEEDED FOR WHEEZING OR SHORTNESS OF BREATH. MAY ALSO VIA NEBULIZER 1 EXTRA EVERY 6 HOURS 08-23 00:00: 00 No fluoxetine 60 mg tablet 08-16 00:00: 00 Yes 1mg Alberto Schumacher TAKE 10 ML BY MOUTH EVERY 4 TO 6 HOURS 08-16 00:00: 00 Yes Alberto Schumacher &lt 0 08-16 00:00: 00 Yes Alberto Schumacher &lt 2021-0 08-16 00:00: 00 Yes Alberto Schumacher TAKE 1 TABLET BY MOUTH EVERY 12 HOURS NEEDED FOR PAIN 0 08-16 00:00: 00 Yes Alberto Schumacher &lt 0 08-16 00:00: 00 Yes Alberto Schumacher TAKE 1 TABLET BY MOUTH EVERY 6 HOURS NEEDED FOR ITCHING OR ANXIETY 2022-0 08-16 00:00: 00 Yes Alberto Schumachre FOLLOW PACKAGE DIRECTIONS 2-0 08-16 00:00: 00 Yes Alberto Schumacher fluoxetine 60 mg tablet 2-0 08-16 00:00: [...] OR ANXIETY 2-0 08-16 00:00: 00 No FOLLOW PACKAGE DIRECTIONS 2021-0 08-16 00:00: 00 No fluoxetine 60 mg [...] OR ANXIETY 2-0 08-16 00:00: 00 No FOLLOW PACKAGE DIRECTIONS 2021-0 08-16 00:00: 00 No fluoxetine 60 mg [...] 6 HOURS NEEDED FOR ITCHING OR ANXIETY 2021-0 6-30 00:00: 00 No FOLLOW PACKAGE DIRECTIONS 2021-0 6-30 00:00: 00 No ProAir HFA 90 mcg/actuati on aerosol inhaler 2021-0 5-10 00:00: 00 Yes 12mcg/a ctuatio n Alberto Schumacher amlodipine 10 mg tablet 2021-0 5-10 00:00: 00 Yes 1mg Alberto Schumacher Singulair 10 mg tablet 2021-0 5-10 00:00: 00 Yes 1mg Alberto Schumacher ProAir HFA 90 mcg/actuati on aerosol inhaler [...] No 1mg Singulair 10 mg tablet 0 5-10 00:00: 00 No 1mg ProAir HFA 90 mcg/actuati on aerosol inhaler 0 5-10 00:00: 00 No 12mcg/a ctuatio n amlodipine 10 mg tablet 2021-0 5-10 00:00: 00 No 1mg Singulair 10 mg tablet 2021-0 5-10 00:00: 00 No 1mg pantoprazol e 20 mg tablet,dorie yed release 2021-0 3-30 00:00: 00 Yes 1mg Alberto Schumacher pantoprazol e 20 mg tablet,dorie yed release 2021-0 3-30 00:00: 00 No 1mg pantoprazol e 20 mg tablet,dorie yed release 2021-0 3-30 00:00: 00 No 1mg pantoprazol e 20 mg tablet,dorie yed release 2021-0 3-30 00:00: 00 No 1mg pantoprazol e 20 mg tablet,dorie yed release 2021-0 3-16 00:00: 00 Yes 1mg Alberto Schumacher pantoprazol e 20 mg tablet,dorie yed release 2021-0 3-16 00:00: 00 No 1mg pantoprazol e 20 mg tablet,dorie yed release 2021-0 3-16 00:00: 00 No 1mg pantoprazol e 20 mg tablet,dorie yed release 0 3-16 00:00: 00 No 1mg Dose Unknown 0 3-15 00:00: 00 Yes Alberto Schumacher Dose Unknown 0 3-15 00:00: 00 Yes Alberto Schumacher Dose Unknown 0 3-15 00:00: 00 No Dose Unknown 0 3-15 00:00: 00 No Dose Unknown 0 3-15 00:00: 00 No Dose Unknown 0 3-15 00:00: 00 No Dose Unknown 0 3-15 00:00: 00 No Dose Unknown 0 3-15 00:00: 00 No fluoxetine 60 mg tablet 0 3-08 00:00: 00 Yes 1mg Alberto Schumacher fluoxetine 60 mg tablet 0 3-08 00:00: 00 No 1mg fluoxetine 60 mg tablet 0 3-08 00:00: 00 No 1mg fluoxetine 60 mg tablet 0 3-08 00:00: 00 No 1mg azithromyci n 250 mg tablet 0 2-20 00:00: 00 Yes mg Alberto Schumacher azithromyci n 250 mg tablet 0 2-20 00:00: 00 No mg azithromyci n 250 mg tablet 0 2-20 00:00: 00 No mg azithromyci n 250 mg tablet 0 2-20 00:00: 00 No mg ProAir HFA 90 mcg/actuati on aerosol inhaler 0 1-24 00:00: 00 Yes 12mcg/a ctuatio n Alberto Schumacher fluoxetine 60 mg tablet 0 1-24 00:00: 00 Yes 1mg Alberto Schumacher amlodipine 10 mg tablet 0 1-24 00:00: 00 Yes 1mg Alberto Schumacher Singulair 10 mg tablet 0 1-24 00:00: 00 Yes 1mg Alberto Schumacher ProAir HFA 90 mcg/actuati on aerosol inhaler [...] % nebulizer solution 2020-02 00:00: 00 Yes [id number] .5mg Inhale 2.5 mL every 6 (six) hours as needed for Wheezing, Shortness of Breath or Bronchospa sm (use wtih albuterol) . [facility] methylPREDN ISolone 4 mg tablets 2020-02 00:00: 00 Yes [id number] Take by mouth SEE-INSTRU CTIONS. follow package directions [facility] cyclobenzap rine 5 mg tablet 2020-02 00:00: 00 Yes 1mg Alberto Schumacher IBU 800 mg tablet 2020-02 00:00: 00 Yes 1mg Alberto F Endy cyclobenzap rine 5 mg tablet 2020-02 00:00: 00 No 1mg IBU 800 mg tablet 2020-02 00:00: 00 No 1mg cyclobenzap rine 5 mg tablet 2020-0210 00:00: 00 No 1mg IBU 800 mg tablet 2020-02 2 00:00: 00 No 1mg cyclobenzap rine 5 mg tablet 2020-02 00:00: 00 No 1mg IBU 800 mg tablet 2020-02 2 00:00: 00 No 1mg pantoprazol e 20 mg tablet,dorie yed release 2020-02 00:00: 00 Yes mg Alberto Schumacher levofloxaci n 500 mg tablet 2020-02 00:00: 00 Yes mg Alberto Schumacher amlodipine 10 mg tablet 2020-02 00:00: 00 Yes mg Alberto Schumacher albuterol sulfate 2.5 mg/3 mL (0.083 %) solution for nebulizatio n 2020-02 00:00: 00 Yes /3 mL (0.083 %) Alberto Schumacher pantoprazol e 20 mg tablet,dorie yed release [...] mg EC tablet 2020-02 00:00: 00 Yes [id number] 20mg Take 1 tablet by mouth daily. [facility] hydroxyzine HCl 25 mg tablet 2020-02 00:00: 00 Yes mg Alberto Schumacher hydroxyzine HCl 25 mg tablet 2020-02 00:00: 00 No mg hydroxyzine HCl 25 mg tablet 2020-02 00:00: 00 No mg hydroxyzine HCl 25 mg tablet 2020-02 00:00: 00 No mg hydrOXYzine 25 mg tablet 2020-02 00:00: 00 Yes [id number] 25mg Take 1 tablet by mouth every 6 (six) hours as needed for Itching or Anxiety. [facility] fluoxetine 60 mg tablet 2020-02 00:00: 00 Yes 1mg Alberto Schumacher fluoxetine 60 mg tablet 2020-02 00:00: 00 No 1mg fluoxetine 60 mg tablet 2020-02 00:00: 00 No 1mg fluoxetine 60 mg tablet 2020-02 00:00: 00 No 1mg Macrobid 100 mg capsule 2020-02 00:00: 00 Yes 1mg Alberto Schumacher Macrobid 100 mg capsule 2020-02 00:00: 00 No 1mg Macrobid 100 mg capsule 2020-02 00:00: 00 No 1mg Macrobid 100 mg capsule 2020-02 00:00: 00 No 1mg ProAir HFA 90 mcg/actuati on aerosol inhaler 2020-02 00:00: 00 Yes 12mcg/a ctuatio n Alberto Augustine Schumacher azithromyci n 250 mg tablet 2020-02 00:00: 00 Yes mg Alberto Schumacher ProAir HFA 90 mcg/actuati on aerosol inhaler [...] amlodipine 10 mg tablet 10-31 00:00: 00 Yes 1mg Alberto Schumacher fluoxetine 60 mg tablet 10-31 00:00: 00 Yes 1mg Alberto Schumacher amlodipine 10 mg tablet 10-31 00:00: 00 No 1mg fluoxetine 60 mg tablet 10-31 00:00: 00 No 1mg amlodipine 10 mg tablet 10-31 00:00: 00 No 1mg fluoxetine 60 mg tablet 10-31 00:00: 00 No 1mg amlodipine 10 mg tablet 10-31 00:00: 00 No 1mg fluoxetine 60 mg tablet 10-31 00:00: 00 No 1mg Augmentin 875 mg-125 mg tablet -16 00:00: 00 Yes 1mg Alberto Schumacher Augmentin 875 mg-125 mg tablet -16 00:00: 00 No 1mg Augmentin 875 mg-125 mg tablet 16 00:00: 00 No 1mg Augmentin 875 mg-125 mg tablet -16 00:00: 00 No 1mg Bromfed DM 2 mg-30 mg-10 mg/5 mL oral syrup - 00:00: 00 Yes 10mg/5 mL Alberto Schumacher Bromfed DM 2 mg-30 mg-10 mg/5 mL oral syrup - 00:00: 00 No 10mg/5 mL Bromfed DM 2 mg-30 mg-10 mg/5 mL oral syrup 8- 00:00: 00 No 10mg/5 mL Bromfed DM 2 mg-30 mg-10 mg/5 mL oral syrup 8- 00:00: 00 No 10mg/5 mL pantoprazol e 40 mg tablet,dorie yed release 8- 00:00: 00 Yes 1mg Alberto Schumacher pantoprazol e 40 mg tablet,dorie yed release 8- 00:00: 00 No 1mg pantoprazol e 40 mg tablet,dorie yed release 8 00:00: 00 No 1mg pantoprazol e 40 mg tablet,dorie yed release 09-18 00:00: 00 No 1mg Augmentin 875 mg-125 mg tablet 0 7- 00:00: 00 Yes 1mg Alberto Schumacher Augmentin 875 mg-125 mg tablet 0 7- 00:00: 00 No 1mg Augmentin 875 mg-125 mg tablet 0 08-29 00:00: 00 No 1mg Augmentin 875 mg-125 mg tablet 0 08-29 00:00: 00 No 1mg Sudafed 12 Hour 120 mg tablet,exte nded release 08-07 00:00: 00 Yes 1mg Alberto Schumacher fluticasone propionate 50 mcg/actuati on nasal spray,suspe nsion 0 08-07 00:00: 00 Yes 2mcg/ac tuation Alberto Augustine Schumacher Sudafed 12 Hour 120 mg tablet,exte nded [...] fluoxetine 60 mg tablet 07-28 00:00: 00 Yes 1mg Alberto Schumacher cetirizine 10 mg tablet 07-28 00:00: 00 Yes 1mg Alberto Schumacher amlodipine 10 mg tablet 07-28 00:00: 00 Yes 1mg Alberto Schumacher fluoxetine 60 mg tablet 07-28 00:00: 00 [...] fluoxetine 60 mg tablet 06-30 00:00: 00 Yes 1mg Alberto Schumacher fluoxetine 60 mg tablet 06-30 00:00: 00 No 1mg fluoxetine 60 mg tablet 06-30 00:00: 00 No 1mg fluoxetine 60 mg tablet 06-30 00:00: 00 No 1mg cholecalcif vinay (vitamin D3) 1,250 mcg (50,000 unit) tablet 06-01 00:00: 00 Yes 1-5.84 gram Alberto Schumacher cholecalcif vinay (vitamin D3) 1,250 mcg (50,000 unit) tablet 06-01 00:00: 00 No 1(50,00 0 unit) cholecalcif vinay (vitamin D3) 1,250 mcg (50,000 unit) tablet 06-01 00:00: 00 No 1(50,00 0 unit) cholecalcif vinay (vitamin D3) 1,250 mcg (50,000 unit) tablet -15 00:00: 00 No 1(50,00 0 unit) fluoxetine 60 mg tablet - 00:00: 00 Yes 1mg Alberto Schumacher fluoxetine 60 mg tablet - 00:00: 00 No 1mg fluoxetine 60 mg tablet - 00:00: 00 No 1mg fluoxetine 60 mg tablet - 00:00: 00 No 1mg Zoloft 25 mg tablet 3-16 00:00: 00 Yes 1mg Alberto Schumacher Zoloft 25 mg tablet - 00:00: 00 No 1mg Zoloft 25 mg tablet 3- 00:00: 00 No 1mg Zoloft 25 mg tablet 3-16 00:00: 00 No 1mg pantoprazol e 40 mg tablet,dorie yed release 3-05 00:00: 00 Yes 1mg Alberto Schumacher cetirizine 10 mg tablet 3-05 00:00: 00 Yes 1mg Alberto Schumacher amlodipine 10 mg tablet 3- 00:00: 00 Yes 1mg Alberto Schumacher duloxetine 30 mg capsule,del ayed release 3-05 00:00: 00 Yes 1mg Alberto Schumacher pantoprazol e 40 mg tablet,dorie yed release 3- 00:00: 00 No 1mg cetirizine 10 mg tablet 3-05 00:00: 00 No 1mg pantoprazol e 40 mg tablet,dorie yed release 3-05 00:00: 00 No 1mg cetirizine 10 mg tablet 3-05 00:00: 00 No 1mg amlodipine 10 mg tablet 3-05 00:00: 00 No 1mg duloxetine 30 mg capsule,del ayed release 3-05 00:00: 00 No 1mg amlodipine 10 mg tablet 3-05 00:00: 00 No 1mg duloxetine 30 mg capsule,del ayed release 04-21 00:00: 00 No 1mg pantoprazol e 40 mg tablet,dorie yed release 04-21 00:00: 00 No 1mg cetirizine 10 mg tablet 04-21 00:00: 00 No 1mg amlodipine 10 mg tablet 04-21 00:00: 00 No 1mg duloxetine 30 mg capsule,del ayed release 04-21 00:00: 00 No 1mg vitamin w/FA tablet 2019-02 00:00: 00 Yes [id number] 1{tbl} Take 1 tablet by mouth daily. [facility] ferrous sulfate 325 mg (65 mg iron) tablet 2019-02 00:00: 00 Yes [id number] 325mg Take 1 tablet by mouth 2 (two) times daily. [facility] ibuprofen 600 mg tablet 2019-02 00:00: 00 Yes [id number] 600mg Take 1 tablet by mouth every 6 (six) hours as needed (Pain). Take with food or milk. [facility] vitamin w/FA tablet 2019-02 00:00: 00 Yes [id number] 1{tbl} Take 1 tablet by mouth daily. [facility] albuterol 90 mcg/actuati on inhaler 07-08 00:00: 00 Yes [id number] 2{puff} Inhale 2 Puffs every 6 (six) hours as needed for Wheezing or Shortness of Breath. [facility] fexofenadin e 180 mg tablet 06-24 00:00: 00 Yes 1mg Alberto Schumacher fexofenadin e 180 mg tablet 06-24 00:00: 00 No 1mg fexofenadin e 180 mg tablet 06-24 00:00: 00 No 1mg fexofenadin e 180 mg tablet 06-24 00:00: 00 No 1mg amlodipine 10 mg tablet 06-20 00:00: 00 Yes 1mg Alberto Schumacher pantoprazol e 40 mg tablet,dorie yed release 06-20 00:00: 00 Yes 1mg Alberto Schumacher cetirizine 5 mg tablet 06-20 00:00: 00 Yes 1mg Alberto Schumacher phenazopyri dine 200 mg tablet 06-20 00:00: 00 Yes 1mg Alberto Schumacher fluoxetine 40 mg capsule 06-20 00:00: 00 Yes 1mg Alberto Schumacher amlodipine 10 mg tablet 06-20 00:00: 00 [...] mg tablet 06-20 00:00: 00 No 1mg Immunizations Ordered Immunization Name Filled Immunization Name Date Status Comments Source pneumococcal polysacchar pneumococcal polysacchar 2021-01-24 00:00:00 Completed Alberto Schumacher Influenza, injectable, Madin Marivel Canine Kidney, preservative-free, quadrivalent Influenza, injectable, Madin Belcher Canine Kidney, preservative-free, quadrivalent 2021-01-24 00:00:00 Completed Alberto Schumacher Pneumococcal Polysaccharide, PPSV23 (PNEUMOVAX) 2021-01-24 00:00:00 Completed [facility] Influenza Virus Vaccine Quad IM, Preserv and ABX Free 6 MO-64 YRS 2021-01-24 00:00:00 Completed [facility] Pneumococcal Polysaccharide, PPSV23 (PNEUMOVAX) 2021-01-24 00:00:00 Completed [facility] Influenza Virus Vaccine Quad IM, Preserv and ABX Free 6 MO-64 YRS 2021-01-24 00:00:00 Completed [facility] Pneumococcal Polysaccharide, PPSV23 (PNEUMOVAX) 2021-01-24 00:00:00 Completed [facility] Influenza Virus Vaccine Quad IM, Preserv and ABX Free 6 MO-64 YRS 2021-01-24 00:00:00 Completed [facility] Pneumococcal Polysaccharide, PPSV23 (PNEUMOVAX) 2021-01-24 00:00:00 Completed [facility] Influenza Virus Vaccine Quad IM, Preserv and ABX Free 6 MO-64 YRS 2021-01-24 00:00:00 Completed [facility] Pneumococcal Polysaccharide, PPSV23 (PNEUMOVAX) 2021-01-24 00:00:00 Completed [facility] Influenza Virus Vaccine Quad IM, Preserv and ABX Free 6 MO-64 YRS 2021-01-24 00:00:00 Completed [facility] Pneumococcal Polysaccharide, PPSV23 (PNEUMOVAX) 2021-01-24 00:00:00 Completed [facility] Influenza Virus Vaccine Quad IM, Preserv and ABX Free 6 MO-64 YRS 2021-01-24 00:00:00 Completed [facility] Pneumococcal Polysaccharide, PPSV23 (PNEUMOVAX) 2021-01-24 00:00:00 Completed [facility] Influenza Virus Vaccine Quad IM, Preserv and ABX Free 6 MO-64 YRS (FLUCELVAX) 2021-01-24 00:00:00 Completed [facility] SARS-COV-2 COVID-19 PFIZER VACCINE 2020-06-13 00:00:00 Completed [facility] SARS-COV-2 COVID-19 PFIZER VACCINE 2020-06-13 00:00:00 Completed [facility] SARS-COV-2 COVID-19 PFIZER VACCINE 2020-06-13 00:00:00 Completed [facility] SARS-COV-2 COVID-19 PFIZER VACCINE 2020-06-13 00:00:00 Completed [facility] SARS-COV-2 COVID-19 PFIZER VACCINE 2020-06-13 00:00:00 Completed [facility] SARS-COV-2 COVID-19 PFIZER VACCINE 2020-06-13 00:00:00 Completed [facility] SARS-COV-2 COVID-19 PFIZER VACCINE 2020-06-13 00:00:00 Completed [facility] SARS-COV-2 COVID-19 PFIZER VACCINE 2020-05-12 00:00:00 Completed [facility] SARS-COV-2 COVID-19 PFIZER VACCINE 2020-05-12 00:00:00 Completed [facility] SARS-COV-2 COVID-19 PFIZER VACCINE 2020-05-12 00:00:00 Completed [facility] SARS-COV-2 COVID-19 PFIZER VACCINE 2020-05-12 00:00:00 Completed [facility] SARS-COV-2 COVID-19 PFIZER VACCINE 2020-05-12 00:00:00 Completed [facility] SARS-COV-2 COVID-19 PFIZER VACCINE 2020-05-12 00:00:00 Completed [facility] SARS-COV-2 COVID-19 PFIZER VACCINE 2020-05-12 00:00:00 Completed [facility] varicella varicella 2020-02-04 00:00:00 Completed Alberto Schumacher HPV9 HPV9 2020-02-04 00:00:00 Completed Alberto Schumacher HPV9 2020-02-04 00:00:00 Completed [facility] Varicella (varivax)(chicken pox) 2020-02-04 00:00:00 Completed [facility] HPV9 2020-02-04 00:00:00 Completed [facility] Varicella (varivax)(chicken pox) 2020-02-04 00:00:00 Completed [facility] HPV9 2020-02-04 00:00:00 Completed [facility] Varicella (varivax)(chicken pox) 2020-02-04 00:00:00 Completed [facility] HPV9 2020-02-04 00:00:00 Completed [facility] Varicella (varivax)(chicken pox) 2020-02-04 00:00:00 Completed [facility] HPV9 2020-02-04 00:00:00 Completed [facility] Varicella (varivax)(chicken pox) 2020-02-04 00:00:00 Completed [facility] HPV9 2020-02-04 00:00:00 Completed [facility] Varicella (varivax)(chicken pox) 2020-02-04 00:00:00 Completed [facility] HPV9 2020-02-04 00:00:00 Completed [facility] Varicella (varivax)(chicken pox) 2020-02-04 00:00:00 Completed [facility] TDAP 2019-12-10 00:00:00 Completed [facility] TDAP 2019-12-10 00:00:00 Completed [facility] TDAP 2019-12-10 00:00:00 Completed [facility] TDAP 2019-12-10 00:00:00 Completed [facility] TDAP 2019-12-10 00:00:00 Completed [facility] TDAP 2019-12-10 00:00:00 Completed [facility] TDAP 2019-12-10 00:00:00 Completed [facility] TDAP (ADACEL) VACCINE 2018-05-12 00:00:00 Completed [facility] TDAP (ADACEL) VACCINE 2018-05-12 00:00:00 Completed [facility] TDAP (ADACEL) VACCINE 2018-05-12 00:00:00 Completed [facility] TDAP (ADACEL) VACCINE 2018-05-12 00:00:00 Completed [facility] TDAP (ADACEL) VACCINE 2018-05-12 00:00:00 Completed [facility] TDAP (ADACEL) VACCINE 2018-05-12 00:00:00 Completed [facility] TDAP (ADACEL) VACCINE 2018-05-12 00:00:00 Completed [facility] PPD (TB) 2018-01-27 00:00:00 Completed [facility] PPD (TB) 2018-01-27 00:00:00 Completed [facility] PPD (TB) 2018-01-27 00:00:00 Completed [facility] PPD (TB) 2018-01-27 00:00:00 Completed [facility] PPD (TB) 2018-01-27 00:00:00 Completed [facility] PPD (TB) 2018-01-27 00:00:00 Completed [facility] PPD (TB) 2018-01-27 00:00:00 Completed [facility] PPD (TB) 2014-02-23 00:00:00 Completed [facility] PPD (TB) 2014-02-23 00:00:00 Completed [facility] PPD (TB) 2014-02-23 00:00:00 Completed [facility] PPD (TB) 2014-02-23 00:00:00 Completed [facility] PPD (TB) 2014-02-23 00:00:00 Completed [facility] PPD (TB) 2014-02-23 00:00:00 Completed [facility] PPD (TB) 2014-02-23 00:00:00 Completed [facility] Hep B, adult Hep B, adult 2012-11-20 00:00:00 Completed Alberto Schumacher meningococcal MCV4P meningococcal MCV4P 00:00:00 Completed Alberto Schumacher Hep B, adult Hep B, adult 2012-06-04 00:00:00 Completed Alberto Schumacher Hep B, adult Hep B, adult 2012-05-04 00:00:00 Completed Alberto Schumacher Influenza, seasonal, inj Influenza, seasonal, inj 2012-03-06 00:00:00 Completed Alberto Schumacher Hep B, adult Hep B, adult 2012-03-05 00:00:00 Completed Alberto Schumacher TDAP 2011-02-19 00:00:00 Completed [facility] Rubella 2011-02-19 00:00:00 Completed [facility] TDAP 2011-02-19 00:00:00 Completed [facility] Rubella 2011-02-19 00:00:00 Completed [facility] TDAP 2011-02-19 00:00:00 Completed [facility] Rubella 2011-02-19 00:00:00 Completed [facility] TDAP 2011-02-19 00:00:00 Completed [facility] Rubella 2011-02-19 00:00:00 Completed [facility] TDAP 2011-02-19 00:00:00 Completed [facility] Tdap Tdap 2011-02-19 00:00:00 Completed Alberto Augustine Endy Rubella 2011-02-19 00:00:00 Completed [facility] TDAP 2011-02-19 00:00:00 Completed [facility] Rubella 2011-02-19 00:00:00 Completed [facility] TDAP 2011-02-19 00:00:00 Completed [facility] Rubella 2011-02-19 00:00:00 Completed [facility] MMR MMR 1987-10-16 00:00:00 Completed Alberto Schumacher OPV OPV 1987-10-16 00:00:00 Completed Alberto Schumacher DTP DTP 1987-10-16 00:00:00 Completed Alberto Schumacher DTP DTP 1984-03-10 00:00:00 Completed Alberto Schumacher OPV OPV 1984-03-10 00:00:00 Completed Alberto Schumacher DTP DTP 1983 00:00:00 Completed Alberto Schumacher OPV OPV 1983 00:00:00 Completed Alberto Schumacher DTP DTP 1983 00:00:00 Completed Alberto Schumacher OPV OPV 1983 00:00:00 Completed Alberto Schumacher Rubella Unknown Completed [facility] PPD (TB) Unknown Completed [facility] PPD (TB) Unknown Completed [facility] TDAP Unknown Completed [facility] HPV9 Unknown Completed [facility] Varicella (varivax)(chicken pox) Unknown Completed [facility] SARS-COV-2 COVID-19 PFIZER VACCINE Unknown Completed [facility] Pneumococcal Polysaccharide, PPSV23 (PNEUMOVAX) Unknown Completed [facility] Influenza Virus Vaccine Quad IM, Preserv and ABX Free 6 MO-64 YRS (FLUCELVAX) Unknown Completed [facility] Rubella Unknown Completed [facility] PPD (TB) Unknown Completed [facility] PPD (TB) Unknown Completed [facility] TDAP Unknown Completed [facility] Rubella Unknown Completed [facility] PPD (TB) Unknown Completed [facility] PPD (TB) Unknown Completed [facility] TDAP Unknown Completed [facility] Rubella Unknown Completed [facility] TDAP Unknown Completed [facility] PPD (TB) Unknown Completed [facility] PPD (TB) Unknown Completed [facility] HPV9 Unknown Completed [facility] Varicella (varivax)(chicken pox) Unknown Completed [facility] SARS-COV-2 COVID-19 PFIZER VACCINE Unknown Completed [facility] Pneumococcal Polysaccharide, PPSV23 (PNEUMOVAX) Unknown Completed [facility] Influenza Virus Vaccine Quad IM, Preserv and ABX Free 6 MO-64 YRS (FLUCELVAX) Unknown Completed [facility] Vital Signs Vital Name Observation Time Observation Value Comments S ource Systolic blood pressure 2022-10-19 21:23:46 139 mm[Hg] [facility] Diastolic blood pressure 2022-10-19 21:23:46 73 mm[Hg] [facility] Heart rate 2022-10-19 21:23:46 96 /min [facility] Body temperature 2022-10-19 21:23:46 37.61 Ara [facility] Respiratory rate 2022-10-19 21:23:46 18 /min [facility] Oxygen saturation in Arterial blood by Pulse oximetry 2022-10-19 21:23:46 98 /min [facility] Body height 2022-10-19 20:03:00 162.6 cm [facility] Body weight 2022-10-19 20:03:00 102.059 kg [facility] BMI 2022-10-19 20:03:00 38.62 kg/m2 [facility] Systolic blood pressure 2022-06-12 18:04:00 128 mm[Hg] [facility] Diastolic blood pressure 2022-06-12 18:04:00 94 mm[Hg] [facility] Heart rate 2022-06-12 18:04:00 88 /min [facility] Body temperature 2022-06-12 18:04:00 37 Ara [facility] Respiratory rate 2022-06-12 18:04:00 18 /min [facility] Body weight 2022-06-12 18:04:00 93.895 kg [facility] BMI 2022-06-12 18:04:00 34.98 kg/m2 [facility] Oxygen saturation in Arterial blood by Pulse oximetry 2022-06-12 18:04:00 99 /min [facility] Systolic blood pressure 2021-12-09 16:00:00 128 mm[Hg] [facility] Diastolic blood pressure 2021-12-09 16:00:00 78 mm[Hg] [facility] Heart rate 2021-12-09 16:00:00 75 /min [facility] Respiratory rate 2021-12-09 16:00:00 18 /min [facility] Oxygen saturation in Arterial blood by Pulse oximetry 2021-12-09 16:00:00 99 /min [facility] Body temperature 2021-12-09 15:00:00 36.44 Ara [facility] Body weight 2021-12-09 13:49:00 93.895 kg [facility] BMI 2021-12-09 13:49:00 34.98 kg/m2 [facility] Systolic blood pressure 2021-08-17 20:49:00 126 mm[Hg] [facility] Diastolic blood pressure 2021-08-17 20:49:00 84 mm[Hg] [facility] Heart rate 2021-08-17 20:49:00 73 /min [facility] Body temperature 2021-08-17 20:49:00 37.56 Ara [facility] Respiratory rate 2021-08-17 20:49:00 18 /min [facility] Body height 2021-08-17 20:49:00 163.8 cm [facility] Body weight 2021-08-17 20:49:00 93.895 kg [facility] BMI 2021-08-17 20:49:00 34.98 kg/m2 [facility] Oxygen saturation in Arterial blood by Pulse oximetry 2021-08-17 20:49:00 99 /min [facility] BP Systolic 2024-02-04 16:59:00 148 mm[Hg] Step hen F Endy BP Diastolic 2024-02-04 16:59:00 97 mm[Hg] Javier phen F Endy Weight Measured 2024-02-04 16:59:00 205.80 pounds Alberto F Endy Height Measured 2024-02-04 16:59:00 64.00 inches Alberto F [facility] Body Temperature 2024-02-04 16:59:00 98.50 degrees Alberto F Endy Heart Rate 2024-02-04 16:59:00 63.00 /min Maria Elena en F Endy Respiratory Rate 2024-02-04 16:59:00 18.00 /min Alberto F Endy BP Systolic 2023-12-15 16:33:00 122 mm[Hg] Step hen F Endy BP Diastolic 2023-12-15 16:33:00 78 mm[Hg] Javier phen F Endy Weight Measured 2023-12-15 16:33:00 206.80 pounds Alberto F Endy Height Measured 2023-12-15 16:33:00 64.00 inches Alberto F Endy Body Temperature 2023-12-15 16:33:00 98.30 degrees Alberto F Endy Heart Rate 2023-12-15 16:33:00 66.00 /min Maria Elena en F Endy Respiratory Rate 2023-12-15 16:33:00 Alberto F Endy BP Systolic 2023-11-27 19:12:00 Step hen F Endy BP Diastolic 2023-11-27 19:12:00 Javier phen F Endy Weight Measured 2023-11-27 19:12:00 Alberto F Endy Height Measured 2023-11-27 19:12:00 Alberto F Endy Body Temperature 2023-11-27 19:12:00 Alberto F Endy Heart Rate 2023-11-27 19:12:00 Maria Elena en F Endy Respiratory Rate 2023-11-27 19:12:00 Alberto F Endy BP Systolic 2023-11-24 16:34:00 132 mm[Hg] Step hen F Endy BP Diastolic 2023-11-24 16:34:00 75 mm[Hg] Javier phen F Endy Weight Measured 2023-11-24 16:34:00 210.40 pounds Alberto F Endy Height Measured 2023-11-24 16:34:00 64.00 inches Alberto F Endy Body Temperature 2023-11-24 16:34:00 97.60 degrees Alberto F Endy Heart Rate 2023-11-24 16:34:00 62.00 /min Maria Elena en F Endy Respiratory Rate 2023-11-24 16:34:00 19.00 /min Alebrto F Endy BP Systolic 2023-10-21 17:22:00 Step hen F Endy BP Diastolic 2023-10-21 17:22:00 Javier phen F Endy Weight Measured 2023-10-21 17:22:00 208.60 pounds Alberto F Endy Height Measured 2023-10-21 17:22:00 64.00 inches Alberto F Endy Body Temperature 2023-10-21 17:22:00 98.00 degrees Alberto F Endy Heart Rate 2023-10-21 17:22:00 74.00 /min Maria Elena en F Endy Respiratory Rate 2023-10-21 17:22:00 19.00 /min Alberto F Endy BP Systolic 2023-10-21 17:15:00 124 mm[Hg] Step hen F Endy BP Diastolic 2023-10-21 17:15:00 81 mm[Hg] Javier phen F Endy Weight Measured 2023-10-21 17:15:00 208.60 pounds Alberto F Endy Height Measured 2023-10-21 17:15:00 64.00 inches Alberto F Endy Body Temperature 2023-10-21 17:15:00 98.00 degrees Alberto F Endy Heart Rate 2023-10-21 17:15:00 74.00 /min Maria Elena en F Endy Respiratory Rate 2023-10-21 17:15:00 19.00 /min Alberto F Endy BP Systolic 2023-09-24 16:07:00 128 mm[Hg] Step hen F Endy BP Diastolic 2023-09-24 16:07:00 82 mm[Hg] Javier phen F Endy Weight Measured 2023-09-24 16:07:00 209.60 pounds Alberto F Endy Height Measured 2023-09-24 16:07:00 64.00 inches Alberto F Endy Body Temperature 2023-09-24 16:07:00 98.00 degrees Alberto F Endy Heart Rate 2023-09-24 16:07:00 93.00 /min Maria Elena en F Endy Respiratory Rate 2023-09-24 16:07:00 18.00 /min Alberto F Endy BP Systolic 2023-06-26 14:02:00 114 mm[Hg] Step hen F Endy BP Diastolic 2023-06-26 14:02:00 72 mm[Hg] Javier phen F Endy Weight Measured 2023-06-26 14:02:00 212.00 pounds Alberto F Endy Height Measured 2023-06-26 14:02:00 64.00 inches Alberto F Endy Body Temperature 2023-06-26 14:02:00 98.50 degrees Alberto F Endy Heart Rate 2023-06-26 14:02:00 80.00 /min Maria Elena en F Endy Respiratory Rate 2023-06-26 14:02:00 18.00 /min Alberto F Endy BP Systolic 2023-05-07 13:30:00 128 mm[Hg] Step hen F Endy BP Diastolic 2023-05-07 13:30:00 86 mm[Hg] Javier phen F Endy Weight Measured 2023-05-07 13:30:00 211.00 pounds Alberto F Endy Height Measured 2023-05-07 13:30:00 64.00 inches Alberto F Endy Body Temperature 2023-05-07 13:30:00 98.50 degrees Alberto F Endy Heart Rate 2023-05-07 13:30:00 74.00 /min Maria Elena en F Endy Respiratory Rate 2023-05-07 13:30:00 17.00 /min Alberto F Endy BP Systolic 2023-04-22 16:04:00 115 mm[Hg] Step hen F Endy BP Diastolic 2023-04-22 16:04:00 79 mm[Hg] Javier phen F Endy Weight Measured 2023-04-22 16:04:00 212.60 pounds Alberto F Endy Height Measured 2023-04-22 16:04:00 64.00 inches Alberto F Endy Body Temperature 2023-04-22 16:04:00 98.20 degrees Alberto F Endy Heart Rate 2023-04-22 16:04:00 77.00 /min Maria Elena en F Endy Respiratory Rate 2023-04-22 16:04:00 18.00 /min Alberto F Endy BP Systolic 2023-03-25 16:52:00 134 mm[Hg] Step hen F Endy BP Diastolic 2023-03-25 16:52:00 82 mm[Hg] Javier phen F Endy Weight Measured 2023-03-25 16:52:00 214.20 pounds Alberto F Endy Height Measured 2023-03-25 16:52:00 64.00 inches Alberto F Endy Body Temperature 2023-03-25 16:52:00 98.40 degrees Alberto F Endy Heart Rate 2023-03-25 16:52:00 86.00 /min Maria Elena en F Endy Respiratory Rate 2023-03-25 16:52:00 Alberto F Endy BP Systolic 2022-12-25 16:31:00 115 mm[Hg] Step hen F Endy BP Diastolic 2022-12-25 16:31:00 78 mm[Hg] Javier phen F Endy Weight Measured 2022-12-25 16:31:00 217.00 pounds Alberto F Endy Height Measured 2022-12-25 16:31:00 64.00 inches Alberto F Endy Body Temperature 2022-12-25 16:31:00 98.20 degrees Alberto F Endy Heart Rate 2022-12-25 16:31:00 76.00 /min Maria Elena en F Endy Respiratory Rate 2022-12-25 16:31:00 19.00 /min Alberto F Endy BP Systolic 2022-09-16 09:11:00 121 mm[Hg] Step hen F Endy BP Diastolic 2022-09-16 09:11:00 80 mm[Hg] Javier phen F Endy Weight Measured 2022-09-16 09:11:00 224.80 pounds Alberto F Endy Height Measured 2022-09-16 09:11:00 64.00 inches Alberto F Endy Body Temperature 2022-09-16 09:11:00 98.80 degrees Alberto F Endy Heart Rate 2022-09-16 09:11:00 77.00 /min Maria Elena en F Endy Respiratory Rate 2022-09-16 09:11:00 Alberto F Endy BP Systolic 2022-05-22 15:05:00 142 mm[Hg] Step hen F Endy BP Diastolic 2022-05-22 15:05:00 92 mm[Hg] Javier phen F Endy Weight Measured 2022-05-22 15:05:00 224.20 pounds Alberto F Endy Height Measured 2022-05-22 15:05:00 64.00 inches Alberto F Endy Body Temperature 2022-05-22 15:05:00 98.60 degrees Alberto F Endy Heart Rate 2022-05-22 15:05:00 86.00 /min Maria Elena en F Endy Respiratory Rate 2022-05-22 15:05:00 18.00 /min Alberto F Endy BP Systolic 2022-03-18 13:34:00 133 mm[Hg] Step hen F Endy BP Diastolic 2022-03-18 13:34:00 90 mm[Hg] Javier phen F Endy Weight Measured 2022-03-18 13:34:00 219.60 pounds Alberto F Endy Height Measured 2022-03-18 13:34:00 64.00 inches Alberto F Endy Body Temperature 2022-03-18 13:34:00 98.00 degrees Alberto F Endy Heart Rate 2022-03-18 13:34:00 79.00 /min Maria Elena en F Endy Respiratory Rate 2022-03-18 13:34:00 16.00 /min Alberto F Endy BP Systolic 2021-09-21 13:44:00 129 mm[Hg] Step hen F Nedy BP Diastolic 2021-09-21 13:44:00 84 mm[Hg] Javier phen F Endy Weight Measured 2021-09-21 13:44:00 209.00 pounds Alberto F Endy Height Measured 2021-09-21 13:44:00 64.00 inches Alberto F Endy Body Temperature 2021-09-21 13:44:00 98.50 degrees Alberto F Endy Heart Rate 2021-09-21 13:44:00 76.00 /min Maria Elena en F Endy Respiratory Rate 2021-09-21 13:44:00 Alberto F Endy BP Systolic 2021-09-04 15:10:00 119 mm[Hg] Step hen F Endy BP Diastolic 2021-09-04 15:10:00 82 mm[Hg] Javier Schumacher Weight Measured 2021-09-04 15:10:00 208.60 pounds Alberto Schumacher Height Measured 2021-09-04 15:10:00 64.00 inches Alberto Augustine Schumacher Body Temperature 2021-09-04 15:10:00 97.50 degrees Alberto Schumacher Heart Rate 2021-09-04 15:10:00 78.00 /min Maria Elena en Augustine Schumacher Respiratory Rate 2021-09-04 15:10:00 Albertoshireen Schumacher BP Systolic 2021-08-23 14:52:00 115 mm[Hg] BP [...] OF RESEARCH PARTICIPATION 2022-12-25 06:01:00 Doctor Unassigned, [place] [facility] COVID-19 (ID NOW RAPID TESTING) 2022-10-19 20:13:00 Blessing Cummings [facility] NOTICE OF PRIVACY PRACTICES 2022-10-19 19:58:31 Doctor Unassigned, [place] [facility] CONSENT/REFUSAL FOR DIAGNOSIS AND TREATMENT 2022-10-19 19:55:21 Doctor Unassigned, [place] [facility] CT ABDOMEN PELVIS WO CONTRAST 2022-06-12 18:54:00 Cornel Goodwin [facility] POCT TEST 2022-06-12 18:29:00 Cornel Goodwin [facility] URINALYSIS 2022-06-12 18:27:00 [facility] CONSENT/REFUSAL FOR DIAGNOSIS AND TREATMENT 2022-06-12 17:55:01 Doctor Unassigned, [place] [facility] CT ABDOMEN PELVIS W CONTRAST 2021-12-09 15:14:01 Michelle Cordova [facility] POCT TEST 2021-12-09 14:14:00 Kirstin Cordova [facility] LIPASE 2021-12-09 14:12:00 Michelle Cordova [facility] COMP. METABOLIC PANEL (92414) 2021-12-09 14:12:00 Michelle Cordova [facility] CBC WITH DIFF 2021-12-09 14:12:00 Michelle Cordova [facility] URINALYSIS 2021-12-09 14:12:00 Michelle Cordova [facility] CONSENT/REFUSAL FOR DIAGNOSIS AND TREATMENT 2021-12-09 13:44:55 Doctor Unassigned, [place] [facility] REFERRAL- REQUEST/RESPONSE 2021-09-04 05:01:00 Doctor Unassigned, [place] [facility] POCT URINALYSIS 2021-08-17 00:00:00 Vannesa Andrews [facility] POCT TEST 2021-08-17 00:00:00 Vannesa Andrews [facility] Plan of Care Planned Activity Planned Date Details Comments Source Goal Plan of Care Note [code = 29542-5] Goal Plan of Care Note [code = 95267-7] Goal Plan of Care Note [code = 88466-6] Goal Plan of Care Note [code = 84061-4] Goal Plan of Care Note [code = 08528-8] Goal Plan of Care Note [code = 99656-0] Goal Plan of Care Note [code = 23504-4] Goal Plan of Care Note [code = 04820-9] Goal Plan of Care Note [code = 03563-0] Goal Plan of Care Note [code = 59715-5] Goal Plan of Care Note [code = 27503-7] Goal Plan of Care Note [code = 10927-9] Goal Plan of Care Note [code = 19568-5] Goal Plan of Care Note [code = 23880-8] Goal Plan of Care Note [code = 59020-7] Goal Plan of Care Note [code = 42046-4] Goal Plan of Care Note [code = 81615-4] Goal Plan of Care Note [code = 45427-1] Goal Plan of Care Note [code = 74342-9] Goal Plan of Care Note [code = 08810-7] Goal Plan of Care Note [code = 48906-8] Goal Plan of Care Note [code = 22065-3] Goal Plan of Care Note [code = 07350-6] Goal Plan of Care Note [code = 57399-2] Goal Plan of Care Note [code = 66738-8] Goal Plan of Care Note [code = 33651-5] Goal Plan of Care Note [code = 21945-5] Goal Plan of Care Note [code = 95507-6] Goal Plan of Care Note [code = 69311-8] Goal Plan of Care Note [code = 05981-7] Goal Plan of Care Note [code = 61735-9] Goal Plan of Care Note [code = 33024-4] Goal Plan of Care Note [code = 60410-9] Goal Plan of Care Note [code = 43129-1] Goal Plan of Care Note [code = 53634-8] Goal Plan of Care Note [code = 88766-2] Goal Plan of Care Note [code = 76552-6] Goal Plan of Care Note [code = 38143-6] Goal Plan of Care Note [code = 19850-4] Goal Plan of Care Note [code = 88088-0] Goal Plan of Care Note [code = 46982-7] Goal Plan of Care Note [code = 23544-4] Goal Plan of Care Note [code = 81993-2] Goal Plan of Care Note [code = 10442-8] Goal Plan of Care Note [code = 05568-1] Goal Plan of Care Note [code = 35438-6] Goal Plan of Care Note [code = 42879-5] Goal Plan of Care Note [code = 19208-6] Goal Plan of Care Note [code = 04663-0] Goal Plan of Care Note [code = 90158-1] Goal Plan of Care Note [code = 21459-7] Goal Plan of Care Note [code = 59846-6] Goal Plan of Care Note [code = 27443-7] Goal Plan of Care Note [code = 81076-6] Goal Plan of Care Note [code = 02292-2] Goal Plan of Care Note [code = 89589-8] Goal Plan of Care Note [code = 09424-5] Goal Plan of Care Note [code = 02335-5] Goal Plan of Care Note [code = 21080-3] Goal Plan of Care Note [code = 68547-8] Goal Plan of Care Note [code = 95769-6] Goal Plan of Care Note [code = 58659-9] Goal Plan of Care Note [code = 75709-8] Goal Plan of Care Note [code = 34689-7] Goal Plan of Care Note [code = 44660-1] Goal Plan of Care Note [code = 27388-1] Goal Plan of Care Note [code = 57603-2] Goal Plan of Care Note [code = 98471-9] Goal Plan of Care Note [code = 46053-5] Goal Plan of Care Note [code = 88592-6] Goal Plan of Care Note [code = 90064-2] Goal Plan of Care Note [code = 89164-7] Goal Plan of Care Note [code = 49959-5] Goal Plan of Care Note [code = 57092-6] Goal Plan of Care Note [code = 07312-0] Goal Plan of Care Note [code = 14688-6] Goal Plan of Care Note [code = 88481-1] Goal Plan of Care Note [code = 85643-4] Goal Plan of Care Note [code = 75479-0] Goal Plan of Care Note [code = 80740-4] Goal Plan of Care Note [code = 35388-6] Goal Plan of Care Note [code = 34540-8] Goal Plan of Care Note [code = 44483-0] Goal Plan of Care Note [code = 93831-4] Goal Plan of Care Note [code = 41410-6] Goal Plan of Care Note [code = 24868-3] Goal Plan of Care Note [code = 98009-9] Goal Plan of Care Note [code = 65242-3] Goal Plan of Care Note [code = 01657-0] Goal Plan of Care Note [code = 18331-8] Goal Plan of Care Note [code = 02922-5] Goal Plan of Care Note [code = 37633-6] Goal Plan of Care Note [code = 60013-3] Goal Plan of Care Note [code = 37956-9] Goal Plan of Care Note [code = 66269-7] Goal Plan of Care Note [code = 08249-2] Goal Plan of Care Note [code = 98558-3] Goal Plan of Care Note [code = 47590-2] Goal Plan of Care Note [code = 21510-8] Goal Plan of Care Note [code = 86985-8] Goal Plan of Care Note [code = 41427-2] Goal Plan of Care Note [code = 78489-4] Goal Plan of Care Note [code = 95931-7] Goal Plan of Care Note [code = 43951-2] Goal Plan of Care Note [code = 74327-3] Goal Plan of Care Note [code = 16779-7] Goal Plan of Care Note [code = 85653-5] Goal Plan of Care Note [code = 36330-0] Goal Plan of Care Note [code = 32734-5] Goal Plan of Care Note [code = 19227-5] Goal Plan of Care Note [code = 51000-3] Goal Plan of Care Note [code = 04335-6] Goal Plan of Care Note [code = 74164-4] Goal Plan of Care Note [code = 68939-3] Goal Plan of Care Note [code = 63105-0] Goal Plan of Care Note [code = 84155-3] Goal Plan of Care Note [code = 74306-9] Goal Plan of Care Note [code = 68410-3] Goal Plan of Care Note [code = 91154-9] Goal Plan of Care Note [code = 47729-2] Goal Plan of Care Note [code = 51590-0] Goal Plan of Care Note [code = 37785-7] Goal Plan of Care Note [code = 27769-6] Goal Plan of Care Note [code = 96858-9] Goal Plan of Care Note [code = 50619-7] Goal Plan of Care Note [code = 24618-2] Goal Plan of Care Note [code = 27789-2] Goal Plan of Care Note [code = 14987-5] Goal Plan of Care Note [code = 94255-2] Goal Plan of Care Note [code = 22294-6] Goal Plan of Care Note [code = 34498-5] Goal Plan of Care Note [code = 84880-0] Goal Plan of Care Note [code = 94504-2] Goal Plan of Care Note [code = 32295-1] Goal Plan of Care Note [code = 29988-9] Goal Plan of Care Note [code = 75379-8] Goal Plan of Care Note [code = 33055-9] Goal Plan of Care Note [code = 74402-4] Goal Plan of Care Note [code = 22086-6] Goal Plan of Care Note [code = 82695-1] Goal Plan of Care Note [code = 10782-4] Goal Plan of Care Note [code = 10494-5] Goal Plan of Care Note [code = 00790-0] Goal Plan of Care Note [code = 85043-6] Goal Plan of Care Note [code = 32844-6] Goal Plan of Care Note [code = 80787-8] Goal Plan of Care Note [code = 11473-8] Goal Plan of Care Note [code = 85222-8] Goal Plan of Care Note [code = 64159-2] Goal Plan of Care Note [code = 68857-2] Goal Plan of Care Note [code = 92070-3] Goal Plan of Care Note [code = 21565-3] Goal Plan of Care Note [code = 75723-5] Goal Plan of Care Note [code = 96154-4] Goal Plan of Care Note [code = 84938-7] Goal Plan of Care Note [code = 33073-1] Goal Plan of Care Note [code = 18724-7] Goal Plan of Care Note [code = 57172-6] Goal Plan of Care Note [code = 43914-9] Goal Plan of Care Note [code = 63863-7] Goal Plan of Care Note [code = 71063-2] Goal Plan of Care Note [code = 16524-5] Goal Plan of Care Note [code = 78927-3] Goal Plan of Care Note [code = 86884-1] Goal Plan of Care Note [code = 89314-5] Goal Plan of Care Note [code = 37065-8] Goal Plan of Care Note [code = 97791-8] Goal Plan of Care Note [code = 96244-0] Goal Plan of Care Note [code = 53897-6] Goal Plan of Care Note [code = 70276-4] Goal Plan of Care Note [code = 38948-8] Goal Plan of Care Note [code = 59845-6] Goal Plan of Care Note [code = 32925-0] Goal Plan of Care Note [code = 00838-9] Goal Plan of Care Note [code = 87792-8] Goal Plan of Care Note [code = 17490-1] Goal Plan of Care Note [code = 23994-8] Goal Plan of Care Note [code = 39183-0] Goal Plan of Care Note [code = 42934-1] Goal Plan of Care Note [code = 99770-8] Goal Plan of Care Note [code = 65453-2] Goal Plan of Care Note [code = 52821-4] Goal Plan of Care Note [code = 85413-2] Goal Plan of Care Note [code = 78033-8] Goal Plan of Care Note [code = 54968-8] Goal Plan of Care Note [code = 71093-7] Goal Plan of Care Note [code = 65504-0] Goal Plan of Care Note [code = 13988-3] Goal Plan of Care Note [code = 30813-3] Goal Plan of Care Note [code = 95812-1] Goal Plan of Care Note [code = 92398-5] Goal Plan of Care Note [code = 59694-8] Goal Plan of Care Note [code = 23867-3] Goal Plan of Care Note [code = 00717-1] Goal Plan of Care Note [code = 06689-3] Goal Plan of Care Note [code = 56032-1] Goal Plan of Care Note [code = 46230-6] Goal Plan of Care Note [code = 54541-7] Goal Plan of Care Note [code = 51594-5] Goal Plan of Care Note [code = 69525-5] Goal Plan of Care Note [code = 51827-6] Goal Plan of Care Note [code = 50597-0] Goal Plan of Care Note [code = 24659-3] Goal Plan of Care Note [code = 87781-6] Goal Plan of Care Note [code = 73154-5] Goal Plan of Care Note [code = 54945-4] Goal Plan of Care Note [code = 89182-3] Goal Plan of Care Note [code = 75107-7] Goal Plan of Care Note [code = 96968-1] Goal Plan of Care Note [code = 03072-0] Goal Plan of Care Note [code = 17895-2] Goal Plan of Care Note [code = 09438-3] Goal Plan of Care Note [code = 98265-0] Goal Plan of Care Note [code = 56937-5] Goal Plan of Care Note [code = 76529-3] Goal Plan of Care Note [code = 20614-7] Goal Plan of Care Note [code = 92977-0] Goal Plan of Care Note [code = 12910-7] Goal Plan of Care Note [code = 85698-7] Goal Plan of Care Note [code = 40060-1] Goal Plan of Care Note [code = 66591-0] Goal Plan of Care Note [code = 91617-0] Goal Plan of Care Note [code = 47731-5] Goal Plan of Care Note [code = 75890-6] Goal Plan of Care Note [code = 53012-2] Goal Plan of Care Note [code = 29341-3] Goal Plan of Care Note [code = 75929-4] Goal Plan of Care Note [code = 94708-7] Goal Plan of Care Note [code = 25823-4] Goal Plan of Care Note [code = 81340-9] Goal Plan of Care Note [code = 90693-5] Goal Plan of Care Note [code = 55917-2] Goal Plan of Care Note [code = 41315-6] Goal Plan of Care Note [code = 18487-3] Goal Plan of Care Note [code = 43528-3] Goal Plan of Care Note [code = 25859-9] Goal Plan of Care Note [code = 30391-6] Goal Plan of Care Note [code = 60370-0] Goal Plan of Care Note [code = 71238-4] Goal Plan of Care Note [code = 65551-0] Goal Plan of Care Note [code = 45405-9] Goal Plan of Care Note [code = 08474-6] Goal Plan of Care Note [code = 38532-6] Goal Plan of Care Note [code = 70171-4] Goal Plan of Care Note [code = 37699-0] Goal Plan of Care Note [code = 58028-9] Goal Plan of Care Note [code = 39237-1] Goal Plan of Care Note [code = 10105-6] Goal Plan of Care Note [code = 72046-9] Goal Plan of Care Note [code = 50508-5] Goal Plan of Care Note [code = 94791-4] Goal Plan of Care Note [code = 72161-0] Goal Plan of Care Note [code = 44714-7] Goal Plan of Care Note [code = 18216-6] Goal Plan of Care Note [code = 93949-7] Goal Plan of Care Note [code = 37303-1] Goal Plan of Care Note [code = 12812-7] Goal Plan of Care Note [code = 54973-3] Goal Plan of Care Note [code = 13473-6] Goal Plan of Care Note [code = 94110-3] Goal Plan of Care Note [code = 82037-5] Goal Plan of Care Note [code = 55951-1] Goal Plan of Care Note [code = 69967-9] Goal Plan of Care Note [code = 74492-2] Goal Plan of Care Note [code = 06288-3] Goal Plan of Care Note [code = 58524-5] Goal Plan of Care Note [code = 33789-9] Goal Plan of Care Note [code = 08023-2] Goal Plan of Care Note [code = 02074-2] Goal Plan of Care Note [code = 22516-0] Goal Plan of Care Note [code = 57702-5] Goal Plan of Care Note [code = 74535-6] Goal Plan of Care Note [code = 27849-1] Goal Plan of Care Note [code = 18498-3] Goal Plan of Care Note [code = 89808-3] Encounters Start Date/Time End Date/Time Encounter Type Admission Type Attending [facility] Care Facility Care Department Encounter ID Source 2020-12-16 11:47:[address] [facility] [id number] [facility] 2020-12-16 07:40:[address] [facility] [id number] [facility] 2020-12-15 18:25:[address] [facility] [id number] [facility] 2020-12-15 05:40:[address] [facility] [id number] [facility] 2020-12-14 22:52:[address] [facility] [id number] [facility] 2020-12-14 14:12:[address] [facility] [id number] [facility] 2024-02-04 16:57:57 2024-02-04 16:57:57 Outpatient SFA SFA [id number] Alberto Schumacher 2024-02-04 00:00:00 2024-02-04 00:00:00 Outpatient Visit SFA [id number] Alberto Schumacher 2023-12-28 09:24:28 2023-12-28 09:24:28 Outpatient SFA SFA [id number] Alberto Schumacher 2023-12-28 00:00:00 2023-12-28 00:00:00 Outpatient Visit SFA [id number] Ablerto Schumacher 2023-12-15 16:27:21 2023-12-15 16:27:21 Outpatient SFA SFA [id number] Alberto Schumacher 2023-12-15 00:00:00 2023-12-15 00:00:00 Outpatient Visit SFA [id number] Alberto Schumacher 2023-11-27 19:12:19 2023-11-27 19:12:19 Outpatient SFA SFA [id number] Alberto Schumacher 2023-11-27 00:00:00 2023-11-27 00:00:00 Outpatient Visit SFA [id number] Alberto Schumacher 2023-11-24 16:13:31 2023-11-24 16:13:31 Outpatient SFA SFA [id number] Alberto Schumacher 2023-11-24 00:00:00 2023-11-24 00:00:00 Outpatient Visit SFA [id number] Alberto Schumacher 2023-10-21 17:12:10 2023-10-21 17:12:10 Outpatient SFA SFA [id number] Alberto Schumacher 2023-10-21 00:00:00 2023-10-21 00:00:00 Outpatient Visit SFA [id number] Alberto Schumacher 2023-09-24 16:06:46 2023-09-24 16:06:[address] [facility] [id number] Alberto Schumacher 2023-09-24 00:00:00 2023-09-24 00:00:00 Outpatient Visit SFA [id number] Alberto Schumacher 2023-06-26 00:00:00 2023-06-26 00:00:00 Outpatient Visit SFA [id number] Alberto Schumacher 2023-05-07 13:22:28 2023-05-07 13:22:[address] [facility] [id number] Alberto Schumacher 2023-04-22 16:01:01 2023-04-22 16:01:[address] [facility] [id number] Alberto Schumacher 2023-03-25 16:53:31 2023-03-25 16:53:[address] [facility] [id number] Alberto Schumacher 2023-01-29 00:00:00 2023-01-29 00:00:00 Outpatient R RADIOLOGY [facility] [id number] [facility] 2022-12-30 14:00:00 2022-12-30 14:00:00 Outpatient R OBI-CHELO , [place] OBI-Janes WHITNEYZOMA [facility] [id number] [facility] 2022-12-25 16:24:30 2022-12-25 16:24:30 Outpatient [facility] [id number] Alberto Schumacher 2022-12-25 00:00:00 2022-12-25 00:00:00 Orders Only Doctor Unassigned, [place] [facility] 1..840.114 350.1.13.10 4.2.7.2.686 [id number] [facility] 2022-10-19 15:09:00 2022-10-19 16:31:00 Emergency X BLESSING CUMMINGS [facility] ERT [id number] [facility] 2022-10-19 15:09:00 2022-10-19 16:31:00 Emergency Blessing Cummings Shelli [facility] 1..840.114 350.1.13.10 4.2.7.2.686 [id number] [facility] 2022-09-16 09:05:16 2022-09-16 09:05:16 Outpatient [facility] [id number] Alberto Schumacher 2022-08-21 19:56:26 2022-08-21 19:56:26 Outpatient [facility] [id number] Alberto Schumacher 2022-06-12 13:05:00 2022-06-12 15:27:00 Emergency X CORNEL GOODWIN [facility] ERT [id number] [facility] 2022-06-12 13:05:00 2022-06-12 15:27:00 Emergency Cornel Goodwin [facility] 1..840.114 350.1.13.10 4.2.7.2.686 [id number] [facility] 2022-05-22 14:56:47 2022-05-22 14:56:47 Outpatient [facility] [id number] Alberto Schumacher 2022-03-18 13:29:09 2022-03-18 13:29:09 Outpatient [facility] [id number] Alberto Schumacher 2022-02-12 00:00:00 2022-02-12 00:00:00 Outpatient Visit [id number] [id number] 2022-01-08 00:00:00 2022-01-08 00:00:00 Outpatient Visit [id number] 2021-12-09 08:52:00 2021-12-09 11:25:00 Emergency X MICHELLE CORDOVA [facility] [id number] [facility] 2021-12-09 08:52:00 2021-12-09 11:25:00 Emergency Michelle Cordova [facility] 1.2.840.114 350.1.13.10 4.2.7.2.686 [id number] [facility] 2021-12-05 00:00:00 2021-12-05 00:00:00 Outpatient Visit [id number] 2021-09-27 00:00:00 2021-09-27 00:00:00 Outpatient Visit [id number] 2021-09-21 00:00:00 2021-09-21 00:00:00 Outpatient Visit [id number] 2021-09-10 00:00:00 2021-09-10 00:00:00 Patient Secure Msg Doctor Unassigned, [place] [facility] 1.2.840.114 350.1.13.10 4.2.7.2.686 [id number] [facility] 2021-09-04 00:00:00 2021-09-04 00:00:00 Outpatient Visit [id number] 2021-09-04 00:00:00 2021-09-04 00:00:00 Orders Only Doctor Unassigned, [place] [facility] 1.2.840.114 350.1.13.10 4.2.7.2.686 [id number] [facility] 2021-08-23 10:45:00 2021-08-23 10:45:00 Outpatient R DAQUAN SOL [facility] [id number] [facility] 2021-08-23 00:00:00 2021-08-23 00:00:00 Outpatient Visit [id number] 2021-08-19 00:00:00 2021-08-19 00:00:00 [facility] 1.2.840.114 350.1.13.10 4.2.7.2.686 [id number] [facility] 2021-08-17 15:40:00 2021-08-17 16:34:51 Outpatient R VANNESA ANDREWS [facility] [id number] [facility] 2021-08-17 15:40:00 2021-08-17 16:34:51 Urgent Care Jeffrey Andrewssuzanne [facility] BRANDY?ZACHERY [facility] 1..840.114 350.1.13.10 4.2.7.2.686 [id number] [facility] 2021-08-17 15:40:00 2021-08-17 15:40:00 Outpatient R VANNESA ANDREWS [facility] [id number] [facility] 2021-08-17 00:00:00 2021-08-17 00:00:00 Telephone ValenciaNed [facility] ASSET CARD CLERK [facility]ERNAL & [facility] 1..840.114 350.1.13.10 4.2.7.2.686 [id number] [facility] 2021-08-17 00:00:00 2021-08-17 00:00:00 Orders Only Doctor Unassigned, [place] [facility] 1..840.114 350.1.13.10 4.2.7.2.686 [id number] [facility] 2021-08-16 00:00:00 2021-08-16 00:00:00 Outpatient Visit [id number] 2021 16:00:00 2021 19:19:00 Emergency X BLANCA CAMARGO [facility] ERT [id number] [facility] 2021 16:00:00 2021 19:19:00 Emergency Blanca Camargo [facility] 1..840.114 350.1.13.10 4.2.7.2.686 [id number] [facility] 2021-01-25 00:00:00 2021-01-25 00:00:00 Transition of Care Saige Young RAFAEL HOWARD 1..114 350.1.13.10 4.2.7.2.686 [id number] [facility] 2021-01-22 15:10:00 2021-01-24 15:40:00 [facility] 1..114 350.1.13.10 4.2.7.2.686 [id number] [facility] 2021-01-21 20:59:00 2021-01-22 00:55:00 Emergency X BLANCA CAMARGO [facility] ERT [id number] [facility] 2021-01-21 20:59:00 2021-01-22 00:55:00 Emergency Blanca Camargo [facility] 1..114 350.1.13.10 4.2.7.2.686 [id number] [facility] 2021-01-21 20:59:00 2021-01-22 00:55:00 Emergency X BLANCA CAMARGO [facility] ERT [id number] [facility] 2021-01-21 00:00:00 2021-01-21 00:00:00 Orders Only Doctor Unassigned, [place] [facility] 1..114 350.1.13.10 4.2.7.2.686 [id number] [facility] 2020-10-01 00:00:00 2020-10-01 00:00:00 Ned Fitzgerald [facility] ASSET CARD CLERK [facility] MATERNAL & [facility]ILD [facility] 1..114 350.1.13.10 4.2.7.2.686 [id number] [facility] 2020-09-19 00:00:00 2020-09-19 00:00:00 Telephone Rachel Duval 1.2.840.114 350.1.13.10 4.2.7.2.686 [id number] [facility] 2020-06-13 13:20:00 2020-06-13 13:20:00 Outpatient MORTEZA GARCIA [facility] [id number] [facility] 2020-06-02 12:40:00 2020-06-02 12:40:00 Outpatient VAN WHITAKER [facility] [id number] [facility] 2020-05-12 12:40:00 2020-05-12 12:40:00 Outpatient MOTREZA ROTH [facility] [id number] [facility] 2020-05-08 00:00:00 2020-05-08 00:00:00 Patient Outreach Morteza Roth [facility] 1.2.840.114 350.1.13.10 4.2.7.2.686 [id number] [facility] 2020-04-10 00:00:00 2020-04-10 00:00:00 Daquan Garcia [facility] ASSET CARD CLERK [facility] MATERNAL & CHILD [facility] 1.2.840.114 350.1.13.10 4.2.7.2.686 [id number] [facility] 2020-03-21 14:33:05 2020-03-21 15:32:37 Office Visit Ned Valencia [facility] ASSET CARD CLERK [facility] MATERNAL & CHILD [facility] 1.2.840.114 350.1.13.10 4.2.7.2.686 [id number] [facility] 2020-03-21 14:30:00 2020-03-21 14:30:00 Outpatient NED DHALIWAL [facility] [id number] [facility] 2020-03-21 00:00:00 2020-03-21 00:00:00 RefLeidy Flanagandouglas Floyd [facility] ASSET CARD CLERK [facility] MATERNAL & CHILD [facility] 1..840.114 350.1.13.10 4.2.7.2.686 [id number] [facility] 2020-02-25 10:17:38 2020-02-25 10:32:38 Routine Visit Ned Valencia [facility] ASSET CARD CLERK [facility] & CHILD [facility] 1.2.840.114 350.1.13.10 4.2.7.2.686 [id number] [facility] 2020-02-25 10:15:00 2020-02-25 10:15:00 Outpatient Everett MENJIVARENED [facility] [id number] [facility] 2020-02-12 17:00:00 2020-02-12 17:00:00 Outpatient SHAR PATTERSON [facility] [id number] [facility] 2020-02-12 00:00:00 2020-02-12 00:00:00 Telephone Ned Valencia [facility] ASSET CARD CLERK [facility] & CHILD [facility] 1..840.114 350.1.13.10 4.2.7.2.686 [id number] [facility] 2020-02-07 14:00:00 2020-02-07 14:00:00 Outpatient R DAQUAN SOL [facility] [id number] [facility] 2020-02-02 10:54:52 2020-02-02 11:51:27 Routine Visit Daquan Sol [facility] ASSET CARD CLERK [facility] MATERNAL & CHILD [facility] 1.2.840.114 350.1.13.10 4.2.7.2.686 [id number] [facility] 2020-02-02 08:00:00 2020-02-02 08:00:00 Outpatient R DAQUAN SOL [facility] [id number] [facility] 2020-02-02 00:00:00 2020-02-02 00:00:00 Telephone Daquna Sol [facility] ASSET CARD CLERK [facility] & CHILD [facility] 1..840.114 350.1.13.10 4.2.7.2.686 [id number] [facility] 2020-02-01 15:30:00 2020-02-01 15:30:00 Outpatient R DAQUAN SOL [facility] [id number] [facility] 2020-02-01 00:00:00 2020-02-01 00:00:00 Patient Secure Msg Doctor Unassigned, [place] [facility] ASSET CARD CLERK [facility] & CHILD [facility] 1..840.114 350.1.13.10 4.2.7.2.686 [id number] [facility] 2020-01-31 10:41:46 2020-01-31 11:18:47 Routine Visit Daquan Sol [facility] ASSET CARD CLERK [facility] & CHILD [facility] 1..840.114 350.1.13.10 4.2.7.2.686 [id number] [facility] 2020-01-31 10:45:00 2020-01-31 10:45:00 Outpatient R DAQUAN SOL [facility] [id number] [facility] 2020-01-17 14:00:00 2020-01-17 14:00:00 Outpatient R DAQUAN SOL [facility] [id number] [facility] 2020-01-17 00:00:00 2020-01-17 00:00:00 Telephone Daquan Sol [facility] ASSET CARD CLERK [facility] & [facility]ILD [facility] 1..840.114 350.1.13.10 4.2.7.2.686 [id number] [facility] 2020-01-13 00:00:00 2020-01-13 00:00:00 Patient Secure Msg Doctor Unassigned, [place] [facility] 1.2840.114 350.1.13.10 4.2.7.2.686 [id number] [facility] 2020-01-11 22:23:00 2020-01-11 22:50:00 Emergency Blessing Cummings Shelli [facility] 1.2840.114 350.1.13.10 4.2.7.2.686 [id number] [facility] 2020-01-11 00:00:00 2020-01-11 00:00:00 Orders Only Doctor Unassigned, [place] [facility] 1.2840.114 350.1.13.10 4.2.7.2.686 [id number] [facility] 2020-01-05 12:51:49 2020-01-05 13:06:49 Routine Visit Daquan Sol [facility] ASSET CARD CLERK [facility] MATERNAL & CHILD [facility] 1.84.114 350.1.13.10 4.2.7.2.686 [id number] [facility] 2020-01-05 13:00:00 2020-01-05 13:00:00 Outpatient R DAQUAN SOL [facility] [id number] [facility] 2019-12-29 14:37:14 2019-12-29 15:23:00 Routine Visit Ned Valencia [facility] ASSET CARD CLERK [facility] MATERNAL & CHILD [facility] 1.84.114 350.1.13.10 4.2.7.2.686 [id number] [facility] 2019-12-29 14:30:00 2019-12-29 14:30:00 Outpatient R NED VALENCIA [facility] [id number] [facility] 2019-12-22 09:27:33 2019-12-22 10:09:17 Routine Visit Daquan Sol [facility] ASSET CARD CLERK [facility] 1.2840.114 350.1.13.10 4.2.7.2.686 [id number] [facility] 2019-12-22 09:15:00 2019-12-22 09:15:00 Outpatient R DAQUAN SOL [facility] [id number] [facility] 2019-12-10 10:53:10 2019-12-10 12:16:26 Routine Visit Daquan Sol [facility] ASSET CARD CLERK [facility] & [facility]ILD [facility] 1.840.114 350.1.13.10 4.2.7.2.686 [id number] [facility] 2019-12-10 10:45:00 2019-12-10 10:45:00 Outpatient R DAQUAN SOL [facility] [id number] [facility] 2019-12-10 00:00:00 2019-12-10 00:00:00 Orders Only Doctor Unassigned, [place] [facility] 1.840.114 350.1.13.10 4.2.7.2.686 [id number] [facility] 2019-12-01 14:00:00 2019-12-01 14:00:00 Outpatient R DAQUAN SOL [facility] [id number] [facility] 2019-11-28 00:00:00 2019-11-28 00:00:00 Stephanie Matias [facility] ASSET CARD CLERK [facility] MATERNAL & CHILD [facility] 1.840.114 350.1.13.10 4.2.7.2.686 [id number] [facility] 2019-11-25 13:04:07 2019-11-25 13:21:28 Farm Equipment Technician Visit Lab, Ang-Rmchp Daquan Sol [facility] ASSET CARD CLERK [facility] & CHILD [facility] 1.2840.114 350.1.13.10 4.2.7.2.686 [id number] [facility] 2019-11-25 08:00:00 2019-11-25 08:00:00 Outpatient R [facility] [id number] [facility] 2019-11-24 09:00:00 2019-11-24 09:00:00 Outpatient R [facility] [id number] [facility] 2019-11-19 13:30:00 2019-11-19 13:30:00 Outpatient R [facility] [id number] [facility] 2019-11-17 15:24:01 2019-11-17 16:03:31 Routine Visit Daquan Sol [facility] ASSET CARD CLERK [facility] MATERNAL & CHILD [facility] 1..840.114 350.1.13.10 4.2.7.2.686 [id number] [facility] 2019-11-17 15:30:00 2019-11-17 15:30:00 Outpatient R DAQUAN SOL [facility] [id number] [facility] 2019-11-06 01:32:00 2019-11-06 03:45:00 Emergency Jaciel Quiles [facility] 1.2.840.114 350.1.13.10 4.2.7.2.686 [id number] [facility] 2019-11-02 10:45:00 2019-11-02 10:45:00 Outpatient R DAQUAN SOL [facility] [id number] [facility] 2019-10-19 00:00:00 2019-10-19 00:00:00 Nurse Triage Abigail Rocha [facility] 1..840.114 350.1.13.10 4.2.7.2.686 [id number] [facility] 2019-10-05 10:12:52 2019-10-05 11:01:20 Routine Visit Daquan Sol [facility] ASSET CARD CLERK [facility] CHILD [facility] 1.0.114 350.1.13.10 4.2.7.2.686 [id number] [facility] 2019-10-05 10:00:00 2019-10-05 10:00:00 Outpatient R DAQUAN SOL [facility] [id number] [facility] 2019-10-03 00:00:00 2019-10-03 00:00:00 Nurse Triage Kelly Ramos [facility] 1..114 350.1.13.10 4.2.7.2.686 [id number] [facility] 2019-09-27 00:00:00 2019-09-27 00:00:00 Abstract Daquan Sol [facility] ASSET CARD CLERK [facility] CHILD [facility] 1..114 350.1.13.10 4.2.7.2.686 [id number] 107 [id number] [facility] 2019-09-23 12:55:37 2019-09-23 14:10:37 Farm Equipment Technician Visit Ultrasound, Harjeet Escamilla [facility] ASSET CARD CLERK [facility] MATERNAL & CHILD [facility] 1..114 350.1.13.10 4.2.7.2.686 [id number] [facility] 2019-09-23 13:00:00 2019-09-23 13:00:00 Outpatient P [facility] [id number] [facility] 2019-09-23 00:00:00 2019-09-23 00:00:00 Telephone Daquan Sol [facility] ASSET CARD CLERK [facility] CHILD [facility] 1..114 350.1.13.10 4.2.7.2.686 [id number] [facility] 2019-09-23 00:00:00 2019-09-23 00:00:00 Orders Only Doctor Unassigned, [place] [facility] 1.2.840.114 350.1.13.10 4.2.7.2.686 [id number] [facility] 2019-09-20 13:23:19 2019-09-20 13:53:19 Telemedici ne Visit Alley Avitia, Attending [facility] 1.2840.114 350.1.13.10 4.2.7.2.686 [id number] [facility] 2019-09-20 13:45:00 2019-09-20 13:45:00 Outpatient R UNKNOWN, ATTENDING [facility] [id number] [facility] 2019-09-20 00:00:00 2019-09-20 00:00:00 Telephone Alley Avitia [facility] 1.2840.114 350.1.13.10 4.2.7.2.686 [id number] [facility] 2019-09-07 13:25:02 2019-09-07 14:26:15 Routine Visit Daquan Sol [facility] ASSET CARD CLERK [facility] [id number] 350.1.13.10 4.2.7.2.686 [id number] [facility] 2019-09-07 13:30:00 2019-09-07 13:30:00 Outpatient R DAQUAN SOL [facility] [id number] [facility] 2019-09-02 13:00:00 2019-09-02 13:00:00 Outpatient R WILL GRANADOS [facility] [id number] [facility] 2019-08-26 02:22:01 2019-08-26 03:58:00 Emergency Dali [facility]ente [facility] 1.2840.114 350.1.13.10 4.2.7.2.686 [id number] [facility] 2019-08-19 11:00:00 2019-08-19 11:00:00 Outpatient R LARRY BAIN SHIWAN [facility] [id number] [facility] 2019-08-10 16:03:48 2019-08-10 16:47:22 Routine Visit Daquan Sol [facility] ASS[employer] CARD CLERK [facility] MATERNAL & [facility]ILD [facility] [id number] 350.1.13.10 4.2.7.2.686 [id number] [facility] 2019-08-10 16:00:00 2019-08-10 16:00:00 Outpatient R DAQUAN SOL [facility] [id number] [facility] 2019-08-09 00:00:00 2019-08-09 00:00:00 Abstract Daquan Sol [facility] ASSET CARD CLERK [facility] [id number] 350.1.13.10 4.2.7.2.686 [id number] [facility] 2019-08-06 15:33:59 2019-08-06 16:45:58 Routine Visit Bess Hutchinson [facility] ASSET CARD CLERK [facility]ILD [facility] [address] [id number] 350.1.13.10 4.2.7.2.686 [id number] [facility] 2019-08-06 15:00:00 2019-08-06 15:00:00 Outpatient P [facility] [id number] [facility] 2019-08-05 13:00:00 2019-08-05 13:00:00 Outpatient R [facility] [id number] [facility] 2019-07-27 08:15:00 2019-07-27 08:15:00 Outpatient R DAQUAN SOL [facility] [id number] [facility] 2019-07-27 00:00:00 2019-07-27 00:00:00 Abstract Daquan Sol [facility] ASSET CARD CLERK [facility] & [facility]ILD [facility] [id number] 350.1.13.10 4.2.7.2.686 [id number] [facility] 2019-07-23 09:27:50 2019-07-23 13:31:29 Farm Equipment Technician [facility] 1[facility] [place] Shannon M [facility] ASSET CARD CLERK [facility]NAL [facility]ILD [facility] [address] 1..114 350.1.13.10 4.2.7.2.686 [id number] [facility] 2019-07-23 09:30:00 2019-07-23 09:30:00 Outpatient P [facility] [id number] [facility] 2019-07-15 13:36:45 2019-07-15 14:21:55 Routine Visit Risk, Ang-Rmchp-N p/High Stephanie Rodriguez [facility] ASSET CARD CLERK [facility]ERNAL & CHILD [facility] 1..114 350.1.13.10 4.2.7.2.686 [id number] [facility] 2019-07-15 13:30:00 2019-07-15 13:30:00 Outpatient R [facility] [id number] [facility] 2019-07-15 00:00:00 2019-07-15 00:00:00 Patient Secure Msg Doctor Unassigned, [place] [facility] ASSET CARD CLERK [facility] & CHILD [facility] 1..114 350.1.13.10 4.2.7.2.686 [id number] [facility] 2019-07-09 08:21:18 2019-07-09 09:57:00 Initial Visit Daquan Sol [facility] ASSET CARD CLERK [facility] & CHILD [facility] 1..114 350.1.13.10 4.2.7.2.686 [id number] [facility] 2019-07-09 08:30:00 2019-07-09 08:30:00 Outpatient R DAQUAN SOL [facility] [id number] [facility] 2019-07-09 00:00:00 2019-07-09 00:00:00 Orders Only Doctor Unassigned, [place] [facility] 1.2.840.114 350.1.13.10 4.2.7.2.686 [id number] [facility] 2019-07-09 00:00:00 2019-07-09 00:00:00 Refill Daquan Sol [facility] ASSET CARD CLERK [facility] & CHILD [facility] 1.2.840.114 350.1.13.10 4.2.7.2.686 [id number] [facility] 2019-07-02 00:00:00 2019-07-02 00:00:00 Patient Secure Msg Doctor Unassigned, [place] [facility] ASSET CARD CLERK [facility] & CHILD [facility] 1.2.840.114 350.1.13.10 4.2.7.2.686 [id number] [facility] 2019-06-30 00:00:00 2019-06-30 00:00:00 Telephone Daquan Sol [facility] ASSET CARD CLERK [facility] & CHILD [facility] 1.2.840.114 350.1.13.10 4.2.7.2.686 [id number] [facility] 2019-06-29 16:00:00 2019-06-29 16:00:00 Outpatient R DAQUAN SOL [facility] [id number] [facility] 2019-06-29 13:05:56 2019-06-29 14:02:35 Office Visit Daquan Sol [facility] ASSET CARD CLERK [facility] CHILD [facility] 1.2.840.114 350.1.13.10 4.2.7.2.686 [id number] [facility] 2019-06-29 00:00:00 2019-06-29 00:00:00 Telephone Evin Valenciamario Floyd [facility] ASSET CARD CLERK [facility] MATERNAL & CHILD [facility] 1.2.840.114 350.1.13.10 4.2.7.2.686 [id number] [facility] 2019-06-21 00:00:00 2019-06-21 00:00:00 Telephone Kirti Valenciaalen [place] [facility] ASSET CARD CLERK [facility] CHILD [facility] 1.2.840.114 350.1.13.10 4.2.7.2.686 [id number] [facility] 2019-05-14 00:00:00 2019-05-14 00:00:00 Nurse Triage Meli Parrish [facility] 1.2.840.114 350.1.13.10 4.2.7.2.686 [id number] [facility] 2019-04-30 09:33:56 2019-04-30 11:28:00 Emergency Umberto Lubin [facility] 1.2.840.114 350.1.13.10 4.2.7.2.686 [id number] [facility] 2019-04-30 00:00:00 2019-04-30 00:00:00 Orders Only Doctor Unassigned, [place] [facility] 1.2.840.114 350.1.13.10 4.2.7.2.686 [id number] [facility] 2019-03-02 15:36:24 2019-03-02 16:12:25 Office Visit Kirti Valenciaalen [place] [facility] ASSET CARD CLERK [facility] CHILD [facility] 1.2.840.114 350.1.13.10 4.2.7.2.686 [id number] 107 [id number] [facility] 2018-10-09 22:48:19 2018-10-09 23:42:00 Emergency Blessing Cummings [facility] 1.2.840.114 350.1.13.10 4.2.7.2.686 [id number] [facility] 2018-10-09 00:00:00 2018-10-09 00:00:00 Orders Only Doctor Unassigned, [place] [facility] 1.2.840.114 350.1.13.10 4.2.7.2.686 [id number] [facility] Results Test Description Test Time Test Comments Results Result Co mments Source GONORRHEA, NAAT, [id number] 21:05:47* Test Item Value Reference Range Interpretation Comme nts GONORRHEA, NAAT, URINE (test code = 59954) NEGATIVE NEGATIVE Testing is perfo rmed with Terri OVIDIO 6800/8800 systems usingreal-time polymerase chain reaction (PCR) method. A negative result does not exclude low level infection, specimensampling error, or collection error. TRICHOMONAS, NAAT, [id number] 21:01:38* Test Item Value Reference Range Interpretation Comme nts TRICHOMONAS, NAAT, URINE (test code = 52084) NEGATIVE NEGATIVE Testing is perfo rmed with Terri OVIDIO 6800/8800 method usingreal-time polymerase chain reaction (PCR) method. A negative result does not exclude low level infection, specimensampling error, or collection error. HEPATITIS PANEL, [id number] 04:30:59* Test Item Value Reference Range Interpretation Comme nts HEPATITIS A TOTAL AB (test code = 2725) NON-REACTIVE NON-REACTIVE HEPATITIS B SURF AG (test code = 2739) NON-REACTIVE NON-REACTIVE HEP B CORE TOTAL AB (test code = 2729) NON-REACTIVE NON-REACTIVE HEPATITIS B SURFACE AB (test code = 2737) NON-REACTIVE NON-REACTIVE HEPATITIS C ANTIBODY (test code = 4675) NON-REACTIVE NON-REACTIVE INTERPRETATION HEPATITIS A: (test code = 2552) (NOTE) Hepatitis A sero logy shows no evidence of past exposure to orcurrent infection with hepatitis A virus; patient not immune tohepatitis A. INTERPRETATION HEPATITIS B: (test code = 38348) (NOTE) Hepatitis B sero logy shows no evidence of past exposure to orcurrent infection with hepatitis B virus. No evidence of hepatitis Bimmunization is identified. INTERPRETATION HEPATITIS C: (test code = 37757) (NOTE) Hepatitis C sero logy shows no evidence of exposure to hepatitisC virus at this time. It can take up to 12 months after exposure tothe hepatitis C virus for antibodies to become detectable in the blood in certain patients. UNLESS OTHERWISE INDICATED, ALL TESTING PERFORMED AT [facility] [address] [place] [address] POOL MANAGER: BENJI STUBBS M.D. [place] NUMBER [id number] [place]. [id number] HIV 1/2 4TH GEN, RFLX [id number] 04:30:59* Test Item Value Reference Range Interpretation Comme nts HIV 1/2 4TH GEN, RFLX CONF ( test code = 3514) NON-REACTIVE NON-REACTIVE RPR REFLEX TO T. PALLIDUM - [id number] 03:10:09* Test Item Value Reference Range Interpretation Comme nts RPR (test code = 82498) NON-REACTIVE NON-REACTIVE RPR TITER (test code = 3500) NOT INDIC. TITER NOT INDIC. CHLAMYDIA, NAAT, [id number] 00:00:00* Test Item Value Reference Range Interpretation Comme nts CHLAMYDIA, NAAT, URINE (test code = 62967) NEGATIVE Alberto F AustinGONORRHEA, NAAT, [id number] 00:00:00* Test Item Value Reference Range Interpretation Comme nts GONORRHEA, NAAT, URINE (test code = 91071) NEGATIVE Alberto F AustinTRICHOMONAS, URINE, [id number] 00:00:00* Test Item Value Reference Range Interpretation Comme nts TRICHOMONAS, NAAT, URINE (te st code = 48705) NEGATIVE Alberto F AustinHIV 1/2 4TH GEN, RFLX [id number] 00:00:00* Test Item Value Reference Range Interpretation Comme nts HIV 1/2 4TH GEN, RFLX CONF ( test code = 3514) NON-REACTIVE Alberto F AustinRPR REFLEX TO T. PALLIDUM - [id number] 00:00:00* Test Item Value Reference Range Interpretation Comme nts RPR (test code = 29223) NON-REACTIVE RPR TITER (test code = 3500) NOT INDIC. TITER Alberto Bradshaw AustinHEPATITIS PROFILE (A,B,C)2023-12-17 00:00:00* Test Item Value Reference Range Interpretation Comme nts HEPATITIS A TOTAL AB (test c ode = 2725) NON-REACTIVE HEPATITIS B SURF AG (test co de = 2739) NON-REACTIVE HEP B CORE TOTAL AB (test co de = 2729) NON-REACTIVE HEPATITIS B SURFACE AB (test code = 2737) NON-REACTIVE HEPATITIS C ANTIBODY (test c ode = 4675) NON-REACTIVE INTERPRETATION HEPATITIS A: (test code = 2552) (NOTE) INTERPRETATION HEPATITIS B: (test code = 55638) (NOTE) INTERPRETATION HEPATITIS C: (test code = 89003) (NOTE) Alberto Bradshaw AustinCHLAMYDIA, NAAT, [id number] 00:00:00* Test Item Value Reference Range Interpretation Comme nts CHLAMYDIA, NAAT, URINE (test code = 18275) NEGATIVE Alberto SchumacherGONORRHEA, NAAT, [id number] 00:00:00* Test Item Value Reference Range Interpretation Comme nts GONORRHEA, NAAT, URINE (test code = 99373) NEGATIVE Alberto SchumacherTRICHOMONAS, URINE, [id number] 00:00:00* Test Item Value Reference Range Interpretation Comme nts TRICHOMONAS, NAAT, URINE (te st code = 58868) NEGATIVE Alberto Bradshaw AustinHIV 1/2 4TH GEN, RFLX [id number] 00:00:00* Test Item Value Reference Range Interpretation Comme nts HIV 1/2 4TH GEN, RFLX CONF ( test code = 3514) NON-REACTIVE Alberto Bradshaw AustinRPR REFLEX TO T. PALLIDUM - [id number] 00:00:00* Test Item Value Reference Range Interpretation Comme nts RPR (test code = 46485) NON-REACTIVE RPR TITER (test code = 3500) NOT INDIC. TITER Alberto Bradshaw AustinHEPATITIS PROFILE (A,B,C)2023-12-17 00:00:00* Test Item Value Reference Range Interpretation Comme nts HEPATITIS A TOTAL AB (test c ode = 2725) NON-REACTIVE HEPATITIS B SURF AG (test co de = 2739) NON-REACTIVE HEP B CORE TOTAL AB (test co de = 2729) NON-REACTIVE HEPATITIS B SURFACE AB (test code = 2737) NON-REACTIVE HEPATITIS C ANTIBODY (test c ode = 4675) NON-REACTIVE INTERPRETATION HEPATITIS A: (test code = 2552) (NOTE) INTERPRETATION HEPATITIS B: (test code = 87189) (NOTE) INTERPRETATION HEPATITIS C: (test code = 05083) (NOTE) Alberto Bradshaw [id number] 05:14:50* Test Item Value Reference Range Interpretation Comme nts FERRITIN (test code = 2075) 60 NG/ML 13-200 LIPID [id number] 04:38:13* Test Item Value Reference Range Interpretation Comme nts CHOLESTEROL (test code = 2210) 193 MG/DL <200 TRIGLYCERIDES (test code = 2232) 80 MG/DL <150 HDL CHOLESTEROL (test code = 0) 66 MG/DL >39 CALC LDL CHOL (test code = 7) 110 MG/DL <100 H NOTE: CALCULATED LDL IS BASED ON CHRISTINE-CRUZ METHOD WHICHINCLUDES ADJUSTABLE TRIGLYCERIDE:VLDL CHOLESTEROL RATIO.THIS FACTOR VARIES BY MEASURED TRIGLYCERIDE AND NON-HDLCHOLESTEROL CONCENTRATIONS WITH INCREASED CALCULATED LDL SEENIN HIGHER TRIGLYCERIDE OR LOWER NON-HDL SPECIMENS. FOR MOREINFORMATION, SEE CLIENT ANNOUNCEMENT AT [email or web address] RISK RATIO LDL/HDL (test code = 2238) 1.67 RATIO <3.22 COMPREHENSIVE METABOLIC [id number] 04:38:13* Test Item Value Reference Range Interpretation Comme nts GLUCOSE (test code = 7) 83 MG/DL 70-99 BUN (test code = 2207) 8 MG/DL 6-20 CREATININE (test code = 2214) 0.60 MG/DL 0.60-1.30 eGFR (2020 CKD-EPI) (test code = 73954) 116 ML/MIN/1.73 >60 CALC BUN/CREAT (test code = 2235) 13 RATIO 6-28 SODIUM (test code = 2230) 139 MEQ/L 133-146 POTASSIUM (test code = 2228) 3.8 MEQ/L 3.5-5.4 CHLORIDE (test code = 2215) 98 MEQ/L 95-107 CARBON DIOXIDE (test code = 2205) 26 MEQ/L 19-31 CALCIUM (test code = 2209) 9.8 MG/DL 8.5-10.5 PROTEIN, TOTAL (test code = 2228) 7.3 G/DL 6.1-8.3 ALBUMIN (test code = 2200) 4.6 G/DL 3.5-5.2 CALC GLOBULIN (test code = 2239) 2.7 G/DL 1.9-3.7 CALC A/G RATIO (test code = 2233) 1.7 RATIO 1.0-2.6 BILIRUBIN, TOTAL (test code = 2206) 0.4 MG/DL <=1.2 ALKALINE PHOSPHATASE (test code = 2203) 83 U/L 40-112 AST (test code = 2217) 11 U/L 9-40 ALT (test code = 2218) 18 U/L 5-40 IRON BINDING CAPACITY AND IRON AND % [id number] 04:38:13* Test Item Value Reference Range Interpretation Comme nts IRON, SERUM (test code = 2221) 60 UG/DL 37-145 UNSATURATED IBC (test code = 58148) 290 UG/DL 112-347 CALC TOTAL IBC (test code = 2076) 350 UG/DL 250-450 CALC % IRON SAT (test code = 2078) 17 % 20-50 L VITAMIN D, 25 [id number] 04:35:10* Test Item Value Reference Range Interpretation Comme [facility] VITAMIN D, 25 OH (test code = 4958) 44 NG/ML SEE BELOW NOTE: 25-HYDR OXYVITAMIN D ASSAY INCLUDES 25-HYDROXYVITAMIN D2 AND D3. INTERPRETIVE RANGES PEDIATRIC (<17 YEARS) . . . . . . . . . . . NG/ML 20-100ADULT: INSUFFICIENT . . . . . . . . . . . . . . NG/ML <20 SUBOPTIMAL . . . . . . . . . . . . . . . NG/ML 20-29 OPTIMAL . . . . . . . . . . . . . . . . . NG/ML 30-100 UNLESS OTHERWISE INDICATED, ALL TESTING PERFORMED AT [facility] [address] [place] [id number] POOL MANAGER: BENJI STUBBS M.D. CLIA NUMBER [id number] [place]. [id number] CBC W/AUTO DIFF WITH [id number] 03:41:32* Test Item Value Reference Range Interpretation Comme nts WBC (test code = 1001) 9.5 K/UL 3.5-11.0 RBC (test code = 1002) 4.83 M/UL 3.80-5.40 HEMOGLOBIN (test code = 1003) 14.0 G/DL 11.5-15.5 HEMATOCRIT (test code = 1004) 43.7 % 34.0-45.0 MCV (test code = 1005) 90.5 fL 80.0-99.0 MCH (test code = 1006) 29.0 PG 25.0-33.0 MCHC (test code = 1007) 32.0 G/DL 31.0-36.0 RDW (test code = 1038) 11.7 % 11.5-15.0 NEUTROPHILS (test code = 1008) 66.0 % LYMPHOCYTES (test code = 1010) 24.8 % MONOCYTES (test code = 1011) 6.3 % EOSINOPHILS (test code = 1012) 1.7 % BASOPHILS (test code = 1013) 0.7 % IMMATURE GRANULOCYTES (test code = 1036) 0.5 % NUCLEATED RBCS (test code = 1065) 0.0 /100 WBC'S See_Comment [Automated messa ge] The system which generated this result transmitted reference range: 0.0. The reference range was not used to interpret this result as normal/abnormal. PLATELET COUNT (test code = 1015) 416 K/UL 130-400 H ABSOLUTE NEUTROPHILS (test code = 1066) 6.28 K/UL 1.50-7.50 ABSOLUTE LYMPHOCYTES (test code = 1067) 2.36 K/UL 1.00-4.00 ABSOLUTE MONOCYTES (test code = 1068) 0.60 K/UL 0.20-1.00 ABSOLUTE EOSINOPHILS (test code = 1040) 0.16 K/UL 0.00-0.50 ABSOLUTE BASOPHILS (test code = 1069) 0.07 K/UL 0.00-0.20 ABS IMMATURE GRANULOCYTES (test code = 1020) 0.05 K/UL 0.00-0.10 ABS NUCLEATED RBCS (test code = 02825) 0.00 K/UL 0.00-0.11 HEMOGLOBIN [id number] 03:20:55* Test Item Value Reference Range Interpretation Comme nts HEMOGLOBIN A1c (test code = 61958) 5.5 % 4.2-5.6 [id number] 00:00:00* Test Item Value Reference Range Interpretation Comme nts FERRITIN (test code = 2075) 60 NG/ML Alberto SchumacherCBC W/AUTO [id number] 00:00:00* Test Item Value Reference Range Interpretation Comme nts WBC (test code = 1001) 9.5 K/UL RBC (test code = 1002) 4.83 M/UL HEMOGLOBIN (test code = 1003) 14.0 G/DL HEMATOCRIT (test code = 1004) 43.7 % MCV (test code = 1005) 90.5 fL MCH (test code = 1006) 29.0 PG MCHC (test code = 1007) 32.0 G/DL RDW (test code = 1038) 11.7 % NEUTROPHILS (test code = 1008) 66.0 % LYMPHOCYTES (test code = 1010) 24.8 % MONOCYTES (test code = 1011) 6.3 % EOSINOPHILS (test code = 1012) 1.7 % BASOPHILS (test code = 1013) 0.7 % IMMATURE GRANULOCYTES (test code = 1036) 0.5 % NUCLEATED RBCS (test code = 1065) 0.0 /100WBC'S PLATELET COUNT (test code = 1015) 416 K/UL ABSOLUTE NEUTROPHILS (test c ode = 1066) 6.28 K/UL ABSOLUTE LYMPHOCYTES (test c ode = 1067) 2.36 K/UL ABSOLUTE MONOCYTES (test cod e = 1068) 0.60 K/UL ABSOLUTE EOSINOPHILS (test c ode = 1040) 0.16 K/UL ABSOLUTE BASOPHILS (test cod e = 1069) 0.07 K/UL ABS IMMATURE GRANULOCYTES (t est code = 1020) 0.05 K/UL ABS NUCLEATED RBCS (test cod e = 30027) 0.00 K/UL Alberto SchumacherHEMOGLOBIN [id number] 00:00:00* Test Item Value Reference Range Interpretation Comme nts HEMOGLOBIN A1c (test code = 45384) 5.5 % Alberto SchumacherLIPID [id number] 00:00:00* Test Item Value Reference Range Interpretation Comme nts CHOLESTEROL (test code = 2210) 193 MG/DL TRIGLYCERIDES (test code = 2232) 80 MG/DL HDL CHOLESTEROL (test code = 2220) 66 MG/DL CALC LDL CHOL (test code = 2237) 110 MG/DL RISK RATIO LDL/HDL (test cod e = 2238) 1.67 RATIO Alberto SchumacherCOMPREHENSIVE METABOLIC [id number] 00:00:00* Test Item Value Reference Range Interpretation Comme nts GLUCOSE (test code = 2217) 83 MG/DL BUN (test code = 2208) 8 MG/DL CREATININE (test code = 2214) 0.60 MG/DL eGFR (2020 CKD-EPI) (test code = 44407) 116 ML/MIN/1.73 CALC BUN/CREAT (test code = 2235) 13 RATIO SODIUM (test code = 2231) 139 MEQ/L POTASSIUM (test code = 2228) 3.8 MEQ/L CHLORIDE (test code = 2215) 98 MEQ/L CARBON DIOXIDE (test code = 2206) 26 MEQ/L CALCIUM (test code = 2209) 9.8 MG/DL PROTEIN, TOTAL (test code = 2229) 7.3 G/DL ALBUMIN (test code = 2201) 4.6 G/DL CALC GLOBULIN (test code = 2240) 2.7 G/DL CALC A/G RATIO (test code = 2234) 1.7 RATIO BILIRUBIN, TOTAL (test code = 2207) 0.4 MG/DL ALKALINE PHOSPHATASE (test code = 2204) 83 U/L AST (test code = 2218) 11 U/L ALT (test code = 2219) 18 U/L Alberto SchumacherIRON BINDING CAPACITY AND IRON AND % [id number] 00:00:00* Test Item Value Reference Range Interpretation Comme [facility] IRON, SERUM (test code = 2221) 60 UG/DL UNSATURATED IBC (test code = 16899) 290 UG/DL CALC TOTAL IBC (test code = 2076) 350 UG/DL CALC % IRON SAT (test code = 2078) 17 % Alberto Augustine EndyVITAMIN D, 25 [id number] 00:00:00* Test Item Value Reference Range Interpretation Comme nts VITAMIN D, 25 OH (test code = 4958) 44 NG/ML Alberto [id number] 00:00:00* Test Item Value Reference Range Interpretation Comme nts FERRITIN (test code = 2074) 60 NG/ML Alberto SchumacherCBC W/AUTO [id number] 00:00:00* Test Item Value Reference Range Interpretation Comme nts WBC (test code = 1001) 9.5 K/UL RBC (test code = 1002) 4.83 M/UL HEMOGLOBIN (test code = 1003) 14.0 G/DL HEMATOCRIT (test code = 1004) 43.7 % MCV (test code = 1005) 90.5 fL MCH (test code = 1006) 29.0 PG MCHC (test code = 1007) 32.0 G/DL RDW (test code = 1038) 11.7 % NEUTROPHILS (test code = 1008) 66.0 % LYMPHOCYTES (test code = 1010) 24.8 % MONOCYTES (test code = 1011) 6.3 % EOSINOPHILS (test code = 1012) 1.7 % BASOPHILS (test code = 1013) 0.7 % IMMATURE GRANULOCYTES (test code = 1036) 0.5 % NUCLEATED RBCS (test code = 1065) 0.0 /100WBC'S PLATELET COUNT (test code = 1015) 416 K/UL ABSOLUTE NEUTROPHILS (test c ode = 1066) 6.28 K/UL ABSOLUTE LYMPHOCYTES (test c ode = 1067) 2.36 K/UL ABSOLUTE MONOCYTES (test cod e = 1068) 0.60 K/UL ABSOLUTE EOSINOPHILS (test c ode = 1040) 0.16 K/UL ABSOLUTE BASOPHILS (test cod e = 1069) 0.07 K/UL ABS IMMATURE GRANULOCYTES (t est code = 1020) 0.05 K/UL ABS NUCLEATED RBCS (test cod e = 82273) 0.00 K/UL Alberto SchumacherHEMOGLOBIN [id number] 00:00:00* Test Item Value Reference Range Interpretation Comme nts HEMOGLOBIN A1c (test code = 34179) 5.5 % Alberto SchumacherLIPID [id number] 00:00:00* Test Item Value Reference Range Interpretation Comme nts CHOLESTEROL (test code = 2210) 193 MG/DL TRIGLYCERIDES (test code = 2232) 80 MG/DL HDL CHOLESTEROL (test code = 2220) 66 MG/DL CALC LDL CHOL (test code = 2237) 110 MG/DL RISK RATIO LDL/HDL (test cod e = 2238) 1.67 RATIO Alberto SchumacherCOMPREHENSIVE METABOLIC [id number] 00:00:00* Test Item Value Reference Range Interpretation Comme nts GLUCOSE (test code = 7) 83 MG/DL BUN (test code = 2207) 8 MG/DL CREATININE (test code = 2214) 0.60 MG/DL eGFR (2020 CKD-EPI) (test code = ) 116 ML/MIN/1.73 CALC BUN/CREAT (test code = 2234) 13 RATIO SODIUM (test code = 223) 139 MEQ/L POTASSIUM (test code = 2228) 3.8 MEQ/L CHLORIDE (test code = 2215) 98 MEQ/L CARBON DIOXIDE (test code = 2206) 26 MEQ/L CALCIUM (test code = 2209) 9.8 MG/DL PROTEIN, TOTAL (test code = 2228) 7.3 G/DL ALBUMIN (test code = 2200) 4.6 G/DL CALC GLOBULIN (test code = 2240) 2.7 G/DL CALC A/G RATIO (test code = 2234) 1.7 RATIO BILIRUBIN, TOTAL (test code = 2206) 0.4 MG/DL ALKALINE PHOSPHATASE (test code = 2203) 83 U/L AST (test code = 8) 11 U/L ALT (test code = 9) 18 U/L Alberto SchumacherIRON BINDING CAPACITY AND IRON AND % [id number] 00:00:00* Test Item Value Reference Range Interpretation Comme nts IRON, SERUM (test code = 2221) 60 UG/DL UNSATURATED IBC (test code = 38692) 290 UG/DL CALC TOTAL IBC (test code = 2076) 350 UG/DL CALC % IRON SAT (test code = 2078) 17 % Alberto SchumacherVITAMIN D, 25 [id number] 00:00:00* Test Item Value Reference Range Interpretation Comme nts VITAMIN D, 25 OH (test code = 4958) 44 NG/ML Alberto [id number] 00:00:00* Test Item Value Reference Range Interpretation Comme nts FERRITIN (test code = 5) 60 NG/ML Alberto SchumacherCBC W/AUTO [id number] 00:00:00* Test Item Value Reference Range Interpretation Comme nts WBC (test code = 1001) 9.5 K/UL RBC (test code = 1002) 4.83 M/UL HEMOGLOBIN (test code = 1003) 14.0 G/DL HEMATOCRIT (test code = 1004) 43.7 % MCV (test code = 1005) 90.5 fL MCH (test code = 1006) 29.0 PG MCHC (test code = 1007) 32.0 G/DL RDW (test code = 1038) 11.7 % NEUTROPHILS (test code = 1008) 66.0 % LYMPHOCYTES (test code = 1010) 24.8 % MONOCYTES (test code = 1011) 6.3 % EOSINOPHILS (test code = 1012) 1.7 % BASOPHILS (test code = 1013) 0.7 % IMMATURE GRANULOCYTES (test code = 1036) 0.5 % NUCLEATED RBCS (test code = 1065) 0.0 /100WBC'S PLATELET COUNT (test code = 1015) 416 K/UL ABSOLUTE NEUTROPHILS (test c ode = 1066) 6.28 K/UL ABSOLUTE LYMPHOCYTES (test c ode = 1067) 2.36 K/UL ABSOLUTE MONOCYTES (test cod e = 1068) 0.60 K/UL ABSOLUTE EOSINOPHILS (test c ode = 1040) 0.16 K/UL ABSOLUTE BASOPHILS (test cod e = 1069) 0.07 K/UL ABS IMMATURE GRANULOCYTES (t est code = 1020) 0.05 K/UL ABS NUCLEATED RBCS (test cod e = 86860) 0.00 K/UL Alberto SchumacherHEMOGLOBIN [id number] 00:00:00* Test Item Value Reference Range Interpretation Comme nts HEMOGLOBIN A1c (test code = 02555) 5.5 % Alberto SchumacherLIPID [id number] 00:00:00* Test Item Value Reference Range Interpretation Comme nts CHOLESTEROL (test code = 2210) 193 MG/DL TRIGLYCERIDES (test code = 2232) 80 MG/DL HDL CHOLESTEROL (test code = 2220) 66 MG/DL CALC LDL CHOL (test code = 2237) 110 MG/DL RISK RATIO LDL/HDL (test cod e = 2238) 1.67 RATIO Alberto SchumacherCOMPREHENSIVE METABOLIC [id number] 00:00:00* Test Item Value Reference Range Interpretation Comme nts GLUCOSE (test code = 2217) 83 MG/DL BUN (test code = 2208) 8 MG/DL CREATININE (test code = 2214) 0.60 MG/DL eGFR (2020 CKD-EPI) (test code = ) 116 ML/MIN/1.73 CALC BUN/CREAT (test code = 2234) 13 RATIO SODIUM (test code = 2230) 139 MEQ/L POTASSIUM (test code = 2228) 3.8 MEQ/L CHLORIDE (test code = 2215) 98 MEQ/L CARBON DIOXIDE (test code = 2205) 26 MEQ/L CALCIUM (test code = 2208) 9.8 MG/DL PROTEIN, TOTAL (test code = 2228) 7.3 G/DL ALBUMIN (test code = 2200) 4.6 G/DL CALC GLOBULIN (test code = 2239) 2.7 G/DL CALC A/G RATIO (test code = 2233) 1.7 RATIO BILIRUBIN, TOTAL (test code = 2206) 0.4 MG/DL ALKALINE PHOSPHATASE (test code = 2203) 83 U/L AST (test code = 2217) 11 U/L ALT (test code = 2218) 18 U/L Alberto SchumacherIRON BINDING CAPACITY AND IRON AND % [id number] 00:00:00* Test Item Value Reference Range Interpretation Comme nts IRON, SERUM (test code = 2221) 60 UG/DL UNSATURATED IBC (test code = 08204) 290 UG/DL CALC TOTAL IBC (test code = 2076) 350 UG/DL CALC % IRON SAT (test code = 2078) 17 % Alberto Augustine EndyVITAMIN D, 25 [id number] 00:00:00* Test Item Value Reference Range Interpretation Comme nts VITAMIN D, 25 OH (test code = 4958) 44 NG/ML Alberto [id number] 00:00:00* Test Item Value Reference Range Interpretation Comme nts FERRITIN (test code = 2074) 60 NG/ML Alberto Augustine EndyCBC W/AUTO [id number] 00:00:00* Test Item Value Reference Range Interpretation Comme nts WBC (test code = 1001) 9.5 K/UL RBC (test code = 1002) 4.83 M/UL HEMOGLOBIN (test code = 1003) 14.0 G/DL HEMATOCRIT (test code = 1004) 43.7 % MCV (test code = 1005) 90.5 fL MCH (test code = 1006) 29.0 PG MCHC (test code = 1007) 32.0 G/DL RDW (test code = 1038) 11.7 % NEUTROPHILS (test code = 1008) 66.0 % LYMPHOCYTES (test code = 1010) 24.8 % MONOCYTES (test code = 1011) 6.3 % EOSINOPHILS (test code = 1012) 1.7 % BASOPHILS (test code = 1013) 0.7 % IMMATURE GRANULOCYTES (test code = 1036) 0.5 % NUCLEATED RBCS (test code = 1065) 0.0 /100WBC'S PLATELET COUNT (test code = 1015) 416 K/UL ABSOLUTE NEUTROPHILS (test c ode = 1066) 6.28 K/UL ABSOLUTE LYMPHOCYTES (test c ode = 1067) 2.36 K/UL ABSOLUTE MONOCYTES (test cod e = 1068) 0.60 K/UL ABSOLUTE EOSINOPHILS (test c ode = 1040) 0.16 K/UL ABSOLUTE BASOPHILS (test cod e = 1069) 0.07 K/UL ABS IMMATURE GRANULOCYTES (t est code = 1020) 0.05 K/UL ABS NUCLEATED RBCS (test cod e = 15896) 0.00 K/UL Alberto SchumacherHEMOGLOBIN [id number] 00:00:00* Test Item Value Reference Range Interpretation Comme nts HEMOGLOBIN A1c (test code = 90507) 5.5 % Alberto SchumacherLIPID [id number] 00:00:00* Test Item Value Reference Range Interpretation Comme nts CHOLESTEROL (test code = 2210) 193 MG/DL TRIGLYCERIDES (test code = 2232) 80 MG/DL HDL CHOLESTEROL (test code = 2220) 66 MG/DL CALC LDL CHOL (test code = 2237) 110 MG/DL RISK RATIO LDL/HDL (test cod e = 2238) 1.67 RATIO Alberto SchumacherCOMPREHENSIVE METABOLIC [id number] 00:00:00* Test Item Value Reference Range Interpretation Comme nts GLUCOSE (test code = 2217) 83 MG/DL BUN (test code = 2208) 8 MG/DL CREATININE (test code = 2214) 0.60 MG/DL eGFR (2020 CKD-EPI) (test code = 82306) 116 ML/MIN/1.73 CALC BUN/CREAT (test code = 2235) 13 RATIO SODIUM (test code = 2231) 139 MEQ/L POTASSIUM (test code = 8) 3.8 MEQ/L CHLORIDE (test code = 2215) 98 MEQ/L CARBON DIOXIDE (test code = 2205) 26 MEQ/L CALCIUM (test code = 220) 9.8 MG/DL PROTEIN, TOTAL (test code = 2228) 7.3 G/DL ALBUMIN (test code = 2201) 4.6 G/DL CALC GLOBULIN (test code = 2240) 2.7 G/DL CALC A/G RATIO (test code = 2233) 1.7 RATIO BILIRUBIN, TOTAL (test code = 2206) 0.4 MG/DL ALKALINE PHOSPHATASE (test code = 2203) 83 U/L AST (test code = 2217) 11 U/L ALT (test code = 2218) 18 U/L Alberto SchumacherIRON BINDING CAPACITY AND IRON AND % [id number] 00:00:00* Test Item Value Reference Range Interpretation Comme nts IRON, SERUM (test code = 2221) 60 UG/DL UNSATURATED IBC (test code = ) 290 UG/DL CALC TOTAL IBC (test code = 2076) 350 UG/DL CALC % IRON SAT (test code = 2078) 17 % Alberto Augustine EndyVITAMIN D, 25 [id number] 00:00:00* Test Item Value Reference Range Interpretation Comme nts VITAMIN D, 25 OH (test code = 4958) 44 NG/ML Alberto SchumacherCOMPREHENSIVE METABOLIC [id number] 00:00:00* Test Item Value Reference Range Interpretation Comme nts GLUCOSE (test code = 2216) 134 MG/DL BUN (test code = 2207) 8 MG/DL CREATININE (test code = 4) 0.65 MG/DL eGFR (2020 CKD-EPI) (test code = 12118) 114 ML/MIN/1.73 CALC BUN/CREAT (test code = 2234) 12 RATIO SODIUM (test code = 2230) 142 MEQ/L POTASSIUM (test code = 8) 4.0 MEQ/L CHLORIDE (test code = 2215) 103 MEQ/L CARBON DIOXIDE (test code = 6) 26 MEQ/L CALCIUM (test code = 2209) 10.1 MG/DL PROTEIN, TOTAL (test code = 2228) 7.6 G/DL ALBUMIN (test code = 2201) 4.7 G/DL CALC GLOBULIN (test code = 2240) 2.9 G/DL CALC A/G RATIO (test code = 2234) 1.6 RATIO BILIRUBIN, TOTAL (test code = 2207) 0.3 MG/DL ALKALINE PHOSPHATASE (test code = 2204) 75 U/L AST (test code = 2218) 16 U/L ALT (test code = 2219) 18 U/L Alberto SchumacherVITAMIN D, 25 [id number] 00:00:00* Test Item Value Reference Range Interpretation Comme nts VITAMIN D, 25 OH (test code = 4958) 26 NG/ML Alberto SchumacherLIPID [id number] 00:00:00* Test Item Value Reference Range Interpretation Comme nts CHOLESTEROL (test code = 2210) 199 MG/DL TRIGLYCERIDES (test code = 2232) 171 MG/DL HDL CHOLESTEROL (test code = 2220) 64 MG/DL CALC LDL CHOL (test code = 2237) 106 MG/DL RISK RATIO LDL/HDL (test cod e = 2238) 1.66 RATIO Alberto SchumacherCOMPREHENSIVE METABOLIC [id number] 00:00:00* Test Item Value Reference Range Interpretation Comme nts GLUCOSE (test code = 2217) 134 MG/DL BUN (test code = 2208) 8 MG/DL CREATININE (test code = 2214) 0.65 MG/DL eGFR (2020 CKD-EPI) (test code = 60482) 114 ML/MIN/1.73 CALC BUN/CREAT (test code = 2235) 12 RATIO SODIUM (test code = 2231) 142 MEQ/L POTASSIUM (test code = 2228) 4.0 MEQ/L CHLORIDE (test code = 2215) 103 MEQ/L CARBON DIOXIDE (test code = 2206) 26 MEQ/L CALCIUM (test code = 2209) 10.1 MG/DL PROTEIN, TOTAL (test code = 2229) 7.6 G/DL ALBUMIN (test code = 2201) 4.7 G/DL CALC GLOBULIN (test code = 2240) 2.9 G/DL CALC A/G RATIO (test code = 2234) 1.6 RATIO BILIRUBIN, TOTAL (test code = 2207) 0.3 MG/DL ALKALINE PHOSPHATASE (test code = 2204) 75 U/L AST (test code = 2218) 16 U/L ALT (test code = 2219) 18 U/L Alberto SchumacherVITAMIN D, 25 [id number] 00:00:00* Test Item Value Reference Range Interpretation Comme nts VITAMIN D, 25 OH (test code = 4958) 26 NG/ML Alberto SchumacherLIPID [id number] 00:00:00* Test Item Value Reference Range Interpretation Comme nts CHOLESTEROL (test code = 2210) 199 MG/DL TRIGLYCERIDES (test code = 2232) 171 MG/DL HDL CHOLESTEROL (test code = 2220) 64 MG/DL CALC LDL CHOL (test code = 2237) 106 MG/DL RISK RATIO LDL/HDL (test cod e = 2238) 1.66 RATIO Alberto SchumacherCOMPREHENSIVE METABOLIC [id number] 00:00:00* Test Item Value Reference Range Interpretation Comme nts GLUCOSE (test code = 2217) 134 MG/DL BUN (test code = 2208) 8 MG/DL CREATININE (test code = 2214) 0.65 MG/DL eGFR (2020 CKD-EPI) (test code = 95923) 114 ML/MIN/1.73 CALC BUN/CREAT (test code = 2235) 12 RATIO SODIUM (test code = 2231) 142 MEQ/L POTASSIUM (test code = 2228) 4.0 MEQ/L CHLORIDE (test code = 2215) 103 MEQ/L CARBON DIOXIDE (test code = 2206) 26 MEQ/L CALCIUM (test code = 2209) 10.1 MG/DL PROTEIN, TOTAL (test code = 2229) 7.6 G/DL ALBUMIN (test code = 2201) 4.7 G/DL CALC GLOBULIN (test code = 2240) 2.9 G/DL CALC A/G RATIO (test code = 2234) 1.6 RATIO BILIRUBIN, TOTAL (test code = 2207) 0.3 MG/DL ALKALINE PHOSPHATASE (test code = 2204) 75 U/L AST (test code = 2218) 16 U/L ALT (test code = 2219) 18 U/L Alberto SchumacherVITAMIN D, 25 [id number] 00:00:00* Test Item Value Reference Range Interpretation Comme nts VITAMIN D, 25 OH (test code = 4958) 26 NG/ML Alberto SchumacherLIPID [id number] 00:00:00* Test Item Value Reference Range Interpretation Comme nts CHOLESTEROL (test code = 2210) 199 MG/DL TRIGLYCERIDES (test code = 2232) 171 MG/DL HDL CHOLESTEROL (test code = 2220) 64 MG/DL CALC LDL CHOL (test code = 2237) 106 MG/DL RISK RATIO LDL/HDL (test cod e = 2238) 1.66 RATIO Alberto SchumacherCOMPREHENSIVE METABOLIC [id number] 00:00:00* Test Item Value Reference Range Interpretation Comme nts GLUCOSE (test code = 2217) 134 MG/DL BUN (test code = 2208) 8 MG/DL CREATININE (test code = 2214) 0.65 MG/DL eGFR (2020 CKD-EPI) (test code = 62407) 114 ML/MIN/1.73 CALC BUN/CREAT (test code = 2235) 12 RATIO SODIUM (test code = 2231) 142 MEQ/L POTASSIUM (test code = 2228) 4.0 MEQ/L CHLORIDE (test code = 2215) 103 MEQ/L CARBON DIOXIDE (test code = 2206) 26 MEQ/L CALCIUM (test code = 2209) 10.1 MG/DL PROTEIN, TOTAL (test code = 2229) 7.6 G/DL ALBUMIN (test code = 2201) 4.7 G/DL CALC GLOBULIN (test code = 2240) 2.9 G/DL CALC A/G RATIO (test code = 2234) 1.6 RATIO BILIRUBIN, TOTAL (test code = 2207) 0.3 MG/DL ALKALINE PHOSPHATASE (test code = 2204) 75 U/L AST (test code = 2218) 16 U/L ALT (test code = 2219) 18 U/L Alberto SchumacherVITAMIN D, 25 [id number] 00:00:00* Test Item Value Reference Range Interpretation Comme nts VITAMIN D, 25 OH (test code = 4958) 26 NG/ML Alberto SchumacherLIPID [id number] 00:00:00* Test Item Value Reference Range Interpretation Comme nts CHOLESTEROL (test code = 2210) 199 MG/DL TRIGLYCERIDES (test code = 2232) 171 MG/DL HDL CHOLESTEROL (test code = 2220) 64 MG/DL CALC LDL CHOL (test code = 2237) 106 MG/DL RISK RATIO LDL/HDL (test cod e = 2238) 1.66 RATIO Alberto SchumacherCOMPREHENSIVE METABOLIC [id number] 00:00:00* Test Item Value Reference Range Interpretation Comme nts GLUCOSE (test code = 2217) 134 MG/DL BUN (test code = 2208) 8 MG/DL CREATININE (test code = 2214) 0.65 MG/DL eGFR (2020 CKD-EPI) (test code = ) 114 ML/MIN/1.73 CALC BUN/CREAT (test code = 2235) 12 RATIO SODIUM (test code = 223) 142 MEQ/L POTASSIUM (test code = 2228) 4.0 MEQ/L CHLORIDE (test code = 2215) 103 MEQ/L CARBON DIOXIDE (test code = 2206) 26 MEQ/L CALCIUM (test code = 2209) 10.1 MG/DL PROTEIN, TOTAL (test code = 2228) 7.6 G/DL ALBUMIN (test code = 2201) 4.7 G/DL CALC GLOBULIN (test code = 2240) 2.9 G/DL CALC A/G RATIO (test code = 2234) 1.6 RATIO BILIRUBIN, TOTAL (test code = 2207) 0.3 MG/DL ALKALINE PHOSPHATASE (test code = 2204) 75 U/L AST (test code = 2218) 16 U/L ALT (test code = 2219) 18 U/L Alberto SchumacherVITAMIN D, 25 [id number] 00:00:00* Test Item Value Reference Range Interpretation Comme nts VITAMIN D, 25 OH (test code = 4958) 26 NG/ML Alberto SchumacherLIPID [id number] 00:00:00* Test Item Value Reference Range Interpretation Comme nts CHOLESTEROL (test code = 2210) 199 MG/DL TRIGLYCERIDES (test code = 2232) 171 MG/DL HDL CHOLESTEROL (test code = 2220) 64 MG/DL CALC LDL CHOL (test code = 2236) 106 MG/DL RISK RATIO LDL/HDL (test cod e = 2238) 1.66 RATIO Alberto SchumacherCOMPREHENSIVE METABOLIC [id number] 00:00:00* Test Item Value Reference Range Interpretation Comme nts GLUCOSE (test code = 221) 134 MG/DL BUN (test code = 2208) 8 MG/DL CREATININE (test code = 2214) 0.65 MG/DL eGFR (2020 CKD-EPI) (test code = 32756) 114 ML/MIN/1.73 CALC BUN/CREAT (test code = 2235) 12 RATIO SODIUM (test code = 2231) 142 MEQ/L POTASSIUM (test code = 2228) 4.0 MEQ/L CHLORIDE (test code = 2215) 103 MEQ/L CARBON DIOXIDE (test code = 2206) 26 MEQ/L CALCIUM (test code = 2209) 10.1 MG/DL PROTEIN, TOTAL (test code = 2229) 7.6 G/DL ALBUMIN (test code = 2201) 4.7 G/DL CALC GLOBULIN (test code = 2240) 2.9 G/DL CALC A/G RATIO (test code = 2234) 1.6 RATIO BILIRUBIN, TOTAL (test code = 2207) 0.3 MG/DL ALKALINE PHOSPHATASE (test code = 2204) 75 U/L AST (test code = 2218) 16 U/L ALT (test code = 2219) 18 U/L Alberto Augustine EndyVITAMIN D, 25 [id number] 00:00:00* Test Item Value Reference Range Interpretation Comme nts VITAMIN D, 25 OH (test code = 4958) 26 NG/ML Alberto Bradshaw EndyLIPID [id number] 00:00:00* Test Item Value Reference Range Interpretation Comme nts CHOLESTEROL (test code = 2210) 199 MG/DL TRIGLYCERIDES (test code = 2232) 171 MG/DL HDL CHOLESTEROL (test code = 2220) 64 MG/DL CALC LDL CHOL (test code = 2237) 106 MG/DL RISK RATIO LDL/HDL (test cod e = 2238) 1.66 RATIO Alberto Bradshaw EndyCOMPREHENSIVE METABOLIC [id number] 00:00:00* Test Item Value Reference Range Interpretation Comme nts GLUCOSE (test code = 2217) 134 MG/DL BUN (test code = 2208) 8 MG/DL CREATININE (test code = 2214) 0.65 MG/DL eGFR (2020 CKD-EPI) (test code = 18177) 114 ML/MIN/1.73 CALC BUN/CREAT (test code = 2235) 12 RATIO SODIUM (test code = 2231) 142 MEQ/L POTASSIUM (test code = 2228) 4.0 MEQ/L CHLORIDE (test code = 2215) 103 MEQ/L CARBON DIOXIDE (test code = 2206) 26 MEQ/L CALCIUM (test code = 2209) 10.1 MG/DL PROTEIN, TOTAL (test code = 2229) 7.6 G/DL ALBUMIN (test code = 2201) 4.7 G/DL CALC GLOBULIN (test code = 2240) 2.9 G/DL CALC A/G RATIO (test code = 2234) 1.6 RATIO BILIRUBIN, TOTAL (test code = 2207) 0.3 MG/DL ALKALINE PHOSPHATASE (test code = 2204) 75 U/L AST (test code = 2218) 16 U/L ALT (test code = 2219) 18 U/L Alberto SchumacherVITAMIN D, 25 [id number] 00:00:00* Test Item Value Reference Range Interpretation Comme [facility] VITAMIN D, 25 OH (test code = 4958) 26 NG/ML Alberto SchumacherLIPID [id number] 00:00:00* Test Item Value Reference Range Interpretation Comme nts CHOLESTEROL (test code = 2210) 199 MG/DL TRIGLYCERIDES (test code = 2232) 171 MG/DL HDL CHOLESTEROL (test code = 2220) 64 MG/DL CALC LDL CHOL (test code = 2237) 106 MG/DL RISK RATIO LDL/HDL (test cod e = 2238) 1.66 RATIO Alberto SchumacherOHP TEST, THINPREP, [id number] 17:30:40* Test Item Value Reference Range Interpretation Comme [facility] SOURCE: (test code = 8001) Cervical/Endo cervical SLIDES: (test code = 8011) 1 LMP: (test code = 8021) 06/07/2023 SPECIMEN ADEQUACY: (test code = 03466) (NOTE) Satisfactory for evaluation. Endocervical cells/transformation zone component not identified. INTERPRETATION: (test code = 29727) NILM/NO EPITH. ABNORMALITY;S EE BELOW ---- NEGATIVE FOR INTRAEPITHELIAL LESION OR MALIGNANCY (NILM) - INSECT CONTROL AIDE: (test code = 8101) FRIEDA Horvath(ASCP) [facility] LOCATION: (test code = 18189) (NOTE) Specimens proces sed and interpreted at [facility], [address] [place] [address], , CLIA: [id number] CPT: (test code = 8140) (NOTE) [address] UNLESS OTH ERWISE INDICATED, COMPUTER AIDED AND INSECT CONTROL AIDE SCREENING PERFORMED. The Pap test is a screening test with an inherent, but low probability of error. Your patient should be reminded to consult you immediately if she experiences any suspicious signs or symptoms, regardless of her Pap test result. An alternate report format containing images or consolidated prior Pap history is available as applicable. HPV HIGH RISK WITH GENOTYPE, [id number] 17:22:34* Test Item Value Reference Range Interpretation Comme nts HPV HIGH RISK INTERP (test code = 45737) NEGATIVE NEGATIVE HPV 16 (test code = 69495) NEGATIVE HPV 18 (test code = 98389) NEGATIVE HPV, HR, OTHER GENOTYPES (test code = 67423) NEGATIVE Testing methodol ogy is real-time PCR utilizing hydrolysis probes with the [employer] system. The test individually detects genotypes 16 and 18, as well as the other 12 high risk types (31,33,35,39,45,51,52,56 ,58,59,66,68). The expected result is negative. A negative result does not rule out the presence of HPV not included in the genotype set, a low level of infection or specimen sampling error. UNLESS OTHERWISE INDICATED, ALL TESTING PERFORMED AT [facility] [address] [place] [address] POOL MANAGER: BENJI STUBBS M.D. CLIA NUMBER [id number] [facility]. [id number] VITAMIN D, 25 [id number] 07:04:35* Test Item Value Reference Range Interpretation Comme [facility] VITAMIN D, 25 OH (test code = 4958) 41 NG/ML SEE BELOW NOTE: 25-HYDR OXYVITAMIN D ASSAY INCLUDES 25-HYDROXYVITAMIN D2 AND D3. INTERPRETIVE RANGES PEDIATRIC (<17 YEARS) . . . . . . . . . . . NG/ML 20-100ADULT: INSUFFICIENT . . . . . . . . . . . . . . NG/ML <20 SUBOPTIMAL . . . . . . . . . . . . . . . NG/ML 20-29 OPTIMAL . . . . . . . . . . . . . . . . . NG/ML 30-100 UNLESS OTHERWISE INDICATED, ALL TESTING PERFORMED AT [facility] [address] [place] [id number] POOL MANAGER: BENJI STUBBS M.D. CLIA NUMBER [id number] [facility]. [id number] CBC W/AUTO DIFF WITH [id number] 03:20:37* Test Item Value Reference Range Interpretation Comme [facility] WBC (test code = 1001) 7.9 K/UL 3.5-11.0 RBC (test code = 1002) 4.69 M/UL 3.80-5.40 HEMOGLOBIN (test code = 1003) 14.0 G/DL 11.5-15.5 HEMATOCRIT (test code = 1004) 41.1 % 34.0-45.0 MCV (test code = 1005) 87.6 fL 80.0-99.0 MCH (test code = 1006) 29.9 PG 25.0-33.0 MCHC (test code = 1007) 34.1 G/DL 31.0-36.0 RDW (test code = 1038) 12.2 % 11.5-15.0 NEUTROPHILS (test code = 1008) 67.2 % LYMPHOCYTES (test code = 1010) 24.8 % MONOCYTES (test code = 1011) 6.5 % EOSINOPHILS (test code = 1012) 0.8 % BASOPHILS (test code = 1013) 0.4 % IMMATURE GRANULOCYTES (test code = 1036) 0.3 % NUCLEATED RBCS (test code = 1065) 0.0 /100 WBC'S See_Comment [Automated [employer] ge] The system which generated this result transmitted reference range: 0.0. The reference range was not used to interpret this result as normal/abnormal. PLATELET COUNT (test code = 1015) 342 K/UL 130-400 ABSOLUTE NEUTROPHILS (test code = 1066) 5.30 K/UL 1.50-7.50 ABSOLUTE LYMPHOCYTES (test code = 1067) 1.95 K/UL 1.00-4.00 ABSOLUTE MONOCYTES (test code = 1068) 0.51 K/UL 0.20-1.00 ABSOLUTE EOSINOPHILS (test code = 1040) 0.06 K/UL 0.00-0.50 ABSOLUTE BASOPHILS (test code = 1069) 0.03 K/UL 0.00-0.20 ABS IMMATURE GRANULOCYTES (test code = 1020) 0.02 K/UL 0.00-0.10 ABS NUCLEATED RBCS (test code = 78373) 0.00 K/UL 0.00-0.11 VITAMIN D, 25 [id number] 00:00:00* Test Item Value Reference Range Interpretation Comme nts VITAMIN D, 25 OH (test code = 4958) 41 NG/ML Alberto SchumacherHPV HIGH RISK WITH GENOTYPE, [id number] 00:00:00* Test Item Value Reference Range Interpretation Comme nts HPV HIGH RISK INTERP (test c ode = 48993) NEGATIVE HPV 16 (test code = 93355) NEGATIVE HPV 18 (test code = 58262) NEGATIVE HPV, HR, OTHER GENOTYPES (te st code = 17585) NEGATIVE PDFE (test code = PDFReport) PDF Alberto SchumacherCBC W/AUTO [id number] 00:00:00* Test Item Value Reference Range Interpretation Comme nts WBC (test code = 1001) 7.9 K/UL RBC (test code = 1002) 4.69 M/UL HEMOGLOBIN (test code = 1003) 14.0 G/DL HEMATOCRIT (test code = 1004) 41.1 % MCV (test code = 1005) 87.6 fL MCH (test code = 1006) 29.9 PG MCHC (test code = 1007) 34.1 G/DL RDW (test code = 1038) 12.2 % NEUTROPHILS (test code = 1008) 67.2 % LYMPHOCYTES (test code = 1010) 24.8 % MONOCYTES (test code = 1011) 6.5 % EOSINOPHILS (test code = 1012) 0.8 % BASOPHILS (test code = 1013) 0.4 % IMMATURE GRANULOCYTES (test code = 1036) 0.3 % NUCLEATED RBCS (test code = 1065) 0.0 /100WBC'S PLATELET COUNT (test code = 1015) 342 K/UL ABSOLUTE NEUTROPHILS (test c ode = 1066) 5.30 K/UL ABSOLUTE LYMPHOCYTES (test c ode = 1067) 1.95 K/UL ABSOLUTE MONOCYTES (test cod e = 1068) 0.51 K/UL ABSOLUTE EOSINOPHILS (test c ode = 1040) 0.06 K/UL ABSOLUTE BASOPHILS (test cod e = 1069) 0.03 K/UL ABS IMMATURE GRANULOCYTES (t est code = 1020) 0.02 K/UL ABS NUCLEATED RBCS (test cod e = 58904) 0.00 K/UL Alberto SchumacherVAP TEST, THINPREP, [id number] 00:00:00* Test Item Value Reference Range Interpretation Comme nts SOURCE: (test code = 8001) Cervical/Endocervical SLIDES: (test code = 8011) 1 LMP: (test code = 8021) 06/07/2023 SPECIMEN ADEQUACY: (test code = 99147) (NOTE) INTERPRETATION: (test code = 77022) NILM/NO EPITH. ABNORMALITY;SEE BELOW INSECT CONTROL AIDE: (test code = 8101) FRIEDA Horvath(ASCP)[facility] LOCATION: (test code = 29280) (NOTE) CPT: (test code = 8140) (NOTE) Alberto Bradshaw EndyHPV HIGH RISK WITH GENOTYPE, [id number] 00:00:00* Test Item Value Reference Range Interpretation Comme nts HPV HIGH RISK INTERP (test c ode = 89369) NEGATIVE HPV 16 (test code = 01199) NEGATIVE HPV 18 (test code = 43527) NEGATIVE HPV, HR, OTHER GENOTYPES (te st code = 03455) NEGATIVE PDFE (test code = PDFReport) PDF Alberto Augustine EndyVITAMIN D, 25 [id number] 00:00:00* Test Item Value Reference Range Interpretation Comme nts VITAMIN D, 25 OH (test code = 4958) 41 NG/ML Alberto SchumacherCBC W/AUTO [id number] 00:00:00* Test Item Value Reference Range Interpretation Comme nts WBC (test code = 1001) 7.9 K/UL RBC (test code = 1002) 4.69 M/UL HEMOGLOBIN (test code = 1003) 14.0 G/DL HEMATOCRIT (test code = 1004) 41.1 % MCV (test code = 1005) 87.6 fL MCH (test code = 1006) 29.9 PG MCHC (test code = 1007) 34.1 G/DL RDW (test code = 1038) 12.2 % NEUTROPHILS (test code = 1008) 67.2 % LYMPHOCYTES (test code = 1010) 24.8 % MONOCYTES (test code = 1011) 6.5 % EOSINOPHILS (test code = 1012) 0.8 % BASOPHILS (test code = 1013) 0.4 % IMMATURE GRANULOCYTES (test code = 1036) 0.3 % NUCLEATED RBCS (test code = 1065) 0.0 /100WBC'S PLATELET COUNT (test code = 1015) 342 K/UL ABSOLUTE NEUTROPHILS (test c ode = 1066) 5.30 K/UL ABSOLUTE LYMPHOCYTES (test c ode = 1067) 1.95 K/UL ABSOLUTE MONOCYTES (test cod e = 1068) 0.51 K/UL ABSOLUTE EOSINOPHILS (test c ode = 1040) 0.06 K/UL ABSOLUTE BASOPHILS (test cod e = 1069) 0.03 K/UL ABS IMMATURE GRANULOCYTES (t est code = 1020) 0.02 K/UL ABS NUCLEATED RBCS (test cod e = 18964) 0.00 K/UL Alberto SchumacherPAP TEST, THINPREP, [id number] 00:00:00* Test Item Value Reference Range Interpretation Comme nts SOURCE: (test code = 8001) Cervical/Endocervical SLIDES: (test code = 8011) 1 LMP: (test code = 8021) 06/07/2023 SPECIMEN ADEQUACY: (test code = 08099) (NOTE) INTERPRETATION: (test code = 62961) NILM/NO EPITH. ABNORMALITY;SEE BELOW INSECT CONTROL AIDE: (test code = 8101) FRIEDA Horvath(ASCP)[facility] LOCATION: (test code = 28525) (NOTE) CPT: (test code = 8140) (NOTE) Alberto SchumacherVITAMIN D, 25 [id number] 00:00:00* Test Item Value Reference Range Interpretation Comme nts VITAMIN D, 25 OH (test code = 4958) 41 NG/ML Alberto SchumacherHPV HIGH RISK WITH GENOTYPE, [id number] 00:00:00* Test Item Value Reference Range Interpretation Comme nts HPV HIGH RISK INTERP (test c ode = 15073) NEGATIVE HPV 16 (test code = 53077) NEGATIVE HPV 18 (test code = 10876) NEGATIVE HPV, HR, OTHER GENOTYPES (te st code = 26243) NEGATIVE PDFE (test code = PDFReport) PDF Alberto SchumacherCBC W/AUTO [id number] 00:00:00* Test Item Value Reference Range Interpretation Comme nts WBC (test code = 1001) 7.9 K/UL RBC (test code = 1002) 4.69 M/UL HEMOGLOBIN (test code = 1003) 14.0 G/DL HEMATOCRIT (test code = 1004) 41.1 % MCV (test code = 1005) 87.6 fL MCH (test code = 1006) 29.9 PG MCHC (test code = 1007) 34.1 G/DL RDW (test code = 1038) 12.2 % NEUTROPHILS (test code = 1008) 67.2 % LYMPHOCYTES (test code = 1010) 24.8 % MONOCYTES (test code = 1011) 6.5 % EOSINOPHILS (test code = 1012) 0.8 % BASOPHILS (test code = 1013) 0.4 % IMMATURE GRANULOCYTES (test code = 1036) 0.3 % NUCLEATED RBCS (test code = 1065) 0.0 /100WBC'S PLATELET COUNT (test code = 1015) 342 K/UL ABSOLUTE NEUTROPHILS (test c ode = 1066) 5.30 K/UL ABSOLUTE LYMPHOCYTES (test c ode = 1067) 1.95 K/UL ABSOLUTE MONOCYTES (test cod e = 1068) 0.51 K/UL ABSOLUTE EOSINOPHILS (test c ode = 1040) 0.06 K/UL ABSOLUTE BASOPHILS (test cod e = 1069) 0.03 K/UL ABS IMMATURE GRANULOCYTES (t est code = 1020) 0.02 K/UL ABS NUCLEATED RBCS (test cod e = 82809) 0.00 K/UL Alberto SchumacherPAP TEST, THINPREP, [id number] 00:00:00* Test Item Value Reference Range Interpretation Comme nts SOURCE: (test code = 8001) Cervical/Endocervical SLIDES: (test code = 8011) 1 LMP: (test code = 8021) 06/07/2023 SPECIMEN ADEQUACY: (test code = 02588) (NOTE) INTERPRETATION: (test code = 06543) NILM/NO EPITH. ABNORMALITY;SEE BELOW INSECT CONTROL AIDE: (test code = 8101) FRIEDA Horvath(ASCP)IAC LOCATION: (test code = 22657) (NOTE) CPT: (test code = 8140) (NOTE) Alberto SchumacherVITAMIN D, 25 [id number] 00:00:00* Test Item Value Reference Range Interpretation Comme nts VITAMIN D, 25 OH (test code = 4958) 41 NG/ML Alberto SchumacherHPV HIGH RISK WITH GENOTYPE, [id number] 00:00:00* Test Item Value Reference Range Interpretation Comme nts HPV HIGH RISK INTERP (test c ode = 17758) NEGATIVE HPV 16 (test code = 63325) NEGATIVE HPV 18 (test code = 79050) NEGATIVE HPV, HR, OTHER GENOTYPES (te st code = 38374) NEGATIVE PDFE (test code = PDFReport) PDF Alberto SchumacherCBC W/AUTO [id number] 00:00:00* Test Item Value Reference Range Interpretation Comme nts WBC (test code = 1001) 7.9 K/UL RBC (test code = 1002) 4.69 M/UL HEMOGLOBIN (test code = 1003) 14.0 G/DL HEMATOCRIT (test code = 1004) 41.1 % MCV (test code = 1005) 87.6 fL MCH (test code = 1006) 29.9 PG MCHC (test code = 1007) 34.1 G/DL RDW (test code = 1038) 12.2 % NEUTROPHILS (test code = 1008) 67.2 % LYMPHOCYTES (test code = 1010) 24.8 % MONOCYTES (test code = 1011) 6.5 % EOSINOPHILS (test code = 1012) 0.8 % BASOPHILS (test code = 1013) 0.4 % IMMATURE GRANULOCYTES (test code = 1036) 0.3 % NUCLEATED RBCS (test code = 1065) 0.0 /100WBC'S PLATELET COUNT (test code = 1015) 342 K/UL ABSOLUTE NEUTROPHILS (test c ode = 1066) 5.30 K/UL ABSOLUTE LYMPHOCYTES (test c ode = 1067) 1.95 K/UL ABSOLUTE MONOCYTES (test cod e = 1068) 0.51 K/UL ABSOLUTE EOSINOPHILS (test c ode = 1040) 0.06 K/UL ABSOLUTE BASOPHILS (test cod e = 1069) 0.03 K/UL ABS IMMATURE GRANULOCYTES (t est code = 1020) 0.02 K/UL ABS NUCLEATED RBCS (test cod e = 13881) 0.00 K/UL Alberto SchumacherPAP TEST, THINPREP, [id number] 00:00:00* Test Item Value Reference Range Interpretation Comme nts SOURCE: (test code = 8001) Cervical/Endocervical SLIDES: (test code = 8011) 1 LMP: (test code = 8021) 06/07/2023 SPECIMEN ADEQUACY: (test code = 46453) (NOTE) INTERPRETATION: (test code = 36414) NILM/NO EPITH. ABNORMALITY;SEE BELOW INSECT CONTROL AIDE: (test code = 8101) FRIEDA Horvath(ASCP)IAC LOCATION: (test code = 11836) (NOTE) CPT: (test code = 8140) (NOTE) Alberto SchumacherHPV HIGH RISK WITH GENOTYPE, [id number] 00:00:00* Test Item Value Reference Range Interpretation Comme nts HPV HIGH RISK INTERP (test c ode = 15664) NEGATIVE HPV 16 (test code = 90995) NEGATIVE HPV 18 (test code = 01590) NEGATIVE HPV, HR, OTHER GENOTYPES (te st code = 04823) NEGATIVE PDFE (test code = PDFReport) PDF Alberto SchumacherVITAMIN D, 25 [id number] 00:00:00* Test Item Value Reference Range Interpretation Comme nts VITAMIN D, 25 OH (test code = 4958) 41 NG/ML Alberto Bradshaw EndyCBC W/AUTO [id number] 00:00:00* Test Item Value Reference Range Interpretation Comme nts WBC (test code = 1001) 7.9 K/UL RBC (test code = 1002) 4.69 M/UL HEMOGLOBIN (test code = 1003) 14.0 G/DL HEMATOCRIT (test code = 1004) 41.1 % MCV (test code = 1005) 87.6 fL MCH (test code = 1006) 29.9 PG MCHC (test code = 1007) 34.1 G/DL RDW (test code = 1038) 12.2 % NEUTROPHILS (test code = 1008) 67.2 % LYMPHOCYTES (test code = 1010) 24.8 % MONOCYTES (test code = 1011) 6.5 % EOSINOPHILS (test code = 1012) 0.8 % BASOPHILS (test code = 1013) 0.4 % IMMATURE GRANULOCYTES (test code = 1036) 0.3 % NUCLEATED RBCS (test code = 1065) 0.0 /100WBC'S PLATELET COUNT (test code = 1015) 342 K/UL ABSOLUTE NEUTROPHILS (test c ode = 1066) 5.30 K/UL ABSOLUTE LYMPHOCYTES (test c ode = 1067) 1.95 K/UL ABSOLUTE MONOCYTES (test cod e = 1068) 0.51 K/UL ABSOLUTE EOSINOPHILS (test c ode = 1040) 0.06 K/UL ABSOLUTE BASOPHILS (test cod e = 1069) 0.03 K/UL ABS IMMATURE GRANULOCYTES (t est code = 1020) 0.02 K/UL ABS NUCLEATED RBCS (test cod e = 97678) 0.00 K/UL Alberto SchumacherPAP TEST, THINPREP, [id number] 00:00:00* Test Item Value Reference Range Interpretation Comme nts SOURCE: (test code = 8001) Cervical/Endocervical SLIDES: (test code = 8011) 1 LMP: (test code = 8021) 06/07/2023 SPECIMEN ADEQUACY: (test code = 99296) (NOTE) INTERPRETATION: (test code = 03426) NILM/NO EPITH. ABNORMALITY;SEE BELOW INSECT CONTROL AIDE: (test code = 8101) FRIEDA Horvath(ASCP)IAC LOCATION: (test code = 56304) (NOTE) CPT: (test code = 8140) (NOTE) Alberto SchumacherVITAMIN D, 25 [id number] 00:00:00* Test Item Value Reference Range Interpretation Comme nts VITAMIN D, 25 OH (test code = 4958) 41 NG/ML Alberto SchumacherHPV HIGH RISK WITH GENOTYPE, [id number] 00:00:00* Test Item Value Reference Range Interpretation Comme nts HPV HIGH RISK INTERP (test c ode = 14387) NEGATIVE HPV 16 (test code = 01330) NEGATIVE HPV 18 (test code = 02522) NEGATIVE HPV, HR, OTHER GENOTYPES (te st code = 08763) NEGATIVE PDFE (test code = PDFReport) PDF [facility] W/AUTO [id number] 00:00:00* Test Item Value Reference Range Interpretation Comme nts WBC (test code = 1001) 7.9 K/UL RBC (test code = 1002) 4.69 M/UL HEMOGLOBIN (test code = 1003) 14.0 G/DL HEMATOCRIT (test code = 1004) 41.1 % MCV (test code = 1005) 87.6 fL MCH (test code = 1006) 29.9 PG MCHC (test code = 1007) 34.1 G/DL RDW (test code = 1038) 12.2 % NEUTROPHILS (test code = 1008) 67.2 % LYMPHOCYTES (test code = 1010) 24.8 % MONOCYTES (test code = 1011) 6.5 % EOSINOPHILS (test code = 1012) 0.8 % BASOPHILS (test code = 1013) 0.4 % IMMATURE GRANULOCYTES (test code = 1036) 0.3 % NUCLEATED RBCS (test code = 1065) 0.0 /100WBC'S PLATELET COUNT (test code = 1015) 342 K/UL ABSOLUTE NEUTROPHILS (test c ode = 1066) 5.30 K/UL ABSOLUTE LYMPHOCYTES (test c ode = 1067) 1.95 K/UL ABSOLUTE MONOCYTES (test cod e = 1068) 0.51 K/UL ABSOLUTE EOSINOPHILS (test c ode = 1040) 0.06 K/UL ABSOLUTE BASOPHILS (test cod e = 1069) 0.03 K/UL ABS IMMATURE GRANULOCYTES (t est code = 1020) 0.02 K/UL ABS NUCLEATED RBCS (test cod e = 41096) 0.00 K/UL Alberto SchumacherBANNER TEST, THINPREP, [id number] 00:00:00* Test Item Value Reference Range Interpretation Comme nts SOURCE: (test code = 8001) Cervical/Endocervical SLIDES: (test code = 8011) 1 LMP: (test code = 8021) 06/07/2023 SPECIMEN ADEQUACY: (test code = 68718) (NOTE) INTERPRETATION: (test code = 98955) NILM/NO EPITH. ABNORMALITY;SEE BELOW INSECT CONTROL AIDE: (test code = 8101) FRIEDA Horvath(ASCP)IAC LOCATION: (test code = 22685) (NOTE) CPT: (test code = 8140) (NOTE) Alberto SchumacherHPV HIGH RISK WITH GENOTYPE, [id number] 00:00:00* Test Item Value Reference Range Interpretation Comme nts HPV HIGH RISK INTERP (test c ode = 00127) NEGATIVE HPV 16 (test code = 45068) NEGATIVE HPV 18 (test code = 97938) NEGATIVE HPV, HR, OTHER GENOTYPES (te st code = 55093) NEGATIVE PDFE (test code = PDFReport) PDF Alberto SchumacherVITAMIN D, 25 [id number] 00:00:00* Test Item Value Reference Range Interpretation Comme nts VITAMIN D, 25 OH (test code = 4958) 41 NG/ML Alberto SchumacherCBC W/AUTO [id number] 00:00:00* Test Item Value Reference Range Interpretation Comme nts WBC (test code = 1001) 7.9 K/UL RBC (test code = 1002) 4.69 M/UL HEMOGLOBIN (test code = 1003) 14.0 G/DL HEMATOCRIT (test code = 1004) 41.1 % MCV (test code = 1005) 87.6 fL MCH (test code = 1006) 29.9 PG MCHC (test code = 1007) 34.1 G/DL RDW (test code = 1038) 12.2 % NEUTROPHILS (test code = 1008) 67.2 % LYMPHOCYTES (test code = 1010) 24.8 % MONOCYTES (test code = 1011) 6.5 % EOSINOPHILS (test code = 1012) 0.8 % BASOPHILS (test code = 1013) 0.4 % IMMATURE GRANULOCYTES (test code = 1036) 0.3 % NUCLEATED RBCS (test code = 1065) 0.0 /100WBC'S PLATELET COUNT (test code = 1015) 342 K/UL ABSOLUTE NEUTROPHILS (test c ode = 1066) 5.30 K/UL ABSOLUTE LYMPHOCYTES (test c ode = 1067) 1.95 K/UL ABSOLUTE MONOCYTES (test cod e = 1068) 0.51 K/UL ABSOLUTE EOSINOPHILS (test c ode = 1040) 0.06 K/UL ABSOLUTE BASOPHILS (test cod e = 1069) 0.03 K/UL ABS IMMATURE GRANULOCYTES (t est code = 1020) 0.02 K/UL ABS NUCLEATED RBCS (test cod e = 93100) 0.00 K/UL Alberto Felix TEST, THINPREP, [id number] 00:00:00* Test Item Value Reference Range Interpretation Comme [facility] SOURCE: (test code = 8001) Cervical/Endocervical SLIDES: (test code = 8011) 1 LMP: (test code = 8021) 06/07/2023 SPECIMEN ADEQUACY: (test code = 76315) (NOTE) INTERPRETATION: (test code = 83204) NILM/NO EPITH. ABNORMALITY;SEE BELOW INSECT CONTROL AIDE: (test code = 8101) FRIEDA Horvath(ASCP)IAC LOCATION: (test code = 21639) (NOTE) CPT: (test code = 8140) (NOTE) Alberto Ayala, THIRD [id number] 06:49:21* Test Item Value Reference Range Interpretation Comme [facility] TSH, THIRD GENERATION (test code = 2821) 1.260 UIU/ML 0.400-4.100 VITAMIN D, 25 [id number] 06:48:17* Test Item Value Reference Range Interpretation Comme [facility] VITAMIN D, 25 OH (test code = 4958) 16 NG/ML SEE BELOW L EFFECTIVE 2022, PLEASE NOTE NEW METHODOLOGY IS ELECTROCHEMILUMINESCENCE BINDING ASSAY. NOTE: 25-HYDROXYVITAMIN D ASSAY INCLUDES 25-HYDROXYVITAMIN D2 AND D3. INTERPRETIVE RANGES PEDIATRIC (<17 YEARS) . . . . . . . . . . . NG/ML 20-100ADULT: INSUFFICIENT . . . . . . . . . . . . . . NG/ML <20 SUBOPTIMAL . . . . . . . . . . . . . . . NG/ML 20-29 OPTIMAL . . . . . . . . . . . . . . . . . NG/ML 30-100 UNLESS OTHERWISE INDICATED, ALL TESTING PERFORMED AT [facility] [address] [place] [id number] POOL MANAGER: BENJI STUBBS M.D. CLIA NUMBER [id number] [place]. [id number] COMPREHENSIVE METABOLIC [id number] 06:24:41* Test Item Value Reference Range Interpretation Comme nts GLUCOSE (test code = 7) 83 MG/DL 70-99 BUN (test code = 2207) 8 MG/DL 6-20 CREATININE (test code = 2213) 0.59 MG/DL 0.60-1.30 L eGFR (2020 CKD-EPI) (test code = 94336) 117 ML/MIN/1.73 >60 CALC BUN/CREAT (test code = 2235) 14 RATIO 6-28 SODIUM (test code = 223) 141 MEQ/L 133-146 POTASSIUM (test code = 2228) 3.8 MEQ/L 3.5-5.4 CHLORIDE (test code = 221) 104 MEQ/L 95-107 CARBON DIOXIDE (test code = 6) 23 MEQ/L 19-31 CALCIUM (test code = 2209) 9.1 MG/DL 8.5-10.5 PROTEIN, TOTAL (test code = 2228) 7.3 G/DL 6.1-8.3 ALBUMIN (test code = 2200) 4.8 G/DL 3.5-5.2 CALC GLOBULIN (test code = 2240) 2.5 G/DL 1.9-3.7 CALC A/G RATIO (test code = 223) 1.9 RATIO 1.0-2.6 BILIRUBIN, TOTAL (test code = 2206) <0.2 MG/DL <=1.2 ALKALINE PHOSPHATASE (test code = 220) 83 U/L 40-112 AST (test code = 221) 13 U/L 9-40 ALT (test code = 2219) 17 U/L 5-40 CBC W/AUTO DIFF WITH [id number] 02:06:28* Test Item Value Reference Range Interpretation Comme nts WBC (test code = 1001) 7.5 K/UL 3.5-11.0 RBC (test code = 1002) 4.73 M/UL 3.80-5.40 HEMOGLOBIN (test code = 1003) 13.9 G/DL 11.5-15.5 HEMATOCRIT (test code = 1004) 40.9 % 34.0-45.0 MCV (test code = 1005) 86.5 fL 80.0-99.0 MCH (test code = 1006) 29.4 PG 25.0-33.0 MCHC (test code = 1007) 34.0 G/DL 31.0-36.0 RDW (test code = 1038) 12.3 % 11.5-15.0 NEUTROPHILS (test code = 1008) 55.5 % LYMPHOCYTES (test code = 1010) 31.1 % MONOCYTES (test code = 1011) 8.3 % EOSINOPHILS (test code = 1012) 3.6 % BASOPHILS (test code = 1013) 1.1 % IMMATURE GRANULOCYTES (test code = 1036) 0.4 % NUCLEATED RBCS (test code = 1065) 0.0 /100 WBC'S See_Comment [Automated [employer]] The system which generated this result transmitted reference range: 0.0. The reference range was not used to interpret this result as normal/abnormal. PLATELET COUNT (test code = 1015) 499 K/UL 130-400 H ABSOLUTE NEUTROPHILS (test code = 1066) 4.13 K/UL 1.50-7.50 ABSOLUTE LYMPHOCYTES (test code = 1067) 2.32 K/UL 1.00-4.00 ABSOLUTE MONOCYTES (test code = 1068) 0.62 K/UL 0.20-1.00 ABSOLUTE EOSINOPHILS (test code = 1040) 0.27 K/UL 0.00-0.50 ABSOLUTE BASOPHILS (test code = 1069) 0.08 K/UL 0.00-0.20 ABS IMMATURE GRANULOCYTES (test code = 1020) 0.03 K/UL 0.00-0.10 ABS NUCLEATED RBCS (test code = 66285) 0.00 K/UL 0.00-0.11 COMPREHENSIVE METABOLIC [id number] 00:00:00* Test Item Value Reference Range Interpretation Comme nts GLUCOSE (test code = 2217) 83 MG/DL BUN (test code = 2208) 8 MG/DL CREATININE (test code = 2214) 0.59 MG/DL eGFR (2020 CKD-EPI) (test code = 47231) 117 ML/MIN/1.73 CALC BUN/CREAT (test code = 2235) 14 RATIO SODIUM (test code = 2231) 141 MEQ/L POTASSIUM (test code = 2228) 3.8 MEQ/L CHLORIDE (test code = 2215) 104 MEQ/L CARBON DIOXIDE (test code = 2206) 23 MEQ/L CALCIUM (test code = 2209) 9.1 MG/DL PROTEIN, TOTAL (test code = 2229) 7.3 G/DL ALBUMIN (test code = 2201) 4.8 G/DL CALC GLOBULIN (test code = 2240) 2.5 G/DL CALC A/G RATIO (test code = 2234) 1.9 RATIO BILIRUBIN, TOTAL (test code = 2207) <0.2 MG/DL ALKALINE PHOSPHATASE (test code = 2204) 83 U/L AST (test code = 2218) 13 U/L ALT (test code = 2219) 17 U/L Alberto [id number] 00:00:00* Test Item Value Reference Range Interpretation Comme nts TSH, THIRD GENERATION (test code = 2821) 1.260 UIU/ML Alberto SchumacherVITAMIN D, 25 [id number] 00:00:00* Test Item Value Reference Range Interpretation Comme nts VITAMIN D, 25 OH (test code = 4958) 16 NG/ML Alberto SchumacherCBC W/AUTO [id number] 00:00:00* Test Item Value Reference Range Interpretation Comme nts WBC (test code = 1001) 7.5 K/UL RBC (test code = 1002) 4.73 M/UL HEMOGLOBIN (test code = 1003) 13.9 G/DL HEMATOCRIT (test code = 1004) 40.9 % MCV (test code = 1005) 86.5 fL MCH (test code = 1006) 29.4 PG MCHC (test code = 1007) 34.0 G/DL RDW (test code = 1038) 12.3 % NEUTROPHILS (test code = 1008) 55.5 % LYMPHOCYTES (test code = 1010) 31.1 % MONOCYTES (test code = 1011) 8.3 % EOSINOPHILS (test code = 1012) 3.6 % BASOPHILS (test code = 1013) 1.1 % IMMATURE GRANULOCYTES (test code = 1036) 0.4 % NUCLEATED RBCS (test code = 1065) 0.0 /100WBC'S PLATELET COUNT (test code = 1015) 499 K/UL ABSOLUTE NEUTROPHILS (test c ode = 1066) 4.13 K/UL ABSOLUTE LYMPHOCYTES (test c ode = 1067) 2.32 K/UL ABSOLUTE MONOCYTES (test cod e = 1068) 0.62 K/UL ABSOLUTE EOSINOPHILS (test c ode = 1040) 0.27 K/UL ABSOLUTE BASOPHILS (test cod e = 1069) 0.08 K/UL ABS IMMATURE GRANULOCYTES (t est code = 1020) 0.03 K/UL ABS NUCLEATED RBCS (test cod e = 26907) 0.00 K/UL Alberto SchumacherCOMPREHENSIVE METABOLIC [id number] 00:00:00* Test Item Value Reference Range Interpretation Comme nts GLUCOSE (test code = 2217) 83 MG/DL BUN (test code = 2208) 8 MG/DL CREATININE (test code = 2214) 0.59 MG/DL eGFR (2020 CKD-EPI) (test code = 71997) 117 ML/MIN/1.73 CALC BUN/CREAT (test code = 2235) 14 RATIO SODIUM (test code = 2231) 141 MEQ/L POTASSIUM (test code = 2228) 3.8 MEQ/L CHLORIDE (test code = 2215) 104 MEQ/L CARBON DIOXIDE (test code = 2206) 23 MEQ/L CALCIUM (test code = 2209) 9.1 MG/DL PROTEIN, TOTAL (test code = 2229) 7.3 G/DL ALBUMIN (test code = 2201) 4.8 G/DL CALC GLOBULIN (test code = 2240) 2.5 G/DL CALC A/G RATIO (test code = 2234) 1.9 RATIO BILIRUBIN, TOTAL (test code = 2207) <0.2 MG/DL ALKALINE PHOSPHATASE (test code = 2204) 83 U/L AST (test code = 2218) 13 U/L ALT (test code = 2219) 17 U/L Alberto [id number] 00:00:00* Test Item Value Reference Range Interpretation Comme nts TSH, THIRD GENERATION (test code = 2821) 1.260 UIU/ML Alberto SchumacherVITAMIN D, 25 [id number] 00:00:00* Test Item Value Reference Range Interpretation Comme nts VITAMIN D, 25 OH (test code = 4958) 16 NG/ML Alberto SchumacherCBC W/AUTO [id number] 00:00:00* Test Item Value Reference Range Interpretation Comme nts WBC (test code = 1001) 7.5 K/UL RBC (test code = 1002) 4.73 M/UL HEMOGLOBIN (test code = 1003) 13.9 G/DL HEMATOCRIT (test code = 1004) 40.9 % MCV (test code = 1005) 86.5 fL MCH (test code = 1006) 29.4 PG MCHC (test code = 1007) 34.0 G/DL RDW (test code = 1038) 12.3 % NEUTROPHILS (test code = 1008) 55.5 % LYMPHOCYTES (test code = 1010) 31.1 % MONOCYTES (test code = 1011) 8.3 % EOSINOPHILS (test code = 1012) 3.6 % BASOPHILS (test code = 1013) 1.1 % IMMATURE GRANULOCYTES (test code = 1036) 0.4 % NUCLEATED RBCS (test code = 1065) 0.0 /100WBC'S PLATELET COUNT (test code = 1015) 499 K/UL ABSOLUTE NEUTROPHILS (test c ode = 1066) 4.13 K/UL ABSOLUTE LYMPHOCYTES (test c ode = 1067) 2.32 K/UL ABSOLUTE MONOCYTES (test cod e = 1068) 0.62 K/UL ABSOLUTE EOSINOPHILS (test c ode = 1040) 0.27 K/UL ABSOLUTE BASOPHILS (test cod e = 1069) 0.08 K/UL ABS IMMATURE GRANULOCYTES (t est code = 1020) 0.03 K/UL ABS NUCLEATED RBCS (test cod e = 93532) 0.00 K/UL Alberto F EndyCOMPREHENSIVE METABOLIC [id number] 00:00:00* Test Item Value Reference Range Interpretation Comme nts GLUCOSE (test code = 2217) 83 MG/DL BUN (test code = 2208) 8 MG/DL CREATININE (test code = 2214) 0.59 MG/DL eGFR (2020 CKD-EPI) (test code = 73850) 117 ML/MIN/1.73 CALC BUN/CREAT (test code = 2235) 14 RATIO SODIUM (test code = 2231) 141 MEQ/L POTASSIUM (test code = 2228) 3.8 MEQ/L CHLORIDE (test code = 2215) 104 MEQ/L CARBON DIOXIDE (test code = 2206) 23 MEQ/L CALCIUM (test code = 2209) 9.1 MG/DL PROTEIN, TOTAL (test code = 2229) 7.3 G/DL ALBUMIN (test code = 2201) 4.8 G/DL CALC GLOBULIN (test code = 2240) 2.5 G/DL CALC A/G RATIO (test code = 2234) 1.9 RATIO BILIRUBIN, TOTAL (test code = 2207) <0.2 MG/DL ALKALINE PHOSPHATASE (test code = 2204) 83 U/L AST (test code = 2218) 13 U/L ALT (test code = 2219) 17 U/L Alberto [id number] 00:00:00* Test Item Value Reference Range Interpretation Comme [facility] TSH, THIRD GENERATION (test code = 2821) 1.260 UIU/ML Alberto SchumacherVITAMIN D, 25 [id number] 00:00:00* Test Item Value Reference Range Interpretation Comme [facility] VITAMIN D, 25 OH (test code = 4958) 16 NG/ML Alberto SchumacherCBC W/AUTO [id number] 00:00:00* Test Item Value Reference Range Interpretation Comme [facility] WBC (test code = 1001) 7.5 K/UL RBC (test code = 1002) 4.73 M/UL HEMOGLOBIN (test code = 1003) 13.9 G/DL HEMATOCRIT (test code = 1004) 40.9 % MCV (test code = 1005) 86.5 fL MCH (test code = 1006) 29.4 PG MCHC (test code = 1007) 34.0 G/DL RDW (test code = 1038) 12.3 % NEUTROPHILS (test code = 1008) 55.5 % LYMPHOCYTES (test code = 1010) 31.1 % MONOCYTES (test code = 1011) 8.3 % EOSINOPHILS (test code = 1012) 3.6 % BASOPHILS (test code = 1013) 1.1 % IMMATURE GRANULOCYTES (test code = 1036) 0.4 % NUCLEATED RBCS (test code = 1065) 0.0 /100WBC'S PLATELET COUNT (test code = 1015) 499 K/UL ABSOLUTE NEUTROPHILS (test c ode = 1066) 4.13 K/UL ABSOLUTE LYMPHOCYTES (test c ode = 1067) 2.32 K/UL ABSOLUTE MONOCYTES (test cod e = 1068) 0.62 K/UL ABSOLUTE EOSINOPHILS (test c ode = 1040) 0.27 K/UL ABSOLUTE BASOPHILS (test cod e = 1069) 0.08 K/UL ABS IMMATURE GRANULOCYTES (t est code = 1020) 0.03 K/UL ABS NUCLEATED RBCS (test cod e = 32304) 0.00 K/UL Alberto SchumacherCOMPREHENSIVE METABOLIC [id number] 00:00:00* Test Item Value Reference Range Interpretation Comme nts GLUCOSE (test code = 2217) 83 MG/DL BUN (test code = 2208) 8 MG/DL CREATININE (test code = 2214) 0.59 MG/DL eGFR (2020 CKD-EPI) (test code = 07496) 117 ML/MIN/1.73 CALC BUN/CREAT (test code = 2235) 14 RATIO SODIUM (test code = 2231) 141 MEQ/L POTASSIUM (test code = 2228) 3.8 MEQ/L CHLORIDE (test code = 2215) 104 MEQ/L CARBON DIOXIDE (test code = 2206) 23 MEQ/L CALCIUM (test code = 2209) 9.1 MG/DL PROTEIN, TOTAL (test code = 2229) 7.3 G/DL ALBUMIN (test code = 2201) 4.8 G/DL CALC GLOBULIN (test code = 2240) 2.5 G/DL CALC A/G RATIO (test code = 2234) 1.9 RATIO BILIRUBIN, TOTAL (test code = 2207) <0.2 MG/DL ALKALINE PHOSPHATASE (test code = 2204) 83 U/L AST (test code = 2218) 13 U/L ALT (test code = 2219) 17 U/L Alberto [id number] 00:00:00* Test Item Value Reference Range Interpretation Comme nts TSH, THIRD GENERATION (test code = 2821) 1.260 UIU/ML Alberto SchumacherVITAMIN D, 25 [id number] 00:00:00* Test Item Value Reference Range Interpretation Comme nts VITAMIN D, 25 OH (test code = 4958) 16 NG/ML Alberto SchumacherCBC W/AUTO [id number] 00:00:00* Test Item Value Reference Range Interpretation Comme nts WBC (test code = 1001) 7.5 K/UL RBC (test code = 1002) 4.73 M/UL HEMOGLOBIN (test code = 1003) 13.9 G/DL HEMATOCRIT (test code = 1004) 40.9 % MCV (test code = 1005) 86.5 fL MCH (test code = 1006) 29.4 PG MCHC (test code = 1007) 34.0 G/DL RDW (test code = 1038) 12.3 % NEUTROPHILS (test code = 1008) 55.5 % LYMPHOCYTES (test code = 1010) 31.1 % MONOCYTES (test code = 1011) 8.3 % EOSINOPHILS (test code = 1012) 3.6 % BASOPHILS (test code = 1013) 1.1 % IMMATURE GRANULOCYTES (test code = 1036) 0.4 % NUCLEATED RBCS (test code = 1065) 0.0 /100WBC'S PLATELET COUNT (test code = 1015) 499 K/UL ABSOLUTE NEUTROPHILS (test c ode = 1066) 4.13 K/UL ABSOLUTE LYMPHOCYTES (test c ode = 1067) 2.32 K/UL ABSOLUTE MONOCYTES (test cod e = 1068) 0.62 K/UL ABSOLUTE EOSINOPHILS (test c ode = 1040) 0.27 K/UL ABSOLUTE BASOPHILS (test cod e = 1069) 0.08 K/UL ABS IMMATURE GRANULOCYTES (t est code = 1020) 0.03 K/UL ABS NUCLEATED RBCS (test cod e = 68714) 0.00 K/UL Alberto SchumacherCOMPREHENSIVE METABOLIC [id number] 00:00:00* Test Item Value Reference Range Interpretation Comme nts GLUCOSE (test code = 2217) 83 MG/DL BUN (test code = 2208) 8 MG/DL CREATININE (test code = 2214) 0.59 MG/DL eGFR (2020 CKD-EPI) (test code = 02649) 117 ML/MIN/1.73 CALC BUN/CREAT (test code = 2235) 14 RATIO SODIUM (test code = 2231) 141 MEQ/L POTASSIUM (test code = 2228) 3.8 MEQ/L CHLORIDE (test code = 2215) 104 MEQ/L CARBON DIOXIDE (test code = 2206) 23 MEQ/L CALCIUM (test code = 2209) 9.1 MG/DL PROTEIN, TOTAL (test code = 2229) 7.3 G/DL ALBUMIN (test code = 2201) 4.8 G/DL CALC GLOBULIN (test code = 2240) 2.5 G/DL CALC A/G RATIO (test code = 2234) 1.9 RATIO BILIRUBIN, TOTAL (test code = 2207) <0.2 MG/DL ALKALINE PHOSPHATASE (test code = 2204) 83 U/L AST (test code = 2218) 13 U/L ALT (test code = 2219) 17 U/L Alberto [id number] 00:00:00* Test Item Value Reference Range Interpretation Comme nts TSH, THIRD GENERATION (test code = 2821) 1.260 UIU/ML Alberto SchumacherVITAMIN D, 25 [id number] 00:00:00* Test Item Value Reference Range Interpretation Comme nts VITAMIN D, 25 OH (test code = 4958) 16 NG/ML Alberto SchumacherCBC W/AUTO [id number] 00:00:00* Test Item Value Reference Range Interpretation Comme nts WBC (test code = 1001) 7.5 K/UL RBC (test code = 1002) 4.73 M/UL HEMOGLOBIN (test code = 1003) 13.9 G/DL HEMATOCRIT (test code = 1004) 40.9 % MCV (test code = 1005) 86.5 fL MCH (test code = 1006) 29.4 PG MCHC (test code = 1007) 34.0 G/DL RDW (test code = 1038) 12.3 % NEUTROPHILS (test code = 1008) 55.5 % LYMPHOCYTES (test code = 1010) 31.1 % MONOCYTES (test code = 1011) 8.3 % EOSINOPHILS (test code = 1012) 3.6 % BASOPHILS (test code = 1013) 1.1 % IMMATURE GRANULOCYTES (test code = 1036) 0.4 % NUCLEATED RBCS (test code = 1065) 0.0 /100WBC'S PLATELET COUNT (test code = 1015) 499 K/UL ABSOLUTE NEUTROPHILS (test c ode = 1066) 4.13 K/UL ABSOLUTE LYMPHOCYTES (test c ode = 1067) 2.32 K/UL ABSOLUTE MONOCYTES (test cod e = 1068) 0.62 K/UL ABSOLUTE EOSINOPHILS (test c ode = 1040) 0.27 K/UL ABSOLUTE BASOPHILS (test cod e = 1069) 0.08 K/UL ABS IMMATURE GRANULOCYTES (t est code = 1020) 0.03 K/UL ABS NUCLEATED RBCS (test cod e = 82132) 0.00 K/UL Alberto SchumacherCOMPREHENSIVE METABOLIC [id number] 00:00:00* Test Item Value Reference Range Interpretation Comme nts GLUCOSE (test code = 2217) 83 MG/DL BUN (test code = 2208) 8 MG/DL CREATININE (test code = 2214) 0.59 MG/DL eGFR (2020 CKD-EPI) (test code = 89668) 117 ML/MIN/1.73 CALC BUN/CREAT (test code = 2235) 14 RATIO SODIUM (test code = 2231) 141 MEQ/L POTASSIUM (test code = 2228) 3.8 MEQ/L CHLORIDE (test code = 2215) 104 MEQ/L CARBON DIOXIDE (test code = 2206) 23 MEQ/L CALCIUM (test code = 2209) 9.1 MG/DL PROTEIN, TOTAL (test code = 2229) 7.3 G/DL ALBUMIN (test code = 2201) 4.8 G/DL CALC GLOBULIN (test code = 2240) 2.5 G/DL CALC A/G RATIO (test code = 2234) 1.9 RATIO BILIRUBIN, TOTAL (test code = 2207) <0.2 MG/DL ALKALINE PHOSPHATASE (test code = 2204) 83 U/L AST (test code = 2218) 13 U/L ALT (test code = 2219) 17 U/L Alberto [id number] 00:00:00* Test Item Value Reference Range Interpretation Comme [facility] TSH, THIRD GENERATION (test code = 2821) 1.260 UIU/ML Alberto SchumacherVITAMIN D, 25 [id number] 00:00:00* Test Item Value Reference Range Interpretation Comme [facility] VITAMIN D, 25 OH (test code = 4958) 16 NG/ML Alberto Bradshaw [id number] 00:00:00* Test Item Value Reference Range Interpretation Comme [facility] TSH, THIRD GENERATION (test code = 2821) 1.260 UIU/ML Alberto SchumacherCBC W/AUTO [id number] 00:00:00* Test Item Value Reference Range Interpretation Comme [facility] WBC (test code = 1001) 7.5 K/UL RBC (test code = 1002) 4.73 M/UL HEMOGLOBIN (test code = 1003) 13.9 G/DL HEMATOCRIT (test code = 1004) 40.9 % MCV (test code = 1005) 86.5 fL MCH (test code = 1006) 29.4 PG MCHC (test code = 1007) 34.0 G/DL RDW (test code = 1038) 12.3 % NEUTROPHILS (test code = 1008) 55.5 % LYMPHOCYTES (test code = 1010) 31.1 % MONOCYTES (test code = 1011) 8.3 % EOSINOPHILS (test code = 1012) 3.6 % BASOPHILS (test code = 1013) 1.1 % IMMATURE GRANULOCYTES (test code = 1036) 0.4 % NUCLEATED RBCS (test code = 1065) 0.0 /100WBC'S PLATELET COUNT (test code = 1015) 499 K/UL ABSOLUTE NEUTROPHILS (test c ode = 1066) 4.13 K/UL ABSOLUTE LYMPHOCYTES (test c ode = 1067) 2.32 K/UL ABSOLUTE MONOCYTES (test cod e = 1068) 0.62 K/UL ABSOLUTE EOSINOPHILS (test c ode = 1040) 0.27 K/UL ABSOLUTE BASOPHILS (test cod e = 1069) 0.08 K/UL ABS IMMATURE GRANULOCYTES (t est code = 1020) 0.03 K/UL ABS NUCLEATED RBCS (test cod e = 47162) 0.00 K/UL Alberto SchumacherVITAMIN D, 25 [id number] 00:00:00* Test Item Value Reference Range Interpretation Comme nts VITAMIN D, 25 OH (test code = 4958) 16 NG/ML Alberto SchumacherCOMPREHENSIVE METABOLIC [id number] 00:00:00* Test Item Value Reference Range Interpretation Comme nts GLUCOSE (test code = 2217) 83 MG/DL BUN (test code = 2208) 8 MG/DL CREATININE (test code = 2214) 0.59 MG/DL eGFR (2020 CKD-EPI) (test code = 04922) 117 ML/MIN/1.73 CALC BUN/CREAT (test code = 2235) 14 RATIO SODIUM (test code = 2231) 141 MEQ/L POTASSIUM (test code = 2228) 3.8 MEQ/L CHLORIDE (test code = 2215) 104 MEQ/L CARBON DIOXIDE (test code = 2206) 23 MEQ/L CALCIUM (test code = 2209) 9.1 MG/DL PROTEIN, TOTAL (test code = 2229) 7.3 G/DL ALBUMIN (test code = 2201) 4.8 G/DL CALC GLOBULIN (test code = 2240) 2.5 G/DL CALC A/G RATIO (test code = 2234) 1.9 RATIO BILIRUBIN, TOTAL (test code = 2207) <0.2 MG/DL ALKALINE PHOSPHATASE (test code = 2204) 83 U/L AST (test code = 2218) 13 U/L ALT (test code = 2219) 17 U/L Alberto [id number] 00:00:00* Test Item Value Reference Range Interpretation Comme nts TSH, THIRD GENERATION (test code = 2821) 1.260 UIU/ML Alberto SchumacherVITAMIN D, 25 [id number] 00:00:00* Test Item Value Reference Range Interpretation Comme nts VITAMIN D, 25 OH (test code = 4958) 16 NG/ML Alberto SchumacherCBC W/AUTO [id number] 00:00:00* Test Item Value Reference Range Interpretation Comme nts WBC (test code = 1001) 7.5 K/UL RBC (test code = 1002) 4.73 M/UL HEMOGLOBIN (test code = 1003) 13.9 G/DL HEMATOCRIT (test code = 1004) 40.9 % MCV (test code = 1005) 86.5 fL MCH (test code = 1006) 29.4 PG MCHC (test code = 1007) 34.0 G/DL RDW (test code = 1038) 12.3 % NEUTROPHILS (test code = 1008) 55.5 % LYMPHOCYTES (test code = 1010) 31.1 % MONOCYTES (test code = 1011) 8.3 % EOSINOPHILS (test code = 1012) 3.6 % BASOPHILS (test code = 1013) 1.1 % IMMATURE GRANULOCYTES (test code = 1036) 0.4 % NUCLEATED RBCS (test code = 1065) 0.0 /100WBC'S PLATELET COUNT (test code = 1015) 499 K/UL ABSOLUTE NEUTROPHILS (test c ode = 1066) 4.13 K/UL ABSOLUTE LYMPHOCYTES (test c ode = 1067) 2.32 K/UL ABSOLUTE MONOCYTES (test cod e = 1068) 0.62 K/UL ABSOLUTE EOSINOPHILS (test c ode = 1040) 0.27 K/UL ABSOLUTE BASOPHILS (test cod e = 1069) 0.08 K/UL ABS IMMATURE GRANULOCYTES (t est code = 1020) 0.03 K/UL ABS NUCLEATED RBCS (test cod e = 13742) 0.00 K/UL Alberto SchumacherCBC W/AUTO [id number] 00:00:00* Test Item Value Reference Range Interpretation Comme nts WBC (test code = 1001) 7.5 K/UL RBC (test code = 1002) 4.73 M/UL HEMOGLOBIN (test code = 1003) 13.9 G/DL HEMATOCRIT (test code = 1004) 40.9 % MCV (test code = 1005) 86.5 fL MCH (test code = 1006) 29.4 PG MCHC (test code = 1007) 34.0 G/DL RDW (test code = 1038) 12.3 % NEUTROPHILS (test code = 1008) 55.5 % LYMPHOCYTES (test code = 1010) 31.1 % MONOCYTES (test code = 1011) 8.3 % EOSINOPHILS (test code = 1012) 3.6 % BASOPHILS (test code = 1013) 1.1 % IMMATURE GRANULOCYTES (test code = 1036) 0.4 % NUCLEATED RBCS (test code = 1065) 0.0 /100WBC'S PLATELET COUNT (test code = 1015) 499 K/UL ABSOLUTE NEUTROPHILS (test c ode = 1066) 4.13 K/UL ABSOLUTE LYMPHOCYTES (test c ode = 1067) 2.32 K/UL ABSOLUTE MONOCYTES (test cod e = 1068) 0.62 K/UL ABSOLUTE EOSINOPHILS (test c ode = 1040) 0.27 K/UL ABSOLUTE BASOPHILS (test cod e = 1069) 0.08 K/UL ABS IMMATURE GRANULOCYTES (t est code = 1020) 0.03 K/UL ABS NUCLEATED RBCS (test cod e = 48415) 0.00 K/UL Alberto SchumacherCOMPREHENSIVE METABOLIC [id number] 00:00:00* Test Item Value Reference Range Interpretation Comme nts GLUCOSE (test code = 2217) 83 MG/DL BUN (test code = 2208) 8 MG/DL CREATININE (test code = 2214) 0.59 MG/DL eGFR (2020 CKD-EPI) (test code = 85472) 117 ML/MIN/1.73 CALC BUN/CREAT (test code = 223) 14 RATIO SODIUM (test code = 223) 141 MEQ/L POTASSIUM (test code = 2228) 3.8 MEQ/L CHLORIDE (test code = 2215) 104 MEQ/L CARBON DIOXIDE (test code = 2206) 23 MEQ/L CALCIUM (test code = 2209) 9.1 MG/DL PROTEIN, TOTAL (test code = 2228) 7.3 G/DL ALBUMIN (test code = 220) 4.8 G/DL CALC GLOBULIN (test code = 2240) 2.5 G/DL CALC A/G RATIO (test code = 223) 1.9 RATIO BILIRUBIN, TOTAL (test code = 2206) <0.2 MG/DL ALKALINE PHOSPHATASE (test code = 2203) 83 U/L AST (test code = 221) 13 U/L ALT (test code = 221) 17 U/L Alberto Bradshaw AustinHEMOGLOBIN [id number] 04:28:30* Test Item Value Reference Range Interpretation Comme nts HEMOGLOBIN A1c (test code = 92225) 5.3 % 4.2-5.6 UNLESS OTHERWISE INDICATED, ALL TESTING PERFORMED AT [facility] [address] [place] [id number] POOL MANAGER: BENJI STUBBS M.D. CLIA NUMBER [id number] [facility]. [id number] COMPREHENSIVE METABOLIC [id number] 02:26:23* Test Item Value Reference Range Interpretation Comme nts GLUCOSE (test code = 2216) 97 MG/DL 70-99 BUN (test code = 2207) 7 MG/DL 6-20 CREATININE (test code = 2214) 0.55 MG/DL 0.60-1.30 L eGFR (2020 CKD-EPI) (test code = 40624) 120 ML/MIN/1.73 >60 CALC BUN/CREAT (test code = 2235) 13 RATIO 6-28 SODIUM (test code = 223) 142 MEQ/L 133-146 POTASSIUM (test code = [...] code = 2219) 19 U/L 5-40 LIPID [id number] 02:26:23* Test Item Value Reference Range Interpretation [...] SPECIMENS. FOR MOREINFORMATION, SEE CLIENT ANNOUNCEMENT AT [email or web address] RISK RATIO LDL/HDL (test code = 2238) 1.55 RATIO <3.22 LIPID [id number] 00:00:00* Test Item Value Reference Range Interpretation Comme nts CHOLESTEROL (test code = 2210) 166 MG/DL TRIGLYCERIDES (test code = 2232) 132 MG/DL HDL CHOLESTEROL (test code = 2220) 56 MG/DL CALC LDL CHOL (test code = 2237) 87 MG/DL RISK RATIO LDL/HDL (test cod e = 2238) 1.55 RATIO Alberto Bradshaw AustinHEMOGLOBIN [id number] 00:00:00* Test Item Value Reference Range Interpretation Comme nts HEMOGLOBIN A1c (test code = 97940) 5.3 % Alberto Bradshaw AustinCOMPREHENSIVE METABOLIC [id number] 00:00:00* Test Item Value Reference Range Interpretation Comme nts GLUCOSE (test code = 2217) 97 MG/DL BUN (test code = 2208) 7 MG/DL CREATININE (test code = 2214) 0.55 MG/DL eGFR (2020 CKD-EPI) (test code = 97238) 120 ML/MIN/1.73 CALC BUN/CREAT (test code = 2235) 13 RATIO SODIUM (test code = 2231) 142 MEQ/L POTASSIUM (test code = 2228) 4.1 MEQ/L CHLORIDE (test code = 2215) 106 MEQ/L CARBON DIOXIDE (test code = 2206) 24 MEQ/L CALCIUM (test code = 2209) 9.7 MG/DL PROTEIN, TOTAL (test code = 2229) 7.1 G/DL ALBUMIN (test code = 2201) 4.2 G/DL CALC GLOBULIN (test code = 2240) 2.9 G/DL CALC A/G RATIO (test code = 2234) 1.4 RATIO BILIRUBIN, TOTAL (test code = 2207) 0.4 MG/DL ALKALINE PHOSPHATASE (test code = 2204) 75 U/L AST (test code = 2218) 15 U/L ALT (test code = 2219) 19 U/L Alberto Bradshaw AustinLIPID [id number] 00:00:00* Test Item Value Reference Range Interpretation Comme nts CHOLESTEROL (test code = 2210) 166 MG/DL TRIGLYCERIDES (test code = 2232) 132 MG/DL HDL CHOLESTEROL (test code = 2220) 56 MG/DL CALC LDL CHOL (test code = 2237) 87 MG/DL RISK RATIO LDL/HDL (test cod e = 2238) 1.55 RATIO Alberto SchumacherHEMOGLOBIN [id number] 00:00:00* Test Item Value Reference Range Interpretation Comme nts HEMOGLOBIN A1c (test code = 75220) 5.3 % Alberto Bradshaw AustinCOMPREHENSIVE METABOLIC [id number] 00:00:00* Test Item Value Reference Range Interpretation Comme nts GLUCOSE (test code = 2217) 97 MG/DL BUN (test code = 2208) 7 MG/DL CREATININE (test code = 2214) 0.55 MG/DL eGFR (2020 CKD-EPI) (test code = 43481) 120 ML/MIN/1.73 CALC BUN/CREAT (test code = 2235) 13 RATIO SODIUM (test code = 2231) 142 MEQ/L POTASSIUM (test code = 2228) 4.1 MEQ/L CHLORIDE (test code = 2215) 106 MEQ/L CARBON DIOXIDE (test code = 2206) 24 MEQ/L CALCIUM (test code = 2209) 9.7 MG/DL PROTEIN, TOTAL (test code = 2229) 7.1 G/DL ALBUMIN (test code = 2201) 4.2 G/DL CALC GLOBULIN (test code = 2240) 2.9 G/DL CALC A/G RATIO (test code = 2234) 1.4 RATIO BILIRUBIN, TOTAL (test code = 2207) 0.4 MG/DL ALKALINE PHOSPHATASE (test code = 2204) 75 U/L AST (test code = 2218) 15 U/L ALT (test code = 2219) 19 U/L Alberto Bradshaw CoplayLIPID [id number] 00:00:00* Test Item Value Reference Range Interpretation Comme nts CHOLESTEROL (test code = 2210) 166 MG/DL TRIGLYCERIDES (test code = 2232) 132 MG/DL HDL CHOLESTEROL (test code = 2220) 56 MG/DL CALC LDL CHOL (test code = 2237) 87 MG/DL RISK RATIO LDL/HDL (test cod e = 2238) 1.55 RATIO Alberto SchumacherHEMOGLOBIN [id number] 00:00:00* Test Item Value Reference Range Interpretation Comme nts HEMOGLOBIN A1c (test code = 64575) 5.3 % Alberto SchumacherCOMPREHENSIVE METABOLIC [id number] 00:00:00* Test Item Value Reference Range Interpretation Comme nts GLUCOSE (test code = 2217) 97 MG/DL BUN (test code = 2208) 7 MG/DL CREATININE (test code = 2214) 0.55 MG/DL eGFR (2020 CKD-EPI) (test code = 43802) 120 ML/MIN/1.73 CALC BUN/CREAT (test code = 2235) 13 RATIO SODIUM (test code = 2231) 142 MEQ/L POTASSIUM (test code = 2228) 4.1 MEQ/L CHLORIDE (test code = 2215) 106 MEQ/L CARBON DIOXIDE (test code = 2206) 24 MEQ/L CALCIUM (test code = 2209) 9.7 MG/DL PROTEIN, TOTAL (test code = 2229) 7.1 G/DL ALBUMIN (test code = 2201) 4.2 G/DL CALC GLOBULIN (test code = 2240) 2.9 G/DL CALC A/G RATIO (test code = 2234) 1.4 RATIO BILIRUBIN, TOTAL (test code = 2207) 0.4 MG/DL ALKALINE PHOSPHATASE (test code = 2204) 75 U/L AST (test code = 2218) 15 U/L ALT (test code = 2219) 19 U/L Alberto SchumacherLIPID [id number] 00:00:00* Test Item Value Reference Range Interpretation Comme nts CHOLESTEROL (test code = 2210) 166 MG/DL TRIGLYCERIDES (test code = 2232) 132 MG/DL HDL CHOLESTEROL (test code = 2220) 56 MG/DL CALC LDL CHOL (test code = 2237) 87 MG/DL RISK RATIO LDL/HDL (test cod e = 2238) 1.55 RATIO Alberto SchumacherHEMOGLOBIN [id number] 00:00:00* Test Item Value Reference Range Interpretation Comme nts HEMOGLOBIN A1c (test code = 32473) 5.3 % Alberto SchumacherCOMPREHENSIVE METABOLIC [id number] 00:00:00* Test Item Value Reference Range Interpretation Comme nts GLUCOSE (test code = 2217) 97 MG/DL BUN (test code = 2208) 7 MG/DL CREATININE (test code = 2214) 0.55 MG/DL eGFR (2020 CKD-EPI) (test code = 27123) 120 ML/MIN/1.73 CALC BUN/CREAT (test code = 2235) 13 RATIO SODIUM (test code = 2231) 142 MEQ/L POTASSIUM (test code = 2228) 4.1 MEQ/L CHLORIDE (test code = 2215) 106 MEQ/L CARBON DIOXIDE (test code = 2206) 24 MEQ/L CALCIUM (test code = 2209) 9.7 MG/DL PROTEIN, TOTAL (test code = 2229) 7.1 G/DL ALBUMIN (test code = 2201) 4.2 G/DL CALC GLOBULIN (test code = 2240) 2.9 G/DL CALC A/G RATIO (test code = 2234) 1.4 RATIO BILIRUBIN, TOTAL (test code = 2207) 0.4 MG/DL ALKALINE PHOSPHATASE (test code = 2204) 75 U/L AST (test code = 2218) 15 U/L ALT (test code = 2219) 19 U/L Alberto Bradshaw AustinLIPID [id number] 00:00:00* Test Item Value Reference Range Interpretation Comme nts CHOLESTEROL (test code = 2210) 166 MG/DL TRIGLYCERIDES (test code = 2232) 132 MG/DL HDL CHOLESTEROL (test code = 2220) 56 MG/DL CALC LDL CHOL (test code = 2237) 87 MG/DL RISK RATIO LDL/HDL (test cod e = 2238) 1.55 RATIO Alberto SchumacherHEMOGLOBIN [id number] 00:00:00* Test Item Value Reference Range Interpretation Comme nts HEMOGLOBIN A1c (test code = 09450) 5.3 % Alberto SchumacherCOMPREHENSIVE METABOLIC [id number] 00:00:00* Test Item Value Reference Range Interpretation Comme nts GLUCOSE (test code = 2217) 97 MG/DL BUN (test code = 2208) 7 MG/DL CREATININE (test code = 2214) 0.55 MG/DL eGFR (2020 CKD-EPI) (test code = 67077) 120 ML/MIN/1.73 CALC BUN/CREAT (test code = 2235) 13 RATIO SODIUM (test code = 2231) 142 MEQ/L POTASSIUM (test code = 2228) 4.1 MEQ/L CHLORIDE (test code = 2215) 106 MEQ/L CARBON DIOXIDE (test code = 2206) 24 MEQ/L CALCIUM (test code = 2209) 9.7 MG/DL PROTEIN, TOTAL (test code = 2229) 7.1 G/DL ALBUMIN (test code = 2201) 4.2 G/DL CALC GLOBULIN (test code = 2240) 2.9 G/DL CALC A/G RATIO (test code = 2234) 1.4 RATIO BILIRUBIN, TOTAL (test code = 2207) 0.4 MG/DL ALKALINE PHOSPHATASE (test code = 2204) 75 U/L AST (test code = 2218) 15 U/L ALT (test code = 2219) 19 U/L Alberto SchumacherLIPID [id number] 00:00:00* Test Item Value Reference Range Interpretation Comme nts CHOLESTEROL (test code = 2210) 166 MG/DL TRIGLYCERIDES (test code = 2232) 132 MG/DL HDL CHOLESTEROL (test code = 2220) 56 MG/DL CALC LDL CHOL (test code = 2237) 87 MG/DL RISK RATIO LDL/HDL (test cod e = 2238) 1.55 RATIO Alberto SchumacherHEMOGLOBIN [id number] 00:00:00* Test Item Value Reference Range Interpretation Comme nts HEMOGLOBIN A1c (test code = 90197) 5.3 % Alberto Bradshaw AustinHEMOGLOBIN [id number] 00:00:00* Test Item Value Reference Range Interpretation Comme nts HEMOGLOBIN A1c (test code = 52082) 5.3 % Alberto SchumacherCOMPREHENSIVE METABOLIC [id number] 00:00:00* Test Item Value Reference Range Interpretation Comme nts GLUCOSE (test code = 2217) 97 MG/DL BUN (test code = 2208) 7 MG/DL CREATININE (test code = 2214) 0.55 MG/DL eGFR (2020 CKD-EPI) (test code = 60076) 120 ML/MIN/1.73 CALC BUN/CREAT (test code = 2235) 13 RATIO SODIUM (test code = 2231) 142 MEQ/L POTASSIUM (test code = 2228) 4.1 MEQ/L CHLORIDE (test code = 2215) 106 MEQ/L CARBON DIOXIDE (test code = 2206) 24 MEQ/L CALCIUM (test code = 2209) 9.7 MG/DL PROTEIN, TOTAL (test code = 2229) 7.1 G/DL ALBUMIN (test code = 2201) 4.2 G/DL CALC GLOBULIN (test code = 2240) 2.9 G/DL CALC A/G RATIO (test code = 2234) 1.4 RATIO BILIRUBIN, TOTAL (test code = 2207) 0.4 MG/DL ALKALINE PHOSPHATASE (test code = 2204) 75 U/L AST (test code = 2218) 15 U/L ALT (test code = 2219) 19 U/L Alberto SchumacherLIPID [id number] 00:00:00* Test Item Value Reference Range Interpretation Comme nts CHOLESTEROL (test code = 2210) 166 MG/DL TRIGLYCERIDES (test code = 2232) 132 MG/DL HDL CHOLESTEROL (test code = 2220) 56 MG/DL CALC LDL CHOL (test code = 2237) 87 MG/DL RISK RATIO LDL/HDL (test cod e = 2238) 1.55 RATIO Alberto SchumacherHEMOGLOBIN [id number] 00:00:00* Test Item Value Reference Range Interpretation Comme nts HEMOGLOBIN A1c (test code = 16156) 5.3 % Alberto SchumacherCOMPREHENSIVE METABOLIC [id number] 00:00:00* Test Item Value Reference Range Interpretation Comme nts GLUCOSE (test code = 2217) 97 MG/DL BUN (test code = 2208) 7 MG/DL CREATININE (test code = 2214) 0.55 MG/DL eGFR (2020 CKD-EPI) (test code = 69104) 120 ML/MIN/1.73 CALC BUN/CREAT (test code = 2235) 13 RATIO SODIUM (test code = 2231) 142 MEQ/L POTASSIUM (test code = 2228) 4.1 MEQ/L CHLORIDE (test code = 2215) 106 MEQ/L CARBON DIOXIDE (test code = 2206) 24 MEQ/L CALCIUM (test code = 2209) 9.7 MG/DL PROTEIN, TOTAL (test code = 2229) 7.1 G/DL ALBUMIN (test code = 2201) 4.2 G/DL CALC GLOBULIN (test code = 2240) 2.9 G/DL CALC A/G RATIO (test code = 2234) 1.4 RATIO BILIRUBIN, TOTAL (test code = 2207) 0.4 MG/DL ALKALINE PHOSPHATASE (test code = 2204) 75 U/L AST (test code = 2218) 15 U/L ALT (test code = 2219) 19 U/L Alberto SchumacherLIPID [id number] 00:00:00* Test Item Value Reference Range Interpretation Comme nts CHOLESTEROL (test code = 2210) 166 MG/DL TRIGLYCERIDES (test code = 2232) 132 MG/DL HDL CHOLESTEROL (test code = 2220) 56 MG/DL CALC LDL CHOL (test code = 2237) 87 MG/DL RISK RATIO LDL/HDL (test cod e = 2238) 1.55 RATIO Alberto SchumacherCOMPREHENSIVE METABOLIC [id number] 00:00:00* Test Item Value Reference Range Interpretation Comme nts GLUCOSE (test code = 2217) 97 MG/DL BUN (test code = 2208) 7 MG/DL CREATININE (test code = 2214) 0.55 MG/DL eGFR (2020 CKD-EPI) (test code = 56891) 120 ML/MIN/1.73 CALC BUN/CREAT (test code = 2235) 13 RATIO SODIUM (test code = 2231) 142 MEQ/L POTASSIUM (test code = 2228) 4.1 MEQ/L CHLORIDE (test code = 2215) 106 MEQ/L CARBON DIOXIDE (test code = 2206) 24 MEQ/L CALCIUM (test code = 2209) 9.7 MG/DL PROTEIN, TOTAL (test code = 2229) 7.1 G/DL ALBUMIN (test code = 2201) 4.2 G/DL CALC GLOBULIN (test code = 2240) 2.9 G/DL CALC A/G RATIO (test code = 2234) 1.4 RATIO BILIRUBIN, TOTAL (test code = 2207) 0.4 MG/DL ALKALINE PHOSPHATASE (test code = 2204) 75 U/L AST (test code = 2218) 15 U/L ALT (test code = 2219) 19 U/L Alberto SchumacherPOCT [id number] 18:29:00* Test Item Value Reference Range Interpretation Comme nts POCT PREG (test code = 1605) negative On board controls acceptable with C Line (test code = 3574) present POCT PREG LOT # (test code = 3577) [id number] POCT PREG TEST DATE ( test code = 6) [id number] Lab Interpretation (test cod e = 28329-0) [facility] [id number] 00:00:00* Test Item Value Reference Range Interpretation Comme nts CULTURE, ROUTINE (test code = 51045) SPECIMEN NUMBER: [id number] Alberto SchumacherCULTURE, [id number] 00:00:00* Test Item Value Reference Range Interpretation Comme nts CULTURE, ROUTINE (test code = 91844) SPECIMEN NUMBER: [id number] Alberto SchumacherCULTURE, [id number] 00:00:00* Test Item Value Reference Range Interpretation Comme nts CULTURE, ROUTINE (test code = 06584) SPECIMEN NUMBER: [id number] Alberto MorganLTURE, [id number] 00:00:00* Test Item Value Reference Range Interpretation Comme nts CULTURE, ROUTINE (test code = 46543) SPECIMEN NUMBER: [id number] Alberto SchumacherCULTURE, [id number] 00:00:00* Test Item Value Reference Range Interpretation Comme nts CULTURE, ROUTINE (test code = 20383) SPECIMEN NUMBER: [id number] Alberto SchumacherCULTURE, [id number] 00:00:00* Test Item Value Reference Range Interpretation Comme nts CULTURE, ROUTINE (test code = 75969) SPECIMEN NUMBER: [id number] Alberto SchumacherCULTURE, [id number] 00:00:00* Test Item Value Reference Range Interpretation Comme nts CULTURE, ROUTINE (test code = 05490) SPECIMEN NUMBER: [id number] Alberto SchumacherCULTURE, [id number] 00:00:00* Test Item Value Reference Range Interpretation Comme nts CULTURE, ROUTINE (test code = 70935) SPECIMEN NUMBER: [id number] Alberto SchumacherPOCT [id number] 14:14:00* Test Item Value Reference Range Interpretation Comme nts POCT PREG (test code = 1605) negative On board controls acceptable with C Line (test code = 3574) present POCT PREG LOT # (test code = 3575) [id number] POCT PREG TEST DATE ( test code = 3576) Lab Interpretation (test cod e = 04281-5) Normal [facility] W/REFL [id number] 00:00:00 * Test Item Value Reference Range Interpretation Comme nts RPR (MONITOR) W/REFL TITER ( test code = 94404-8) NON-REACTIVE Alberto SchumacherHEPATITIS PANEL, [id number] 00:00:00* Test Item Value Reference Range Interpretation Comme nts HEPATITIS A AB, TOTAL (test code = 05459-9) NON-REACTIVE HEPATITIS B SURFACE ANTIBODY QL (test code = 89476-6) NON-REACTIVE HEPATITIS B SURFACE ANTIGEN (test code = 5196-1) NON-REACTIVE CONFIRMATION (test code = 7905-3) DNR HEPATITIS B CORE AB TOTAL (t est code = 66599-2) NON-REACTIVE HEPATITIS C ANTIBODY (test c ode = 88270-4) REACTIVE INDEX (test code = 69296-6) 1.68 Alberto SchumacherHCV RNA, QUANTITATIVE REAL TIME PCR [ADDED]2021-09-09 00:00:00* Test Item Value Reference Range Interpretation Comme nts HCV RNA, QUANTITATIVE REAL TIME PCR (test code = 77116-0) <15 NOT DETECTED IU/mL HCV RNA, QUANTITATIVE REAL TIME PCR (test code = 44250-2) <1.18 NOT DETECTED LogIU/mL Alberto SchumacherHIV 1/2 ANTIGEN/ANTIBODY,FOURTH GENERATION [id number] 00:00:00* Test Item Value Reference Range Interpretation Comme nts HIV AG/AB, 4TH GEN (test cod e = 64453-4) NON-REACTIVE Alberto SchumacherHIV 1/2 ANTIGEN/ANTIBODY,FOURTH GENERATION [id number] 00:00:00* Test Item Value Reference Range Interpretation Comme nts HIV AG/AB, 4TH GEN (test cod e = 76380-3) NON-REACTIVE RPR (MONITOR) W/REFL [id number] 00:00:00* Test Item Value Reference Range Interpretation Comme nts RPR (MONITOR) W/REFL TITER ( test code = 04231-0) NON-REACTIVE HEPATITIS PANEL, [id number] 00:00:00* Test Item Value Reference Range Interpretation Comme nts HEPATITIS A AB, TOTAL (test code = 93112-2) NON-REACTIVE HEPATITIS B SURFACE ANTIBODY QL (test code = 81211-7) NON-REACTIVE HEPATITIS B SURFACE ANTIGEN (test code = 5196-1) NON-REACTIVE CONFIRMATION (test code = 7905-3) DNR HEPATITIS B CORE AB TOTAL (t est code = 97212-1) NON-REACTIVE HEPATITIS C ANTIBODY (test c ode = 17300-1) REACTIVE INDEX (test code = 43045-4) 1.68 HCV RNA, QUANTITATIVE REAL TIME PCR [ADDED]2021-09-09 00:00:00* Test Item Value Reference Range Interpretation Comme nts HCV RNA, QUANTITATIVE REAL TIME PCR (test code = 30441-5) <15 NOT DETECTED IU/mL HCV RNA, QUANTITATIVE REAL TIME PCR (test code = 69407-8) <1.18 NOT DETECTED LogIU/mL HIV 1/2 ANTIGEN/ANTIBODY,FOURTH GENERATION [id number] 00:00:00* Test Item Value Reference Range Interpretation Comme nts HIV AG/AB, 4TH GEN (test cod e = 45320-2) NON-REACTIVE RPR (MONITOR) W/REFL [id number] 00:00:00* Test Item Value Reference Range Interpretation Comme nts RPR (MONITOR) W/REFL TITER ( test code = 09398-9) NON-REACTIVE HEPATITIS PANEL, [id number] 00:00:00* Test Item Value Reference Range Interpretation Comme nts HEPATITIS A AB, TOTAL (test code = 01449-0) NON-REACTIVE HEPATITIS B SURFACE ANTIBODY QL (test code = 93715-9) NON-REACTIVE HEPATITIS B SURFACE ANTIGEN (test code = 5196-1) NON-REACTIVE CONFIRMATION (test code = 7905-3) DNR HEPATITIS B CORE AB TOTAL (t est code = 82033-6) NON-REACTIVE HEPATITIS C ANTIBODY (test c ode = 65652-3) REACTIVE INDEX (test code = 95964-4) 1.68 HCV RNA, QUANTITATIVE REAL TIME PCR [ADDED]2021-09-09 00:00:00* Test Item Value Reference Range Interpretation Comme nts HCV RNA, QUANTITATIVE REAL TIME PCR (test code = 62163-1) <15 NOT DETECTED IU/mL HCV RNA, QUANTITATIVE REAL TIME PCR (test code = 29935-0) <1.18 NOT DETECTED LogIU/mL HIV 1/2 ANTIGEN/ANTIBODY,FOURTH GENERATION [id number] 00:00:00* Test Item Value Reference Range Interpretation Comme nts HIV AG/AB, 4TH GEN (test cod e = 78257-7) NON-REACTIVE RPR (MONITOR) W/REFL [id number] 00:00:00* Test Item Value Reference Range Interpretation Comme nts RPR (MONITOR) W/REFL TITER ( test code = 22289-5) NON-REACTIVE HEPATITIS PANEL, [id number] 00:00:00* Test Item Value Reference Range Interpretation Comme nts HEPATITIS A AB, TOTAL (test code = 13849-7) NON-REACTIVE HEPATITIS B SURFACE ANTIBODY QL (test code = 26382-8) NON-REACTIVE HEPATITIS B SURFACE ANTIGEN (test code = 5196-1) NON-REACTIVE CONFIRMATION (test code = 7905-3) DNR HEPATITIS B CORE AB TOTAL (t est code = 28738-1) NON-REACTIVE HEPATITIS C ANTIBODY (test c ode = 72853-2) REACTIVE INDEX (test code = 21184-5) 1.68 HCV RNA, QUANTITATIVE REAL TIME PCR [ADDED]2021-09-09 00:00:00* Test Item Value Reference Range Interpretation Comme nts HCV RNA, QUANTITATIVE REAL TIME PCR (test code = 39424-3) <15 NOT DETECTED IU/mL HCV RNA, QUANTITATIVE REAL TIME PCR (test code = 02907-6) <1.18 NOT DETECTED LogIU/mL HIV 1/2 ANTIGEN/ANTIBODY,FOURTH GENERATION [id number] 00:00:00* Test Item Value Reference Range Interpretation Comme nts HIV AG/AB, 4TH GEN (test cod e = 00576-3) NON-REACTIVE RPR (MONITOR) W/REFL [id number] 00:00:00* Test Item Value Reference Range Interpretation Comme nts RPR (MONITOR) W/REFL TITER ( test code = 22717-1) NON-REACTIVE HEPATITIS PANEL, [id number] 00:00:00* Test Item Value Reference Range Interpretation Comme nts HEPATITIS A AB, TOTAL (test code = 22625-9) NON-REACTIVE HEPATITIS B SURFACE ANTIBODY QL (test code = 49199-4) NON-REACTIVE HEPATITIS B SURFACE ANTIGEN (test code = 5196-1) NON-REACTIVE CONFIRMATION (test code = 7905-3) DNR HEPATITIS B CORE AB TOTAL (t est code = 16579-3) NON-REACTIVE HEPATITIS C ANTIBODY (test c ode = 34500-4) REACTIVE INDEX (test code = 39854-3) 1.68 HCV RNA, QUANTITATIVE REAL TIME PCR [ADDED]2021-09-09 00:00:00* Test Item Value Reference Range Interpretation Comme nts HCV RNA, QUANTITATIVE REAL TIME PCR (test code = 68161-1) <15 NOT DETECTED IU/mL HCV RNA, QUANTITATIVE REAL TIME PCR (test code = 98857-4) <1.18 NOT DETECTED LogIU/mL HIV 1/2 ANTIGEN/ANTIBODY,FOURTH GENERATION [id number] 00:00:00* Test Item Value Reference Range Interpretation Comme nts HIV AG/AB, 4TH GEN (test cod e = 57353-0) NON-REACTIVE RPR (MONITOR) W/REFL [id number] 00:00:00* Test Item Value Reference Range Interpretation Comme nts RPR (MONITOR) W/REFL TITER ( test code = 97075-7) NON-REACTIVE HEPATITIS PANEL, [id number] 00:00:00* Test Item Value Reference Range Interpretation Comme nts HEPATITIS A AB, TOTAL (test code = 96227-2) NON-REACTIVE HEPATITIS B SURFACE ANTIBODY QL (test code = 28637-0) NON-REACTIVE HEPATITIS B SURFACE ANTIGEN (test code = 5196-1) NON-REACTIVE CONFIRMATION (test code = 7905-3) DNR HEPATITIS B CORE AB TOTAL (t est code = 74994-8) NON-REACTIVE HEPATITIS C ANTIBODY (test c ode = 43695-3) REACTIVE INDEX (test code = 56719-6) 1.68 HCV RNA, QUANTITATIVE REAL TIME PCR [ADDED]2021-09-09 00:00:00* Test Item Value Reference Range Interpretation Comme nts HCV RNA, QUANTITATIVE REAL TIME PCR (test code = 06619-4) <15 NOT DETECTED IU/mL HCV RNA, QUANTITATIVE REAL TIME PCR (test code = 39914-0) <1.18 NOT DETECTED LogIU/mL HIV 1/2 ANTIGEN/ANTIBODY,FOURTH GENERATION [id number] 00:00:00* Test Item Value Reference Range Interpretation Comme nts HIV AG/AB, 4TH GEN (test cod e = 62480-6) NON-REACTIVE RPR (MONITOR) W/REFL [id number] 00:00:00* Test Item Value Reference Range Interpretation Comme nts RPR (MONITOR) W/REFL TITER ( test code = 53922-0) NON-REACTIVE HEPATITIS PANEL, [id number] 00:00:00* Test Item Value Reference Range Interpretation Comme nts HEPATITIS A AB, TOTAL (test code = 48939-7) NON-REACTIVE HEPATITIS B SURFACE ANTIBODY QL (test code = 32236-9) NON-REACTIVE HEPATITIS B SURFACE ANTIGEN (test code = 5196-1) NON-REACTIVE CONFIRMATION (test code = 7905-3) DNR HEPATITIS B CORE AB TOTAL (t est code = 03276-6) NON-REACTIVE HEPATITIS C ANTIBODY (test c ode = 44260-9) REACTIVE INDEX (test code = 27553-9) 1.68 HCV RNA, QUANTITATIVE REAL TIME PCR [ADDED]2021-09-09 00:00:00* Test Item Value Reference Range Interpretation Comme nts HCV RNA, QUANTITATIVE REAL TIME PCR (test code = 04364-0) <15 NOT DETECTED IU/mL HCV RNA, QUANTITATIVE REAL TIME PCR (test code = 26064-5) <1.18 NOT DETECTED LogIU/mL RPR (MONITOR) W/REFL [id number] 00:00:00* Test Item Value Reference Range Interpretation Comme nts RPR (MONITOR) W/REFL TITER ( test code = 10489-9) NON-REACTIVE Alberto Bradshaw AustinHEPATITIS PANEL, [id number] 00:00:00* Test Item Value Reference Range Interpretation Comme nts HEPATITIS A AB, TOTAL (test code = 23923-9) NON-REACTIVE HEPATITIS B SURFACE ANTIBODY QL (test code = 06127-3) NON-REACTIVE HEPATITIS B SURFACE ANTIGEN (test code = 5196-1) NON-REACTIVE CONFIRMATION (test code = 7905-3) DNR HEPATITIS B CORE AB TOTAL (t est code = 27458-1) NON-REACTIVE HEPATITIS C ANTIBODY (test c ode = 58800-6) REACTIVE INDEX (test code = 37246-2) 1.68 Alberto SchumacherHCV RNA, QUANTITATIVE REAL TIME PCR [ADDED]2021-09-09 00:00:00* Test Item Value Reference Range Interpretation Comme elfego HCV RNA, QUANTITATIVE REAL TIME PCR (test code = 53117-4) <15 NOT DETECTED IU/mL HCV RNA, QUANTITATIVE REAL TIME PCR (test code = 41403-4) <1.18 NOT DETECTED LogIU/mL Alberto SchumacherHIV 1/2 ANTIGEN/ANTIBODY,FOURTH GENERATION [id number] 00:00:00* Test Item Value Reference Range Interpretation Comme elfego HIV AG/AB, 4TH GEN (test cod e = 28600-3) NON-REACTIVE Alberto Bradshaw AustinRPR (MONITOR) W/REFL [id number] 00:00:00* Test Item Value Reference Range Interpretation Comme nts RPR (MONITOR) W/REFL TITER ( test code = 41297-4) NON-REACTIVE Alberto Bradshaw AustinHEPATITIS PANEL, [id number] 00:00:00* Test Item Value Reference Range Interpretation Comme nts HEPATITIS A AB, TOTAL (test code = 21776-8) NON-REACTIVE HEPATITIS B SURFACE ANTIBODY QL (test code = 36022-4) NON-REACTIVE HEPATITIS B SURFACE ANTIGEN (test code = 5196-1) NON-REACTIVE CONFIRMATION (test code = 7905-3) DNR HEPATITIS B CORE AB TOTAL (t est code = 79674-3) NON-REACTIVE HEPATITIS C ANTIBODY (test c ode = 70615-1) REACTIVE INDEX (test code = 70027-0) 1.68 Alberto SchumacherHCV RNA, QUANTITATIVE REAL TIME PCR [ADDED]2021-09-09 00:00:00* Test Item Value Reference Range Interpretation Comme elfego HCV RNA, QUANTITATIVE REAL TIME PCR (test code = 34508-9) <15 NOT DETECTED IU/mL HCV RNA, QUANTITATIVE REAL TIME PCR (test code = 31398-9) <1.18 NOT DETECTED LogIU/mL Alberto SchumacherHIV 1/2 ANTIGEN/ANTIBODY,FOURTH GENERATION [id number] 00:00:00* Test Item Value Reference Range Interpretation Comme elfego HIV AG/AB, 4TH GEN (test cod e = 58817-2) NON-REACTIVE Alberto Bradshaw AustinRPR (MONITOR) W/REFL [id number] 00:00:00* Test Item Value Reference Range Interpretation Comme nts RPR (MONITOR) W/REFL TITER ( test code = 11494-8) NON-REACTIVE Alberto Bradshaw AustinHEPATITIS PANEL, [id number] 00:00:00* Test Item Value Reference Range Interpretation Comme nts HEPATITIS A AB, TOTAL (test code = 92016-4) NON-REACTIVE HEPATITIS B SURFACE ANTIBODY QL (test code = 90086-4) NON-REACTIVE HEPATITIS B SURFACE ANTIGEN (test code = 5196-1) NON-REACTIVE CONFIRMATION (test code = 7905-3) DNR HEPATITIS B CORE AB TOTAL (t est code = 19941-5) NON-REACTIVE HEPATITIS C ANTIBODY (test c ode = 49621-0) REACTIVE INDEX (test code = 56527-8) 1.68 Alberto Bradshaw AustinHCV RNA, QUANTITATIVE REAL TIME PCR [ADDED]2021-09-09 00:00:00* Test Item Value Reference Range Interpretation Comme elfego HCV RNA, QUANTITATIVE REAL TIME PCR (test code = 39235-0) <15 NOT DETECTED IU/mL HCV RNA, QUANTITATIVE REAL TIME PCR (test code = 96842-7) <1.18 NOT DETECTED LogIU/mL Alberto Bradshaw AustinHIV 1/2 ANTIGEN/ANTIBODY,FOURTH GENERATION [id number] 00:00:00* Test Item Value Reference Range Interpretation Comme nts HIV AG/AB, 4TH GEN (test cod e = 95006-1) NON-REACTIVE Alberto Bradshaw AustinRPR (MONITOR) W/REFL [id number] 00:00:00* Test Item Value Reference Range Interpretation Comme nts RPR (MONITOR) W/REFL TITER ( test code = 17432-2) NON-REACTIVE Alberto Bradshaw AustinHEPATITIS PANEL, [id number] 00:00:00* Test Item Value Reference Range Interpretation Comme nts HEPATITIS A AB, TOTAL (test code = 20641-4) NON-REACTIVE HEPATITIS B SURFACE ANTIBODY QL (test code = 18761-6) NON-REACTIVE HEPATITIS B SURFACE ANTIGEN (test code = 5196-1) NON-REACTIVE CONFIRMATION (test code = 7905-3) DNR HEPATITIS B CORE AB TOTAL (t est code = 91079-6) NON-REACTIVE HEPATITIS C ANTIBODY (test c ode = 36381-6) REACTIVE INDEX (test code = 46934-8) 1.68 Alberto SchumacherHCV RNA, QUANTITATIVE REAL TIME PCR [ADDED]2021-09-09 00:00:00* Test Item Value Reference Range Interpretation Comme nts HCV RNA, QUANTITATIVE REAL TIME PCR (test code = 64902-6) <15 NOT DETECTED IU/mL HCV RNA, QUANTITATIVE REAL TIME PCR (test code = 95220-0) <1.18 NOT DETECTED LogIU/mL Alberto Bradshaw AustinHIV 1/2 ANTIGEN/ANTIBODY,FOURTH GENERATION [id number] 00:00:00* Test Item Value Reference Range Interpretation Comme nts HIV AG/AB, 4TH GEN (test cod e = 96754-3) NON-REACTIVE Alberto Bradshaw AustinRPR (MONITOR) W/REFL [id number] 00:00:00* Test Item Value Reference Range Interpretation Comme nts RPR (MONITOR) W/REFL TITER ( test code = 60272-7) NON-REACTIVE Alberto SchumacherRPR (MONITOR) W/REFL [id number] 00:00:00* Test Item Value Reference Range Interpretation Comme nts RPR (MONITOR) W/REFL TITER ( test code = 82266-1) NON-REACTIVE Alberto Del CidPATITIS PANEL, [id number] 00:00:00* Test Item Value Reference Range Interpretation Comme elfeog HEPATITIS A AB, TOTAL (test code = 55927-2) NON-REACTIVE HEPATITIS B SURFACE ANTIBODY QL (test code = 03467-0) NON-REACTIVE HEPATITIS B SURFACE ANTIGEN (test code = 5196-1) NON-REACTIVE CONFIRMATION (test code = 7905-3) DNR HEPATITIS B CORE AB TOTAL (t est code = 39473-2) NON-REACTIVE HEPATITIS C ANTIBODY (test c ode = 06627-8) REACTIVE INDEX (test code = 42531-5) 1.68 Alberto SchumacherHCV RNA, QUANTITATIVE REAL TIME PCR [ADDED]2021-09-09 00:00:00* Test Item Value Reference Range Interpretation Comme elfego HCV RNA, QUANTITATIVE REAL TIME PCR (test code = 37048-8) <15 NOT DETECTED IU/mL HCV RNA, QUANTITATIVE REAL TIME PCR (test code = 00230-9) <1.18 NOT DETECTED LogIU/mL Alberto Del CidPATITIS PANEL, [id number] 00:00:00* Test Item Value Reference Range Interpretation Comme elfego HEPATITIS A AB, TOTAL (test code = 92842-2) NON-REACTIVE HEPATITIS B SURFACE ANTIBODY QL (test code = 60998-2) NON-REACTIVE HEPATITIS B SURFACE ANTIGEN (test code = 5196-1) NON-REACTIVE CONFIRMATION (test code = 7905-3) DNR HEPATITIS B CORE AB TOTAL (t est code = 67619-2) NON-REACTIVE HEPATITIS C ANTIBODY (test c ode = 14725-9) REACTIVE INDEX (test code = 95167-1) 1.68 Alberto SchumacherHIV 1/2 ANTIGEN/ANTIBODY,FOURTH GENERATION [id number] 00:00:00* Test Item Value Reference Range Interpretation Comme elfego HIV AG/AB, 4TH GEN (test cod e = 22939-5) NON-REACTIVE Alberto SchumacherHCV RNA, QUANTITATIVE REAL TIME PCR [ADDED]2021-09-09 00:00:00* Test Item Value Reference Range Interpretation Comme elfego HCV RNA, QUANTITATIVE REAL TIME PCR (test code = 75718-3) <15 NOT DETECTED IU/mL HCV RNA, QUANTITATIVE REAL TIME PCR (test code = 56656-8) <1.18 NOT DETECTED LogIU/mL Alberto SchumacherRPR (MONITOR) W/REFL [id number] 00:00:00* Test Item Value Reference Range Interpretation Comme nts RPR (MONITOR) W/REFL TITER ( test code = 21800-3) NON-REACTIVE Alberto SchumacherHEPATITIS PANEL, [id number] 00:00:00* Test Item Value Reference Range Interpretation Comme nts HEPATITIS A AB, TOTAL (test code = 62492-5) NON-REACTIVE HEPATITIS B SURFACE ANTIBODY QL (test code = 25833-0) NON-REACTIVE HEPATITIS B SURFACE ANTIGEN (test code = 5196-1) NON-REACTIVE CONFIRMATION (test code = 7905-3) DNR HEPATITIS B CORE AB TOTAL (t est code = 28452-6) NON-REACTIVE HEPATITIS C ANTIBODY (test c ode = 09257-9) REACTIVE INDEX (test code = 79297-0) 1.68 Alberto SchumacherHCV RNA, QUANTITATIVE REAL TIME PCR [ADDED]2021-09-09 00:00:00* Test Item Value Reference Range Interpretation Comme elfego HCV RNA, QUANTITATIVE REAL TIME PCR (test code = 23280-6) <15 NOT DETECTED IU/mL HCV RNA, QUANTITATIVE REAL TIME PCR (test code = 95367-9) <1.18 NOT DETECTED LogIU/mL Alberto Bradshaw AustinHIV 1/2 ANTIGEN/ANTIBODY,FOURTH GENERATION [id number] 00:00:00* Test Item Value Reference Range Interpretation Comme nts HIV AG/AB, 4TH GEN (test cod e = 99210-5) NON-REACTIVE Alberto Bradshaw AustinHIV 1/2 ANTIGEN/ANTIBODY,FOURTH GENERATION [id number] 00:00:00* Test Item Value Reference Range Interpretation Comme nts HIV AG/AB, 4TH GEN (test cod e = 57854-0) NON-REACTIVE Alberto SchumacherTHINPREP TIS PAP AND HPV mRNA E6/E7 REFLEX HPV 16,18/45 2021-09-06 00:00:00* Test Item Value Reference Range Interpretation Comme nts REPORT STATUS: (test code = 8251-1) DNR GENERAL CATEGORIZATION: (kaitlynn t code = 88980-2) DNR INFECTION: (test code = 70804-4) DNR REVIEW INSECT CONTROL AIDE: (te st code = 18481-4) DNR PATHOLOGIST: (test code = ) DNR HPV mRNA E6/E7 (test code = 42136-7) Not Detected Alberto F AustinCHLAMYDIA/N. GONORRHOEAE RNA, [id number] 00:00:00* Test Item Value Reference Range Interpretation Comme nts CHLAMYDIA TRACHOMATIS RNA, T MA, UROGENITAL (test code = 77570-2) NOT DETECTED NEISSERIA GONORRHOEAE RNA, T MA, UROGENITAL (test code = 58426-3) NOT DETECTED Alberto F AustinCHLAMYDIA/N. GONORRHOEAE RNA, [id number] 00:00:00* Test Item Value Reference Range Interpretation Comme nts CHLAMYDIA TRACHOMATIS RNA, T MA, UROGENITAL (test code = 82071-4) NOT DETECTED NEISSERIA GONORRHOEAE RNA, T MA, UROGENITAL (test code = 93770-0) NOT DETECTED COMMENT (test code = ) THINPREP TIS PAP AND HPV mRNA E6/E7 REFLEX HPV 16,18/[id number] 00:00:00* Test Item Value Reference Range Interpretation Comme nts REPORT STATUS: (test code = 8251-1) DNR CLINICAL INFORMATION: (test code = 16521-0) LMP: (test code = 8665-2) PREV. PAP: (test code = 64717-8) PREV. BX: (test code = 19268-6) SOURCE: (test code = 58903-5) STATEMENT OF ADEQUACY: (test code = 25943-6) GENERAL CATEGORIZATION: (kaitlynn t code = 23845-5) DNR INTERPRETATION/RESULT: (test code = 95318-5) INFECTION: (test code = 93220-8) DNR COMMENT: (test code = ) REVIEW INSECT CONTROL AIDE: (te st code = 48383-2) DNR PATHOLOGIST: (test code = ) DNR COMMENT (test code = ) HPV mRNA E6/E7 (test code = 67230-6) Not Detected CHLAMYDIA/N. GONORRHOEAE RNA, [id number] 00:00:00* Test Item Value Reference Range Interpretation Comme nts CHLAMYDIA TRACHOMATIS RNA, T MA, UROGENITAL (test code = 45798-1) NOT DETECTED NEISSERIA GONORRHOEAE RNA, T MA, UROGENITAL (test code = 89579-5) NOT DETECTED COMMENT (test code = ) THINPREP TIS PAP AND HPV mRNA E6/E7 REFLEX HPV 16,18/ 00:00:00* Test Item Value Reference Range Interpretation Comme nts REPORT STATUS: (test code = 8251-1) DNR CLINICAL INFORMATION: (test code = 16941-7) LMP: (test code = 8665-2) PREV. PAP: (test code = 01080-3) PREV. BX: (test code = 40608-8) SOURCE: (test code = 54609-8) STATEMENT OF ADEQUACY: (test code = 87677-9) GENERAL CATEGORIZATION: (kaitlynn t code = 26357-8) DNR INTERPRETATION/RESULT: (test code = 64376-0) INFECTION: (test code = 63582-6) DNR COMMENT: (test code = 97009-5) REVIEW INSECT CONTROL AIDE: (te st code = 26715-6) DNR PATHOLOGIST: (test code = 26047-7) DNR COMMENT (test code = ) HPV mRNA E6/E7 (test code = 04831-3) Not Detected CHLAMYDIA/N. GONORRHOEAE RNA, [id number] 00:00:00* Test Item Value Reference Range Interpretation Comme nts CHLAMYDIA TRACHOMATIS RNA, T MA, UROGENITAL (test code = 91073-5) NOT DETECTED NEISSERIA GONORRHOEAE RNA, T MA, UROGENITAL (test code = 00008-6) NOT DETECTED COMMENT (test code = ) THINPREP TIS PAP AND HPV mRNA E6/E7 REFLEX HPV 16,18/ 00:00:00* Test Item Value Reference Range Interpretation Comme nts REPORT STATUS: (test code = 8251-1) DNR CLINICAL INFORMATION: (test code = 79922-8) LMP: (test code = 8665-2) PREV. PAP: (test code = 51583-0) PREV. BX: (test code = 71339-1) SOURCE: (test code = 58684-0) STATEMENT OF ADEQUACY: (test code = 78201-4) GENERAL CATEGORIZATION: (kaitlynn t code = 04792-3) DNR INTERPRETATION/RESULT: (test code = 57368-1) INFECTION: (test code = 11608-0) DNR COMMENT: (test code = ) REVIEW INSECT CONTROL AIDE: (te st code = 61882-8) DNR PATHOLOGIST: (test code = ) DNR COMMENT (test code = ) HPV mRNA E6/E7 (test code = 00583-3) Not Detected CHLAMYDIA/N. GONORRHOEAE RNA, [id number] 00:00:00* Test Item Value Reference Range Interpretation Comme nts CHLAMYDIA TRACHOMATIS RNA, T MA, UROGENITAL (test code = 82727-6) NOT DETECTED NEISSERIA GONORRHOEAE RNA, T MA, UROGENITAL (test code = 40052-5) NOT DETECTED COMMENT (test code = ) THINPREP TIS PAP AND HPV mRNA E6/E7 REFLEX HPV 16,18/[id number] 00:00:00* Test Item Value Reference Range Interpretation Comme nts REPORT STATUS: (test code = 8251-1) DNR CLINICAL INFORMATION: (test code = 63309-9) LMP: (test code = 8665-2) PREV. PAP: (test code = 40383-5) PREV. BX: (test code = 61326-9) SOURCE: (test code = ) STATEMENT OF ADEQUACY: (test code = 36273-4) GENERAL CATEGORIZATION: (kaitlynn t code = 80087-7) DNR INTERPRETATION/RESULT: (test code = 41011-4) INFECTION: (test code = 74319-1) DNR COMMENT: (test code = ) REVIEW INSECT CONTROL AIDE: (te st code = 46628-8) DNR PATHOLOGIST: (test code = ) DNR COMMENT (test code = ) HPV mRNA E6/E7 (test code = 38966-0) Not Detected THINPREP TIS PAP AND HPV mRNA E6/E7 REFLEX HPV 16,18/[id number] 00:00:00* Test Item Value Reference Range Interpretation Comme nts REPORT STATUS: (test code = 8251-1) DNR GENERAL CATEGORIZATION: (kaitlynn t code = 09150-0) DNR INFECTION: (test code = 59592-2) DNR REVIEW INSECT CONTROL AIDE: (te st code = 50567-4) DNR PATHOLOGIST: (test code = ) DNR HPV mRNA E6/E7 (test code = 69533-2) Not Detected Alberto Bradshaw AustinCHLAMYDIA/N. GONORRHOEAE RNA, [id number] 00:00:00* Test Item Value Reference Range Interpretation Comme nts CHLAMYDIA TRACHOMATIS RNA, T MA, UROGENITAL (test code = 44702-7) NOT DETECTED NEISSERIA GONORRHOEAE RNA, T MA, UROGENITAL (test code = 52964-5) NOT DETECTED COMMENT (test code = ) THINPREP TIS PAP AND HPV mRNA E6/E7 REFLEX HPV 16,18/[id number] 00:00:00* Test Item Value Reference Range Interpretation Comme nts REPORT STATUS: (test code = 8251-1) DNR CLINICAL INFORMATION: (test code = 81953-2) LMP: (test code = 8665-2) PREV. PAP: (test code = 68989-6) PREV. BX: (test code = 83571-6) SOURCE: (test code = ) STATEMENT OF ADEQUACY: (test code = 48567-2) GENERAL CATEGORIZATION: (kaitlynn t code = 29914-1) DNR INTERPRETATION/RESULT: (test code = 68481-4) INFECTION: (test code = 27394-4) DNR COMMENT: (test code = ) REVIEW INSECT CONTROL AIDE: (te st code = 32206-6) DNR PATHOLOGIST: (test code = 47343-1) DNR COMMENT (test code = ) HPV mRNA E6/E7 (test code = 84167-8) Not Detected CHLAMYDIA/N. GONORRHOEAE RNA, [id number] 00:00:00* Test Item Value Reference Range Interpretation Comme nts CHLAMYDIA TRACHOMATIS RNA, T MA, UROGENITAL (test code = 70215-1) NOT DETECTED NEISSERIA GONORRHOEAE RNA, T MA, UROGENITAL (test code = 82154-8) NOT DETECTED COMMENT (test code = ) THINPREP TIS PAP AND HPV mRNA E6/E7 REFLEX HPV 16,18/[id number] 00:00:00* Test Item Value Reference Range Interpretation Comme nts REPORT STATUS: (test code = 8251-1) DNR CLINICAL INFORMATION: (test code = 81649-4) LMP: (test code = 8665-2) PREV. PAP: (test code = 15776-9) PREV. BX: (test code = 49908-5) SOURCE: (test code = 94106-9) STATEMENT OF ADEQUACY: (test code = 01358-7) GENERAL CATEGORIZATION: (kaitlynn t code = 28433-2) DNR INTERPRETATION/RESULT: (test code = 35173-5) INFECTION: (test code = 72425-8) DNR COMMENT: (test code = ) REVIEW INSECT CONTROL AIDE: (te st code = 65387-8) DNR PATHOLOGIST: (test code = ) DNR COMMENT (test code = ) HPV mRNA E6/E7 (test code = 16651-1) Not Detected CHLAMYDIA/N. GONORRHOEAE RNA, [id number] 00:00:00* Test Item Value Reference Range Interpretation Comme nts CHLAMYDIA TRACHOMATIS RNA, T MA, UROGENITAL (test code = 47223-1) NOT DETECTED NEISSERIA GONORRHOEAE RNA, T MA, UROGENITAL (test code = 45810-1) NOT DETECTED Alberto F EndyTHINPREP TIS PAP AND HPV mRNA E6/E7 REFLEX HPV 16,18/45 2021-09-06 00:00:00* Test Item Value Reference Range Interpretation Comme nts REPORT STATUS: (test code = 8251-1) DNR GENERAL CATEGORIZATION: (kaitlynn t code = 21486-7) DNR INFECTION: (test code = 23848-7) DNR REVIEW INSECT CONTROL AIDE: (te st code = 70188-8) DNR PATHOLOGIST: (test code = ) DNR HPV mRNA E6/E7 (test code = 08555-4) Not Detected Alberto F EndyCHLAMYDIA/N. GONORRHOEAE RNA, [id number] 00:00:00* Test Item Value Reference Range Interpretation Comme nts CHLAMYDIA TRACHOMATIS RNA, T MA, UROGENITAL (test code = 57673-1) NOT DETECTED NEISSERIA GONORRHOEAE RNA, T MA, UROGENITAL (test code = 30991-6) NOT DETECTED Alberto F AustinTHINPREP TIS PAP AND HPV mRNA E6/E7 REFLEX HPV 16,18/45 2021-09-06 00:00:00* Test Item Value Reference Range Interpretation Comme nts REPORT STATUS: (test code = 8251-1) DNR GENERAL CATEGORIZATION: (kaitlynn t code = 02661-4) DNR INFECTION: (test code = 97036-6) DNR REVIEW INSECT CONTROL AIDE: (te st code = 14446-8) DNR PATHOLOGIST: (test code = 91617-5) DNR HPV mRNA E6/E7 (test code = 23931-2) Not Detected Alberto F AustinCHLAMYDIA/N. GONORRHOEAE RNA, [id number] 00:00:00* Test Item Value Reference Range Interpretation Comme nts CHLAMYDIA TRACHOMATIS RNA, T MA, UROGENITAL (test code = 54595-7) NOT DETECTED NEISSERIA GONORRHOEAE RNA, T MA, UROGENITAL (test code = 64807-1) NOT DETECTED Alberto F AustinTHINPREP TIS PAP AND HPV mRNA E6/E7 REFLEX HPV 16,18/45 2021-09-06 00:00:00* Test Item Value Reference Range Interpretation Comme nts REPORT STATUS: (test code = 8251-1) DNR GENERAL CATEGORIZATION: (kaitlynn t code = 49296-9) DNR INFECTION: (test code = 99526-7) DNR REVIEW INSECT CONTROL AIDE: (te st code = 04002-7) DNR PATHOLOGIST: (test code = ) DNR HPV mRNA E6/E7 (test code = 97657-5) Not Detected Alberto F AustinCHLAMYDIA/N. GONORRHOEAE RNA, [id number] 00:00:00* Test Item Value Reference Range Interpretation Comme nts CHLAMYDIA TRACHOMATIS RNA, T MA, UROGENITAL (test code = 90861-7) NOT DETECTED NEISSERIA GONORRHOEAE RNA, T MA, UROGENITAL (test code = 34663-2) NOT DETECTED Alberto F AustinTHINPREP TIS PAP AND HPV mRNA E6/E7 REFLEX HPV 16,18/45 2021-09-06 00:00:00* Test Item Value Reference Range Interpretation Comme nts REPORT STATUS: (test code = 8251-1) DNR GENERAL CATEGORIZATION: (kaitlynn t code = 17534-0) DNR INFECTION: (test code = 82265-3) DNR REVIEW INSECT CONTROL AIDE: (te st code = 22907-8) DNR PATHOLOGIST: (test code = ) DNR HPV mRNA E6/E7 (test code = 80728-3) Not Detected Alberto F AustinCHLAMYDIA/N. GONORRHOEAE RNA, [id number] 00:00:00* Test Item Value Reference Range Interpretation Comme nts CHLAMYDIA TRACHOMATIS RNA, T MA, UROGENITAL (test code = 27294-8) NOT DETECTED NEISSERIA GONORRHOEAE RNA, T MA, UROGENITAL (test code = 31498-7) NOT DETECTED Alberto F AustinTHINPREP TIS PAP AND HPV mRNA E6/E7 REFLEX HPV 16,18/45 2021-09-06 00:00:00* Test Item Value Reference Range Interpretation Comme nts REPORT STATUS: (test code = 8251-1) DNR GENERAL CATEGORIZATION: (kaitlynn t code = ) DNR INFECTION: (test code = 95139-0) DNR REVIEW INSECT CONTROL AIDE: (te st code = ) DNR PATHOLOGIST: (test code = ) DNR HPV mRNA E6/E7 (test code = 02111-4) Not Detected Alberto F AustinCHLAMYDIA/N. GONORRHOEAE RNA, [id number] 00:00:00* Test Item Value Reference Range Interpretation Comme nts CHLAMYDIA TRACHOMATIS RNA, T MA, UROGENITAL (test code = 46249-3) NOT DETECTED NEISSERIA GONORRHOEAE RNA, T MA, UROGENITAL (test code = 89913-7) NOT DETECTED Alberto F AustinTHINPREP TIS PAP AND HPV mRNA E6/E7 REFLEX HPV 16,18/45 2021-09-06 00:00:00* Test Item Value Reference Range Interpretation Comme nts REPORT STATUS: (test code = 8251-1) DNR GENERAL CATEGORIZATION: (kaitlynn t code = ) DNR INFECTION: (test code = 43735-6) DNR REVIEW INSECT CONTROL AIDE: (te st code = ) DNR PATHOLOGIST: (test code = ) DNR HPV mRNA E6/E7 (test code = 86982-9) Not Detected Alberto Bradshaw AustinCHLAMYDIA/N. GONORRHOEAE RNA, [id number] 00:00:00* Test Item Value Reference Range Interpretation Comme nts CHLAMYDIA TRACHOMATIS RNA, T MA, UROGENITAL (test code = 96340-1) NOT DETECTED NEISSERIA GONORRHOEAE RNA, T MA, UROGENITAL (test code = 29206-7) NOT DETECTED Alberto Bradshaw AustinPOCT [id number] 21:40:00* Test Item Value Reference Range Interpretation Comme nts POCT PREG (test code = 1605) Negative On board controls acceptable with C Line (test code = 3574) Yes POCT PREG LOT # (test code = 3575) POCT PREG TEST DATE (test code = 3576) MAULIK (test code = MAULIK) accurate developme nt and interpretation of all internal controls [facility] SPECIFIC [id number] 20:54:00* Test Item Value Reference Range Interpretation [...] U APPEAR (test code = 3267) clear [facility] [id number] 00:00:00* Test Item Value Reference Range Interpretation Comme nts CHOLESTEROL (test code = 2210) 163 MG/DL TRIGLYCERIDES (test code = 2232) 77 MG/DL HDL CHOLESTEROL (test code = 2220) 62 MG/DL CALC LDL CHOL (test code = 2237) 84 MG/DL RISK RATIO LDL/HDL (test cod e = 2238) 1.35 RATIO Alberto SchumacherCOMPREHENSIVE METABOLIC [id number] 00:00:00* Test Item Value Reference Range Interpretation Comme [facility] GLUCOSE (test code = 2217) 83 MG/DL BUN (test code = 2208) 8 MG/DL CREATININE (test code = 2214) 0.58 MG/DL eGFR AMER. (test cod e = 03769) 136 ML/MIN/1.73 eGFR NON- AMER. (test code = 85971) 118 ML/MIN/1.73 CALC BUN/CREAT (test code = 2235) 14 RATIO SODIUM (test code = 223) 140 MEQ/L POTASSIUM (test code = 2228) [...] ALT (test code = 2219) 20 U/L Alberto [id number] 00:00:00* Test Item Value Reference Range Interpretation Comme [facility] TSH, THIRD GENERATION (test code = 2821) 1.460 UIU/ML Alberto SchumacherVITAMIN D, 25 [id number] 00:00:00* Test Item Value Reference Range Interpretation Comme [facility] VITAMIN D, 25 OH (test code = 4958) 46 NG/ML Alberto SchumacherVITAMIN B 12 AND FOLIC [id number] 00:00:00* Test Item Value Reference Range Interpretation Comme [facility] VITAMIN B-12 (test code = 2840) 499 PG/ML FOLIC ACID (test code = 2695) 8.5 UG/L Alberto Bradshaw EndyCBC W/AUTO [id number] 00:00:00* Test Item Value Reference Range Interpretation [...] ABS NUCLEATED RBCS (test cod e = 72397) 0.00 K/UL Alberto F AustinLIPID [id number] 00:00:00* Test Item Value Reference Range Interpretation Comme nts CHOLESTEROL (test code = 2210) 163 MG/DL TRIGLYCERIDES (test code = 2232) 77 MG/DL HDL CHOLESTEROL (test code = 2220) 62 MG/DL CALC LDL CHOL (test code = 2237) 84 MG/DL RISK RATIO LDL/HDL (test cod e = 2238) 1.35 RATIO COMPREHENSIVE METABOLIC [id number] 00:00:00* Test Item Value Reference Range Interpretation Comme nts GLUCOSE (test code = 2217) 83 MG/DL BUN (test code = 2208) 8 MG/DL CREATININE (test code = 2214) 0.58 MG/DL eGFR AMER. (test cod e = 09223) 136 ML/MIN/1.73 eGFR NON- AMER. (test code = 23848) 118 ML/MIN/1.73 CALC BUN/CREAT (test code = [...] ALT (test code = 2219) 20 U/L [id number] 00:00:00* Test Item Value Reference Range Interpretation Comme [facility] TSH, THIRD GENERATION (test code = 2821) 1.460 UIU/ML VITAMIN D, 25 [id number] 00:00:00* Test Item Value Reference Range Interpretation Comme [facility] VITAMIN D, 25 OH (test code = 4958) 46 NG/ML CBC W/AUTO [id number] 00:00:00* Test Item Value Reference Range Interpretation [...] ABS NUCLEATED RBCS (test cod e = 14309) 0.00 K/UL VITAMIN B 12 AND FOLIC [id number] 00:00:00* Test Item Value Reference Range Interpretation Comme nts VITAMIN B-12 (test code = 2840) 499 PG/ML FOLIC ACID (test code = 2695) 8.5 UG/L HEMOGLOBIN [id number] 00:00:00* Test Item Value Reference Range Interpretation Comme nts HEMOGLOBIN A1c (test code = 68155) 5.6 % LIPID [id number] 00:00:00* Test Item Value Reference Range Interpretation Comme nts CHOLESTEROL (test code = 2210) 163 MG/DL TRIGLYCERIDES (test code = 2232) 77 MG/DL HDL CHOLESTEROL (test code = 2220) 62 MG/DL CALC LDL CHOL (test code = 2237) 84 MG/DL RISK RATIO LDL/HDL (test cod e = 2238) 1.35 RATIO COMPREHENSIVE METABOLIC [id number] 00:00:00* Test Item Value Reference Range Interpretation Comme nts GLUCOSE (test code = 2217) 83 MG/DL BUN (test code = 2208) 8 MG/DL CREATININE (test code = 2214) 0.58 MG/DL eGFR AMER. (test cod e = 79497) 136 ML/MIN/1.73 eGFR NON- AMER. (test code = 98820) 118 ML/MIN/1.73 CALC BUN/CREAT (test code = [...] 1.6 RATIO BILIRUBIN, TOTAL (test code = 7) 0.4 MG/DL ALKALINE PHOSPHATASE (test code = 2203) 91 U/L AST (test code = 8) 17 U/L ALT (test code = 2218) 20 U/L [id number] 00:00:00* Test Item Value Reference Range Interpretation Comme [facility] TSH, THIRD GENERATION (test code = 2821) 1.460 UIU/ML VITAMIN D, 25 [id number] 00:00:00* Test Item Value Reference Range Interpretation Comme [facility] VITAMIN D, 25 OH (test code = 4958) 46 NG/ML VITAMIN B 12 AND FOLIC [id number] 00:00:00* Test Item Value Reference Range Interpretation Comme nts VITAMIN B-12 (test code = 2840) 499 PG/ML FOLIC ACID (test code = 2695) 8.5 UG/L CBC W/AUTO [id number] 00:00:00* Test Item Value Reference Range Interpretation [...] ABS NUCLEATED RBCS (test cod e = 48867) 0.00 K/UL HEMOGLOBIN [id number] 00:00:00* Test Item Value Reference Range Interpretation Comme nts HEMOGLOBIN A1c (test code = 10022) 5.6 % LIPID [id number] 00:00:00* Test Item Value Reference Range Interpretation Comme nts CHOLESTEROL (test code = 2210) 163 MG/DL TRIGLYCERIDES (test code = 2232) 77 MG/DL HDL CHOLESTEROL (test code = 2220) 62 MG/DL CALC LDL CHOL (test code = 2237) 84 MG/DL RISK RATIO LDL/HDL (test cod e = 2238) 1.35 RATIO COMPREHENSIVE METABOLIC [id number] 00:00:00* Test Item Value Reference Range Interpretation Comme nts GLUCOSE (test code = 2217) 83 MG/DL BUN (test code = 2208) 8 MG/DL CREATININE (test code = 2214) 0.58 MG/DL eGFR AMER. (test cod e = 50250) 136 ML/MIN/1.73 eGFR NON- AMER. (test code = 53446) 118 ML/MIN/1.73 CALC BUN/CREAT (test code = [...] ALT (test code = 2219) 20 U/L [id number] 00:00:00* Test Item Value Reference Range Interpretation Comme [facility] TSH, THIRD GENERATION (test code = 2821) 1.460 UIU/ML VITAMIN D, 25 [id number] 00:00:00* Test Item Value Reference Range Interpretation Comme [facility] VITAMIN D, 25 OH (test code = 4958) 46 NG/ML VITAMIN B 12 AND FOLIC [id number] 00:00:00* Test Item Value Reference Range Interpretation Comme [facility] VITAMIN B-12 (test code = 2840) 499 PG/ML FOLIC ACID (test code = 2695) 8.5 UG/L CBC W/AUTO [id number] 00:00:00* Test Item Value Reference Range Interpretation [...] ABS NUCLEATED RBCS (test cod e = 14998) 0.00 K/UL HEMOGLOBIN [id number] 00:00:00* Test Item Value Reference Range Interpretation Comme nts HEMOGLOBIN A1c (test code = 42151) 5.6 % Alberto F AustinHEMOGLOBIN [id number] 00:00:00* Test Item Value Reference Range Interpretation Comme nts HEMOGLOBIN A1c (test code = 56946) 5.6 % LIPID [id number] 00:00:00* Test Item Value Reference Range Interpretation Comme nts CHOLESTEROL (test code = 2210) 163 MG/DL TRIGLYCERIDES (test code = 2232) 77 MG/DL HDL CHOLESTEROL (test code = 2220) 62 MG/DL CALC LDL CHOL (test code = 2237) 84 MG/DL RISK RATIO LDL/HDL (test cod e = 2238) 1.35 RATIO COMPREHENSIVE METABOLIC [id number] 00:00:00* Test Item Value Reference Range Interpretation Comme nts GLUCOSE (test code = 2217) 83 MG/DL BUN (test code = 2208) 8 MG/DL CREATININE (test code = 2214) 0.58 MG/DL eGFR AMER. (test cod e = 09089) 136 ML/MIN/1.73 eGFR NON- AMER. (test code = 58153) 118 ML/MIN/1.73 CALC BUN/CREAT (test code = [...] ALT (test code = 2219) 20 U/L [id number] 00:00:00* Test Item Value Reference Range Interpretation Comme [facility] TSH, THIRD GENERATION (test code = 2821) 1.460 UIU/ML VITAMIN D, 25 [id number] 00:00:00* Test Item Value Reference Range Interpretation Comme [facility] VITAMIN D, 25 OH (test code = 4958) 46 NG/ML VITAMIN B 12 AND FOLIC [id number] 00:00:00* Test Item Value Reference Range Interpretation Comme nts VITAMIN B-12 (test code = 2840) 499 PG/ML FOLIC ACID (test code = 2695) 8.5 UG/L CBC W/AUTO [id number] 00:00:00* Test Item Value Reference Range Interpretation [...] ABS NUCLEATED RBCS (test cod e = 08096) 0.00 K/UL HEMOGLOBIN [id number] 00:00:00* Test Item Value Reference Range Interpretation Comme nts HEMOGLOBIN A1c (test code = 57022) 5.6 % LIPID [id number] 00:00:00* Test Item Value Reference Range Interpretation Comme nts CHOLESTEROL (test code = 2210) 163 MG/DL TRIGLYCERIDES (test code = 2232) 77 MG/DL HDL CHOLESTEROL (test code = 2220) 62 MG/DL CALC LDL CHOL (test code = 2237) 84 MG/DL RISK RATIO LDL/HDL (test cod e = 2238) 1.35 RATIO COMPREHENSIVE METABOLIC [id number] 00:00:00* Test Item Value Reference Range Interpretation Comme nts GLUCOSE (test code = 2217) 83 MG/DL BUN (test code = 2208) 8 MG/DL CREATININE (test code = 2214) 0.58 MG/DL eGFR AMER. (test cod e = 88202) 136 ML/MIN/1.73 eGFR NON- AMER. (test code = 33370) 118 ML/MIN/1.73 CALC BUN/CREAT (test code = [...] ALT (test code = 2219) 20 U/L [id number] 00:00:00* Test Item Value Reference Range Interpretation Comme [facility] TSH, THIRD GENERATION (test code = 2821) 1.460 UIU/ML VITAMIN D, 25 [id number] 00:00:00* Test Item Value Reference Range Interpretation Comme nts VITAMIN D, 25 OH (test code = 4958) 46 NG/ML VITAMIN B 12 AND FOLIC [id number] 00:00:00* Test Item Value Reference Range Interpretation Comme [facility] VITAMIN B-12 (test code = 2840) 499 PG/ML FOLIC ACID (test code = 2695) 8.5 UG/L CBC W/AUTO [id number] 00:00:00* Test Item Value Reference Range Interpretation [...] ABS NUCLEATED RBCS (test cod e = 27920) 0.00 K/UL HEMOGLOBIN [id number] 00:00:00* Test Item Value Reference Range Interpretation Comme [facility] HEMOGLOBIN A1c (test code = 89253) 5.6 % LIPID [id number] 00:00:00* Test Item Value Reference Range Interpretation Comme nts CHOLESTEROL (test code = 2210) 163 MG/DL TRIGLYCERIDES (test code = 2232) 77 MG/DL HDL CHOLESTEROL (test code = 2220) 62 MG/DL CALC LDL CHOL (test code = 2237) 84 MG/DL RISK RATIO LDL/HDL (test cod e = 2238) 1.35 RATIO COMPREHENSIVE METABOLIC [id number] 00:00:00* Test Item Value Reference Range Interpretation Comme nts GLUCOSE (test code = 2217) 83 MG/DL BUN (test code = 2208) 8 MG/DL CREATININE (test code = 2214) 0.58 MG/DL eGFR AMER. (test cod e = 85662) 136 ML/MIN/1.73 eGFR NON- AMER. (test code = 76260) 118 ML/MIN/1.73 CALC BUN/CREAT (test code = [...] ALT (test code = 2219) 20 U/L [id number] 00:00:00* Test Item Value Reference Range Interpretation Comme [facility] TSH, THIRD GENERATION (test code = 2821) 1.460 UIU/ML VITAMIN D, 25 [id number] 00:00:00* Test Item Value Reference Range Interpretation Comme [facility] VITAMIN D, 25 OH (test code = 4958) 46 NG/ML VITAMIN B 12 AND FOLIC [id number] 00:00:00* Test Item Value Reference Range Interpretation Comme [facility] VITAMIN B-12 (test code = 2840) 499 PG/ML FOLIC ACID (test code = 2695) 8.5 UG/L CBC W/AUTO [id number] 00:00:00* Test Item Value Reference Range Interpretation [...] ABS NUCLEATED RBCS (test cod e = 08132) 0.00 K/UL HEMOGLOBIN [id number] 00:00:00* Test Item Value Reference Range Interpretation Comme nts HEMOGLOBIN A1c (test code = 07030) 5.6 % LIPID [id number] 00:00:00* Test Item Value Reference Range Interpretation Comme nts CHOLESTEROL (test code = 2210) 163 MG/DL TRIGLYCERIDES (test code = 2232) 77 MG/DL HDL CHOLESTEROL (test code = 2220) 62 MG/DL CALC LDL CHOL (test code = 2237) 84 MG/DL RISK RATIO LDL/HDL (test cod e = 2238) 1.35 RATIO COMPREHENSIVE METABOLIC [id number] 00:00:00* Test Item Value Reference Range Interpretation Comme nts GLUCOSE (test code = 2217) 83 MG/DL BUN (test code = 2208) 8 MG/DL CREATININE (test code = 2214) 0.58 MG/DL eGFR AMER. (test cod e = 93482) 136 ML/MIN/1.73 eGFR NON- AMER. (test code = 38903) 118 ML/MIN/1.73 CALC BUN/CREAT (test code = 2235) 14 RATIO SODIUM (test code = 2231) 140 MEQ/L POTASSIUM (test code = 2228) 3.7 MEQ/L CHLORIDE (test code = 2215) 101 MEQ/L CARBON DIOXIDE (test code = 2206) 25 MEQ/L CALCIUM (test code = 2209) 9.7 MG/DL PROTEIN, TOTAL (test code = 222) 7.7 G/DL ALBUMIN (test code = 2201) 4.7 G/DL CALC GLOBULIN (test code = 2240) 3.0 G/DL CALC A/G RATIO (test code = 2234) 1.6 RATIO BILIRUBIN, TOTAL (test code = 2207) 0.4 MG/DL ALKALINE PHOSPHATASE (test code = 2204) 91 U/L AST (test code = 2218) 17 U/L ALT (test code = 2219) 20 U/L [id number] 00:00:00* Test Item Value Reference Range Interpretation Comme [facility] TSH, THIRD GENERATION (test code = 2821) 1.460 UIU/ML VITAMIN D, 25 [id number] 00:00:00* Test Item Value Reference Range Interpretation Comme [facility] VITAMIN D, 25 OH (test code = 4958) 46 NG/ML VITAMIN B 12 AND FOLIC [id number] 00:00:00* Test Item Value Reference Range Interpretation Comme [facility] VITAMIN B-12 (test code = 2840) 499 PG/ML FOLIC ACID (test code = 2695) 8.5 UG/L CBC W/AUTO [id number] 00:00:00* Test Item Value Reference Range Interpretation [...] ABS NUCLEATED RBCS (test cod e = 92505) 0.00 K/UL CBC W/AUTO [id number] 00:00:00* Test Item Value Reference Range Interpretation [...] ABS NUCLEATED RBCS (test cod e = 73932) 0.00 K/UL HEMOGLOBIN [id number] 00:00:00* Test Item Value Reference Range Interpretation Comme nts HEMOGLOBIN A1c (test code = 08903) 5.6 % LIPID [id number] 00:00:00* Test Item Value Reference Range Interpretation Comme nts CHOLESTEROL (test code = 2210) 163 MG/DL TRIGLYCERIDES (test code = 2232) 77 MG/DL HDL CHOLESTEROL (test code = 2220) 62 MG/DL CALC LDL CHOL (test code = 2237) 84 MG/DL RISK RATIO LDL/HDL (test cod e = 2238) 1.35 RATIO COMPREHENSIVE METABOLIC [id number] 00:00:00* Test Item Value Reference Range Interpretation Comme nts GLUCOSE (test code = 2217) 83 MG/DL BUN (test code = 2208) 8 MG/DL CREATININE (test code = 2214) 0.58 MG/DL eGFR AMER. (test cod e = 16686) 136 ML/MIN/1.73 eGFR NON- AMER. (test code = 27547) 118 ML/MIN/1.73 CALC BUN/CREAT (test code = [...] ALT (test code = 2219) 20 U/L [id number] 00:00:00* Test Item Value Reference Range Interpretation Comme nts TSH, THIRD GENERATION (test code = 2821) 1.460 UIU/ML VITAMIN D, 25 [id number] 00:00:00* Test Item Value Reference Range Interpretation Comme nts VITAMIN D, 25 OH (test code = 4958) 46 NG/ML VITAMIN B 12 AND FOLIC [id number] 00:00:00* Test Item Value Reference Range Interpretation Comme nts VITAMIN B-12 (test code = 2840) 499 PG/ML FOLIC ACID (test code = 2695) 8.5 UG/L HEMOGLOBIN [id number] 00:00:00* Test Item Value Reference Range Interpretation Comme nts HEMOGLOBIN A1c (test code = 74621) 5.6 % LIPID [id number] 00:00:00* Test Item Value Reference Range Interpretation Comme nts CHOLESTEROL (test code = 2210) 163 MG/DL TRIGLYCERIDES (test code = 2232) 77 MG/DL HDL CHOLESTEROL (test code = 2220) 62 MG/DL CALC LDL CHOL (test code = 2237) 84 MG/DL RISK RATIO LDL/HDL (test cod e = 2238) 1.35 RATIO Alberto F AustinCOMPREHENSIVE METABOLIC [id number] 00:00:00* Test Item Value Reference Range Interpretation Comme nts GLUCOSE (test code = 2217) 83 MG/DL BUN (test code = 2208) 8 MG/DL CREATININE (test code = 2214) 0.58 MG/DL eGFR AMER. (test cod e = 25773) 136 ML/MIN/1.73 eGFR NON- AMER. (test code = 05802) 118 ML/MIN/1.73 CALC BUN/CREAT (test code = [...] ALT (test code = 2219) 20 U/L Alberto [id number] 00:00:00* Test Item Value Reference Range Interpretation Comme [facility] TSH, THIRD GENERATION (test code = 2821) 1.460 UIU/ML Alberto SchumacherVITAMIN D, 25 [id number] 00:00:00* Test Item Value Reference Range Interpretation Comme [facility] VITAMIN D, 25 OH (test code = 4958) 46 NG/ML Alberto SchumacherVITAMIN B 12 AND FOLIC [id number] 00:00:00* Test Item Value Reference Range Interpretation Comme [facility] VITAMIN B-12 (test code = 2840) 499 PG/ML FOLIC ACID (test code = 2695) 8.5 UG/L Alberto SchumacherCBC W/AUTO [id number] 00:00:00* Test Item Value Reference Range Interpretation Comme [facility] WBC (test code = 1001) 7.2 K/UL [...] ABS NUCLEATED RBCS (test cod e = 82017) 0.00 K/UL Alberto SchumacherHEMOGLOBIN [id number] 00:00:00* Test Item Value Reference Range Interpretation Comme nts HEMOGLOBIN A1c (test code = 02152) 5.6 % Alberto SchumacherLIPID [id number] 00:00:00* Test Item Value Reference Range Interpretation Comme nts CHOLESTEROL (test code = 2210) 163 MG/DL TRIGLYCERIDES (test code = 2232) 77 MG/DL HDL CHOLESTEROL (test code = 2220) 62 MG/DL CALC LDL CHOL (test code = 2237) 84 MG/DL RISK RATIO LDL/HDL (test cod e = 2238) 1.35 RATIO Alberto SchumacherCOMPREHENSIVE METABOLIC [id number] 00:00:00* Test Item Value Reference Range Interpretation Comme nts GLUCOSE (test code = 2217) 83 MG/DL BUN (test code = 2208) 8 MG/DL CREATININE (test code = 2214) 0.58 MG/DL eGFR AMER. (test cod e = 02143) 136 ML/MIN/1.73 eGFR NON- AMER. (test code = 99616) 118 ML/MIN/1.73 CALC BUN/CREAT (test code = [...] ALT (test code = 2219) 20 U/L Alberto [id number] 00:00:00* Test Item Value Reference Range Interpretation Comme [facility] TSH, THIRD GENERATION (test code = 2821) 1.460 UIU/ML Alberto SchumacherVITAMIN D, 25 [id number] 00:00:00* Test Item Value Reference Range Interpretation Comme [facility] VITAMIN D, 25 OH (test code = 4958) 46 NG/ML Alberto SchumacherVITAMIN B 12 AND FOLIC [id number] 00:00:00* Test Item Value Reference Range Interpretation Comme [facility] VITAMIN B-12 (test code = 2840) 499 PG/ML FOLIC ACID (test code = 2695) 8.5 UG/L Alberto SchumacherCBC W/AUTO [id number] 00:00:00* Test Item Value Reference Range Interpretation [...] ABS NUCLEATED RBCS (test cod e = 77472) 0.00 K/UL Alberto SchumacherHEMOGLOBIN [id number] 00:00:00* Test Item Value Reference Range Interpretation Comme nts HEMOGLOBIN A1c (test code = 99024) 5.6 % Alberto SchumacherLIPID [id number] 00:00:00* Test Item Value Reference Range Interpretation Comme nts CHOLESTEROL (test code = 2210) 163 MG/DL TRIGLYCERIDES (test code = 2232) 77 MG/DL HDL CHOLESTEROL (test code = 2220) 62 MG/DL CALC LDL CHOL (test code = 2237) 84 MG/DL RISK RATIO LDL/HDL (test cod e = 2238) 1.35 RATIO Alberto SchumacherCOMPREHENSIVE METABOLIC [id number] 00:00:00* Test Item Value Reference Range Interpretation Comme nts GLUCOSE (test code = 2217) 83 MG/DL BUN (test code = 2208) 8 MG/DL CREATININE (test code = 2214) 0.58 MG/DL eGFR AMER. (test cod e = 15933) 136 ML/MIN/1.73 eGFR NON- AMER. (test code = 41521) 118 ML/MIN/1.73 CALC BUN/CREAT (test code = [...] ALT (test code = 2219) 20 U/L Alberto [id number] 00:00:00* Test Item Value Reference Range Interpretation Comme [facility] TSH, THIRD GENERATION (test code = 2821) 1.460 UIU/ML Alberto SchumacherVITAMIN D, 25 [id number] 00:00:00* Test Item Value Reference Range Interpretation Comme nts VITAMIN D, 25 OH (test code = 4958) 46 NG/ML Alberto SchumacherVITAMIN B 12 AND FOLIC [id number] 00:00:00* Test Item Value Reference Range Interpretation Comme [facility] VITAMIN B-12 (test code = 2840) 499 PG/ML FOLIC ACID (test code = 2695) 8.5 UG/L Alberto SchumacherCBC W/AUTO [id number] 00:00:00* Test Item Value Reference Range Interpretation [...] ABS NUCLEATED RBCS (test cod e = 09328) 0.00 K/UL Alberto SchumacherHEMOGLOBIN [id number] 00:00:00* Test Item Value Reference Range Interpretation Comme [facility] HEMOGLOBIN A1c (test code = 81810) 5.6 % Alberto SchumacherLIPID [id number] 00:00:00* Test Item Value Reference Range Interpretation Comme nts CHOLESTEROL (test code = 2210) 163 MG/DL TRIGLYCERIDES (test code = 2232) 77 MG/DL HDL CHOLESTEROL (test code = 2220) 62 MG/DL CALC LDL CHOL (test code = 2237) 84 MG/DL RISK RATIO LDL/HDL (test cod e = 2238) 1.35 RATIO Alberto SchumacherCOMPREHENSIVE METABOLIC [id number] 00:00:00* Test Item Value Reference Range Interpretation Comme nts GLUCOSE (test code = 2217) 83 MG/DL BUN (test code = 2208) 8 MG/DL CREATININE (test code = 2214) 0.58 MG/DL eGFR AMER. (test cod e = 14037) 136 ML/MIN/1.73 eGFR NON- AMER. (test code = 54385) 118 ML/MIN/1.73 CALC BUN/CREAT (test code = [...] ALT (test code = 2219) 20 U/L Alberto [id number] 00:00:00* Test Item Value Reference Range Interpretation Comme nts TSH, THIRD GENERATION (test code = 2821) 1.460 UIU/ML Alberto SchumacherVITAMIN D, 25 [id number] 00:00:00* Test Item Value Reference Range Interpretation Comme nts VITAMIN D, 25 OH (test code = 4958) 46 NG/ML Alberto SchumacherVITAMIN B 12 AND FOLIC [id number] 00:00:00* Test Item Value Reference Range Interpretation Comme nts VITAMIN B-12 (test code = 2840) 499 PG/ML FOLIC ACID (test code = 2695) 8.5 UG/L Alberto SchumacherCBC W/AUTO [id number] 00:00:00* Test Item Value Reference Range Interpretation [...] ABS NUCLEATED RBCS (test cod e = 48580) 0.00 K/UL Alberto SchumacherHEMOGLOBIN [id number] 00:00:00* Test Item Value Reference Range Interpretation Comme nts HEMOGLOBIN A1c (test code = 28315) 5.6 % Alberto SchumacherLIPID [id number] 00:00:00* Test Item Value Reference Range Interpretation Comme nts CHOLESTEROL (test code = 2210) 163 MG/DL TRIGLYCERIDES (test code = 2232) 77 MG/DL HDL CHOLESTEROL (test code = 2220) 62 MG/DL CALC LDL CHOL (test code = 2237) 84 MG/DL RISK RATIO LDL/HDL (test cod e = 2238) 1.35 RATIO Alberto SchumacherCOMPREHENSIVE METABOLIC [id number] 00:00:00* Test Item Value Reference Range Interpretation Comme nts GLUCOSE (test code = 2217) 83 MG/DL BUN (test code = 2208) 8 MG/DL CREATININE (test code = 2214) 0.58 MG/DL eGFR AMER. (test cod e = 00260) 136 ML/MIN/1.73 eGFR NON- AMER. (test code = 49330) 118 ML/MIN/1.73 CALC BUN/CREAT (test code = [...] ALT (test code = 2219) 20 U/L Alberto [id number] 00:00:00* Test Item Value Reference Range Interpretation Comme [facility] TSH, THIRD GENERATION (test code = 2821) 1.460 UIU/ML Alberto SchumacherVITAMIN D, 25 [id number] 00:00:00* Test Item Value Reference Range Interpretation Comme [facility] VITAMIN D, 25 OH (test code = 4958) 46 NG/ML Alberto SchumacherVITAMIN B 12 AND FOLIC [id number] 00:00:00* Test Item Value Reference Range Interpretation Comme nts VITAMIN B-12 (test code = 2840) 499 PG/ML FOLIC ACID (test code = 2695) 8.5 UG/L Alberto SchumacherCBC W/AUTO [id number] 00:00:00* Test Item Value Reference Range Interpretation [...] ABS NUCLEATED RBCS (test cod e = 93000) 0.00 K/UL Alberto SchumacherLIPID [id number] 00:00:00* Test Item Value Reference Range Interpretation Comme nts CHOLESTEROL (test code = 2210) 163 MG/DL TRIGLYCERIDES (test code = 2232) 77 MG/DL HDL CHOLESTEROL (test code = 2220) 62 MG/DL CALC LDL CHOL (test code = 2237) 84 MG/DL RISK RATIO LDL/HDL (test cod e = 223) 1.35 RATIO Alberto SchumacherCOMPREHENSIVE METABOLIC [id number] 00:00:00* Test Item Value Reference Range Interpretation Comme [facility] GLUCOSE (test code = 2217) 83 MG/DL BUN (test code = 2208) 8 MG/DL CREATININE (test code = 2214) 0.58 MG/DL eGFR AMER. (test cod e = 97560) 136 ML/MIN/1.73 eGFR NON- AMER. (test code = 51709) 118 ML/MIN/1.73 CALC BUN/CREAT (test code = 2235) 14 RATIO SODIUM (test code = 223) 140 MEQ/L POTASSIUM (test code = 2228) 3.7 MEQ/L CHLORIDE (test code = 2215) 101 MEQ/L CARBON DIOXIDE (test code = 2206) 25 MEQ/L CALCIUM (test code = 2209) 9.7 MG/DL PROTEIN, TOTAL (test code = 2228) 7.7 G/DL ALBUMIN (test code = 2201) 4.7 G/DL CALC GLOBULIN (test code = 2240) 3.0 G/DL CALC A/G RATIO (test code = 2234) 1.6 RATIO BILIRUBIN, TOTAL (test code = 7) 0.4 MG/DL ALKALINE PHOSPHATASE (test code = 2204) 91 U/L AST (test code = 2218) 17 U/L ALT (test code = 2219) 20 U/L Alberto SchumacherHEMOGLOBIN [id number] 00:00:00* Test Item Value Reference Range Interpretation Comme [facility] HEMOGLOBIN A1c (test code = 37098) 5.6 % Alberto [id number] 00:00:00* Test Item Value Reference Range Interpretation Comme [facility] TSH, THIRD GENERATION (test code = 2821) 1.460 UIU/ML Alberto SchumacherVITAMIN D, 25 [id number] 00:00:00* Test Item Value Reference Range Interpretation Comme [facility] VITAMIN D, 25 OH (test code = 4958) 46 NG/ML Alberto SchumacherVITAMIN B 12 AND FOLIC [id number] 00:00:00* Test Item Value Reference Range Interpretation Comme [facility] VITAMIN B-12 (test code = 2840) 499 PG/ML FOLIC ACID (test code = 2695) 8.5 UG/L Alberto SchumacherLIPID [id number] 00:00:00* Test Item Value Reference Range Interpretation Comme nts CHOLESTEROL (test code = 2210) 163 MG/DL TRIGLYCERIDES (test code = 2232) 77 MG/DL HDL CHOLESTEROL (test code = 2220) 62 MG/DL CALC LDL CHOL (test code = 2237) 84 MG/DL RISK RATIO LDL/HDL (test cod e = 2238) 1.35 RATIO Alberto SchumacherCOMPREHENSIVE METABOLIC [id number] 00:00:00* Test Item Value Reference Range Interpretation Comme nts GLUCOSE (test code = 2217) 83 MG/DL BUN (test code = 2208) 8 MG/DL CREATININE (test code = 2214) 0.58 MG/DL eGFR AMER. (test cod e = 37206) 136 ML/MIN/1.73 eGFR NON- AMER. (test code = 71156) 118 ML/MIN/1.73 CALC BUN/CREAT (test code = [...] ALT (test code = 2219) 20 U/L Alberto [id number] 00:00:00* Test Item Value Reference Range Interpretation Comme [facility] TSH, THIRD GENERATION (test code = 2821) 1.460 UIU/ML Alberto SchumacherVITAMIN D, 25 [id number] 00:00:00* Test Item Value Reference Range Interpretation Comme [facility] VITAMIN D, 25 OH (test code = 4958) 46 NG/ML Alberto SchumacherVITAMIN B 12 AND FOLIC [id number] 00:00:00* Test Item Value Reference Range Interpretation Comme nts VITAMIN B-12 (test code = 2840) 499 PG/ML FOLIC ACID (test code = 2695) 8.5 UG/L Alberto SchumacherCBC W/AUTO [id number] 00:00:00* Test Item Value Reference Range Interpretation [...] ABS NUCLEATED RBCS (test cod e = 76041) 0.00 K/UL Alberto SchumacherC W/AUTO [id number] 00:00:00* Test Item Value Reference Range Interpretation [...] ABS NUCLEATED RBCS (test cod e = 37471) 0.00 K/UL Alberto Bradshaw [place] [id number] 00:00:00* Test Item Value Reference Range Interpretation Comme nts HEMOGLOBIN A1c (test code = 37959) 5.6 % Alberto Bradshaw [place] [id number] 00:00:00* Test Item Value Reference Range Interpretation Comme nts HEMOGLOBIN A1c (test code = 59629) 5.6 % Alberto Bradshaw [id number] (COVID-19) by RT-PCR (HIGH RISK)2020-10-03 00:00:00* Test Item Value Reference Range Interpretation Comme nts SARS-CoV-2 INTERPRETATION (t est code = 02667) NEGATIVE SOURCE (test code = 81004) NOT SPECIFIED Alberto Bradshaw [id number] (COVID-19) by RT-PCR (HIGH RISK)2020-10-03 00:00:00* Test Item Value Reference Range Interpretation Comme nts SARS-CoV-2 INTERPRETATION (t est code = 60039) NEGATIVE SOURCE (test code = 63751) NOT SPECIFIED SARS-CoV-2 (COVID-19) by RT-PCR (HIGH RISK)2020-10-03 00:00:00* Test Item Value Reference Range Interpretation Comme nts SARS-CoV-2 INTERPRETATION (t est code = 76669) NEGATIVE SOURCE (test code = 27345) NOT SPECIFIED SARS-CoV-2 (COVID-19) by RT-PCR (HIGH RISK)2020-10-03 00:00:00* Test Item Value Reference Range Interpretation Comme nts SARS-CoV-2 INTERPRETATION (t est code = 56361) NEGATIVE SOURCE (test code = 29244) NOT SPECIFIED SARS-CoV-2 (COVID-19) by RT-PCR (HIGH RISK)2020-10-03 00:00:00* Test Item Value Reference Range Interpretation Comme nts SARS-CoV-2 INTERPRETATION (t est code = 96808) NEGATIVE SOURCE (test code = 08775) NOT SPECIFIED SARS-CoV-2 (COVID-19) by RT-PCR (HIGH RISK)2020-10-03 00:00:00* Test Item Value Reference Range Interpretation Comme nts SARS-CoV-2 INTERPRETATION (t est code = 14333) NEGATIVE SOURCE (test code = 82460) NOT SPECIFIED SARS-CoV-2 (COVID-19) by RT-PCR (HIGH RISK)2020-10-03 00:00:00* Test Item Value Reference Range Interpretation Comme nts SARS-CoV-2 INTERPRETATION (t est code = 22630) NEGATIVE SOURCE (test code = 44384) NOT SPECIFIED SARS-CoV-2 (COVID-19) by RT-PCR (HIGH RISK)2020-10-03 00:00:00* Test Item Value Reference Range Interpretation Comme nts SARS-CoV-2 INTERPRETATION (t est code = 49587) NEGATIVE SOURCE (test code = 71181) NOT SPECIFIED SARS-CoV-2 (COVID-19) by RT-PCR (HIGH RISK)2020-10-03 00:00:00* Test Item Value Reference Range Interpretation Comme nts SARS-CoV-2 INTERPRETATION (t est code = 06465) NEGATIVE SOURCE (test code = 49761) NOT SPECIFIED SARS-CoV-2 (COVID-19) by RT-PCR (HIGH RISK)2020-10-03 00:00:00* Test Item Value Reference Range Interpretation Comme nts SARS-CoV-2 INTERPRETATION (t est code = 77611) NEGATIVE SOURCE (test code = 39099) NOT SPECIFIED Alberto Bradshaw FjzmxhJFPI-CrS-4 (COVID-19) by RT-PCR (HIGH RISK)2020-10-03 00:00:00* Test Item Value Reference Range Interpretation Comme nts SARS-CoV-2 INTERPRETATION (t est code = 52569) NEGATIVE SOURCE (test code = 81055) NOT SPECIFIED Alberto Bradshaw CmbyrqMMQI-MtK-0 (COVID-19) by RT-PCR (HIGH RISK)2020-10-03 00:00:00* Test Item Value Reference Range Interpretation Comme nts SARS-CoV-2 INTERPRETATION (t est code = 13771) NEGATIVE SOURCE (test code = 20074) NOT SPECIFIED Alberto F RwxhxaQJNQ-JyL-8 (COVID-19) by RT-PCR (HIGH RISK)2020-10-03 00:00:00* Test Item Value Reference Range Interpretation Comme nts SARS-CoV-2 INTERPRETATION (t est code = 59947) NEGATIVE SOURCE (test code = 13530) NOT SPECIFIED Alberto Bradshaw OvdtntEDQK-ChQ-0 (COVID-19) by RT-PCR (HIGH RISK)2020-10-03 00:00:00* Test Item Value Reference Range Interpretation Comme nts SARS-CoV-2 INTERPRETATION (t est code = 68130) NEGATIVE SOURCE (test code = 03600) NOT SPECIFIED Alberto Bradshaw QrkrgjJRWG-OdD-1 (COVID-19) by RT-PCR (HIGH RISK)2020-10-03 00:00:00* Test Item Value Reference Range Interpretation Comme nts SARS-CoV-2 INTERPRETATION (t est code = 81593) NEGATIVE SOURCE (test code = 64213) NOT SPECIFIED Alberto Bradshaw IvqerwXGOS-AxD-3 (COVID-19) by RT-PCR (HIGH RISK)2020-10-03 00:00:00* Test Item Value Reference Range Interpretation Comme nts SARS-CoV-2 INTERPRETATION (t est code = 67966) NEGATIVE SOURCE (test code = 50125) NOT SPECIFIED Alberto Bradshaw AustinSED RATE BY MODIFIED [id number] 00:00:00* Test Item Value Reference Range Interpretation Comme nts SED RATE BY MODIFIED WESTERG BERNA (test code = 4537-7) 11 mm/h Alberto Bradshaw AustinRHEUMATOID [id number] 00:00:00* Test Item Value Reference Range Interpretation Comme nts RHEUMATOID FACTOR (test code = 01732-0) <14 IU/mL Alberto SchumacherANA SCREEN, IFA, W/REFL TITER AND [id number] 00:00:00* Test Item Value Reference Range Interpretation Comme nts RAFI SCREEN, IFA (test code = 85195-6) NEGATIVE Alberto Bradshaw [id number] 00:00:00* Test Item Value Reference Range Interpretation Comme nts TSH (test code = 3016-3) 1.20 mIU/L Alberto SchumacherRHEUMATOID [id number] 00:00:00* Test Item Value Reference Range Interpretation Comme nts RHEUMATOID FACTOR (test code = 12024-9) <14 IU/mL RAFI SCREEN, IFA, W/REFL TITER AND [id number] 00:00:00* Test Item Value Reference Range Interpretation Comme nts RAFI SCREEN, IFA (test code = 53921-4) NEGATIVE [id number] 00:00:00* Test Item Value Reference Range Interpretation Comme nts TSH (test code = 3016-3) 1.20 mIU/L SED RATE BY MODIFIED [id number] 00:00:00* Test Item Value Reference Range Interpretation Comme nts SED RATE BY MODIFIED WESTERG BERNA (test code = 4537-7) 11 mm/h RHEUMATOID [id number] 00:00:00* Test Item Value Reference Range Interpretation Comme nts RHEUMATOID FACTOR (test code = 77553-1) <14 IU/mL SED RATE BY MODIFIED [id number] 00:00:00* Test Item Value Reference Range Interpretation Comme nts SED RATE BY MODIFIED WESTERG BERNA (test code = 4537-7) 11 mm/h Alberto Bradshaw AustinANA SCREEN, IFA, W/REFL TITER AND [id number] 00:00:00* Test Item Value Reference Range Interpretation Comme nts RAFI SCREEN, IFA (test code = 20098-8) NEGATIVE [id number] 00:00:00* Test Item Value Reference Range Interpretation Comme nts TSH (test code = 3016-3) 1.20 mIU/L SED RATE BY MODIFIED [id number] 00:00:00* Test Item Value Reference Range Interpretation Comme nts SED RATE BY MODIFIED RAMÍREZERG BERNA (test code = 4537-7) 11 mm/h RHEUMATOID [id number] 00:00:00* Test Item Value Reference Range Interpretation Comme nts RHEUMATOID FACTOR (test code = 43221-1) <14 IU/mL RAFI SCREEN, IFA, W/REFL TITER AND [id number] 00:00:00* Test Item Value Reference Range Interpretation Comme nts RAFI SCREEN, IFA (test code = 64035-5) NEGATIVE [id number] 00:00:00* Test Item Value Reference Range Interpretation Comme nts TSH (test code = 3016-3) 1.20 mIU/L SED RATE BY MODIFIED [id number] 00:00:00* Test Item Value Reference Range Interpretation Comme nts SED RATE BY MODIFIED RAMÍREZERG BERNA (test code = 4537-7) 11 mm/h RHEUMATOID [id number] 00:00:00* Test Item Value Reference Range Interpretation Comme nts RHEUMATOID FACTOR (test code = 21847-1) <14 IU/mL RAFI SCREEN, IFA, W/REFL TITER AND [id number] 00:00:00* Test Item Value Reference Range Interpretation Comme nts RAFI SCREEN, IFA (test code = 71722-4) NEGATIVE [id number] 00:00:00* Test Item Value Reference Range Interpretation Comme nts TSH (test code = 3016-3) 1.20 mIU/L SED RATE BY MODIFIED [id number] 00:00:00* Test Item Value Reference Range Interpretation Comme nts SED RATE BY MODIFIED WESTERG BERNA (test code = 4537-7) 11 mm/h RHEUMATOID [id number] 00:00:00* Test Item Value Reference Range Interpretation Comme nts RHEUMATOID FACTOR (test code = 89856-5) <14 IU/mL RAFI SCREEN, IFA, W/REFL TITER AND [id number] 00:00:00* Test Item Value Reference Range Interpretation Comme nts RAFI SCREEN, IFA (test code = 55304-1) NEGATIVE [id number] 00:00:00* Test Item Value Reference Range Interpretation Comme nts TSH (test code = 3016-3) 1.20 mIU/L SED RATE BY MODIFIED [id number] 00:00:00* Test Item Value Reference Range Interpretation Comme nts SED RATE BY MODIFIED WESTERG BERNA (test code = 4537-7) 11 mm/h RHEUMATOID [id number] 00:00:00* Test Item Value Reference Range Interpretation Comme nts RHEUMATOID FACTOR (test code = 29114-0) <14 IU/mL RAFI SCREEN, IFA, W/REFL TITER AND [id number] 00:00:00* Test Item Value Reference Range Interpretation Comme nts RAFI SCREEN, IFA (test code = 31097-7) NEGATIVE [id number] 00:00:00* Test Item Value Reference Range Interpretation Comme nts TSH (test code = 3016-3) 1.20 mIU/L SED RATE BY MODIFIED [id number] 00:00:00* Test Item Value Reference Range Interpretation Comme nts SED RATE BY MODIFIED WESTERG BERNA (test code = 4537-7) 11 mm/h RHEUMATOID [id number] 00:00:00* Test Item Value Reference Range Interpretation Comme nts RHEUMATOID FACTOR (test code = 29807-9) <14 IU/mL RAFI SCREEN, IFA, W/REFL TITER AND [id number] 00:00:00* Test Item Value Reference Range Interpretation Comme nts RAFI SCREEN, IFA (test code = 82345-0) NEGATIVE [id number] 00:00:00* Test Item Value Reference Range Interpretation Comme nts TSH (test code = 3016-3) 1.20 mIU/L SED RATE BY MODIFIED [id number] 00:00:00* Test Item Value Reference Range Interpretation Comme nts SED RATE BY MODIFIED WESTERG BERNA (test code = 4537-7) 11 mm/h RHEUMATOID [id number] 00:00:00* Test Item Value Reference Range Interpretation Comme nts RHEUMATOID FACTOR (test code = 10426-8) <14 IU/mL RAFI SCREEN, IFA, W/REFL TITER AND [id number] 00:00:00* Test Item Value Reference Range Interpretation Comme nts RAFI SCREEN, IFA (test code = 27449-3) NEGATIVE [id number] 00:00:00* Test Item Value Reference Range Interpretation Comme nts TSH (test code = 3016-3) 1.20 mIU/L SED RATE BY MODIFIED [id number] 00:00:00* Test Item Value Reference Range Interpretation Comme nts SED RATE BY MODIFIED WESTERG BERNA (test code = 4537-7) 11 mm/h RHEUMATOID [id number] 00:00:00* Test Item Value Reference Range Interpretation Comme nts RHEUMATOID FACTOR (test code = 02979-9) <14 IU/mL Alberto Bradshaw AustinANA SCREEN, IFA, W/REFL TITER AND [id number] 00:00:00* Test Item Value Reference Range Interpretation Comme nts RAFI SCREEN, IFA (test code = 17593-6) NEGATIVE Alberto Bradshaw [id number] 00:00:00* Test Item Value Reference Range Interpretation Comme nts TSH (test code = 3016-3) 1.20 mIU/L Alberto F AustinSED RATE BY MODIFIED [id number] 00:00:00* Test Item Value Reference Range Interpretation Comme nts SED RATE BY MODIFIED WESTERG BERNA (test code = 4537-7) 11 mm/h Alberto F AustinRHEUMATOID [id number] 00:00:00* Test Item Value Reference Range Interpretation Comme nts RHEUMATOID FACTOR (test code = 74494-0) <14 IU/mL Alberto Augustine AustinANA SCREEN, IFA, W/REFL TITER AND [id number] 00:00:00* Test Item Value Reference Range Interpretation Comme nts RAFI SCREEN, IFA (test code = 74266-1) NEGATIVE Alberto F [id number] 00:00:00* Test Item Value Reference Range Interpretation Comme nts TSH (test code = 3016-3) 1.20 mIU/L Alberto F AustinSED RATE BY MODIFIED [id number] 00:00:00* Test Item Value Reference Range Interpretation Comme nts SED RATE BY MODIFIED WESTERG BERNA (test code = 4537-7) 11 mm/h Alberto F AustinRHEUMATOID [id number] 00:00:00* Test Item Value Reference Range Interpretation Comme nts RHEUMATOID FACTOR (test code = 92518-5) <14 IU/mL Alberto Bradshaw AustinANA SCREEN, IFA, W/REFL TITER AND [id number] 00:00:00* Test Item Value Reference Range Interpretation Comme nts RAFI SCREEN, IFA (test code = 14428-2) NEGATIVE Alberto F [id number] 00:00:00* Test Item Value Reference Range Interpretation Comme nts TSH (test code = 3016-3) 1.20 mIU/L Alberto F AustinSED RATE BY MODIFIED [id number] 00:00:00* Test Item Value Reference Range Interpretation Comme nts SED RATE BY MODIFIED WESTERG BERNA (test code = 4537-7) 11 mm/h Alberto F AustinRHEUMATOID [id number] 00:00:00* Test Item Value Reference Range Interpretation Comme nts RHEUMATOID FACTOR (test code = 76297-8) <14 IU/mL Alberto Bradshaw AustinANA SCREEN, IFA, W/REFL TITER AND [id number] 00:00:00* Test Item Value Reference Range Interpretation Comme nts RAFI SCREEN, IFA (test code = 90922-3) NEGATIVE Alberto Bradshaw [id number] 00:00:00* Test Item Value Reference Range Interpretation Comme nts TSH (test code = 3016-3) 1.20 mIU/L Alberto F AustinSED RATE BY MODIFIED [id number] 00:00:00* Test Item Value Reference Range Interpretation Comme nts SED RATE BY MODIFIED WESTERG BERNA (test code = 4537-7) 11 mm/h Alberto F AustinRHEUMATOID [id number] 00:00:00* Test Item Value Reference Range Interpretation Comme nts RHEUMATOID FACTOR (test code = 84865-4) <14 IU/mL Alberto F AustinANA SCREEN, IFA, W/REFL TITER AND [id number] 00:00:00* Test Item Value Reference Range Interpretation Comme nts RAFI SCREEN, IFA (test code = 84539-4) NEGATIVE Alberto F AustinRHEUMATOID [id number] 00:00:00* Test Item Value Reference Range Interpretation Comme nts RHEUMATOID FACTOR (test code = 95884-5) <14 IU/mL Alberto F [id number] 00:00:00* Test Item Value Reference Range Interpretation Comme nts TSH (test code = 3016-3) 1.20 mIU/L Alberto SchumacherANA SCREEN, IFA, W/REFL TITER AND [id number] 00:00:00* Test Item Value Reference Range Interpretation Comme nts RAFI SCREEN, IFA (test code = 88179-4) NEGATIVE Alberto Bradshaw AustinSED RATE BY MODIFIED [id number] 00:00:00* Test Item Value Reference Range Interpretation Comme nts SED RATE BY MODIFIED WESTERG BERNA (test code = 4537-7) 11 mm/h Alberto SchumacherRHEUMATOID [id number] 00:00:00* Test Item Value Reference Range Interpretation Comme nts RHEUMATOID FACTOR (test code = 83992-6) <14 IU/mL Alberto SchumacherANA SCREEN, IFA, W/REFL TITER AND [id number] 00:00:00* Test Item Value Reference Range Interpretation Comme nts RAFI SCREEN, IFA (test code = 97333-0) NEGATIVE Alberto [id number] 00:00:00* Test Item Value Reference Range Interpretation Comme nts TSH (test code = 3016-3) 1.20 mIU/L Alberto SchumacherSED RATE BY MODIFIED [id number] 00:00:00* Test Item Value Reference Range Interpretation Comme nts SED RATE BY MODIFIED WESTERG BERNA (test code = 4537-7) 11 mm/h Alberto SchumacherQviryvAOD7464-81-62 00:00:00* Test Item Value Reference Range Interpretation Comme nts TSH (test code = 3016-3) 1.20 mIU/L Alberto SchumacherIGNACIODIO IQ(R) VITAMIN D, 25-HYDROXY, LC/MS/[id number] 00:00:00 * Test Item Value Reference Range Interpretation Comme nts VITAMIN D, 25-OH, TOTAL (kaitlynn t code = 33150-6) 22 ng/mL VITAMIN D, 25-OH, D3 (test c ode = 1989-) 22 ng/mL VITAMIN D, 25-OH, D2 (test c ode = 6-8) <4.0 ng/mL Alberto SchumacherVITAMIN B12/FOLATE, SERUM [id number] 00:00:00* Test Item Value Reference Range Interpretation Comme nts VITAMIN B12 (test code = 2131-9) 501 pg/mL FOLATE, SERUM (test code = 2284-8) 19.0 ng/mL Alberto SchumacherVITAMIN B12/FOLATE, SERUM [id number] 00:00:00* Test Item Value Reference Range Interpretation Comme nts VITAMIN B12 (test code = 2131-9) 501 pg/mL FOLATE, SERUM (test code = 2284-8) 19.0 ng/mL CARDIO IQ(R) VITAMIN D, 25-HYDROXY, LC/MS/[id number] 00:00:00* Test Item Value Reference Range Interpretation Comme nts VITAMIN D, 25-OH, TOTAL (kaitlynn t code = 71058-6) 22 ng/mL VITAMIN D, 25-OH, D3 (test c ode = 1989-) 22 ng/mL VITAMIN D, 25-OH, D2 (test c ode = 6-8) <4.0 ng/mL VITAMIN B12/FOLATE, SERUM [id number] 00:00:00* Test Item Value Reference Range Interpretation Comme nts VITAMIN B12 (test code = 2131-9) 501 pg/mL FOLATE, SERUM (test code = 2284-8) 19.0 ng/mL CARDIO IQ(R) VITAMIN D, 25-HYDROXY, LC/MS/[id number] 00:00:00* Test Item Value Reference Range Interpretation Comme nts VITAMIN D, 25-OH, TOTAL (kaitlynn t code = 41617-8) 22 ng/mL VITAMIN D, 25-OH, D3 (test c ode = 1989-02) 22 ng/mL VITAMIN D, 25-OH, D2 (test c ode = 6-8) <4.0 ng/mL VITAMIN B12/FOLATE, SERUM [id number] 00:00:00* Test Item Value Reference Range Interpretation Comme nts VITAMIN B12 (test code = 2131-9) 501 pg/mL FOLATE, SERUM (test code = 2284-8) 19.0 ng/mL CARDIO IQ(R) VITAMIN D, 25-HYDROXY, LC/MS/[id number] 00:00:00* Test Item Value Reference Range Interpretation Comme nts VITAMIN D, 25-OH, TOTAL (kaitlynn t code = 14266-1) 22 ng/mL VITAMIN D, 25-OH, D3 (test c ode = 1989-02) 22 ng/mL VITAMIN D, 25-OH, D2 (test c ode = 2235-8) <4.0 ng/mL VITAMIN B12/FOLATE, SERUM [id number] 00:00:00* Test Item Value Reference Range Interpretation Comme nts VITAMIN B12 (test code = 2132-9) 501 pg/mL FOLATE, SERUM (test code = 2284-8) 19.0 ng/mL CARDIO IQ(R) VITAMIN D, 25-HYDROXY, LC/MS/[id number] 00:00:00* Test Item Value Reference Range Interpretation Comme nts VITAMIN D, 25-OH, TOTAL (kaitlynn t code = 77253-2) 22 ng/mL VITAMIN D, 25-OH, D3 (test c ode = 1989-02) 22 ng/mL VITAMIN D, 25-OH, D2 (test c ode = 2235-8) <4.0 ng/mL VITAMIN B12/FOLATE, SERUM [id number] 00:00:00* Test Item Value Reference Range Interpretation Comme nts VITAMIN B12 (test code = 2-9) 501 pg/mL FOLATE, SERUM (test code = 2284-8) 19.0 ng/mL CARDIO IQ(R) VITAMIN D, 25-HYDROXY, LC/MS/[id number] 00:00:00* Test Item Value Reference Range Interpretation Comme nts VITAMIN D, 25-OH, TOTAL (kaitlynn t code = 67861-8) 22 ng/mL VITAMIN D, 25-OH, D3 (test c ode = 1989-02) 22 ng/mL VITAMIN D, 25-OH, D2 (test c ode = 2235-8) <4.0 ng/mL VITAMIN B12/FOLATE, SERUM [id number] 00:00:00* Test Item Value Reference Range Interpretation Comme nts VITAMIN B12 (test code = 2132-9) 501 pg/mL FOLATE, SERUM (test code = 2284-8) 19.0 ng/mL CARDIO IQ(R) VITAMIN D, 25-HYDROXY, LC/MS/[id number] 00:00:00* Test Item Value Reference Range Interpretation Comme nts VITAMIN D, 25-OH, TOTAL (kaitlynn t code = 60693-0) 22 ng/mL VITAMIN D, 25-OH, D3 (test c ode = 1989-02) 22 ng/mL VITAMIN D, 25-OH, D2 (test c ode = 2235-8) <4.0 ng/mL CARDIO IQ(R) VITAMIN D, 25-HYDROXY, LC/MS/[id number] 00:00:00* Test Item Value Reference Range Interpretation Comme nts VITAMIN D, 25-OH, TOTAL (kaitlynn t code = 24219-3) 22 ng/mL VITAMIN D, 25-OH, D3 (test c ode = 1989-02) 22 ng/mL VITAMIN D, 25-OH, D2 (test c ode = 2235-8) <4.0 ng/mL Alberto Bradshaw EndyVITAMIN B12/FOLATE, SERUM [id number] 00:00:00* Test Item Value Reference Range Interpretation Comme nts VITAMIN B12 (test code = 2132-9) 501 pg/mL FOLATE, SERUM (test code = 2284-8) 19.0 ng/mL CARDIO IQ(R) VITAMIN D, 25-HYDROXY, LC/MS/[id number] 00:00:00* Test Item Value Reference Range Interpretation Comme nts VITAMIN D, 25-OH, TOTAL (kaitlynn t code = 79474-2) 22 ng/mL VITAMIN D, 25-OH, D3 (test c ode = 1989-02) 22 ng/mL VITAMIN D, 25-OH, D2 (test c ode = 8) <4.0 ng/mL VITAMIN B12/FOLATE, SERUM [id number] 00:00:00* Test Item Value Reference Range Interpretation Comme nts VITAMIN B12 (test code = 2132-9) 501 pg/mL FOLATE, SERUM (test code = 2284-8) 19.0 ng/mL CARDIO IQ(R) VITAMIN D, 25-HYDROXY, LC/MS/[id number] 00:00:00* Test Item Value Reference Range Interpretation Comme nts VITAMIN D, 25-OH, TOTAL (kaitlynn t code = 33850-9) 22 ng/mL VITAMIN D, 25-OH, D3 (test c ode = 1990-1) 22 ng/mL VITAMIN D, 25-OH, D2 (test c ode = 2236-8) <4.0 ng/mL VITAMIN B12/FOLATE, SERUM [id number] 00:00:00* Test Item Value Reference Range Interpretation Comme nts VITAMIN B12 (test code = 2-9) 501 pg/mL FOLATE, SERUM (test code = 2284-8) 19.0 ng/mL Alberto Bradshaw AustinCARDIO IQ(R) VITAMIN D, 25-HYDROXY, LC/MS/[id number] 00:00:00 * Test Item Value Reference Range Interpretation Comme nts VITAMIN D, 25-OH, TOTAL (kaitlynn t code = 84924-2) 22 ng/mL VITAMIN D, 25-OH, D3 (test c ode = 1989-) 22 ng/mL VITAMIN D, 25-OH, D2 (test c ode = 6-8) <4.0 ng/mL Alberto Augustine AustinVITAMIN B12/FOLATE, SERUM [id number] 00:00:00* Test Item Value Reference Range Interpretation Comme nts VITAMIN B12 (test code = 2-9) 501 pg/mL FOLATE, SERUM (test code = 2284-8) 19.0 ng/mL Alberto Augustine AustinCARDIO IQ(R) VITAMIN D, 25-HYDROXY, LC/MS/[id number] 00:00:00 * Test Item Value Reference Range Interpretation Comme nts VITAMIN D, 25-OH, TOTAL (kaitlynn t code = 43423-9) 22 ng/mL VITAMIN D, 25-OH, D3 (test c ode = 1989-) 22 ng/mL VITAMIN D, 25-OH, D2 (test c ode = 2235-8) <4.0 ng/mL Alberto Bradshaw AustinVITAMIN B12/FOLATE, SERUM [id number] 00:00:00* Test Item Value Reference Range Interpretation Comme nts VITAMIN B12 (test code = 2-9) 501 pg/mL FOLATE, SERUM (test code = 2284-8) 19.0 ng/mL Alberto Augustine AustinCARDIO IQ(R) VITAMIN D, 25-HYDROXY, LC/MS/[id number] 00:00:00 * Test Item Value Reference Range Interpretation Comme nts VITAMIN D, 25-OH, TOTAL (kaitlynn t code = 53973-5) 22 ng/mL VITAMIN D, 25-OH, D3 (test c ode = 1989-) 22 ng/mL VITAMIN D, 25-OH, D2 (test c ode = 6-8) <4.0 ng/mL Alberto SchumacherVITAMIN B12/FOLATE, SERUM [id number] 00:00:00* Test Item Value Reference Range Interpretation Comme nts VITAMIN B12 (test code = 2132-9) 501 pg/mL FOLATE, SERUM (test code = 2284-8) 19.0 ng/mL Alberto SchumacherCARDIO IQ(R) VITAMIN D, 25-HYDROXY, LC/MS/[id number] 00:00:00 * Test Item Value Reference Range Interpretation Comme nts VITAMIN D, 25-OH, TOTAL (kaitlynn t code = 36916-5) 22 ng/mL VITAMIN D, 25-OH, D3 (test c ode = 1989-02) 22 ng/mL VITAMIN D, 25-OH, D2 (test c ode = 2235-8) <4.0 ng/mL Alberto SchumacherVITAMIN B12/FOLATE, SERUM [id number] 00:00:00* Test Item Value Reference Range Interpretation Comme nts VITAMIN B12 (test code = 2132-9) 501 pg/mL FOLATE, SERUM (test code = 2284-8) 19.0 ng/mL Alberto SchumacherVITAMIN B12/FOLATE, SERUM [id number] 00:00:00* Test Item Value Reference Range Interpretation Comme nts VITAMIN B12 (test code = 2132-9) 501 pg/mL FOLATE, SERUM (test code = 2284-8) 19.0 ng/mL Alberto SchumacherCARDIO IQ(R) VITAMIN D, 25-HYDROXY, LC/MS/[id number] 00:00:00 * Test Item Value Reference Range Interpretation Comme nts VITAMIN D, 25-OH, TOTAL (kaitlynn t code = 29273-0) 22 ng/mL VITAMIN D, 25-OH, D3 (test c ode = 1989-02) 22 ng/mL VITAMIN D, 25-OH, D2 (test c ode = 6-8) <4.0 ng/mL Alberto SchumacherVITAMIN B12/FOLATE, SERUM [id number] 00:00:00* Test Item Value Reference Range Interpretation Comme nts VITAMIN B12 (test code = 2132-9) 501 pg/mL FOLATE, SERUM (test code = 2284-8) 19.0 ng/mL Alberto SchumacherCARDIO IQ(R) VITAMIN D, 25-HYDROXY, LC/MS/[id number] 00:00:00 * Test Item Value Reference Range Interpretation Comme nts VITAMIN D, 25-OH, TOTAL (kaitlynn t code = 10828-9) 22 ng/mL VITAMIN D, 25-OH, D3 (test c ode = 1989-) 22 ng/mL VITAMIN D, 25-OH, D2 (test c ode = 2236-8) <4.0 ng/mL Alberto SchumacherLIPID [id number] 00:00:00* Test Item Value Reference Range Interpretation Comme nts CHOLESTEROL (test code = 2210) 218 MG/DL TRIGLYCERIDES (test code = 2232) 105 MG/DL HDL CHOLESTEROL (test code = 2220) 74 MG/DL CALC LDL CHOL (test code = 2237) 123 MG/DL RISK RATIO LDL/HDL (test cod e = 2238) 1.66 RATIO Alberto SchumacherCOMPREHENSIVE METABOLIC [id number] 00:00:00* Test Item Value Reference Range Interpretation Comme nts GLUCOSE (test code = 2217) 81 MG/DL BUN (test code = 2208) 9 MG/DL CREATININE (test code = 2214) 0.63 MG/DL eGFR AMER. (test cod e = 56095) 133 ML/MIN/1.73 eGFR NON- AMER. (test code = 46860) 115 ML/MIN/1.73 CALC BUN/CREAT (test code = [...] ALT (test code = 2219) 16 U/L Alberto Bradshaw AustinLIPID [id number] 00:00:00* Test Item Value Reference Range Interpretation Comme nts CHOLESTEROL (test code = 2210) 218 MG/DL TRIGLYCERIDES (test code = 2232) 105 MG/DL HDL CHOLESTEROL (test code = 2220) 74 MG/DL CALC LDL CHOL (test code = 2237) 123 MG/DL RISK RATIO LDL/HDL (test cod e = 2238) 1.66 RATIO COMPREHENSIVE METABOLIC [id number] 00:00:00* Test Item Value Reference Range Interpretation Comme nts GLUCOSE (test code = 2217) 81 MG/DL BUN (test code = 2208) 9 MG/DL CREATININE (test code = 2214) 0.63 MG/DL eGFR AMER. (test cod e = 65892) 133 ML/MIN/1.73 eGFR NON- AMER. (test code = 11208) 115 ML/MIN/1.73 CALC BUN/CREAT (test code = [...] code = 2219) 16 U/L CBC W/AUTO [id number] 00:00:00* Test Item Value Reference Range Interpretation [...] COUNT (test code = 1015) 395 K/UL [facility] Bradshaw [facility] [id number] 00:00:00* Test Item Value Reference Range Interpretation [...] (test code = 1015) 395 K/UL LIPID [id number] 00:00:00* Test Item Value Reference Range Interpretation Comme nts CHOLESTEROL (test code = 2210) 218 MG/DL TRIGLYCERIDES (test code = 2232) 105 MG/DL HDL CHOLESTEROL (test code = 2220) 74 MG/DL CALC LDL CHOL (test code = 2237) 123 MG/DL RISK RATIO LDL/HDL (test cod e = 2238) 1.66 RATIO COMPREHENSIVE METABOLIC [id number] 00:00:00* Test Item Value Reference Range Interpretation Comme nts GLUCOSE (test code = 2217) 81 MG/DL BUN (test code = 2208) 9 MG/DL CREATININE (test code = 2214) 0.63 MG/DL eGFR AMER. (test cod e = 72072) 133 ML/MIN/1.73 eGFR NON- AMER. (test code = 35437) 115 ML/MIN/1.73 CALC BUN/CREAT (test code = [...] code = 2219) 16 U/L CBC W/AUTO [id number] 00:00:00* Test Item Value Reference Range Interpretation [...] (test code = 1015) 395 K/UL LIPID [id number] 00:00:00* Test Item Value Reference Range Interpretation Comme nts CHOLESTEROL (test code = 2210) 218 MG/DL TRIGLYCERIDES (test code = 2232) 105 MG/DL HDL CHOLESTEROL (test code = 2220) 74 MG/DL CALC LDL CHOL (test code = 2237) 123 MG/DL RISK RATIO LDL/HDL (test cod e = 2238) 1.66 RATIO COMPREHENSIVE METABOLIC [id number] 00:00:00* Test Item Value Reference Range Interpretation Comme nts GLUCOSE (test code = 2217) 81 MG/DL BUN (test code = 2208) 9 MG/DL CREATININE (test code = 2214) 0.63 MG/DL eGFR AMER. (test cod e = 96924) 133 ML/MIN/1.73 eGFR NON- AMER. (test code = 16132) 115 ML/MIN/1.73 CALC BUN/CREAT (test code = [...] code = 2219) 16 U/L CBC W/AUTO [id number] 00:00:00* Test Item Value Reference Range Interpretation [...] (test code = 1015) 395 K/UL LIPID [id number] 00:00:00* Test Item Value Reference Range Interpretation Comme nts CHOLESTEROL (test code = 2210) 218 MG/DL TRIGLYCERIDES (test code = 2232) 105 MG/DL HDL CHOLESTEROL (test code = 2220) 74 MG/DL CALC LDL CHOL (test code = 2237) 123 MG/DL RISK RATIO LDL/HDL (test cod e = 2238) 1.66 RATIO COMPREHENSIVE METABOLIC [id number] 00:00:00* Test Item Value Reference Range Interpretation Comme nts GLUCOSE (test code = 2217) 81 MG/DL BUN (test code = 2208) 9 MG/DL CREATININE (test code = 2214) 0.63 MG/DL eGFR AMER. (test cod e = 76144) 133 ML/MIN/1.73 eGFR NON- AMER. (test code = 73788) 115 ML/MIN/1.73 CALC BUN/CREAT (test code = [...] code = 2219) 16 U/L CBC W/AUTO [id number] 00:00:00* Test Item Value Reference Range Interpretation [...] (test code = 1015) 395 K/UL LIPID [id number] 00:00:00* Test Item Value Reference Range Interpretation Comme nts CHOLESTEROL (test code = 2210) 218 MG/DL TRIGLYCERIDES (test code = 2232) 105 MG/DL HDL CHOLESTEROL (test code = 2220) 74 MG/DL CALC LDL CHOL (test code = 2237) 123 MG/DL RISK RATIO LDL/HDL (test cod e = 2238) 1.66 RATIO COMPREHENSIVE METABOLIC [id number] 00:00:00* Test Item Value Reference Range Interpretation Comme nts GLUCOSE (test code = 2217) 81 MG/DL BUN (test code = 2208) 9 MG/DL CREATININE (test code = 2214) 0.63 MG/DL eGFR AMER. (test cod e = 08010) 133 ML/MIN/1.73 eGFR NON- AMER. (test code = 36929) 115 ML/MIN/1.73 CALC BUN/CREAT (test code = [...] code = 2219) 16 U/L CBC W/AUTO [id number] 00:00:00* Test Item Value Reference Range Interpretation [...] (test code = 1015) 395 K/UL LIPID [id number] 00:00:00* Test Item Value Reference Range Interpretation Comme nts CHOLESTEROL (test code = 2210) 218 MG/DL TRIGLYCERIDES (test code = 2232) 105 MG/DL HDL CHOLESTEROL (test code = 2220) 74 MG/DL CALC LDL CHOL (test code = 2237) 123 MG/DL RISK RATIO LDL/HDL (test cod e = 2238) 1.66 RATIO COMPREHENSIVE METABOLIC [id number] 00:00:00* Test Item Value Reference Range Interpretation Comme nts GLUCOSE (test code = 2217) 81 MG/DL BUN (test code = 2208) 9 MG/DL CREATININE (test code = 2214) 0.63 MG/DL eGFR AMER. (test cod e = 41144) 133 ML/MIN/1.73 eGFR NON- AMER. (test code = 32106) 115 ML/MIN/1.73 CALC BUN/CREAT (test code = [...] code = 2219) 16 U/L CBC W/AUTO [id number] 00:00:00* Test Item Value Reference Range Interpretation [...] (test code = 1015) 395 K/UL LIPID [id number] 00:00:00* Test Item Value Reference Range Interpretation Comme nts CHOLESTEROL (test code = 2210) 218 MG/DL TRIGLYCERIDES (test code = 2232) 105 MG/DL HDL CHOLESTEROL (test code = 2220) 74 MG/DL CALC LDL CHOL (test code = 2237) 123 MG/DL RISK RATIO LDL/HDL (test cod e = 2238) 1.66 RATIO COMPREHENSIVE METABOLIC [id number] 00:00:00* Test Item Value Reference Range Interpretation Comme nts GLUCOSE (test code = 2217) 81 MG/DL BUN (test code = 2208) 9 MG/DL CREATININE (test code = 2214) 0.63 MG/DL eGFR AMER. (test cod e = 85270) 133 ML/MIN/1.73 eGFR NON- AMER. (test code = 29414) 115 ML/MIN/1.73 CALC BUN/CREAT (test code = [...] code = 2219) 16 U/L CBC W/AUTO [id number] 00:00:00* Test Item Value Reference Range Interpretation [...] (test code = 1015) 395 K/UL LIPID [id number] 00:00:00* Test Item Value Reference Range Interpretation Comme nts CHOLESTEROL (test code = 2210) 218 MG/DL TRIGLYCERIDES (test code = 2232) 105 MG/DL HDL CHOLESTEROL (test code = 2220) 74 MG/DL CALC LDL CHOL (test code = 2237) 123 MG/DL RISK RATIO LDL/HDL (test cod e = 2238) 1.66 RATIO COMPREHENSIVE METABOLIC [id number] 00:00:00* Test Item Value Reference Range Interpretation Comme nts GLUCOSE (test code = 2217) 81 MG/DL BUN (test code = 2208) 9 MG/DL CREATININE (test code = 2214) 0.63 MG/DL eGFR AMER. (test cod e = 52076) 133 ML/MIN/1.73 eGFR NON- AMER. (test code = 55407) 115 ML/MIN/1.73 CALC BUN/CREAT (test code = [...] code = 2219) 16 U/L CBC W/AUTO [id number] 00:00:00* Test Item Value Reference Range Interpretation [...] (test code = 1015) 395 K/UL LIPID [id number] 00:00:00* Test Item Value Reference Range Interpretation Comme nts CHOLESTEROL (test code = 2210) 218 MG/DL TRIGLYCERIDES (test code = 2232) 105 MG/DL HDL CHOLESTEROL (test code = 2220) 74 MG/DL CALC LDL CHOL (test code = 2237) 123 MG/DL RISK RATIO LDL/HDL (test cod e = 2238) 1.66 RATIO Alberto SchumacherCOMPREHENSIVE METABOLIC [id number] 00:00:00* Test Item Value Reference Range Interpretation Comme nts GLUCOSE (test code = 2217) 81 MG/DL BUN (test code = 2208) 9 MG/DL CREATININE (test code = 2214) 0.63 MG/DL eGFR AMER. (test cod e = 96501) 133 ML/MIN/1.73 eGFR NON- AMER. (test code = 29129) 115 ML/MIN/1.73 CALC BUN/CREAT (test code = [...] ALT (test code = 2219) 16 U/L Alberto Bradshaw EndyCBC W/AUTO [id number] 00:00:00* Test Item Value Reference Range Interpretation [...] COUNT (test code = 1015) 395 K/UL Alberto Bradshaw AustinLIPID [id number] 00:00:00* Test Item Value Reference Range Interpretation Comme nts CHOLESTEROL (test code = 2210) 218 MG/DL TRIGLYCERIDES (test code = 2232) 105 MG/DL HDL CHOLESTEROL (test code = 2220) 74 MG/DL CALC LDL CHOL (test code = 2237) 123 MG/DL RISK RATIO LDL/HDL (test cod e = 2238) 1.66 RATIO Alberto SchumacherCOMPREHENSIVE METABOLIC [id number] 00:00:00* Test Item Value Reference Range Interpretation Comme nts GLUCOSE (test code = 2217) 81 MG/DL BUN (test code = 2208) 9 MG/DL CREATININE (test code = 2214) 0.63 MG/DL eGFR AMER. (test cod e = 89193) 133 ML/MIN/1.73 eGFR NON- AMER. (test code = 10067) 115 ML/MIN/1.73 CALC BUN/CREAT (test code = [...] ALT (test code = 2219) 16 U/L Alberto SchumacherCBC W/AUTO [id number] 00:00:00* Test Item Value Reference Range Interpretation [...] COUNT (test code = 1015) 395 K/UL Alberto SchumacherLIPID [id number] 00:00:00* Test Item Value Reference Range Interpretation Comme nts CHOLESTEROL (test code = 2210) 218 MG/DL TRIGLYCERIDES (test code = 2232) 105 MG/DL HDL CHOLESTEROL (test code = 2220) 74 MG/DL CALC LDL CHOL (test code = 2237) 123 MG/DL RISK RATIO LDL/HDL (test cod e = 2238) 1.66 RATIO Alberto SchumacherCOMPREHENSIVE METABOLIC [id number] 00:00:00* Test Item Value Reference Range Interpretation Comme nts GLUCOSE (test code = 2217) 81 MG/DL BUN (test code = 2208) 9 MG/DL CREATININE (test code = 2214) 0.63 MG/DL eGFR AMER. (test cod e = 70261) 133 ML/MIN/1.73 eGFR NON- AMER. (test code = 05159) 115 ML/MIN/1.73 CALC BUN/CREAT (test code = [...] ALT (test code = 2219) 16 U/L Alberto SchumacherCBC W/AUTO [id number] 00:00:00* Test Item Value Reference Range Interpretation [...] COUNT (test code = 1015) 395 K/UL Alberto SchumacherLIPID [id number] 00:00:00* Test Item Value Reference Range Interpretation Comme nts CHOLESTEROL (test code = 2210) 218 MG/DL TRIGLYCERIDES (test code = 2232) 105 MG/DL HDL CHOLESTEROL (test code = 2220) 74 MG/DL CALC LDL CHOL (test code = 2237) 123 MG/DL RISK RATIO LDL/HDL (test cod e = 2238) 1.66 RATIO Alberto SchumacherCOMPREHENSIVE METABOLIC [id number] 00:00:00* Test Item Value Reference Range Interpretation Comme nts GLUCOSE (test code = 2217) 81 MG/DL BUN (test code = 2208) 9 MG/DL CREATININE (test code = 2214) 0.63 MG/DL eGFR AMER. (test cod e = 38339) 133 ML/MIN/1.73 eGFR NON- AMER. (test code = 57164) 115 ML/MIN/1.73 CALC BUN/CREAT (test code = [...] ALT (test code = 2219) 16 U/L lAberto SchumacherCBC W/AUTO [id number] 00:00:00* Test Item Value Reference Range Interpretation [...] COUNT (test code = 1015) 395 K/UL Alberto SchumacherLIPID [id number] 00:00:00* Test Item Value Reference Range Interpretation Comme nts CHOLESTEROL (test code = 2210) 218 MG/DL TRIGLYCERIDES (test code = 2232) 105 MG/DL HDL CHOLESTEROL (test code = 2220) 74 MG/DL CALC LDL CHOL (test code = 2237) 123 MG/DL RISK RATIO LDL/HDL (test cod e = 2238) 1.66 RATIO Alberto SchumacherLIPID [id number] 00:00:00* Test Item Value Reference Range Interpretation Comme nts CHOLESTEROL (test code = 2210) 218 MG/DL TRIGLYCERIDES (test code = 2232) 105 MG/DL HDL CHOLESTEROL (test code = 2220) 74 MG/DL CALC LDL CHOL (test code = 2237) 123 MG/DL RISK RATIO LDL/HDL (test cod e = 2238) 1.66 RATIO Alberto SchumacherCOMPREHENSIVE METABOLIC [id number] 00:00:00* Test Item Value Reference Range Interpretation Comme nts GLUCOSE (test code = 2217) 81 MG/DL BUN (test code = 2208) 9 MG/DL CREATININE (test code = 2214) 0.63 MG/DL eGFR AMER. (test cod e = 39114) 133 ML/MIN/1.73 eGFR NON- AMER. (test code = 96039) 115 ML/MIN/1.73 CALC BUN/CREAT (test code = [...] ALT (test code = 2219) 16 U/L Alberto SchumacherCBC W/AUTO [id number] 00:00:00* Test Item Value Reference Range Interpretation [...] COUNT (test code = 1015) 395 K/UL Alberto SchumacherLIPID [id number] 00:00:00* Test Item Value Reference Range Interpretation Comme nts CHOLESTEROL (test code = 2210) 218 MG/DL TRIGLYCERIDES (test code = 2232) 105 MG/DL HDL CHOLESTEROL (test code = 2220) 74 MG/DL CALC LDL CHOL (test code = 2237) 123 MG/DL RISK RATIO LDL/HDL (test cod e = 2238) 1.66 RATIO Alberto SchumacherCOMPREHENSIVE METABOLIC [id number] 00:00:00* Test Item Value Reference Range Interpretation Comme nts GLUCOSE (test code = 2217) 81 MG/DL BUN (test code = 2208) 9 MG/DL CREATININE (test code = 2214) 0.63 MG/DL eGFR AMER. (test cod e = 16986) 133 ML/MIN/1.73 eGFR NON- AMER. (test code = 37281) 115 ML/MIN/1.73 CALC BUN/CREAT (test code = [...] ALT (test code = 2219) 16 U/L Alberto SchumacherCBC W/AUTO [id number] 00:00:00* Test Item Value Reference Range Interpretation [...] COUNT (test code = 1015) 395 K/UL Alberto SchumacherCOMPREHENSIVE METABOLIC [id number] 00:00:00* Test Item Value Reference Range Interpretation Comme nts GLUCOSE (test code = 2217) 81 MG/DL BUN (test code = 2208) 9 MG/DL CREATININE (test code = 2214) 0.63 MG/DL eGFR AMER. (test cod e = 46616) 133 ML/MIN/1.73 eGFR NON- AMER. (test code = 90250) 115 ML/MIN/1.73 CALC BUN/CREAT (test code = [...] ALT (test code = 2219) 16 U/L Alberto RangelC W/AUTO [id number] 00:00:00* Test Item Value Reference Range Interpretation [...] COUNT (test code = 1015) 395 K/UL Alberto SchumacherSARS-CoV-2 (COVID-19) by RT-PCR (HIGH RISK)2020-03-17 00:00:00* Test Item Value Reference Range Interpretation Comme nts SARS-CoV-2 INTERPRETATION (test code = 55875) NEGATIVE SOURCE (test code = 76184) NASOPHARYNGEAL Alberto SchumacherSARS-CoV-2 (COVID-19) by RT-PCR (HIGH RISK)2020-03-17 00:00:00* Test Item Value Reference Range Interpretation Comme nts SARS-CoV-2 INTERPRETATION (test code = 01869) NEGATIVE SOURCE (test code = 68302) NASOPHARYNGEAL SARS-CoV-2 (COVID-19) by RT-PCR (HIGH RISK)2020-03-17 00:00:00* Test Item Value Reference Range Interpretation Comme nts SARS-CoV-2 INTERPRETATION (test code = 78332) NEGATIVE SOURCE (test code = 18850) NASOPHARYNGEAL SARS-CoV-2 (COVID-19) by RT-PCR (HIGH RISK)2020-03-17 00:00:00* Test Item Value Reference Range Interpretation Comme nts SARS-CoV-2 INTERPRETATION (test code = 77814) NEGATIVE SOURCE (test code = 39996) NASOPHARYNGEAL SARS-CoV-2 (COVID-19) by RT-PCR (HIGH RISK)2020-03-17 00:00:00* Test Item Value Reference Range Interpretation Comme nts SARS-CoV-2 INTERPRETATION (test code = 54841) NEGATIVE SOURCE (test code = 15537) NASOPHARYNGEAL SARS-CoV-2 (COVID-19) by RT-PCR (HIGH RISK)2020-03-17 00:00:00* Test Item Value Reference Range Interpretation Comme nts SARS-CoV-2 INTERPRETATION (test code = 06169) NEGATIVE SOURCE (test code = 94684) NASOPHARYNGEAL SARS-CoV-2 (COVID-19) by RT-PCR (HIGH RISK)2020-03-17 00:00:00* Test Item Value Reference Range Interpretation Comme nts SARS-CoV-2 INTERPRETATION (test code = 37766) NEGATIVE SOURCE (test code = 51258) NASOPHARYNGEAL SARS-CoV-2 (COVID-19) by RT-PCR (HIGH RISK)2020-03-17 00:00:00* Test Item Value Reference Range Interpretation Comme nts SARS-CoV-2 INTERPRETATION (test code = 62341) NEGATIVE SOURCE (test code = 67645) NASOPHARYNGEAL SARS-CoV-2 (COVID-19) by RT-PCR (HIGH RISK)2020-03-17 00:00:00* Test Item Value Reference Range Interpretation Comme nts SARS-CoV-2 INTERPRETATION (test code = 02695) NEGATIVE SOURCE (test code = 49463) NASOPHARYNGEAL SARS-CoV-2 (COVID-19) by RT-PCR (HIGH RISK)2020-03-17 00:00:00* Test Item Value Reference Range Interpretation Comme nts SARS-CoV-2 INTERPRETATION (test code = 29299) NEGATIVE SOURCE (test code = 63815) NASOPHARYNGEAL Alberto F TzpouiWGOQ-MxX-1 (COVID-19) by RT-PCR (HIGH RISK)2020-03-17 00:00:00* Test Item Value Reference Range Interpretation Comme nts SARS-CoV-2 INTERPRETATION (test code = 42198) NEGATIVE SOURCE (test code = 27432) NASOPHARYNGEAL Alberto F GqjtnnUOVY-IvJ-9 (COVID-19) by RT-PCR (HIGH RISK)2020-03-17 00:00:00* Test Item Value Reference Range Interpretation Comme nts SARS-CoV-2 INTERPRETATION (test code = 07692) NEGATIVE SOURCE (test code = 30682) NASOPHARYNGEAL Alberto Bradshaw RceejyKXES-QiF-0 (COVID-19) by RT-PCR (HIGH RISK)2020-03-17 00:00:00* Test Item Value Reference Range Interpretation Comme nts SARS-CoV-2 INTERPRETATION (test code = 51760) NEGATIVE SOURCE (test code = 26594) NASOPHARYNGEAL Alberto F XzmdktANBM-GiF-2 (COVID-19) by RT-PCR (HIGH RISK)2020-03-17 00:00:00* Test Item Value Reference Range Interpretation Comme nts SARS-CoV-2 INTERPRETATION (test code = 25559) NEGATIVE SOURCE (test code = 31644) NASOPHARYNGEAL Alberto Bradshaw LrkdfoOBOA-YpG-9 (COVID-19) by RT-PCR (HIGH RISK)2020-03-17 00:00:00* Test Item Value Reference Range Interpretation Comme nts SARS-CoV-2 INTERPRETATION (test code = 86305) NEGATIVE SOURCE (test code = 79415) NASOPHARYNGEAL Alberto Bradshaw LpsatyRQER-BiI-5 (COVID-19) by RT-PCR (HIGH RISK)2020-03-17 00:00:00* Test Item Value Reference Range Interpretation Comme nts SARS-CoV-2 INTERPRETATION (test code = 40827) NEGATIVE SOURCE (test code = 82876) NASOPHARYNGEAL Alberto Lisat Xray 2 V [ADDED]2019-08-18 00:00:00* Test Item Value Reference Range Interpretation Comme nts [id number].Repo rt Text (test code = ) HISTORY: Cough

TECHNIQUE: PA and lateral views of the chest

FINDINGS: No airspace consolidation or pleural effusion. Normal heart size.
Mediastinal contours are unremarkable. Thoracic spondylosis.

IMPRESSION:

Negati ve radiographic examination of the chest.

Thank you for allowing us to participate in the care of your patient.

LOCA TION: SI

Alberto Lisat Xray 2 V [ADDED]2019-08-18 00:00:00* Test Item Value Reference Range Interpretation Comme nts [id number].Repo rt Text (test code = ) HISTORY: [...] Item Value Reference Range Interpretation Comme nts [id number].Repo rt Text (test code = ) HISTORY: [...] Item Value Reference Range Interpretation Comme nts [id number].Repo rt Text (test code = ) HISTORY: [...] Item Value Reference Range Interpretation Comme nts [id number].Repo rt Text (test code = ) HISTORY: [...] Item Value Reference Range Interpretation Comme nts [id number].Repo rt Text (test code = ) HISTORY: [...] Item Value Reference Range Interpretation Comme nts [id number].Repo rt Text (test code = ) HISTORY: [...] Item Value Reference Range Interpretation Comme nts [id number].Repo rt Text (test code = ) HISTORY: [...] Item Value Reference Range Interpretation Comme nts [id number].Repo rt Text (test code = ) HISTORY: [...] Item Value Reference Range Interpretation Comme nts [id number].Repo rt Text (test code = ) HISTORY: Cough

TECHNIQUE: PA and lateral views of the chest

FINDINGS: No airspace consolidation or pleural effusion. Normal heart size.
Mediastinal contours are unremarkable. Thoracic spondylosis.

IMPRESSION:

Negati ve radiographic examination of the chest.

Thank you for allowing us to participate in the care of your patient.

LOCA TION: SI

[facility] [ADDED[facility]2019-08-18 00:00:00* Test Item Value Reference Range Interpretation Comme nts [id number].Repo rt Text (test code = ) HISTORY: Cough

TECHNIQUE: PA and lateral views of the chest

FINDINGS: No airspace consolidation or pleural effusion. Normal heart size.
Mediastinal contours are unremarkable. Thoracic spondylosis.

IMPRESSION:

Negati ve radiographic examination of the chest.

Thank you for allowing us to participate in the care of your patient.

LOCA TION: SI

[facility] V [ADDED]2019-08-18 00:00:00* Test Item Value Reference Range Interpretation Comme nts [id number].Repo rt Text (test code = ) HISTORY: Cough

TECHNIQUE: PA and lateral views of the chest

FINDINGS: No airspace consolidation or pleural effusion. Normal heart size.
Mediastinal contours are unremarkable. Thoracic spondylosis.

IMPRESSION:

Negati ve radiographic examination of the chest.

Thank you for allowing us to participate in the care of your patient.

LOCA TION: SI

[facility] [[facility]2019-08-18 00:00:00* Test Item Value Reference Range Interpretation Comme nts [id number].Repo rt Text (test code = ) HISTORY: Cough

TECHNIQUE: PA and lateral views of the chest

FINDINGS: No airspace consolidation or pleural effusion. Normal heart size.
Mediastinal contours are unremarkable. Thoracic spondylosis.

IMPRESSION:

Negati ve radiographic examination of the chest.

Thank you for allowing us to participate in the care of your patient.

LOCA TION: SI

Alberto Bradshaw [facility] Xray 2 V [ADDED]2019-08-18 00:00:00* Test Item Value Reference Range Interpretation Comme nts [id number].Repo rt Text (test code = ) HISTORY: Cough

TECHNIQUE: PA and lateral views of the chest

FINDINGS: No airspace consolidation or pleural effusion. Normal heart size.
Mediastinal contours are unremarkable. Thoracic spondylosis.

IMPRESSION:

Negati ve radiographic examination of the chest.

Thank you for allowing us to participate in the care of your patient.

LOCA TION: SI

[facility] Bradshaw [facility] V [ADDED]2019-08-18 00:00:00* Test Item Value Reference Range Interpretation Comme nts [id number].Repo rt Text (test code = ) HISTORY: Cough

TECHNIQUE: PA and lateral views of the chest

FINDINGS: No airspace consolidation or pleural effusion. Normal heart size.
Mediastinal contours are unremarkable. Thoracic spondylosis.

IMPRESSION:

Negati ve radiographic examination of the chest.

Thank you for allowing us to participate in the care of your patient.

LOCA TION: SI

Alberto Lisachristiano Xray 2 V [ADDED]2019-08-18 00:00:00* Test Item Value Reference Range Interpretation Comme nts [id number].Repo rt Text (test code = ) HISTORY: Cough

TECHNIQUE: PA and lateral views of the chest

FINDINGS: No airspace consolidation or pleural effusion. Normal heart size.
Mediastinal contours are unremarkable. Thoracic spondylosis.

IMPRESSION:

Negati ve radiographic examination of the chest.

Thank you for allowing us to participate in the care of your patient.

LOCA TION: SI

Alberto Bradshaw ZhgorvLNXI-WbF-9 (COVID-19) by RT-PCR (HIGH RISK)2019-06-22 00:00:00* Test Item Value Reference Range Interpretation Comme nts SARS-CoV-2 INTERPRETATION (t est code = 22174) NEGATIVE SOURCE (test code = 51901) NOT SPECIFIED Alberto SchumacherSARS-CoV-2 (COVID-19) by RT-PCR (HIGH RISK)2019-06-22 00:00:00* Test Item Value Reference Range Interpretation Comme nts SARS-CoV-2 INTERPRETATION (t est code = 55374) NEGATIVE SOURCE (test code = 91062) NOT SPECIFIED SARS-CoV-2 (COVID-19) by RT-PCR (HIGH RISK)2019-06-22 00:00:00* Test Item Value Reference Range Interpretation Comme nts SARS-CoV-2 INTERPRETATION (t est code = 44521) NEGATIVE SOURCE (test code = 60273) NOT SPECIFIED SARS-CoV-2 (COVID-19) by RT-PCR (HIGH RISK)2019-06-22 00:00:00* Test Item Value Reference Range Interpretation Comme nts SARS-CoV-2 INTERPRETATION (t est code = 23871) NEGATIVE SOURCE (test code = 82079) NOT SPECIFIED SARS-CoV-2 (COVID-19) by RT-PCR (HIGH RISK)2019-06-22 00:00:00* Test Item Value Reference Range Interpretation Comme nts SARS-CoV-2 INTERPRETATION (t est code = 50007) NEGATIVE SOURCE (test code = 31392) NOT SPECIFIED SARS-CoV-2 (COVID-19) by RT-PCR (HIGH RISK)2019-06-22 00:00:00* Test Item Value Reference Range Interpretation Comme nts SARS-CoV-2 INTERPRETATION (t est code = 40366) NEGATIVE SOURCE (test code = 22960) NOT SPECIFIED SARS-CoV-2 (COVID-19) by RT-PCR (HIGH RISK)2019-06-22 00:00:00* Test Item Value Reference Range Interpretation Comme nts SARS-CoV-2 INTERPRETATION (t est code = 05908) NEGATIVE SOURCE (test code = 18120) NOT SPECIFIED SARS-CoV-2 (COVID-19) by RT-PCR (HIGH RISK)2019-06-22 00:00:00* Test Item Value Reference Range Interpretation Comme nts SARS-CoV-2 INTERPRETATION (t est code = 28503) NEGATIVE SOURCE (test code = 73884) NOT SPECIFIED SARS-CoV-2 (COVID-19) by RT-PCR (HIGH RISK)2019-06-22 00:00:00* Test Item Value Reference Range Interpretation Comme nts SARS-CoV-2 INTERPRETATION (t est code = 87722) NEGATIVE SOURCE (test code = 32299) NOT SPECIFIED SARS-CoV-2 (COVID-19) by RT-PCR (HIGH RISK)2019-06-22 00:00:00* Test Item Value Reference Range Interpretation Comme nts SARS-CoV-2 INTERPRETATION (t est code = 87475) NEGATIVE SOURCE (test code = 21753) NOT SPECIFIED Alberto F KrkjfpDKCO-FjB-8 (COVID-19) by RT-PCR (HIGH RISK)2019-06-22 00:00:00* Test Item Value Reference Range Interpretation Comme nts SARS-CoV-2 INTERPRETATION (t est code = 89904) NEGATIVE SOURCE (test code = 19376) NOT SPECIFIED Alberto F CbfbqcLSCV-DvN-7 (COVID-19) by RT-PCR (HIGH RISK)2019-06-22 00:00:00* Test Item Value Reference Range Interpretation Comme nts SARS-CoV-2 INTERPRETATION (t est code = 97966) NEGATIVE SOURCE (test code = 28049) NOT SPECIFIED Alberto Bradshaw AlwehuIJYP-VgJ-4 (COVID-19) by RT-PCR (HIGH RISK)2019-06-22 00:00:00* Test Item Value Reference Range Interpretation Comme nts SARS-CoV-2 INTERPRETATION (t est code = 04945) NEGATIVE SOURCE (test code = 49882) NOT SPECIFIED Alberto Augustine YrdneoBGIK-EaA-3 (COVID-19) by RT-PCR (HIGH RISK)2019-06-22 00:00:00* Test Item Value Reference Range Interpretation Comme nts SARS-CoV-2 INTERPRETATION (t est code = 82569) NEGATIVE SOURCE (test code = 34200) NOT SPECIFIED Alberto Augustine AgrtvgSCAX-CzP-9 (COVID-19) by RT-PCR (HIGH RISK)2019-06-22 00:00:00* Test Item Value Reference Range Interpretation Comme nts SARS-CoV-2 INTERPRETATION (t est code = 15271) NEGATIVE SOURCE (test code = 23388) NOT SPECIFIED Alberto Augustine TfxwswUVMV-HoM-3 (COVID-19) by RT-PCR (HIGH RISK)2019-06-22 00:00:00* Test Item Value Reference Range Interpretation Comme nts SARS-CoV-2 INTERPRETATION (t est code = 67843) NEGATIVE SOURCE (test code = 60561) NOT SPECIFIED Alberto Augustine Endy
[2024-02-22] MEDS ORDERED: predniSONE 20 MG TAB ONE (19:17)
[2024-02-22] MEDS ORDERED: IPRATROPIUM BROM 0.5MG/2.5ML ONE (19:23)
[2024-02-22] MEDS ORDERED: ALBUTEROL 2.5 MG/3 ML NEB SOL ONE (19:23)
[2024-02-22] MEDS ORDERED: BENZONATATE 100 MG CAP PO ONE (19:23)
[2024-02-22 20:04] LABS: SARS-CoV-2 Antigen CONTROL BLUE LINE VIS/BG OK; SARS-CoV-2 Antigen Rapid Res Negative (Negative)
--- NOTE | 2024-02-22 20:19 | RAD REPORT ---
Procedure: Chest Single View HISTORY: Cough COMPARISON: 2017 FINDINGS: The lungs appear clear of acute infiltrate. No significant pleural effusion noted. The heart is normal size. IMPRESSION: No acute abnormality is displayed. If the patient's symptoms persist PA and lateral chest series would be recommended
[2024-02-22] MEDS ORDERED: OSELTAMIVIR 75 MG CAP PO ONE (20:35)
--- NOTE | 2024-02-22 20:42 | EDPHYS ---
Physician Documentation [facility] Name: Elvira Wang Age: 39 yrs Sex: Female : 1985 Arrival Date: 02/22/2024 Time: 18:28 Bed 11 Private MD: ED Physician Ever Kennedy HPI: 02/21 19:15 This 39 yrs old Female presents to ER via Ambulatory with complaints of Flu Symptoms. cp 19:15 The patient or guardian reports cough, that is constant. cp 19:15 Onset: The symptoms/episode began/occurred yesterday. Associated signs and symptoms: cp Pertinent positives: chest pain, with cough, sore throat, Pertinent negatives: diarrhea, fever, vomiting. Severity of symptoms: in the emergency department the symptoms are unchanged despite home interventions. Historical: - Allergies: 19:00 No Known Allergies; cm10 - PMHx: 19:00 bowel obstruction; GERD; Hypertension; molar ; 2009; cm10 - Immunization history:: Adult Immunizations up to date. - Infectious Disease History:: Denies. - Social history:: Smoking status: Patient denies any tobacco usage or history of. ROS: 19:20 Constitutional: Positive for body aches, chills, Negative for fever, cp 19:20 Eyes: Negative for injury, pain, redness, and discharge, cp 19:20 ENT: Positive for sore throat, Negative for drainage from ear(s), ear pain, difficulty swallowing, difficulty handling secretions, 19:20 Respiratory: Positive for cough, shortness of breath, wheezing, 19:20 Abdomen/GI: Positive for diarrhea, 19:20 Neuro: Negative for altered mental status, headache, Exam: 19:25 Constitutional: The patient appears in no acute distress, alert, awake, cp non-diaphoretic, non-toxic, well developed, well nourished, overweight 19:25 Head/Face: Normocephalic, atraumatic. cp 19:25 Eyes: Periorbital structures: appear normal, Conjunctiva: normal, no exudate, no injection, Sclera: no appreciated abnormality, Lids and lashes: appear normal, bilaterally, 19:25 ENT: External ear(s): are unremarkable, Ear canal(s): are normal, clear, TM's: dullness, bilaterally, Nose: is normal, Mouth: Lips: moist, Oral mucosa: moist, Posterior pharynx: Airway: no evidence of obstruction, patent, Tonsils: with erythema, no enlargement, no exudate, erythema, that is mild, exudate, is not appreciated, 19:25 Neck: ROM/movement: Meningeal signs: are not present, nuchal rigidity, is not appreciated, 19:25 Chest/axilla: Inspection: normal, 19:25 Cardiovascular: Rate: normal, Rhythm: regular, Edema: is not appreciated, JVD: is not appreciated, 19:25 Respiratory: the patient does not display signs of respiratory distress, Respirations: labored breathing, is not present, intercostal retractions, are absent, Breath sounds: bronchial sounds, are heard diffusely, decreased breath sounds, are not appreciated, stridor, is not appreciated, wheezing: that is mild, is heard diffusely, 19:25 Abdomen/GI: Exam negative for discomfort, distension, guarding, Inspection: abdomen appears normal, 19:25 Skin: no rash present. 19:25 Neuro: Orientation: to person, place \T\ time. Mentation: is normal, Motor: moves all fours, strength is normal, Vital Signs: 18:58 BP 149 / 97; Pulse 97; Resp 18; Temp 99.9(O); Pulse Ox 95% on R/A; Weight 93.44 kg; cm10 Height 5 ft. 4 in. ; Pain 9/10; 20:53 BP 140 / 9; Pulse 90; Resp 22; Temp 97.3; Pulse Ox 99% on R/A; br2 18:58 Body Mass Index 35.36 (93.44 kg, 162.56 cm) cm10 18:58 Pain Scale: Adult cm10 MDM: 19:01 Medical Screening Exam initiated cp 20:00 Differential diagnosis: bronchitis, flu, pneumonia, strep throat, RSV. cp 20:40 Data reviewed: vital signs, nurses notes, lab test result(s), radiologic studies, plain cp films, and as a result, I will discharge patient. 20:40 Antibiotic administration: Not indicated, the patient has a suspected viral illness. cp 20:40 I considered the following discharge prescriptions or medication management in the emergency department Medications were administered in the Emergency Department. See MAR. 20:40 Care significantly affected by the following chronic conditions: Hypertension, Asthma. cp Counseling: I had a detailed discussion with the patient and/or guardian regarding the historical points, exam findings, and any diagnostic results supporting the discharge/admit diagnosis, lab results, radiology results, to return to the emergency department if symptoms worsen or persist or if there are any questions or concerns that arise at home. Response to treatment: the patient's symptoms have markedly improved after treatment, and as a result, I will discharge patient. 02/21 19:10 Order name: Strep cp 02/21 19:10 Order name: SARS RAPID; Complete Time: 20:28 cp 02/21 19:10 Order name: RSV; Complete Time: 20:28 cp 02/21 19:10 Order name: Influenza Screen (a \T\ B); Complete Time: 20:28 cp 02/21 20:29 Interpretation: Reviewed. cp 02/21 19:46 Order name: Throat Culture EDMS 02/21 19:10 Order name: XRAY Chest (1 view); Complete Time: 20:28 cp 02/21 20:29 Interpretation: Report review. cp Administered Medications: 19:29 Drug: predniSONE PO 60 mg PO once Route: PO; br2 20:00 Follow up: Response: No adverse reaction br2 19:30 Drug: Tessalon Perle PO 200 mg PO once Route: PO; br2 20:00 Follow up: Response: No adverse reaction br2 19:30 Drug: DuoNeb Nebulize (2.5 mg - 0.5 mg) 3 ml Nebulizer once Route: Nebulizer; br2 20:00 Follow up: Response: No adverse reaction br2 20:41 Drug: Oseltamivir PO 75 mg PO once Route: PO; br2 20:53 Follow up: Response: No adverse reaction br2 Disposition Summary: 02/22/24 20:41 Discharge Ordered Notes: Location: Home cp Problem: new cp Symptoms: have improved cp Condition: Stable cp Diagnosis - Influenza due to identified novel influenza A virus with other respiratory cp manifestations Followup: cp - With: Private Physician - When: 2 - 3 days - Reason: Worsening of condition Discharge Instructions: - Discharge Summary Sheet cp - Influenza, Adult cp Forms: - Medication Reconciliation Form cp - Antibiotic Education cp - Prescription Opioid Use cp - Patient Portal Instructions cp - Leadership Thank You Letter cp Prescriptions: - Bromfed DM 2-30-10 mg/5 mL Oral syrup - administer 10 milliliter ORAL route every 6 hours as needed for cold symptoms; cp 240 milliliter; Refills: 0, Product Selection Permitted - budesonide 1 mg/2 mL Inhalation Suspension for Nebulization - nebulize 4 milliliter INHALATION route daily for 7 days; 1 unit; Refills: 0, cp Product Selection Permitted - NEBULIZER MACHINE - nebulize 1 ampule NEBULIZATION route as directed; 1 unit; Refills: 0, Product cp Selection Permitted - Ibuprofen 800 mg Oral Tablet - take 1 tablet ORAL route every 8 hours As needed take with food; 30 tablet; cp Refills: 0, Product Selection Permitted - Tamiflu 75 mg Oral Capsule - take 1 capsule ORAL route every 12 hours for 5 days; 10 capsule; Refills: 0, cp Product Selection Permitted - Albuterol Sulfate 2.5 mg /3 mL (0.083 %) Inhalation Solution for Nebulization - inhale 1 unit NEBULIZATION route every 8 hours As needed; 1 unit; Refills: 0, cp Product Selection Permitted Addendum: 02/24/2024 15:29 Co-signature as Attending Physician, Ever Kennedy MD I agree with the assessment and c arango plan of care. Signatures: Dispatcher [employer] EDNC Ever Kennedy MD MD cha Page, Corey, PA PA Nohemi Olivera, RN RN cm10 Dorina Richards RN RN br2 Corrections: (The following items were deleted from the chart) 02/21 19:11 19:11 Group A Streptococcus Rapid Sc+BA.LAB.BRZ ordered. EDMS EDMS 19:11 19:11 SARS-COV-2 Antigen Rapid+I.LAB.BRZ ordered. EDMS EDMS 19:11 19:11 Respiratory Syncytial Virus Ag+BA.LAB.BRZ ordered. EDMS EDMS 19:11 19:11 Influenza Screen (A \T\ B)+BA.LAB.BRZ ordered. EDMS EDMS 19:11 19:11 Chest Single View+RAD.RAD.BRZ ordered. EDMS EDMS
--- NOTE | 2024-02-22 20:42 | ER ---
Nurse's Notes [facility] Name: Elvira Wang Age: 39 yrs Sex: Female : 1985 Arrival Date: 02/22/2024 Time: 18:28 Bed 11 Private MD: Diagnosis: Influenza due to identified novel influenza A virus with other respiratory manifestations Presentation: 02/21 18:58 Chief complaint: Patient states: Cough, body aches, diarrhea onset yesterday. cm10 Coronavirus screen: Client denies travel out of the [place] in the last 14 days. Ebola Screen: Patient denies travel to an Ebola-affected area in the 21 days before illness onset. Initial Sepsis Screen: Does the patient meet any 2 criteria? HR > 90 bpm. Does the patient have a suspected source of infection? No. Patient's initial sepsis screen is negative. Risk Assessment: Do you want to hurt yourself or someone else? Patient reports no desire to harm self or others. Onset of symptoms was February 22, 2024. 18:58 Method Of Arrival: Ambulatory 10 18:58 Acuity: REGINA 4 cm10 Triage Assessment: 19:00 General: Appears in no apparent distress. uncomfortable, Behavior is calm, cooperative. cm10 Neuro: No deficits noted. Level of Consciousness is awake, alert, obeys commands, Oriented to person, place, time, situation, Appropriate for age. Respiratory: No deficits noted. Airway is patent Respiratory effort is even, unlabored, Respiratory pattern is regular, symmetrical. Historical: - Allergies: 19:00 No Known Allergies; cm10 - PMHx: 19:00 bowel obstruction; GERD; Hypertension; molar ; 2009; cm10 - Immunization history:: Adult Immunizations up to date. - Infectious Disease History:: Denies. - Social history:: Smoking status: Patient denies any tobacco usage or history of. Screenin:00 [facility] ED Fall Risk Assessment (Adult) History of falling in the last 3 months, br2 including since admission No falls in past 3 months (0 pts) Confusion or Disorientation No (0 pts) Intoxicated or Sedated No (0 pts) Impaired Gait No (0 pts) Mobility Assist Device Used No (0 pt) Altered Elimination No (0 pt) Score/Fall Risk Level 0 - 2 = Low Risk Oriented to surroundings. Abuse screen: Denies threats or abuse. Denies injuries from another. Nutritional screening: No deficits noted. Tuberculosis screening: No symptoms or risk factors identified. Assessment: 19:00 Reassessment: Patient and/or family updated on plan of care and expected duration. Pain br2 level reassessed. Patient is alert, oriented x 3, equal unlabored respirations, skin warm/dry/pink. General: Appears in no apparent distress. comfortable, Behavior is calm, cooperative. Pain: Complains of pain in left scapular area, right scapular area, left subscapular area and right subscapular area Pain does not radiate. Pain currently is 8 out of 10 on a pain scale. Neuro: [place] Agitation-Sedation Scale (RASS): 0 - Alert and Calm Level of Consciousness is awake, alert, obeys commands, Oriented to person, place, time, situation. Cardiovascular: No deficits noted. Capillary refill < 3 seconds. Respiratory: Airway is patent Respiratory effort is even, unlabored, Respiratory pattern is regular, symmetrical. GI: No signs and/or symptoms were reported involving the gastrointestinal system. : No signs and/or symptoms were reported regarding the genitourinary system. Vital Signs: 18:58 BP 149 / 97; Pulse 97; Resp 18; Temp 99.9(O); Pulse Ox 95% on R/A; Weight 93.44 kg; cm10 Height 5 ft. 4 in. ; Pain 9/10; 20:53 BP 140 / 9; Pulse 90; Resp 22; Temp 97.3; Pulse Ox 99% on R/A; br2 18:58 Body Mass Index 35.36 (93.44 kg, 162.56 cm) cm10 18:58 Pain Scale: Adult cm10 ED Course: 18:30 Patient arrived in ED. ra3 18:32 Ever Randolph PA is PHCP. cp 18:32 Ever Kennedy MD is Attending Physician. cp 18:59 Triage completed. cm10 19:00 Arm band placed on right wrist. Patient placed in an exam room, on a stretcher. cm10 19:00 Patient has correct armband on for positive identification. Bed in low position. Call br2 light in reach. Side rails up X 1. Provided Education on: PLAN OF CARE. 19:14 Dorina Richards RN is Primary Nurse. br2 19:25 Influenza Screen (a \T\ B) Sent. vk 19:25 RSV Sent. vk 19:25 SARS RAPID Sent. vk 19:25 Strep Sent. vk 19:25 COVID swab sent to lab. Flu and/or RSV swab sent to lab. Strep swab sent to lab. vk 20:01 Throat Culture Sent. br2 20:01 SARS RAPID Sent. br2 20:08 XRAY Chest (1 view) In Process Unspecified. EDMS 20:54 No provider procedures requiring assistance completed. br2 20:55 Patient did not have IV access during this emergency room visit. br2 Administered Medications: 19:29 Drug: predniSONE PO 60 mg PO once Route: PO; br2 20:00 Follow up: Response: No adverse reaction br2 19:30 Drug: Tessalon Perle PO 200 mg PO once Route: PO; br2 20:00 Follow up: Response: No adverse reaction br2 19:30 Drug: DuoNeb Nebulize (2.5 mg - 0.5 mg) 3 ml Nebulizer once Route: Nebulizer; br2 20:00 Follow up: Response: No adverse reaction br2 20:41 Drug: Oseltamivir PO 75 mg PO once Route: PO; br2 20:53 Follow up: Response: No adverse reaction br2 Medication: 20:55 VIS not applicable for this client. br2 Outcome: 20:41 Discharge ordered by MD. cp 20:54 Discharged to home ambulatory, br2 20:54 Condition: stable 20:54 Discharge instructions given to patient, Instructed on discharge instructions, follow up and referral plans. Demonstrated understanding of instructions, follow-up care, medications, Prescriptions given X 6 20:55 Patient left the ED. br2 Signatures: Dispatcher [employer] EDMS Ever Randolph PA PA cp Martinez, Clarissa, RN RN cm10 Cari Guerrier ra3 Janessa Alberts vk Dorina Richards, RN RN br2 Corrections: (The following items were deleted from the chart) 19:00 18:58 BP 149 / 7; Pulse 97bpm; Resp 18bpm; Pulse Ox 95% RA; Temp 99.9F Oral; 93.44 kg; cm10 Height 5 ft. 4 in.; BMI: 35.3; Pain 9/10, Adult; cm10
[2024-02-22 21:07] VITALS: BP 140/9; TEMP 97.3; O2SAT 99
== END 2024-02-22 20:55 | disposition home or self-care (01) ==
LOC: ER 18:28
DX: J10.1 Influenza due to other identified influenza virus with other respiratory manifestations (principal); Z11.52 Encounter for screening for COVID-19
CPT/HCPCS: 36415; 71045; 87070; 87081; 87804; 87807; 87811; 99284; J7512; J7613; J7644